=== PATIENT | male | born 1945 | race Caucasian/White ===

== ENCOUNTER → 2016-10-15 | Outpatient (CLI) | payer MEDICARE, OTHER ==
[2016-10-15 16:15] LABS: CH 31.8; CHCM 32.9; HCT 48.5 % (39.0-53.0); HDW 2.22; HGB 15.7 gm/dL (13.0-17.5); MCH 31.4 pg (25.0-35.0); MCHC 32.3 g/dL (31.0-37.0); MCV 97.1 fL (80.0-100.0); Mean Platelet Volume 6.8; RBC 4.99 m/uL (4.30-5.90); RDW 13.3 % (11.5-15.5)
[2016-10-15 16:22] LABS: Anion Gap 12 mmol/L; Blood Urea Nitrogen 17 mg/dL (9-20); Carbon Dioxide 23 mmol/L (22-30); Chloride 108 mmol/L (98-107); Non-African American GFR(MDRD) >60 (>60 ml/min/1.73 sqM); Potassium 4.5 mmol/L (3.5-5.1); Sodium 143 mmol/L (137-145)
== END | disposition home or self-care (01) ==
LOC: LABPAT 15:34
PROVIDERS: ATTEND Internal Medicine Interventional Cardiology
DX: Z01.812 Encounter for preprocedural laboratory examination (principal); I73.9 Peripheral vascular disease, unspecified
CPT/HCPCS: 80051; 82565; 84520; 85027

== ENCOUNTER 2016-11-06 06:10 | Day surgery (SDC) | payer MEDICARE, OTHER ==
[2016-11-05 13:53] VITALS: BMI 23.1
[~2016-11-06 06:10] MED LIST: SODIUM CHLORIDE 0.9% 1,000 ML in EMPTY BAG 1 BAG IV ONE
[2016-11-06 07:22] VITALS: RESP 16; TEMP 97.7
[2016-11-06] MEDS ORDERED: LIDOCAINE 2% INJ 20 MG/ML SQ ONE (07:45)
[2016-11-06] MEDS ORDERED: MIDAZOLAM 2 MG/2 ML VIAL IVP ONE (07:46)
[2016-11-06] MEDS ORDERED: IODIXANOL 320 MG/ML 100 ML INTRAARTER ONE (07:58)
[2016-11-06] MEDS ORDERED: SODIUM CHLORIDE 0.9% 1,000 ML IV SCH (08:15)
--- NOTE | 2016-11-06 09:00 | PTCA ---
DATE OF SERVICE: 11/06/2016 PERFORMING PHYSICIAN: Russell Navarro MD, Caddie. PROCEDURE PERFORMED: 1. An abdominal aortogram. 2. Bilateral lower extremity runoff. 3. Selective left common femoral artery angiogram. INDICATIONS: This is a pleasant 71-year-old gentleman who sees Dr. Munoz as an outpatient with a known history of severe peripheral arterial disease with prior stenting of the right common and right external as well as left external iliac artery as well as known severe disease involving bilateral SFA, came in today was experiencing severe bilateral lower extremity discomfort consistent with intermittent claudications. He is almost experiencing resting pain and evidence of CLI. APPROACH: Left common femoral artery. COMPLICATIONS: None. LEVEL OF SEDATION: Moderate. PROCEDURE DESCRIPTION: After obtaining an informed consent, the patient was brought to the Cardiac Skilled Helper. The left common femoral artery was cannulated using micropuncture technique under ultrasound guidance. The micropuncture wire passed easily, then I placed a 4 Lithuanian sheath in the left common femoral artery. Subsequently, I did an abdominal aortogram and bilateral lower extremity runoff using 4 Lithuanian pigtail catheter which was initially placed at the level of the renal arteries, then it was pulled above the bifurcation of the aorta into right and left common iliac arteries. By the end of the procedure, I did selective left common femoral artery through the sheath. SELECTIVE PERIPHERAL ANGIOGRAM: 1. The abdominal aorta is heavy calcified. There is a plaque in the distal aorta just above the bifurcation, seems to be in the range of 50% to 60%. 2. COMMON ILIAC ARTERIES: The right and left common iliac arteries appear to have mild disease only. The right common iliac artery is stented and the stent is patent. 3. EXTERNAL ILIAC ARTERIES: The right external iliac artery appeared to have severe in-stent restenosis involving the whole stent. The left common iliac artery appeared also severe in-stent restenosis on a focal area just after the bifurcation. 4. COMMON FEMORAL ARTERIES: The right and left common femoral arteries appear to have moderate diffuse disease. 5. PROFUNDA: The right and left profunda are patent. 6. SFA: The right SFA has critical lesion, appeared to be in the range of 80% to 90% on long segment. The left SFA is occluded with an area of occlusion extends from the proximal portion and reconstitutes by the David canal. 7. POPLITEAL: The right and left popliteal appeared to be angiographically normal. 8. BELOW THE KNEE: There are 3-vessel runoff below the knee bilaterally. CONCLUSION: 1. Calcified peripheral arterial system. 2. Intermediate disease involving the distal abdominal aorta just above the bifurcation. 3. Patent stent in the right common iliac artery. 4. Severe in-stent restenosis involving bilateral external iliac arteries. 5. Severe bilateral SFA disease with critical right SFA and occluded left SFA. 6. Three-vessel runoff below the knee bilaterally. POSTPROCEDURE MANAGEMENT: 1. Addressing the disease in the aorta by doing gradient measurement across it. 2. Stenting of bilateral external iliac arteries. 3. Follow up with the patient.
--- NOTE | 2016-11-06 11:53 | IR ---
EXAMINATION TYPE: IR angio abdominal w runoff DATE OF EXAM: 11/06/2016 8:18 AM COMPARISON: NONE HISTORY: Peripheral vascular occlusive disease. Fluoroscopy was applied to the referring clinician. See dictated report from cardiology.
[2016-11-06 13:38] VITALS: BP 122/67; PULSE 74
== END 2016-11-06 13:10 | disposition home or self-care (01) ==
LOC: CATHCVL 06:10
PROVIDERS: ATTEND Internal Medicine Interventional Cardiology
DX: I70.213 Atherosclerosis of native arteries of extremities with intermittent claudication, bilateral legs (principal); T82.856A Stenosis of peripheral vascular stent, initial encounter; F17.210 Nicotine dependence, cigarettes, uncomplicated; I25.10 Atherosclerotic heart disease of native coronary artery without angina pectoris; I70.0 Atherosclerosis of aorta; E78.5 Hyperlipidemia, unspecified; I10 Essential (primary) hypertension; Z95.1 Presence of aortocoronary bypass graft; I25.2 Old myocardial infarction; Z79.82 Long term (current) use of aspirin; Z79.899 Other long term (current) drug therapy; Z79.02 Long term (current) use of antithrombotics/antiplatelets; Y71.3 Surgical instruments, materials and cardiovascular devices (including sutures) associated with adverse incidents
CPT/HCPCS: 99156; 36200; 75625; 75716; C1769 ×3; C1894; J2001; J2250; Q9967

== ENCOUNTER 2016-11-20 08:59 | Day surgery (SDC) | payer MEDICARE, OTHER ==
[2016-11-19 12:55] VITALS: BMI 22.7
[2016-11-20 10:13] LABS: Anion Gap 9 mmol/L; Blood Urea Nitrogen 14 mg/dL (9-20); Calcium 9.4 mg/dL (8.4-10.2); Carbon Dioxide 28 mmol/L (22-30); Chloride 105 mmol/L (98-107); Glucose 83 mg/dL (74-99); Non-African American GFR(MDRD) >60 (>60 ml/min/1.73 sqM); Potassium 4.7 mmol/L (3.5-5.1); Sodium 142 mmol/L (137-145)
[2016-11-20] MEDS ORDERED: MIDAZOLAM 2 MG/2 ML VIAL IVP ONE ×2 (11:25)
[2016-11-20] MEDS ORDERED: SODIUM CHLORIDE 0.9% 1,000 ML IV ONE (11:26)
[2016-11-20] MEDS ORDERED: LIDOCAINE 2% INJ 20 MG/ML SQ ONE (11:30)
[2016-11-20] MEDS: HYDROmorphone 2 MG/ML 1 ML SYRINGE IV ONE ×4 (11:32→13:17)
[2016-11-20] MEDS ORDERED: CLOPIDOGREL 75 MG TAB PO ONE (11:47)
[2016-11-20] MEDS ORDERED: NITROGLYCERIN 1000MCG/10ML SYRINGE INTRAARTER ONE (12:15)
[2016-11-20] MEDS ORDERED: HEPARIN SODIUM 1,000 UNIT/ML VIAL IV ONE (12:30)
[2016-11-20] MEDS ORDERED: IODIXANOL 320 MG/ML 100 ML INTRAARTER ONE (13:17)
[2016-11-20] MEDS ORDERED: ZOLPIDEM 5 MG TAB PO PRN (13:22)
[2016-11-20] MEDS ORDERED: RX INFO: IV CONTRAST WAS GIVEN 1 EACH MISC MISCELLANE PRN (13:22)
[2016-11-20] MEDS ORDERED: NITROGLYCERIN SL TABS 0.4 MG TAB SUBLINGUAL PRN (13:22)
[2016-11-20] MEDS ORDERED: ATROPINE SULFATE 0.1 MG/ML 10ML SYRINGE IV PRN (13:22)
[2016-11-20] MEDS ORDERED: MAG HYDROX/AL HYDROX/SIMETH 30 ML CUP PO PRN (13:22)
[2016-11-20] MEDS ORDERED: SODIUM CHLORIDE 0.9% 1,000 ML IV SCH (13:30)
--- NOTE | 2016-11-20 13:45 | IR ---
EXAMINATION TYPE: IR stent intravas non coronary DATE OF EXAM: 11/20/2016 1:40 PM COMPARISON: NONE HISTORY: Peripheral vascular occlusive disease. Fluoroscopy was applied to the referring clinician. See dictated report from cardiology.
[2016-11-20] MEDS: METOPROLOL TARTRATE 25 MG TAB PO SCH (20:56)
[2016-11-21 07:25] LABS: Non-African American GFR(MDRD) >60 (>60 ml/min/1.73 sqM)
[2016-11-21 07:50] VITALS: RESP 16
--- NOTE | 2016-11-21 08:12 | LTR ---
November 20, 2016 RE: Koko Price Dear Shirley; Mr. Koko Price underwent successful stenting of the right and left external iliac arteries with a good angiographic result and without any completion. I want to thank you for allowing me to participate in his care and please do not hesitate to call if you have any questions or concerns. Sincerely, COOPER ASH MD
--- NOTE | 2016-11-21 08:21 | PCN ---
DATE OF PROCEDURE: 11/20/2016 PERCUTANEOUS PERIPHERAL INTERVENTION PERFORMING PHYSICIAN: Russell Navarro MD, voice coach. PROCEDURE PERFORMED: 1. Selective right common femoral artery angiogram. 2. Successful atherectomy of the right common femoral artery. 3. Successful balloon angioplasty of the right common femoral artery. 4. Selective right external iliac artery angiogram. 5. Successful stenting of the right external iliac artery using 6.0 x 60 balloon expandable stent with good angiographic results. 6. Selective left external iliac artery angiogram. 7. Successful stenting of left external iliac artery using 6.0 x 29 mm iCAST balloon expandable stent with good angiographic results. 8. Selective left common femoral artery angiogram. 9. Gradient measurement across the aorta. 10. Intravascular ultrasound, IVUS, of the right external iliac artery. INDICATION: This is a pleasant 71-year-old gentleman who sees Dr. Munoz as an outpatient who is known to have peripheral arterial disease, who underwent in the past stenting of the right common and right external and left external iliac artery continued to have severe bilateral lower extremity discomfort consistent with claudication. He underwent a peripheral angiogram a few weeks ago and that showed severe in-stent restenosis involving the right external iliac artery and severe de atul disease involving the right common femoral artery as well as severe de atul disease involving the left external iliac artery. APPROACH: Left common femoral artery. COMPLICATIONS: None. LEVEL OF SEDATION: Moderate with sedation length of about 2 hours. PROCEDURE DESCRIPTION: After obtaining an informed consent, the patient was brought to the cardiac lab specialist. The left common femoral artery was cannulated using micropuncture technique. The micropuncture wire passed easily, then I placed a 6 Slovak sheath in the left common femoral artery. Subsequently, I did advance an 0.035 advantage wire into the thoracic aorta. Then I did gradient measurement across the distal abdominal aorta for a lesion seems to be intermediate and the gradient came in to be nonischemic. After that anticoagulation was initiated using heparin and the patient was given a weight-based heparin with additional 3000 units of heparin during the procedure. Subsequently, I did select the right SFA using 5-Slovak rim catheter with 0.035 advantage wire. After that, I did exchange my 11 cm 6-Slovak sheath into 70 cm 6-Slovak sheath over the advantage wire. The tip of the sheath was positioned in the right external iliac artery. After that, I did atherectomy of the right common femoral artery using the TurboHawk device. Subsequently, I did balloon angioplasty using initially 6.0 AngioSculpt balloon. Then 6.0 drug-coated balloon. The following angiogram showed an excellent angiographic results. After that, I did selective right external iliac artery angiogram. Then I did intravascular ultrasound, IVUS, of the right external iliac artery for better measurement. At that point, I did balloon angioplasty of the right external iliac artery using initially 6.0 mm balloon then I deployed 6.0 x 60 mm balloon expandable stent. The following angiogram showed an excellent angiographic result. For the lesion in the left external iliac artery, I did pull my long sheath across the lesion and proximal to the lesion. Then I did selective left external iliac artery angiogram. After that, I did direct stenting of the lesion using 6.0 x 29 mm iCAST covered stent, where the stent was positioned under fluoroscopy guidance then it was deployed under its nominal pressure. The following angiogram showed excellent angiographic results. After that, I did exchange my long 70 cm sheath into short 6-Slovak 11 cm sheath over the advantage wire. I did selective left external iliac artery angiogram which showed possible non- flow-limiting dissection involving that area, which seems to be hazy and calcified. I did after that downgrade my sheath into an 11 cm 5-Slovak sheath. The procedure was completed at that point. POSTPROCEDURE MANAGEMENT: 1. Dual antiplatelet therapy. 2. Standard groin care. 3. Pull the sheath when the ACT below 175. 4. Follow up with the patient.
[2016-11-21] MEDS ORDERED: CLOPIDOGREL 75 MG TAB PO SCH (09:00)
[2016-11-21] MEDS ORDERED: ATORVASTATIN PO SCH (09:00)
[2016-11-21] MEDS ORDERED: ASPIRIN 81 MG CHEW PO SCH (09:00)
[2016-11-21] MEDS ORDERED: ALPRAZolam 0.25 MG TAB PO SCH (09:00)
[2016-11-21] MEDS: METOPROLOL TARTRATE 25 MG TAB PO SCH (09:17)
[2016-11-21 11:36] VITALS: BP 106/65; TEMP 98.6
[2016-11-21 14:26] VITALS: PULSE 78
--- NOTE | 2016-11-22 13:20 | DS ---
DATE OF ADMISSION: 11/20/2016 DATE OF DISCHARGE: 11/21/2016 BRIEF HISTORY: This is a pleasant 71-year-old gentleman who was admitted to the hospital yesterday and underwent successful balloon angioplasty of the right femoral artery along with successful stenting of the right and left external iliac arteries with good angiographic result and without any complication. The procedure was performed from the left groin, which seems to be soft and nontender and without any bruises. The patient is going to be discharged home on dual antiplatelet therapy and I will follow up with the patient in the office.
== END 2016-11-21 16:33 | disposition home or self-care (01) ==
LOC: CATHCVL 08:59 → 6SEL 13:07 → CATHCVL 11-21 16:33
PROVIDERS: ATTEND Internal Medicine Interventional Cardiology
DX: I70.213 Atherosclerosis of native arteries of extremities with intermittent claudication, bilateral legs (principal); I25.10 Atherosclerotic heart disease of native coronary artery without angina pectoris; I10 Essential (primary) hypertension; E78.5 Hyperlipidemia, unspecified; I25.2 Old myocardial infarction; Z95.1 Presence of aortocoronary bypass graft; Z72.0 Tobacco use; Z79.82 Long term (current) use of aspirin; Z79.899 Other long term (current) drug therapy
CPT/HCPCS: 37221 ×2; 94760; 37225; 37252; 80048; 82565; 99152; 99153 ×6; C1894 ×3; C1769 ×6; C1725 ×2; C1874; C1876; C1714; C1753; C2623; J2001; J2250; J1170; Q9967; J1644 ×2

== ENCOUNTER → 2017-05-31 | Outpatient (CLI) | payer MEDICARE, OTHER ==
[2017-05-31 12:08] LABS: CH 33.3; CHCM 32.8; HCT 49.4 % (39.0-53.0); HDW 2.14; HGB 15.8 gm/dL (13.0-17.5); MCH 32.6 pg (25.0-35.0); MCHC 31.9 g/dL (31.0-37.0); MCV 102.1 fL (80.0-100.0); Macrocytosis Slight; Mean Platelet Volume 7.5; RBC 4.84 m/uL (4.30-5.90); RDW 14.8 % (11.5-15.5); WBC 10.7 k/uL (3.8-10.6)
[2017-05-31 12:51] LABS: Creatine Kinase MB 1.7 ng/mL (0.0-2.4)
[2017-05-31 12:53] LABS: ALT 33 U/L (21-72); AST 25 U/L (17-59); Alkaline Phosphatase 101 U/L (38-126); Anion Gap 9 mmol/L; Blood Urea Nitrogen 13 mg/dL (9-20); Calcium 9.2 mg/dL (8.4-10.2); Carbon Dioxide 25 mmol/L (22-30); Chloride 105 mmol/L (98-107); Glucose 81 mg/dL (74-99); Non-African American GFR(MDRD) >60 (>60 ml/min/1.73 sqM); Potassium 4.8 mmol/L (3.5-5.1); Sodium 139 mmol/L (137-145); Total Bilirubin 0.7 mg/dL (0.2-1.3); Total Protein 6.9 g/dL (6.3-8.2)
[2017-05-31 15:02] LABS: Troponin I <0.012 ng/mL (0.000-0.034)
== END | disposition home or self-care (01) ==
LOC: LABWHC1 11:39
PROVIDERS: ATTEND Family Medicine
DX: I25.10 Atherosclerotic heart disease of native coronary artery without angina pectoris (principal); I48.91 Unspecified atrial fibrillation; R07.9 Chest pain, unspecified; M54.9 Dorsalgia, unspecified; Z95.1 Presence of aortocoronary bypass graft
CPT/HCPCS: 36415; 80053; 82553; 84484; 85027

== ENCOUNTER → 2018-05-27 | Outpatient (CLI) | payer MEDICARE, OTHER ==
[2018-05-27 10:20] LABS: HCT 51.4 % (39.0-53.0); HGB 16.2 gm/dL (13.0-17.5); MCH 31.8 pg (25.0-35.0); MCHC 31.6 g/dL (31.0-37.0); MCV 100.7 fL (80.0-100.0); Macrocytosis Slight; Mean Platelet Volume 6.8; Platelet Count 247 k/uL (150-450); RDW 13.5 % (11.5-15.5); WBC 10.6 k/uL (3.8-10.6)
[2018-05-27 11:16] LABS: Anion Gap 8 mmol/L; Blood Urea Nitrogen 17 mg/dL (9-20); Carbon Dioxide 25 mmol/L (22-30); Chloride 105 mmol/L (98-107); Potassium 5.3 mmol/L (3.5-5.1); Sodium 138 mmol/L (137-145)
== END ==
LOC: LABPAT 09:32
PROVIDERS: ATTEND Internal Medicine Interventional Cardiology
DX: Z01.812 Encounter for preprocedural laboratory examination (principal); I10 Essential (primary) hypertension; E78.1 Pure hyperglyceridemia; I70.213 Atherosclerosis of native arteries of extremities with intermittent claudication, bilateral legs
CPT/HCPCS: 80051; 82565; 84520; 85027

== ENCOUNTER 2018-06-10 07:51 | Day surgery (SDC) | payer MEDICARE, OTHER ==
[2018-06-09 08:34] VITALS: BMI 22.7
[~2018-06-10 07:51] MED LIST changes: +ALPRAZolam 0.25 MG TAB PO PRN
[2018-06-10 08:34] VITALS: RESP 16; TEMP 97.6
[2018-06-10] MEDS ORDERED: SODIUM CHLORIDE 0.9% 1,000 ML IV ONE (08:35)
[2018-06-10] MEDS ORDERED: MIDAZOLAM 2 MG/2 ML VIAL IV ONE (09:03)
[2018-06-10] MEDS ORDERED: LIDOCAINE 1% INJ 10MG/ML (20 ML MDV) SQ ONE (09:03)
[2018-06-10] MEDS ORDERED: IOPAMIDOL-250 50ML BTL INTRAARTER ONE (09:21)
[2018-06-10] MEDS ORDERED: IOPAMIDOL-250 100ML BTL INTRAARTER ONE (09:21)
[2018-06-10] MEDS ORDERED: SODIUM CHLORIDE 0.9% 1,000 ML IV SCH (09:30)
[2018-06-10] MEDS: ACETAMINOPHEN TAB 325 MG TAB PO PRN ×2 (09:57→13:29)
--- NOTE | 2018-06-10 10:49 | IR ---
EXAMINATION TYPE: IR angio abdominal w runoff DATE OF EXAM: 06/10/2018 COMPARISON: NONE HISTORY: Peripheral vascular occlusive disease. Fluoroscopy was provided to the referring clinician. See dictated report from cardiology.
--- NOTE | 2018-06-10 11:13 | LTR ---
June 10, 2018 Re: Koko Price Dear Dr. Kaiser: Mr. Koko Price underwent a peripheral angiogram today and that revealed critical disease involving the right superficial femoral artery and occluded left superficial femoral artery. He will be scheduled to undergo a TIRE CARE MANAGER of both arteries. Please note that the previous iliac stentings from 2016 are patent. Thank you again for allowing me to participate in his care and please do not hesitate to call if you have any question or concern. Sincerely, Russell Navarro MD MMBRIANDA / DAISYN: [id number] /
--- NOTE | 2018-06-10 11:40 | AN ---
ANGIOGRAPHY REPORT PERIPHERAL ANGIOGRAM: DATE OF SERVICE: June 10, 2018. PERFORMING PHYSICIAN: Russell Navarro MD, record clerk. PROCEDURE PERFORMED: 1. An abdominal aortogram. 2. Bilateral lower extremity runoff. 3. Gradient measurement across the right common iliac artery. INDICATION: This is a pleasant 72-year-old gentleman with a past medical history significant for peripheral arterial disease and prior stenting of bilateral iliacs, who was experiencing bilateral lower extremities intermittent claudication, worse on the left side. He was seen in the office and schedule to undergo an abdominal aortogram and bilateral lower extremities runoff. COMPLICATION: None. LEVEL OF SEDATION: Moderate with sedation length of 17 minutes. PROCEDURE DESCRIPTION: After obtaining an informed consent, the patient was brought to the cardiac laborer wood preserving plant. right common femoral artery was cannulated using micropuncture technique, the micropuncture wire passed easily then I placed a 5-Panamanian sheath in the right common femoral artery. After that, I did an abdominal aortogram and bilateral lower extremity runoff using 5- Panamanian pigtail catheter which was initially placed at the level of the renal arteries then it was pulled into above the bifurcation of the aorta to right and left common iliac arteries. The procedure was completed without any complication. Before I completed the procedure, I did a gradient measurement across the right common iliac artery. SELECTIVE PERIPHERAL ANGIOGRAM: 1. The aorta appeared to be heavily calcified with mild to moderate nonobstructive disease involving the distal aorta just above the bifurcation into the right and left common iliac arteries. 2. Common iliac arteries: The right and left common iliac arteries are stented and the stent is patent. 3. External iliac arteries: The right and left external iliac arteries are stented and the stent is patent. There was an area at the junction between the stent in the right common iliac artery and right external iliac artery appeared to be diseased in the range of 50%, but the gradient across it came into be non-significant and only 10 mmHg. 4. Common femoral arteries: The right common femoral artery appeared to have mild disease only and the left common femoral artery appeared to have mild to moderate disease only. 5. Profunda: The right and left profunda are patent. 6. SFA: The right SFA is severely/critically diseased in the midportion. The left SFA is occluded with an area of occlusion extent from the proximal portion and reconstitutes by the popliteal. 7. The right and left popliteal are patent. 8. Below the knee: The arteries below the knee are poorly visualized and we will do selective picture once we bring the patient back for intervention. CONCLUSION: 1. 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 2. Patent stents in both common and external iliac arteries bilaterally. 3. Critical disease involving the right SFA. 4. Occluded left SFA in the midportion. 5. Poorly visualized arteries below the knee. POSTPROCEDURE MANAGEMENT: 1. Atherectomy and MANAGER INTERNAL of the right SFA and subsequently the left SFA on 2 separate sessions. 2. Follow up with the patient. MMODL / IJN: [id number] /
[2018-06-10 15:37] VITALS: PULSE 69
[2018-06-10 15:39] VITALS: BP 139/70
== END 2018-06-10 15:23 | disposition home or self-care (01) ==
LOC: CATHCVL 07:51
PROVIDERS: ATTEND Internal Medicine Interventional Cardiology
DX: I70.213 Atherosclerosis of native arteries of extremities with intermittent claudication, bilateral legs (principal); I25.10 Atherosclerotic heart disease of native coronary artery without angina pectoris; I48.0 Paroxysmal atrial fibrillation; I25.2 Old myocardial infarction; Z95.1 Presence of aortocoronary bypass graft; F17.210 Nicotine dependence, cigarettes, uncomplicated; Z79.02 Long term (current) use of antithrombotics/antiplatelets; Z79.82 Long term (current) use of aspirin; Z79.899 Other long term (current) drug therapy; Z95.820 Peripheral vascular angioplasty status with implants and grafts
CPT/HCPCS: 36200; 75625; 75716; C1894; C1769 ×4; J2250; J2001; Q9966 ×2

== ENCOUNTER → 2018-06-16 | Outpatient (CLI) | payer MEDICARE, OTHER ==
[2018-06-16 16:02] LABS: Albumin 3.9 g/dL (3.5-5.0); Bilirubin, Delta 0.2 mg/dL (0.0-0.2); Bilirubin,Unconjugated 0.4 mg/dL (0.0-1.1); Total Bilirubin 0.6 mg/dL (0.2-1.3); Total Protein 6.5 g/dL (6.3-8.2)
== END | disposition home or self-care (01) ==
LOC: LABWHC1 15:15
PROVIDERS: ATTEND Internal Medicine Cardiovascular Disease
DX: I25.10 Atherosclerotic heart disease of native coronary artery without angina pectoris (principal); E78.5 Hyperlipidemia, unspecified
CPT/HCPCS: 36415; 80061; 80076

== ENCOUNTER → 2018-07-14 | Outpatient (CLI) | payer MEDICARE, OTHER ==
[2018-07-14 15:19] LABS: HCT 48.3 % (39.0-53.0); HGB 15.9 gm/dL (13.0-17.5); MCH 32.5 pg (25.0-35.0); MCV 98.7 fL (80.0-100.0); Mean Platelet Volume 7.3; Platelet Count 228 k/uL (150-450); RBC 4.89 m/uL (4.30-5.90); RDW 13.2 % (11.5-15.5); WBC 9.8 k/uL (3.8-10.6)
[2018-07-14 15:27] LABS: Anion Gap 7 mmol/L; Blood Urea Nitrogen 16 mg/dL (9-20); Carbon Dioxide 28 mmol/L (22-30); Chloride 107 mmol/L (98-107); Potassium 4.4 mmol/L (3.5-5.1); Sodium 142 mmol/L (137-145)
== END | disposition home or self-care (01) ==
LOC: LABPAT 14:51
PROVIDERS: ATTEND Internal Medicine Interventional Cardiology
DX: Z01.812 Encounter for preprocedural laboratory examination (principal); I70.213 Atherosclerosis of native arteries of extremities with intermittent claudication, bilateral legs
CPT/HCPCS: 36415; 80051; 82565; 84520; 85027

== ENCOUNTER 2018-07-22 10:37 | Day surgery (SDC) | payer MEDICARE, OTHER ==
[2018-07-20 08:27] VITALS: BMI 22.7
[2018-07-22] MEDS ORDERED: SODIUM CHLORIDE 0.9% 1,000 ML IV ONE (11:31)
[2018-07-22] MEDS ORDERED: LIDOCAINE 1% INJ 10MG/ML (20 ML MDV) SQ ONE (14:14)
[2018-07-22] MEDS ORDERED: fentaNYL (PF) 50 MCG/ML 2 ML AMP IVP ONE ×2 (14:20→15:05)
[2018-07-22] MEDS ORDERED: MIDAZOLAM 2 MG/2 ML VIAL IVP ONE (14:20)
[2018-07-22] MEDS ORDERED: HEPARIN SODIUM 1,000 UN/ML (10ML VL) IV ONE (14:24)
[2018-07-22] MEDS ORDERED: CLOPIDOGREL 75 MG TAB PO ONE (15:27)
[2018-07-22] MEDS ORDERED: IOPAMIDOL-250 100ML BTL INTRAARTER ONE (15:30)
[2018-07-22] MEDS ORDERED: SODIUM CHLORIDE 0.9% 1,000 ML IV SCH (15:45)
--- NOTE | 2018-07-22 15:59 | IR ---
Fluoroscopy HISTORY: Peripheral vascular occlusive disease 20.8 minutes fluoroscopy time supplied to the referring clinician. 653 intraoperative C-arm images d ocument the procedure. See dictated report from cardiology.
[2018-07-22] MEDS ORDERED: HYDROmorphone 1 MG/ML 1 ML SYRINGE IVP STA (16:24)
[2018-07-22] MEDS ORDERED: hydrALAZINE HCL 20 MG/ML 1 ML VIAL IVP STA (16:25)
[2018-07-22] MEDS ORDERED: HYDROmorphone 1 MG/ML 1 ML SYRINGE ONE (16:27)
--- NOTE | 2018-07-22 20:41 | LTR ---
July 22, 2018 To: Dr. Kaiser Re: Koko Price (47) Dear Dr. Kaiser, Mr. Koko Price underwent successful balloon angioplasty of the right femoral artery with good angiographic results and without any complication. Thank you for allowing me to participate in his care and please do not hesitate to call if you have any question or concern. Sincerely, Russell Navarro MD MMODL / IJN: [id number] /
[2018-07-22 21:13] LABS: Basophils % (A) 0 %; Eosinophils # (A) 0.1 k/uL (0-0.7); Eosinophils % (A) 1 %; HCT 43.5 % (39.0-53.0); HGB 14.2 gm/dL (13.0-17.5); Lymphocytes # (A) 2.2 k/uL (1.0-4.8); Lymphocytes % (A) 19 %; MCH 32.6 pg (25.0-35.0); MCHC 32.7 g/dL (31.0-37.0); MCV 99.8 fL (80.0-100.0); Mean Platelet Volume 7.1; Monocytes # (A) 0.6 k/uL (0-1.0); Monocytes % (A) 5 %; Neutrophils # (A) 8.6 k/uL (1.3-7.7); Neutrophils % (A) 74 %; Platelet Count 209 k/uL (150-450); RBC 4.36 m/uL (4.30-5.90); RDW 13.5 % (11.5-15.5); WBC 11.7 k/uL (3.8-10.6)
[2018-07-22 21:22] LABS: Anion Gap 4 mmol/L; Blood Urea Nitrogen 11 mg/dL (9-20); Carbon Dioxide 26 mmol/L (22-30); Chloride 108 mmol/L (98-107); Glucose 75 mg/dL (74-99); Potassium 4.5 mmol/L (3.5-5.1); Sodium 138 mmol/L (137-145)
[2018-07-22] MEDS: ALPRAZolam 0.25 MG TAB PO SCH (21:29)
[2018-07-22] MEDS: METOPROLOL TARTRATE 25 MG TAB PO SCH (21:29)
[2018-07-23] MEDS: AMOXICILLIN 500 MG CAP PO SCH ×2 (00:14→08:47)
--- NOTE | 2018-07-23 07:36 | AN ---
ANGIOGRAPHY REPORT DATE OF SERVICE: July 22, 2018 PERFORMING PHYSICIAN: Russell Navarro MD, value stream coach. PROCEDURE PERFORMED: 1. Selective right [id number] angiogram. 2. Selective right popliteal SFA angiogram. 3. Selective left common femoral artery angiogram. 4. Atherectomy of the right SFA using the orbital atherectomy device from [employer]. 5. Balloon angioplasty of the right SFA with inadequate angiographic results and flow- limiting dissection. 6. Successful stenting of the right SFA using 6 6.0 x 140 and 6.0 x 140 Zilver PTX drug-coated stent with good angiographic results and reduction of stenosis from 99% to 0%. INDICATION: This is a pleasant 72-year-old gentleman with known history of peripheral arterial disease and prior bilateral iliac stenting, who was experiencing bilateral lower extremities intermittent claudication interfering with his daily activities. He underwent a peripheral angiogram a few weeks ago and that showed critical right SFA disease and occluded left SFA. Because of that, CTA of the right SFA was advised. APPROACH: Left common femoral artery. COMPLICATION: None. LEVEL OF SEDATION: Moderate, sedation length of 72 minutes. PROCEDURE DESCRIPTION: After obtaining an informed consent, the patient was brought to cardiac director geophysical laboratory. The left common femoral artery was cannulated using micropuncture technique and a micropuncture wire passed easily, then I placed an 11 cm 6-Finnish sheath in the left common femoral artery. After that I did select the right SFA using 0.035 Dutton Advantage with the backup support of 5-Finnish rim catheter. The 035 guide Advantage was advanced all the way to the right popliteal. At that point, anticoagulation was initiated using heparin and the patient was given 8 thousand units of heparin IV. I did after that exchange my 11 cm 6-Finnish sheath into 70 cm 6-Finnish sheath using a 035 guide Advantage. The sheath was positioned in the proximal right SFA. After that, I did exchange my .035 Dutton Advantage into 0.014 ViperWire preparing for atherectomy using an 0.035 CXI catheter. After that I did atherectomy of the right SFA using the orbital atherectomy device from [email or web address]. After that I did balloon angioplasty using 4 mm balloon with the following angiogram showing dissection involving the whole mid segment of the right SFA. Because of that, I decided to cover that with a stent. I deployed 2 Zilver PTX stent. The first stent was 6 x 140 and the second stent was over 6 x 140. There was about 1 mm overlap between the 2 stents. After that, I post dilated the stent using the 6 mm balloon. The following angiogram showed excellent angiographic results. The procedure was completed without any complication. After that I did exchange my long sheath into short sheath using .035 Dutton Advantage. Selective left common femoral artery angiogram was performed by the end. POSTPROCEDURE MANAGEMENT: 1. Dual anti-platelet therapy. 2. Risk factor modifications. 3. Follow up with the patient. MMODL / IJN: [id number] /
[2018-07-23] MEDS: ALPRAZolam 0.25 MG TAB PO SCH (08:47)
[2018-07-23] MEDS: METOPROLOL TARTRATE 25 MG TAB PO SCH (08:48)
[2018-07-23] MEDS ORDERED: ASPIRIN 81 MG PO SCH (09:00)
[2018-07-23] MEDS ORDERED: CLOPIDOGREL 75 MG TAB PO SCH (09:00)
[2018-07-23] MEDS ORDERED: ATORVASTATIN 40 MG TAB PO SCH (09:00)
[2018-07-23 09:14] VITALS: BP 123/64; PULSE 62; RESP 18; TEMP 98
--- NOTE | 2018-07-23 11:45 | DS ---
DISCHARGE SUMMARY ADMISSION DATE: July 22, 2018 DATE OF DISCHARGE: July 23, 2018 BRIEF HISTORY: This is a pleasant 72-year-old gentleman who was admitted to the hospital yesterday and underwent successful atherectomy and balloon angioplasty of the right SFA with good angiographic results and without any complication with the procedure was performed from the left groin. The left groin is soft and nontender and without any bruises. The patient is going to be discharged home on dual anti-platelet therapy and I will follow up in the office in a week. MMODL / IJN: [id number] /
[2018-07-23] MEDS ORDERED: RIVAROXABAN 15 MG TAB PO SCH (17:30)
== END 2018-07-23 09:45 | disposition home or self-care (01) ==
LOC: CATHCVL 10:37 → 3SCARD 15:25 → CATHCVL 07-23 09:45
PROVIDERS: ATTEND Internal Medicine Interventional Cardiology
DX: I70.213 Atherosclerosis of native arteries of extremities with intermittent claudication, bilateral legs (principal); F17.290 Nicotine dependence, other tobacco product, uncomplicated; I25.10 Atherosclerotic heart disease of native coronary artery without angina pectoris; I10 Essential (primary) hypertension; I65.22 Occlusion and stenosis of left carotid artery; E78.5 Hyperlipidemia, unspecified; Z95.1 Presence of aortocoronary bypass graft; Z95.5 Presence of coronary angioplasty implant and graft; I48.0 Paroxysmal atrial fibrillation; I25.2 Old myocardial infarction; Z79.82 Long term (current) use of aspirin; Z79.899 Other long term (current) drug therapy
CPT/HCPCS: 37227; 80048; 82565; 85025; C1894 ×2; C1714; C1769 ×6; C1725 ×4; C1887; C1874; J2250; J0360; J2001; J3010; J1644; J1170; Q9966

== ENCOUNTER → 2018-11-11 | Outpatient (CLI) | payer MEDICARE, OTHER ==
[2018-11-11 09:38] LABS: HGB 14.3 gm/dL (13.0-17.5); MCHC 32.5 g/dL (31.0-37.0); MCV 98.4 fL (80.0-100.0); Mean Platelet Volume 7.1; Platelet Count 222 k/uL (150-450); RBC 4.47 m/uL (4.30-5.90); RDW 12.9 % (11.5-15.5); WBC 7.9 k/uL (3.8-10.6)
[2018-11-11 10:03] LABS: Anion Gap 6 mmol/L; Blood Urea Nitrogen 18 mg/dL (9-20); Carbon Dioxide 26 mmol/L (22-30); Chloride 106 mmol/L (98-107); Potassium 4.7 mmol/L (3.5-5.1); Sodium 138 mmol/L (137-145)
== END ==
LOC: LABPAT 09:05
PROVIDERS: ATTEND Internal Medicine Interventional Cardiology
DX: Z01.812 Encounter for preprocedural laboratory examination (principal); I70.213 Atherosclerosis of native arteries of extremities with intermittent claudication, bilateral legs; I10 Essential (primary) hypertension; E78.1 Pure hyperglyceridemia
CPT/HCPCS: 36415; 80051; 82565; 84520; 85027

== ENCOUNTER 2018-11-25 06:06 | Day surgery (SDC) | payer MEDICARE, OTHER ==
[~2018-11-25 06:06] MED LIST changes: -ALPRAZolam 0.25 MG TAB PO PRN
[2018-11-25 07:08] LABS: Basophils % (A) 0 %; Eosinophils # (A) 0.3 k/uL (0-0.7); Eosinophils % (A) 1 %; HCT 45.2 % (39.0-53.0); HGB 14.7 gm/dL (13.0-17.5); Lymphocytes # (A) 2.6 k/uL (1.0-4.8); Lymphocytes % (A) 13 %; MCH 31.4 pg (25.0-35.0); MCHC 32.4 g/dL (31.0-37.0); MCV 96.8 fL (80.0-100.0); Mean Platelet Volume 7.5; Monocytes # (A) 0.9 k/uL (0-1.0); Monocytes % (A) 5 %; Neutrophils # (A) 15.3 k/uL (1.3-7.7); Neutrophils % (A) 79 %; Platelet Count 330 k/uL (150-450); RBC 4.67 m/uL (4.30-5.90); RDW 12.8 % (11.5-15.5); WBC 19.3 k/uL (3.8-10.6)
[2018-11-25] MEDS ORDERED: HEPARIN SODIUM,PORCINE 10,000 UNIT/ML 1 ML VIAL ONE (07:20)
[2018-11-25] MEDS ORDERED: MIDAZOLAM 2 MG/2 ML VIAL ONE (07:20)
[2018-11-25] MEDS ORDERED: fentaNYL (PF) 50 MCG/ML 2 ML AMP ONE (07:20)
[2018-11-25] MEDS ORDERED: PROPOFOL 10 MG/ML 20 ML VIAL IV ONE (07:20)
[2018-11-25 07:45] LABS: Anion Gap 5 mmol/L; Blood Urea Nitrogen 23 mg/dL (9-20); Calcium 9.2 mg/dL (8.4-10.2); Carbon Dioxide 28 mmol/L (22-30); Chloride 106 mmol/L (98-107); Glucose 98 mg/dL (74-99); Potassium 4.4 mmol/L (3.5-5.1); Sodium 139 mmol/L (137-145)
[2018-11-25] MEDS ORDERED: LIDOCAINE 1% INJ 10MG/ML (20 ML MDV) SQ ONE (08:38)
[2018-11-25] MEDS ORDERED: IOPAMIDOL-250 100ML BTL INTRAARTER ONE ×3 (09:35→10:34)
[2018-11-25] MEDS: NITROGLYCERIN 1000MCG/10ML SYRINGE INTRAARTER ONE ×2 (09:58→10:24)
[2018-11-25] MEDS: niCARdipine 25 MG/10 ML VIAL INTRAARTER ONE ×2 (09:58→10:24)
[2018-11-25] MEDS ORDERED: SODIUM CHLORIDE 0.9% 1,000 ML IV SCH (10:45)
[2018-11-25] MEDS ORDERED: CLOPIDOGREL 75 MG TAB PO ONE (10:55)
[2018-11-25 13:49] VITALS: BMI 22.6
--- NOTE | 2018-11-25 16:24 | LTR ---
November 25, 2018 To: Dr. Kaiser Re: Koko Price (1945) Dear Dr. Kaiser, Mr. Koko Price underwent successful balloon angioplasty of the left femoral artery with good angiographic results and without any complications. I want to thank you for allowing us to participate in his care, and please do not hesitate to call if you have any question or concerns. Sincerely, Russell Navarro M.D. YAMIL / CALLY: [id number] /
--- NOTE | 2018-11-25 16:36 | AN ---
ANGIOGRAPHY REPORT DATE OF SERVICE: November 25, 2018 PERFORMING PHYSICIAN: Russell Navarro MD, traffic survey technician. PROCEDURE PERFORMED: 1. Selective left vxbhr-vqm-kime angiogram. 2. Selective left popliteal/SFA angiogram. 3. Selective left common femoral artery angiogram. 4. Selective right common femoral artery angiogram. 5. An atherectomy of the left SFA using the orbital atherectomy device from [employer] with 1.5diamond. 6. Stenting of the distal and mid left SFA using 6 x 140 and 6 x 40 Zilver PTX drug- coated stent with an excellent angiographic result. 7. Successful balloon angioplasty of the proximal left SFA using 6 x 80 drug-coated stent, which was intact with an excellent angiographic results. 8. Successful balloon angioplasty of the left common femoral artery using 6 mm balloon with an excellent angiographic results. INDICATION: This is a 73-year-old gentleman with known history of peripheral arterial disease and known occluded left SFA, who was experiencing left leg intermittent claudication. He underwent a peripheral angiogram a few months ago and that revealed patent stents in both iliac arteries with critical right SFA and occluded left SFA. He was brought today to undergo a SOFTWARE APPLICATIONS ARCHITECT of the left SFA. APPROACH: Right common femoral artery. COMPLICATION: None. LEVEL OF SEDATION: Moderate with sedation length of 12 minutes. PROCEDURE DESCRIPTION: After obtaining an informed consent, the patient was brought to the cardiac director of cath lab. The right common femoral artery was cannulated using micropuncture technique, the micropuncture wire passed easily. Then I placed a 6-Swazi sheath in the 11 cm in the right common femoral artery. Subsequently, I did select the left profunda using 035 [place] Advantage wire with a 5- Swazi Rim catheter. After that, I did exchange my 11 cm 6-Swazi sheath into 55 cm 6- Swazi Raabe sheath using the [place] Advantage wire where the tip of the sheath was positioned in the proximal left common femoral artery. After that I did selective left [id number]-[id number] angiogram, selective left popliteal and SFA angiogram, and selective left common femoral artery angiogram. Subsequently, anticoagulation was initiated using heparin with continuous ACT monitoring throughout the procedure. After that I did cross the chronic total occlusion of the left SFA using 018 hardy tip glidewire with the backup support of 0.018 CXI catheter. After that, I did advance the wire all the way to the left popliteal, followed by the 0.018 CXI catheter. Then I did inject in the left to prove that I was in the true lumen. After that, I decided to do an atherectomy of the left SFA, so I did exchange my 018 wire into 0.014 ViperWire using 018 CXI catheter. After that I did atherectomy of the left SFA using the low, medium, and high speed. After that, I did pulling the atherectomy device over the wire I lost the wire position. I did the following angiogram which showed occluded left femoral artery, which I think related either to plaque lifted or related to thrombus. I crossed that left common femoral artery again using 0.018 gold tip glidewire with the backup support of 0.018 CXI catheter and I crossed the DRYWALL CARRIER of the left SFA again, where the wire was positioned all the way to the left popliteal artery. After that, I did balloon angioplasty of the left common femoral artery using 6 mm balloon with the following angiogram showing excellent angiographic results. Then I did balloon angioplasty of the left SFA as well. Balloon angioplasty was performed using 5 mm balloon. The following angiogram showed dissection in the distal left SFA and mid left SFA which I decided to cover with a stent so I stented distally using 6 x 140 in the mid using a 6 x 40 mm Zilver PTX drug-coated stent with the following angiogram showing excellent angiographic results. For the proximal left SFA, I did balloon angioplasty using 6 x 80 mm drug-coated balloon. The following angiogram showed also good angiographic results. The procedure was completed without any complication. After that I did exchange my long sheath into short sheath using .035 Glidewire. Finally I did selective right common femoral artery angiogram. The procedure was completed without any complication. POSTPROCEDURE MANAGEMENT: 1. Dual anti-platelet therapy. 2. Risk factors modifications. 3. Follow up with the patient. MMODL / IJN: [id number] /
[2018-11-25] MEDS: ACETAMINOPHEN TAB 325 MG TAB PO PRN (18:11)
[2018-11-25] MEDS: METOPROLOL TARTRATE 25 MG TAB PO SCH (20:16)
[2018-11-25] MEDS: ALPRAZolam 0.25 MG TAB PO SCH (20:16)
[2018-11-25] MEDS: ASPIRIN 81 MG PO SCH (20:16)
[2018-11-26] MEDS: ACETAMINOPHEN TAB 325 MG TAB PO PRN (05:22)
[2018-11-26 07:29] LABS: Anion Gap 3 mmol/L; Blood Urea Nitrogen 18 mg/dL (9-20); Calcium 8.2 mg/dL (8.4-10.2); Carbon Dioxide 27 mmol/L (22-30); Chloride 108 mmol/L (98-107); Glucose 75 mg/dL (74-99); Potassium 4.3 mmol/L (3.5-5.1); Sodium 138 mmol/L (137-145)
[2018-11-26 07:37] LABS: Basophils # (A) 0.1 k/uL (0-0.2); Basophils % (A) 0 %; Eosinophils # (A) 0.3 k/uL (0-0.7); Eosinophils % (A) 2 %; HCT 37.2 % (39.0-53.0); HGB 11.8 gm/dL (13.0-17.5); Lymphocytes # (A) 2.8 k/uL (1.0-4.8); Lymphocytes % (A) 17 %; MCH 31.2 pg (25.0-35.0); MCHC 31.7 g/dL (31.0-37.0); MCV 98.4 fL (80.0-100.0); Mean Platelet Volume 7.2; Monocytes # (A) 0.9 k/uL (0-1.0); Monocytes % (A) 5 %; Neutrophils # (A) 12.5 k/uL (1.3-7.7); Neutrophils % (A) 75 %; Platelet Count 298 k/uL (150-450); RBC 3.78 m/uL (4.30-5.90); RDW 13.4 % (11.5-15.5); WBC 16.6 k/uL (3.8-10.6)
--- NOTE | 2018-11-26 07:54 | DS ---
DISCHARGE SUMMARY ADMISSION DATE: November 25, 2018 DISCHARGE DATE: November 26, 2018 BRIEF HISTORY: This is a 73-year-old gentleman who underwent yesterday successful balloon angioplasty of the left femoral artery and left superficial femoral artery with excellent angiographic results and without any complication from procedure that was performed from the right groin. The right groin is soft and nontender and without any bruises. He is going to be discharged home today on anti-platelet along with statin and he needs to have a followup in a week. MMBRIANDA / DAISYN: [id number] /
[2018-11-26] MEDS: METOPROLOL TARTRATE 25 MG TAB PO SCH (08:10)
[2018-11-26] MEDS: ASPIRIN 81 MG PO SCH (08:10)
[2018-11-26] MEDS: ALPRAZolam 0.25 MG TAB PO SCH (08:10)
[2018-11-26 08:17] VITALS: BP 108/59; PULSE 77; RESP 20; TEMP 97.8
[2018-11-26] MEDS ORDERED: ATORVASTATIN 40 MG TAB PO SCH (09:00)
[2018-11-26] MEDS ORDERED: CLOPIDOGREL 75 MG TAB PO SCH (09:00)
--- NOTE | 2018-11-26 10:15 | IR ---
EXAMINATION TYPE: IR stent intravas non coronary DATE OF EXAM: 11/25/2018 COMPARISON: NONE HISTORY: Fluoroscopy time. Fluoroscopy was provided to the referring clinician.
--- NOTE | 2018-12-11 11:41 | CDI ---
Physician Documentation Clarification Request Request Date: 12/11/18 [id number] Koko Price [facility] [place] Navarro, Your procedure note does not support the charge for intravascular ultrasound. We consulted with BETZAIDA Fuller, regarding removing the charge. But he indicated that it was performed and we should request that you do addendum to your procedure note related to the performance of intravascular ultrasound. thank you for your assistance. Amber Velarde [place] [facility]
--- NOTE | 2018-12-18 16:33 | PCN ---
PROCEDURE NOTE ADDENDUM: DATE OF PROCEDURE: November 25, 2018 This is an addendum to procedure that was performed on that day. 1 want to add that intravascular ultrasound IVUS was performed on the left superficial femoral artery. MMBRIANDA / IJN: [id number] /
== END 2018-11-26 09:01 | disposition home or self-care (01) ==
LOC: CATHCVL 06:06 → 3SCARD 11:57 → CATHCVL 11-26 09:01
PROVIDERS: ATTEND Internal Medicine Interventional Cardiology
DX: I70.213 Atherosclerosis of native arteries of extremities with intermittent claudication, bilateral legs (principal); I25.10 Atherosclerotic heart disease of native coronary artery without angina pectoris; I48.0 Paroxysmal atrial fibrillation; I10 Essential (primary) hypertension; E78.5 Hyperlipidemia, unspecified; I25.2 Old myocardial infarction; J44.9 Chronic obstructive pulmonary disease, unspecified; Z95.1 Presence of aortocoronary bypass graft; Z95.5 Presence of coronary angioplasty implant and graft; Z79.02 Long term (current) use of antithrombotics/antiplatelets; Z79.82 Long term (current) use of aspirin; Z79.899 Other long term (current) drug therapy; Z79.01 Long term (current) use of anticoagulants; Z87.891 Personal history of nicotine dependence; Z79.2 Long term (current) use of antibiotics
CPT/HCPCS: 37225; 37252; 80048 ×2; 85025 ×2; C1894 ×2; C1769 ×10; C1714; C1725 ×3; C1753; C2623 ×2; C1874 ×2; J2250; J1644; J2001; J3010; J2704; Q9966

== ENCOUNTER → 2019-07-05 | Outpatient (CLI) | payer MEDICARE, OTHER ==
[2019-07-05 18:18] LABS: Albumin 4.2 g/dL (3.80-4.90); Albumin/Globulin Ratio 2.33 (1.60-3.17); Bilirubin, Conjugated 0.2 mg/dL (0.20-0.40); Bilirubin,Unconjugated 0.3 mg/dL; Chol/HDL Ratio 3.17; Globulin 1.8 g/dL (1.6-3.3); LDL Cholesterol,Calculated 89.4 mg/dL (0.0-131.0); Total Bilirubin 0.5 mg/dL (0.2-1.2); VLDL Calculation 12.6 mg/dL (5.00-40.00)
== END | disposition home or self-care (01) ==
LOC: LABWHC1 09:49
PROVIDERS: ATTEND Internal Medicine Cardiovascular Disease
DX: E78.5 Hyperlipidemia, unspecified (principal); I25.10 Atherosclerotic heart disease of native coronary artery without angina pectoris
CPT/HCPCS: 36415; 80061; 80076

== ENCOUNTER 2021-01-22 08:44 | Day surgery (SDC) | payer MEDICARE, OTHER ==
[2021-01-18 14:11] VITALS: BMI 21.1
[2021-01-22] MEDS ORDERED: LACTATED RINGERS 1,000 ML IV ONE (09:18)
[2021-01-22 09:24] VITALS: RESP 16; TEMP 98
[2021-01-22] MEDS ORDERED: METOPROLOL TARTRATE 25 MG TAB PO STA (09:36)
[2021-01-22] MEDS ORDERED: PROPOFOL 10 MG/ML 20 ML VIAL IV ONE (10:04)
--- NOTE | 2021-01-22 10:51 | P.PCN ---
Date of Procedure: 01/22/21 Description of Procedure: BRIEF HISTORY: Patient is a 75-year-old male presenting for outpatient colonoscopy for evaluation of blood in the stool. The patient reports last colonoscopy approximately 10 years ago. No change in bowel habits or abdominal pain. No family history of colon cancer reported. PROCEDURE PERFORMED: Colonoscopy with polypectomy. PREOPERATIVE DIAGNOSIS: Blood in stool, last colonoscopy approximately 10 years ago. ESTIMATED BLOOD LOSS: Minimal. IV sedation per Anesthesia. PROCEDURE: After informed consent was obtained, the patient, was brought into the endoscopy unit. IV sedation was administered by Anesthesia under continuous monitoring. Digital rectal examination was normal. Initially the Olympus CF-190 flexible video colonoscope was then inserted in the rectum, gradually advanced into the cecum without any difficulty. Careful examination was performed as the scope was gradually being withdrawn. Ileocecal valve and the appendiceal orifice were visualized and appeared normal. Prep was excellent. Mucosa of the cecum, ascending colon, transverse colon, descending colon, sigmoid colon, and rectum appeared normal. Diminutive polyps measuring 1-2 mm in size removed from the ascending colon, hepatic flexure, transverse colon and rectum with cold forcep polypectomy. Retroflexion was performed in the rectum and no lesions were seen, low-grade internal hemorrhoids noted. The patient tolerated the procedure well. IMPRESSION: 4 diminutive polyps removed with cold forcep polypectomy from ascending colon, hepatic flexure, transverse colon and rectum. Internal hemorrhoids. RECOMMENDATIONS: Findings of this examination were discussed with the patient and his family. Okay to resume diet. Okay to resume medications. Await pathology from polypectomies. Recommend repeat colonoscopy in 5 years for colon polyps if patient is medically stable at that time, pending pathology from polypectomy.
[2021-01-22 11:04] VITALS: BP 132/51; PULSE 65
== END 2021-01-22 12:09 | disposition home or self-care (01) ==
LOC: ORWHC2ENDO 08:44
PROVIDERS: ATTEND Internal Medicine
DX: D12.2 Benign neoplasm of ascending colon (principal); D12.3 Benign neoplasm of transverse colon; D12.8 Benign neoplasm of rectum; K64.8 Other hemorrhoids; I25.10 Atherosclerotic heart disease of native coronary artery without angina pectoris; I10 Essential (primary) hypertension; E78.5 Hyperlipidemia, unspecified; I73.9 Peripheral vascular disease, unspecified; I34.0 Nonrheumatic mitral (valve) insufficiency; Z87.891 Personal history of nicotine dependence; Z95.5 Presence of coronary angioplasty implant and graft; Z95.820 Peripheral vascular angioplasty status with implants and grafts; Z95.1 Presence of aortocoronary bypass graft; Z98.890 Other specified postprocedural states; Z97.2 Presence of dental prosthetic device (complete) (partial); Z79.01 Long term (current) use of anticoagulants; Z79.82 Long term (current) use of aspirin; Z79.899 Other long term (current) drug therapy
CPT/HCPCS: 88305; 45380; J2704

== ENCOUNTER → 2021-02-16 | Outpatient (CLI) | payer MEDICARE, OTHER ==
--- NOTE | 2021-02-17 13:26 | CT ---
EXAMINATION TYPE: CT abdomen w con DATE OF EXAM: 02/16/2021 COMPARISON: None INDICATION: LUQ pain DLP: 243 mGycm, Automated exposure control for dose reduction was used. CONTRAST: 100 mL of Isovue 300. Study performed with Oral Contrast TECHNIQUE: Axial images were obtained from above the diaphragm to the pubic rami in the axial plane a t 5 mm thick sections. Reconstructed images are reviewed on the computer in the coronal plane. FINDINGS: Limited CT sections are obtained the lung bases. The lung bases are clear. CT ABDOMEN: Liver: 0.8 cm lobular hepatic cysts at the dome of the liver. Liver otherwise appears unremarkable. Spleen: There is a crescentic encapsulated low density collection posterior to the spleen. A capsular hematoma should be considered. As measures approximately 8.0 cm transverse with a depth of 2.3 cm. T here are no comparison studies for evaluation. The spleen is not enlarged. Pancreas: Normal Adrenal glands: The adrenal glands are normal. Gallbladder: Normal Kidneys: No masses are evident. No hydronephrosis is present. No cysts are present. Delayed images were obtained through the kidneys, which remain unremarkable. Aorta: Vascular calcification is within the aorta. Inferior vena cava: Normal. Loops of bowel within the abdomen and upper pelvis are normal. There are loops of bowel which are incompletely distended or lack oral contrast limiting their evaluation. IMPRESSIONS: 1. Appears to be a splenic capsular hematoma of indeterminate age. Correlate with the patient's hist ory A Harper level critical message alert has been initiated for Omid Lopez DO via the [employer] Critical Results System on 02/17/2021 1:22 PM. This message alert has been sent to Omid jordan DO via the preferences provided by the clinician for the receipt of Radiology Critical Findings. Message ID [id number].
== END | disposition home or self-care (01) ==
LOC: RADCTMAIN 15:04
PROVIDERS: ATTEND Family Medicine
DX: R10.12 Left upper quadrant pain (principal)
CPT/HCPCS: 74160; Q9967

== ENCOUNTER 2021-03-15 09:08 | Inpatient (IN) | payer MEDICARE, OTHER ==
--- NOTE | 2021-03-15 09:25 | ED ---
General Adult HPI - General Stated complaint: Mental Health Time Seen by Provider: 03/15/21 09:11 Source: patient, EMS, RN notes reviewed, old records reviewed - History of Present Illness Initial comments: 75-year-old male presenting for psychiatric evaluation. Suicidal ideation. Patient states he did over take his Xanax 0.25 mg today. He states he took 4 pills at once. He took no other medication that he reports. He states this was a suicide attempt. Patient was transported by EMS for psychiatric evaluation. He states he's had some issues in his marriage and his wants to separate. He denies physical complaints. - Related Data Home Medications Medication Instructions Recorded Confirmed Aspirin EC [Ecotrin] 81 mg PO DAILY 10/30/16 03/16/21 Atorvastatin [Lipitor] 40 mg PO DAILY 06/09/18 03/16/21 Ipratropium-Albuterol Nebulize 3 ml INHALATION RT-Q6H PRN 03/15/21 03/16/21 [Duoneb 0.5 mg-3 mg/3 ml Soln] Ipratropium/Albuterol Sulfate 1 puff INHALATION RT-DAILY PRN 03/15/21 03/16/21 [Combivent Respimat Inhaler] Metoprolol Tartrate [Lopressor] 37.5 mg PO DAILY 03/15/21 03/16/21 Nitroglycerin Sl Tabs [Nitrostat] 0.4 mg SUBLINGUAL Q5M PRN 03/15/21 03/16/21 Rivaroxaban [Xarelto] 20 mg PO DAILY 03/15/21 03/16/21 Sucralfate [Carafate] 1 gm PO TID 03/15/21 03/16/21 Previous Rx's Medication Instructions Recorded Nicotine 21Mg/24Hr Patch [Habitrol] 1 patch TRANSDERM DAILY 30 Days 03/19/21 patch Sertraline [Zoloft] 25 mg PO DAILY 30 Days tab 03/19/21 hydrOXYzine pamoate [Vistaril] 25 mg PO TID 30 Days cap 03/19/21 Allergies Allergy/AdvReac Type Severity Reaction Status Date / Time No Known Allergies Allergy Verified 03/16/21 14:34 Review of Systems ROS Statement: Those systems with pertinent positive or pertinent negative responses have been documented in the HPI. ROS Other: All systems not noted in ROS Statement are negative. Past Medical History Past Medical History: Coronary Artery Disease (CAD), COPD, Hyperlipidemia, Hypertension, Memory Impairment, Myocardial Infarction ([place]) Additional Past Medical History / Comment(s): "rt 2nd toe ulcer-sensitive and scabbed"POOR CIRCULATION BOTH LEGS Last Myocardial Infarction Date:: 10/02/2015 History of Any Multi-Drug Resistant Organisms: None Reported Past Surgical History: Coronary Bypass/CABG, Heart Catheterization With Stent, Hernia Repair, Orthopedic Surgery Additional Past Surgical History / Comment(s): heart stents x 3,ORIF rt elbow, triple bypass, ABDOMINAL AORTOGRAM WITH NEIL EXT. RUNOFF 11-06-16 Past Anesthesia/Blood Transfusion Reactions: No Reported Reaction Date of Last Stent Placement:: 10/02/2015 Smoking Status: Former smoker - Past Family History Mother Family Medical History: Vascular Disorder Father Family Medical History: COPD Brother(s) Family Medical History: Cancer Additional Family Medical History / Comment(s): Heart problems, lymphoma. General Exam General appearance: alert, in no apparent distress Head exam: Present: atraumatic, normocephalic Eye exam: Present: normal appearance, PERRL ENT exam: Present: normal exam Neck exam: Present: normal inspection. Absent: tenderness, meningismus Respiratory exam: Present: normal lung sounds bilaterally. Absent: respiratory distress, wheezes Cardiovascular Exam: Present: regular rate, normal rhythm GI/Abdominal exam: Present: soft. Absent: distended, tenderness, guarding Extremities exam: Present: normal inspection, normal capillary refill. Absent: pedal edema Neurological exam: Present: alert, oriented X3, CN II-XII intact. Absent: motor sensory deficit Psychiatric exam: Present: depressed, flat affect, suicidal ideation Skin exam: Present: warm, dry, intact. Absent: cyanosis, diaphoretic Course Vital Signs 03/15/21 03/15/21 09:17 16:12 Temperature 97.7 F 98.1 F Pulse Rate 87 Pulse Rate [ 76 Right Sitting] Respiratory 18 18 Rate Blood Pressure 146/79 Blood Pressure 113/58 [Left Arm Sitting] O2 Sat by Pulse 96 98 Oximetry - Reevaluation(s) Reevaluation #1: 03/15/21 09:25 Patient cleared for EPS. Medical Decision Making - Medical Decision Making By reviewing the medical record this patient was admitted to psychiatric unit for further evaluation and treatment. - Lab Data Result diagrams: 03/16/21 10:24 03/16/21 10:24 Lab Results 03/15/21 Range/Units 10:50 Urine Opiates Screen Not Detected (NotDetected) Ur Oxycodone Screen Not Detected (NotDetected) Urine Methadone Screen Not Detected (NotDetected) Ur Propoxyphene Screen Not Detected (NotDetected) Ur Barbiturates Screen Not Detected (NotDetected) U Tricyclic Antidepress Not Detected (NotDetected) Ur Phencyclidine Scrn Not Detected (NotDetected) Ur Amphetamines Screen Not Detected (NotDetected) U Methamphetamines Scrn Not Detected (NotDetected) U Benzodiazepines Scrn Detected H (NotDetected) Urine Cocaine Screen Not Detected (NotDetected) U Marijuana (THC) Screen Not Detected (NotDetected) Disposition Clinical Impression: Psychiatric illness, Depression, Suicidal ideation Disposition: ADMITTED IP TO THIS [facility] Condition: Stable
[2021-03-15 11:19] LABS: Amphetamine Screen,Urine Not Detected (NotDetected); Barbiturate Screen,Urine Not Detected (NotDetected); Benzodiazepines Screen,Urine Detected (NotDetected); Cocaine Screen,Urine Not Detected (NotDetected); Methadone Screen, Urine Not Detected (NotDetected); Opiate Screen,Urine Not Detected (NotDetected); Oxycodone Screen, Urine Not Detected (NotDetected); Phencyclidine Screen,Urine Not Detected (NotDetected); Tricyclic Antidepressant,Urine Not Detected (NotDetected); Urn Cannabinoid Scrn Not Detected (NotDetected)
[2021-03-15] MEDS ORDERED: MAG HYDROX/AL HYDROX/SIMETH 30 ML CUP PO PRN (16:12)
[2021-03-15] MEDS ORDERED: MAGNESIUM HYDROXIDE 2,400 MG/10 ML CUP PO PRN (16:12)
[2021-03-15] MEDS ORDERED: NON FORMULARY DRUG (Ipratropium/Albuterol Sulfate [Combivent Respimat Inhaler] 1 INHALER M INHALATION PRN (16:19)
[2021-03-15] MEDS ORDERED: IPRATROPIUM-ALBUTEROL 3 ML NEB INHALATION PRN (16:19)
[2021-03-15] MEDS ORDERED: ALPRAZolam 0.5 MG TAB PO PRN (16:19)
[2021-03-15] MEDS ORDERED: NITROGLYCERIN SL TABS 0.4 MG TAB SUBLINGUAL PRN (16:19)
[2021-03-15] MEDS: NICOTINE 21MG/24HR PATCH TRANSDERM SCH (18:06)
[2021-03-15] MEDS: SUCRALFATE 1 GM TAB PO SCH (21:40)
--- NOTE | 2021-03-15 22:01 | CONS ---
CONSULTATION DATE OF SERVICE: 03/15/2021. REASON FOR CONSULTATION: Advice regarding COPD and multiple medical issues, requested by Psychiatry. HISTORY: This 75-year-old gentleman with a past history of CAD, COPD, hypertension, myocardial infarction, had recent episode of possibly splenic hematoma and an episode of abdominal pain. The patient had abdominal CT scan last month and evaluated by the surgeon, Dr. Mancilla. The patient improved significantly with conservative line of management. Capsular hematoma was suspected in the CT scan. Repeat CT scan has been recommended by Dr. Mancilla for tomorrow. There is no history of fever, rigors. No history of headache, loss conscious, abdominal pain at this time. PAST MEDICAL HISTORY: History of CAD, COPD, hypertension, history of memory impairment. MEDICATIONS: Carafate, Xarelto, Nitrostat, Lopressor, Combivent, DuoNeb, Lipitor, Ecotrin, Xanax. ALLERGIES: None. FAMILY HISTORY: History of vascular disorder, heart problems, lymphoma. SOCIAL HISTORY: History of smoking. REVIEW OF SYSTEMS: ENT: No diminished vision. CARDIOVASCULAR: No angina. RESPIRATORY: As mentioned earlier. GI: As mentioned earlier. : No dysuria. NERVOUS SYSTEM: No numbness or weakness. ALLERGY/IMMUNOLOGY: No asthma or hay fever. MUSCULOSKELETAL: As mentioned earlier. HEMATOLOGY/ONCOLOGY: As mentioned earlier. ENDOCRINE: No history of diabetes or hypothyroidism. CONSTITUTIONAL: As mentioned earlier. DERMATOLOGY: Negative. RHEUMATOLOGY negative. PSYCHIATRY: As mentioned earlier. PHYSICAL EXAM: Patient is alert, oriented x3. The pulse is 76, blood pressure 113/58, respirations 18, temperature 98.1, pulse ox 98% on room air. HEENT: Conjunctivae normal. Oral mucosa moist. NECK: No jugular venous distention. No lymph node enlargement. CARDIOVASCULAR: S1 and S2 muffled. RESPIRATORY: No cough, no rhonchi. Breath sounds diminished at the bases. ABDOMEN: Soft, nontender. LEGS: No edema, no swelling. NERVOUS SYSTEM: Higher functions as mentioned earlier. Cranial nerves II-XII grossly intact. Eye movements are full in all directions. No nystagmus. No diplopia. No facial deviation. Moves all 4 limbs. Power is normal. Gait is normal. No sensory abnormalities. SKIN: No ulcers. JOINTS: No active deforming arthropathy. LYMPHATICS: No lymph node palpable in the neck, groin or axillae. LABS: Hemoglobin is 12.7, white count is 10.9. Coags are within normal limits. Chemistry was also within normal limits. ASSESSMENT: 1. Anxiety, depression for evaluation. 2. History of recent capsular hematoma of the spleen on conservative line of management and outpatient followup. 3. History of anemia. 4. Coronary artery disease. 5. Chronic obstructive pulmonary disease. 6. Hypertension. 7. Hyperlipidemia. 8. Memory impairment. 9. Myocardial infarction. 10.History of second toe ulcer. 11.History of CAD, CABG with stent. 12.History of anxiety. 13.Remote history of nicotine dependence. 14.Full code. RECOMMENDATIONS: This 75-year-old gentleman presented with multiple complex medical issues. At this time I recommend continue current medications, continue symptomatic treatment. Otherwise, as mentioned earlier, the patient had an episode of capsular hematoma, but apparently the patient asymptomatic at this time. I recommend continue the home medications. CBC may be repeated tomorrow. If the patient is stable repeat CT scan may be scheduled as an outpatient. Otherwise, we will follow the patient closely. Thank you for letting us participate in this patient's care. MMODL / IJN: [id number] /
[2021-03-15] MEDS ORDERED: ALBUTEROL INHALER 60 PUFF/8 GM INHALER (MHU) INHALATION PRN (23:59)
--- NOTE | 2021-03-16 00:56 | ED ---
General Adult HPI - General Chief complaint: Psychiatric Symptoms Stated complaint: Mental Health Time Seen by Provider: 03/15/21 09:11 Source: patient, EMS, RN notes reviewed, old records reviewed Mode of arrival: ambulatory - Related Data Home Medications Medication Instructions Recorded Confirmed Aspirin EC [Ecotrin] 81 mg PO DAILY 10/30/16 03/15/21 Atorvastatin [Lipitor] 40 mg PO DAILY 06/09/18 03/15/21 ALPRAZolam [Xanax] 0.5 mg PO Q8H PRN 03/15/21 03/15/21 Ipratropium-Albuterol Nebulize 3 ml INHALATION RT-Q6H PRN 03/15/21 03/15/21 [Duoneb 0.5 mg-3 mg/3 ml Soln] Ipratropium/Albuterol Sulfate 1 puff INHALATION RT-DAILY PRN 03/15/21 03/15/21 [Combivent Respimat Inhaler] Metoprolol Tartrate [Lopressor] 37.5 mg PO DAILY 03/15/21 03/15/21 Nitroglycerin Sl Tabs [Nitrostat] 0.4 mg SUBLINGUAL Q5M PRN 03/15/21 03/15/21 Rivaroxaban [Xarelto] 20 mg PO DAILY 03/15/21 03/15/21 Sucralfate [Carafate] 1 gm PO TID 03/15/21 03/15/21 Allergies Allergy/AdvReac Type Severity Reaction Status Date / Time No Known Allergies Allergy Verified 03/15/21 11:45 Review of Systems ROS Statement: Those systems with pertinent positive or pertinent negative responses have been documented in the HPI. ROS Other: All systems not noted in ROS Statement are negative. Past Medical History Past Medical History: Coronary Artery Disease (CAD), COPD, Hyperlipidemia, Hypertension, Memory Impairment, Myocardial Infarction ([place]) Additional Past Medical History / Comment(s): "rt 2nd toe ulcer-sensitive and scabbed"POOR CIRCULATION BOTH LEGS Last Myocardial Infarction Date:: 10/02/2015 History of Any Multi-Drug Resistant Organisms: None Reported Past Surgical History: Coronary Bypass/CABG, Heart Catheterization With Stent, Hernia Repair, Orthopedic Surgery Additional Past Surgical History / Comment(s): heart stents x 3,ORIF rt elbow, triple bypass, ABDOMINAL AORTOGRAM WITH NEIL EXT. RUNOFF 3-8-17 Past Anesthesia/Blood Transfusion Reactions: No Reported Reaction Date of Last Stent Placement:: 10/02/2015 Smoking Status: Former smoker - Past Family History Mother Family Medical History: Vascular Disorder Father Family Medical History: COPD Brother(s) Family Medical History: Cancer Additional Family Medical History / Comment(s): Heart problems, lymphoma. General Exam General appearance: alert, in no apparent distress Course Vital Signs 03/15/21 03/15/21 09:17 16:12 Temperature 97.7 F 98.1 F Pulse Rate 87 Pulse Rate [ 76 Right Sitting] Respiratory 18 18 Rate Blood Pressure 146/79 Blood Pressure 113/58 [Left Arm Sitting] O2 Sat by Pulse 96 98 Oximetry Medical Decision Making - Medical Decision Making Patient was signed out to me pending evaluation by psychiatry. Patient met inpatient psychiatry criteria for admission. Patient was therefore admitted in stable condition to inpatient psychiatry. - Lab Data Lab Results 03/15/21 Range/Units 10:50 Urine Opiates Screen Not Detected (NotDetected) Ur Oxycodone Screen Not Detected (NotDetected) Urine Methadone Screen Not Detected (NotDetected) Ur Propoxyphene Screen Not Detected (NotDetected) Ur Barbiturates Screen Not Detected (NotDetected) U Tricyclic Antidepress Not Detected (NotDetected) Ur Phencyclidine Scrn Not Detected (NotDetected) Ur Amphetamines Screen Not Detected (NotDetected) U Methamphetamines Scrn Not Detected (NotDetected) U Benzodiazepines Scrn Detected H (NotDetected) Urine Cocaine Screen Not Detected (NotDetected) U Marijuana (THC) Screen Not Detected (NotDetected) Disposition Clinical Impression: Psychiatric illness Narrative: admitted to inpatient psychiatry Disposition: OTHER INSTITUTION NOT DEFINED Condition: Stable
[2021-03-16 06:47] VITALS: RESP 16
[2021-03-16] MEDS: NICOTINE 21MG/24HR PATCH TRANSDERM SCH (08:05)
[2021-03-16] MEDS: ATORVASTATIN 40 MG TAB PO SCH (08:06)
[2021-03-16] MEDS: METOPROLOL TARTRATE 25 MG TAB PO SCH (08:06)
[2021-03-16] MEDS: ASPIRIN 81 MG PO SCH (08:06)
[2021-03-16] MEDS: SUCRALFATE 1 GM TAB PO SCH ×3 (08:06→21:42)
[2021-03-16] MEDS: RIVAROXABAN 20 MG TAB PO SCH (08:32)
[2021-03-16 11:09] LABS: Basophils # (A) 0.1 k/uL (0-0.2); Basophils % (A) 0 %; Eosinophils # (A) 0.1 k/uL (0-0.7); Eosinophils % (A) 1 %; HGB 13.4 gm/dL (13.0-17.5); Lymphocytes # (A) 1.5 k/uL (1.0-4.8); Lymphocytes % (A) 11 %; Mean Platelet Volume 7.2; Monocytes # (A) 0.7 k/uL (0-1.0); Monocytes % (A) 5 %; Neutrophils # (A) 10.8 k/uL (1.3-7.7); Neutrophils % (A) 81 %; Platelet Count 278 k/uL (150-450); RBC 4.33 m/uL (4.30-5.90); RDW 13.6 % (11.5-15.5); WBC 13.4 k/uL (3.8-10.6)
[2021-03-16] MEDS: ACETAMINOPHEN TAB 325 MG TAB PO PRN (11:09)
[2021-03-16 11:17] LABS: ALT 13 U/L (4-49); AST 22 U/L (17-59); African American GFR (CKD) >90 (>60 ml/min/1.73 sqM); Albumin 3.8 g/dL (3.5-5.0); Alkaline Phosphatase 80 U/L (38-126); Anion Gap 5 mmol/L; Bilirubin, Delta 0.1 mg/dL (0.0-0.2); Bilirubin,Unconjugated 0.3 mg/dL (0.0-1.1); Blood Urea Nitrogen 15 mg/dL (9-20); Calcium 9.3 mg/dL (8.4-10.2); Carbon Dioxide 31 mmol/L (22-30); Chloride 106 mmol/L (98-107); Glucose 92 mg/dL (74-99); Non-African American GFR(CKD) 88 (>60 ml/min/1.73 sqM); Potassium 4.6 mmol/L (3.5-5.1); Sodium 142 mmol/L (137-145); Total Bilirubin 0.4 mg/dL (0.2-1.3); Total Protein 6.2 g/dL (6.3-8.2)
[2021-03-16] MEDS ORDERED: SERTRALINE 25 MG TAB PO STA (11:35)
[2021-03-16] MEDS ORDERED: hydrOXYzine pamoate 25 MG CAP PO PRN (11:36)
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
[2021-03-16 12:16] VITALS: BMI 18.7
[2021-03-16 18:56] LABS: Hemoglobin A1C 5.6 % (4.0-6.0)
[2021-03-16 19:34] LABS: Appearance,Urine Clear (Clear); Bilirubin,Urine Negative (Negative); Blood,Urine Negative (Negative); Color,Urine Light Yellow; Glucose,Urine (UA) Negative (Negative); Ketones,Urine Negative (Negative); Leukocyte Esterase,Urine Negative (Negative); Nitrite,Urine Negative (Negative); Protein,Urine Negative (Negative); Specific Gravity,Urine 1.006 (1.001-1.035); Urobilinogen,Urine <2.0 mg/dL (<2.0)
[2021-03-16 22:59] LABS: Chol/HDL Ratio 3.18; Cholesterol 140 mg/dL (0-200)
[2021-03-17] MEDS: NICOTINE 21MG/24HR PATCH TRANSDERM SCH (07:53)
[2021-03-17] MEDS: RIVAROXABAN 20 MG TAB PO SCH (07:54)
[2021-03-17] MEDS: METOPROLOL TARTRATE 25 MG TAB PO SCH (07:54)
[2021-03-17] MEDS: SUCRALFATE 1 GM TAB PO SCH ×3 (07:55→21:28)
[2021-03-17] MEDS: ASPIRIN 81 MG PO SCH (07:55)
[2021-03-17] MEDS: SERTRALINE 25 MG TAB PO SCH (07:55)
[2021-03-17] MEDS: ATORVASTATIN 40 MG TAB PO SCH (07:56)
--- NOTE | 2021-03-17 10:36 | P.PN ---
Progress Note - Text Progress Note Date: 03/17/21 S&O: Patient was seen for a follow-up examination. He said he is here because of anger issues. Apparently he had an argument with his and his sister following which he took a few of his Xanax. He was considered to be suicidal and was brought here. However he insists that he was not and is not suicidal and it was just an impulsive acting out when he was angry. He said he has to learn how to manage his anger better and not engage in any such disturbed behavior. He was advised to seek counseling and learned how to cope/manage his anger issues. Since this incident happened with 2 other people he was advised to take his for anger management classes and he agreed to. He does not have any other complaints. He says he is feeling better is relaxed and wants to have a better life. This is a right ambulatory male with adequate hygiene. He is polite and cooperative. He does not show any psychomotor agitation or retardation. His speech is spontaneous relevant and goal-directed. His mood is euthymic to cheerful and affect is appropriate. He denies hallucinations delusional thinking suicide and homicide thoughts. He is well oriented with good memory concentration and general fund of knowledge. 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 P: Continue his current medication of Zoloft 25 mg a day which takes too long to time to make any difference especially when the optimal dose is not known. Continue other medications therapy and supervision.
[2021-03-17] MEDS: ACETAMINOPHEN TAB 325 MG TAB PO PRN (17:03)
[2021-03-18] MEDS: METOPROLOL TARTRATE 25 MG TAB PO SCH (07:40)
[2021-03-18] MEDS: NICOTINE 21MG/24HR PATCH TRANSDERM SCH (07:40)
[2021-03-18] MEDS: ASPIRIN 81 MG PO SCH (07:40)
[2021-03-18] MEDS: SUCRALFATE 1 GM TAB PO SCH ×3 (07:41→21:00)
[2021-03-18] MEDS: SERTRALINE 25 MG TAB PO SCH (07:41)
[2021-03-18] MEDS: RIVAROXABAN 20 MG TAB PO SCH (07:41)
[2021-03-18] MEDS: ATORVASTATIN 40 MG TAB PO SCH (07:41)
--- NOTE | 2021-03-18 10:29 | P.PN ---
Progress Note - Text Progress Note Date: 03/18/21 S&O: Patient was seen for a follow-up examination. He said he did not sleep very well last night but he is feeling a lot better. He said he takes 1 or 2 Tylenol at night and it helps him to sleep better and did not take any here. He said he called and left a message to his stating that he may be able to go home tomorrow. He agreed to discuss this with his regular psychiatrist. He does not have any specific complaints or concerns. This is a right ambulatory male with good hygiene. He is polite friendly cheerful and cooperative. He does not show any psychomotor agitation or retardation. His speech is spontaneous relevant and goal-directed. His mood is euthymic to cheerful and affect is appropriate. He continues to deny hallucinations, delusional thinking, suicide and homicide thoughts. He is well oriented with good memory concentration and general fund of knowledge. A&P: Continue current medications, therapy and supervision. Consider discharging him tomorrow.
[2021-03-18] MEDS: ACETAMINOPHEN TAB 325 MG TAB PO PRN (18:40)
[2021-03-19 07:12] VITALS: TEMP 97.2
[2021-03-19] MEDS: SUCRALFATE 1 GM TAB PO SCH (08:28)
[2021-03-19] MEDS: ATORVASTATIN 40 MG TAB PO SCH (08:28)
[2021-03-19] MEDS: METOPROLOL TARTRATE 25 MG TAB PO SCH (08:28)
[2021-03-19] MEDS: ASPIRIN 81 MG PO SCH (08:28)
[2021-03-19] MEDS: RIVAROXABAN 20 MG TAB PO SCH (08:28)
[2021-03-19] MEDS: NICOTINE 21MG/24HR PATCH TRANSDERM SCH (08:28)
[2021-03-19] MEDS: SERTRALINE 25 MG TAB PO SCH (08:28)
[2021-03-19 08:29] VITALS: BP 121/57; PULSE 115
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
== END 2021-03-19 15:17 | disposition home or self-care (01) | DRG 885 ==
LOC: EC 09:08 → SUPCPDRO 09:08 → 3MHU 15:27
PROVIDERS: ADMIT Psychiatry & Neurology Psychiatry; ATTEND Psychiatry & Neurology Psychiatry
DX: F33.9 Major depressive disorder, recurrent, unspecified (principal); R45.851 Suicidal ideations; S36.029A Unspecified contusion of spleen, initial encounter; F43.10 Post-traumatic stress disorder, unspecified; F43.20 Adjustment disorder, unspecified; J44.9 Chronic obstructive pulmonary disease, unspecified; I10 Essential (primary) hypertension; E78.5 Hyperlipidemia, unspecified; F17.210 Nicotine dependence, cigarettes, uncomplicated; I25.2 Old myocardial infarction; R41.3 Other amnesia; I25.10 Atherosclerotic heart disease of native coronary artery without angina pectoris; Z95.1 Presence of aortocoronary bypass graft; Z95.5 Presence of coronary angioplasty implant and graft; Z82.5 Family history of asthma and other chronic lower respiratory diseases; Z80.7 Family history of other malignant neoplasms of lymphoid, hematopoietic and related tissues; Z79.899 Other long term (current) drug therapy; Z79.82 Long term (current) use of aspirin; Z79.01 Long term (current) use of anticoagulants; Z63.0 Problems in relationship with spouse or partner
CPT/HCPCS: 80053; 80061; 80306; 81003; 82075; 82248; 83036; 84443; 85025; 99285

== ENCOUNTER → 2021-04-26 | Outpatient (CLI) | payer MEDICARE, OTHER ==
[2021-04-26 15:05] LABS: African American GFR (CKD) >90 (>60 ml/min/1.73 sqM); Blood Urea Nitrogen 14 mg/dL (9-20); Non-African American GFR(CKD) 86 (>60 ml/min/1.73 sqM)
--- NOTE | 2021-04-26 16:20 | CT ---
EXAMINATION TYPE: CT abdomen pelvis w con DATE OF EXAM: 04/26/2021 COMPARISON: 02/16/2021 HISTORY: hematoma of spleen, pt also states he has pain where a hernia once was in the LLQ CT DLP: 378.5 mGycm CONTRAST: CT scan of the abdomen and pelvis is performed without Oral Contrast and with IV Contrast, patient in jected with 80 mL of Isovue 300. FINDINGS: LUNG BASES-: No visible nodule. No infiltrate. LIVER/GB: No calcified gallstones. Hepatic cyst seen. Biliary tree is of normal caliber. PANCREAS: No inflammation. No distinct mass. SPLEEN: Residual perisplenic hematoma measures 1.9 cm currently versus 8 cm in AP dimension previousl y. No new hematoma is seen. Normal splenic enhancement. ADRENALS: No nodule. No thickening. KIDNEYS/BLADDER: No hydronephrosis. No nephrolithiasis. No distinct renal mass. Urinary bladder g rossly unremarkable. BOWEL: Normal appendix. Normal bowel caliber. No inflammation. GENITAL ORGANS: No gross abnormality. LYMPH NODES: No greater than 1cm abdominal or pelvic lymph nodes are appreciated. AORTA: Dense calcific atheromatous change of the iliac vessels bilaterally. Abdominal aorta is of nor mal caliber. OSSEOUS STRUCTURES: No significant abnormality is seen. OTHER: No significant additional abnormality is seen. IMPRESSION: 1. Significant diminution in perisplenic hematoma with small residual noted.
== END | disposition home or self-care (01) ==
LOC: RADCTMAIN 14:28
PROVIDERS: ATTEND Student in an Organized Health Care Education/Training Program
DX: S36.029A Unspecified contusion of spleen, initial encounter (principal)
CPT/HCPCS: 82565; 84520; 74177; 36415; Q9967

== ENCOUNTER → 2023-04-25 | Outpatient (CLI) | payer MEDICARE, OTHER ==
[2023-04-26 01:35] LABS: ALT 13 U/L (10-49); AST 21 U/L (14-35); Albumin 4.5 d/dL (3.8-4.9); Albumin/Globulin Ratio 2.14 Ratio (1.60-3.17); Alkaline Phosphatase 97 U/L (41-126); BUN/Creat Ratio 12.75 Ratio (12.00-20.00); Blood Urea Nitrogen 10.2 mg/dL (9.0-27.0); Calcium 10.1 mg/dL (8.7-10.3); Carbon Dioxide 25.3 mmol/L (21.6-31.8); Chloride 106 mmol/L (96-109); Chol/HDL Ratio 3.81 Ratio; Globulin 2.1 d/dL (1.6-3.3); Glucose 81 mg/dL (70-110); LDL Cholesterol,Calculated 117.4 mg/dL (0.0-131.0); Potassium 5.9 mmol/L (3.5-5.5); Sodium 142 mmol/L (135-145); Total Bilirubin 0.4 mg/dL (0.3-1.2); Total Protein 6.6 d/dL (6.2-8.2)
[2023-04-26 01:56] LABS: HCT 36.6 % (39.6-50.0); MCH 25.1 pg (27.0-32.0); MCHC 30.1 d/dL (32.0-37.0); MCV 83.4 FL (80.0-97.0); Mean Platelet Volume 9.5 FL (9.5-12.2); NRBC Per 100 WBC 0 X 10*3/uL (0.00-0.01); Platelet Count 326 X 10*3/uL (140-440); RBC 4.39 X 10*6/uL (4.40-5.60); RDW 17.1 % (11.5-14.5); WBC 9.25 X 10*3/uL (4.50-10.00)
== END | disposition home or self-care (01) ==
LOC: LABWHC1 09:27
PROVIDERS: ATTEND Internal Medicine Interventional Cardiology
DX: Z95.1 Presence of aortocoronary bypass graft (principal); E78.2 Mixed hyperlipidemia
CPT/HCPCS: 36415; 80053; 80061; 85027

== ENCOUNTER → 2023-05-02 | Outpatient (CLI) | payer MEDICARE, OTHER ==
--- NOTE | 2023-05-02 15:50 | CT ---
EXAMINATION TYPE: CT abdomen wo/w con DATE OF EXAM: 05/02/2023 COMPARISON: 04/26/2021 HISTORY: Abnormal weight loss and epigastric abdominal pain. CT DLP: 259.3 mGycm Automated exposure control for dose reduction was used. TECHNIQUE: Helical acquisition of images was performed from the lung bases through the top of iliac crest to include entire abdomen. CONTRAST: Performed with Oral Contrast and without and with IV Contrast, patient injected with 100ml mL of Isov ue 300. FINDINGS: Visualized lung bases are clear. The gallbladder is normal without gallstones, wall thickening or pericholecystic fluid. There is no b iliary ductal dilatation. 2 tiny adjacent hepatic cysts in the dome of liver otherwise is no focal mass or organomegaly involvi ng the liver, pancreas, spleen or adrenal glands. There is no solid renal mass or hydronephrosis. There is malrotation of the right kidney. 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 There is no retroperitoneal adenopathy or hemorrhage. The bowel loops are normal in caliber and there is no evidence of obstruction. There is a 6.4 x 3.7 cm soft tissue density/mass in the epigastric region inferior to the stomach an d anterior to the pancreas which could be a neoplasm related to the bowel or the mesentery. The possi bility of an unopacified bowel loop is felt to be much less likely although delayed postcontrast imag ing might be useful for further evaluation. The mass with also be amenable to CT-guided biopsy The osseous structures are intact. There is no free intraperitoneal air or fluid. IMPRESSION: 6.4 x 3.7 cm soft tissue mass in the epigastric region suspicious for neoplasm as described above. De layed contrast CT imaging might be useful for further evaluation. The mass within the amenable to CT- guided biopsy.
== END | disposition home or self-care (01) ==
LOC: RADCTMAIN 13:17
PROVIDERS: ATTEND Family Medicine
DX: R10.13 Epigastric pain (principal); R63.4 Abnormal weight loss; R68.81 Early satiety
CPT/HCPCS: 74170; Q9967

== ENCOUNTER 2023-06-11 10:15 | Inpatient (IN) | payer MEDICARE, OTHER ==
[2023-06-11 10:54] LABS: Anisocytosis Slight; Basophils % (A) 0 %; Eosinophils # (A) 0.1 k/uL (0-0.7); Eosinophils % (A) 1 %; HCT 38.7 % (39.0-53.0); HGB 12.1 gm/dL (13.0-17.5); Hypochromasia Slight; Lymphocytes # (A) 1.8 k/uL (1.0-4.8); Lymphocytes % (A) 12 %; MCH 24.6 pg (25.0-35.0); MCHC 31.2 g/dL (31.0-37.0); Mean Platelet Volume 7.4; Microcytosis Slight; Monocytes # (A) 0.8 k/uL (0-1.0); Monocytes % (A) 6 %; Neutrophils # (A) 11.9 k/uL (1.3-7.7); Neutrophils % (A) 80 %; Platelet Count 424 k/uL (150-450); RDW 16.8 % (11.5-15.5); WBC 14.9 k/uL (3.8-10.6)
--- NOTE | 2023-06-11 11:02 | ED ---
General Adult HPI - General Chief complaint: Abdominal Pain Stated complaint: Abd Pain Time Seen by Provider: 06/11/23 10:31 Source: patient, EMS Mode of arrival: EMS Limitations: no limitations - History of Present Illness Initial comments: Dictation was produced using [employer] dictation software. please excuse any grammatical, word or spelling errors. Chief Complaint: 77-year-old male presents emergency Department with abdominal pain History of Present Illness: 77-year-old male he is had 3 weeks of abdominal pain. Patient states that he's been working on his abdominal pain with his primary care doctor. He was referred to Dr. Go who performed a colonoscopy. He also had a computed tomography scan recently that did not show any acute findings. He called his prior care physician's office today and was told that he should come to the emergency department. Patient has any fevers. He had a small bowel movement yesterday. Patient has no fever or constitutional symptoms. Patient feels that he needs to be admitted to the hospital. No nausea or vomiting. The ROS documented in this emergency department record has been reviewed and confirmed by me. Those systems with pertinent positive or negative responses have been documented in the HPI. All other systems are other negative and/or noncontributory. - Related Data Home Medications Medication Instructions Recorded Confirmed Aspirin EC [Ecotrin] 81 mg PO DAILY 10/30/16 03/16/21 Atorvastatin [Lipitor] 40 mg PO DAILY 06/09/18 03/16/21 Ipratropium-Albuterol Nebulize 3 ml INHALATION RT-Q6H PRN 03/15/21 03/16/21 [Duoneb 0.5 mg-3 mg/3 ml Soln] Ipratropium/Albuterol Sulfate 1 puff INHALATION RT-DAILY PRN 03/15/21 03/16/21 [Combivent Respimat Inhaler] Metoprolol Tartrate [Lopressor] 37.5 mg PO DAILY 03/15/21 03/16/21 Nitroglycerin Sl Tabs [Nitrostat] 0.4 mg SUBLINGUAL Q5M PRN 03/15/21 03/16/21 Rivaroxaban [Xarelto] 20 mg PO DAILY 03/15/21 03/16/21 Sucralfate [Carafate] 1 gm PO TID 03/15/21 03/16/21 Previous Rx's Medication Instructions Recorded Nicotine 21Mg/24Hr Patch [Habitrol] 1 patch TRANSDERM DAILY 30 Days 03/19/21 patch Sertraline [Zoloft] 25 mg PO DAILY 30 Days tab 03/19/21 hydrOXYzine pamoate [Vistaril] 25 mg PO TID 30 Days cap 03/19/21 Allergies Allergy/AdvReac Type Severity Reaction Status Date / Time No Known Allergies Allergy Verified 03/16/21 14:34 Review of Systems ROS Statement: Those systems with pertinent positive or pertinent negative responses have been documented in the HPI. ROS Other: All systems not noted in ROS Statement are negative. Past Medical History Past Medical History: Coronary Artery Disease (CAD), COPD, Hyperlipidemia, Hypertension, Memory Impairment, Myocardial Infarction (MA) Additional Past Medical History / Comment(s): "rt 2nd toe ulcer-sensitive and scabbed" POOR CIRCULATION BOTH LEGS Last Myocardial Infarction Date:: 10/02/2015 History of Any Multi-Drug Resistant Organisms: None Reported Past Surgical History: Coronary Bypass/CABG, Heart Catheterization With Stent, Hernia Repair, Orthopedic Surgery Additional Past Surgical History / Comment(s): heart stents x 3,ORIF rt elbow, triple bypass, ABDOMINAL AORTOGRAM WITH NEIL EXT. RUNOFF 3-8-17. colonoscopy Past Anesthesia/Blood Transfusion Reactions: No Reported Reaction Date of Last Stent Placement:: 10/02/2015 Past Psychological History: Anxiety Smoking Status: Current every day smoker Past Alcohol Use History: None Reported Past Drug Use History: None Reported - Past Family History Mother Family Medical History: Vascular Disorder Father Family Medical History: COPD Brother(s) Family Medical History: Cancer Additional Family Medical History / Comment(s): Heart problems, lymphoma. General Exam - General Exam Comments Initial Comments: PHYSICAL EXAM: General Impression: Alert and oriented x3, not in acute distress HEENT: Normocephalic atraumatic, extra-ocular movements intact, pupils equal and reactive to light bilaterally, mucous membranes moist. Cardiovascular: Heart regular rate and rhythm Chest: Able to complete full sentences, no retractions, no tachypnea Abdomen: abdomen soft, no pulsatile abdominal mass, palpatory tenderness to the periumbilical area, non-distended, no organomegaly Musculoskeletal: Pulses present and equal in all extremities, no peripheral edema Motor: no focal deficits noted Neurological: CN II-XII grossly intact, no focal motor or sensory deficits noted Skin: Intact with no visualized rashes Psych: Normal affect and mood Limitations: no limitations Course Vital Signs 06/11/23 06/11/23 06/11/23 10:18 11:03 12:15 Temperature 97.5 F L Pulse Rate 72 76 91 Respiratory 20 19 20 Rate Blood Pressure 160/72 165/68 187/80 O2 Sat by Pulse 100 100 100 Oximetry - Reevaluation(s) Reevaluation #1: 06/11/23 11:03 Chart review was performed. Patient had a computed tomography scan of the abdomen and pelvis with contrast 12 days ago. Radiology report was reviewed showing no findings. Medical Decision Making - Medical Decision Making Was pt. sent in by a medical professional or institution (, PA, FISH BAIT PROCESSING SUPERVISOR, urgent care, hospital, or half-way...) When possible be specific @ -No Did you speak to anyone other than the patient for history (EMS, parent, family, police, friend...)? What history was obtained from this source @ -No Did you review nursing and triage notes (agree or disagree)? Why? @ -I reviewed and agree with nursing and triage notes Were old charts reviewed (outside hosp., previous admission, EMS record, old EKG, old radiological studies, urgent care reports/EKG's, half-way records)? Report findings @ -No old charts were reviewed Differential Diagnosis (chest pain, altered mental status, abdominal pain women, abdominal pain men, vaginal bleeding, musculoskeletal, weakness, fever, dyspnea, syncope, headache, dizziness, GI bleed, back pain, seizure, CVA, palpatations, mental health)? @ -Differential Abdominal Pain Men: Appendicitis, cholecystitis, diverticulosis, ischemic bowel, pancreatitis, hepatitis, UTI, gastroenteritis, AAA, incarcerated hernia, bowel obstruction, constipation, inflammatory bowel, hepatitis, peptic ulcer disease, splenic infarction, perforated viscus, testicular torsion, this is not meant to be an a ll-inclusive list EKG interpreted by me (3pts min.). @ -None done X-rays interpreted by me (1pt min.). @ -None done CT interpreted by me (1pt min.). @ -CT of the abdomen and pelvis shows no intra-abdominal infection. There is. Be some stenosis at the superior mesenteric artery. U/S interpreted by me (1pt. min.). @ -None done What testing was considered but not performed or refused? (CT, X-rays, U/S, labs)? Why? @ -None What meds were considered but not given or refused? Why? @ -None Did you discuss the management of the patient with other professionals (professionals i.e. , PA, FISH BAIT PROCESSING SUPERVISOR, lab, RT, psych nurse, social work program coordinator, parquet floor layer's helper, teacher, gift officer, keycase assembler)? Give summary @ -Case discussed with hospitalist for admission Was smoking cessation discussed for >3mins.? @ -No Was critical care preformed (if so, how long)? @ -No Were there social determinants of health that impacted care today? How? (Homelessness, low income, unemployed, alcoholism, drug addiction, transportation, low edu. Level, literacy, decrease access to med. care, [facility], rehab)? @ -No Was there de-escalation of care discussed even if they declined (Discuss DNR or withdrawal of care, Hospice)? DNR status @ -No What co-morbidities impacted this encounter? (DM, HTN, Smoking, COPD, CAD, Cancer, CVA, ARF, Chemo, Hep., AIDS, mental health diagnosis, sleep apnea, morbid obesity)? @ -None Was patient admitted / discharged? Hospital course, mention meds given and route, prescriptions, significant lab abnormalities, going to OR and other pertinent info. @ -77-year-old male presents emergency Department with intractable abdominal pain. Vital signs are stable. Laboratory evaluation obtained leukocytosis of 14.9. Lactic acidosis of 3.2. Imaging studies suspicious for ischemic bowel. Case discussed with Dr. Vee surveillance monitor for surgery request the patient be admitted to medicine with consultation of vascular surgery. Patient started on antibiotics. Given analgesics with improvement of symptoms. Undiagnosed new problem with uncertain prognosis? @ -No Drug Therapy requiring intensive monitoring for toxicity (Heparin, Nitro, Insulin, Cardizem)? @ -No Were any procedures done? @ -No Diagnosis/symptom? Acute, or Chronic, or Acute on Chronic? Uncomplicated (without systemic symptoms) or Complicated (systemic symptoms)? @ -Abdominal ischemia Side effects of treatment? @ -No Exacerbation, Progression, or Severe Exacerbation? @ -No Poses a threat to life or bodily function? How? (Chest pain, USA, MA, pneumonia, PE, COPD, DKA, ARF, appy, cholecystitis, CVA, Diverticulitis, Homicidal, Suicidal, threat to staff... and all critical care pts) @ -yes - Lab Data Result diagrams: 06/11/23 10:40 06/11/23 10:40 Lab Results 06/11/23 06/11/23 06/11/23 Range/Units 10:40 10:40 10:40 WBC 14.9 H (3.8-10.6) k/uL RBC 4.90 (4.30-5.90) m/uL Hgb 12.1 L (13.0-17.5) gm/dL Hct 38.7 L (39.0-53.0) % MCV 79.0 L (80.0-100.0) fL MCH 24.6 L (25.0-35.0) pg MCHC 31.2 (31.0-37.0) g/dL RDW 16.8 H (11.5-15.5) % Plt Count 424 (150-450) k/uL MPV 7.4 Neutrophils % 80 % Lymphocytes % 12 % Monocytes % 6 % Eosinophils % 1 % Basophils % 0 % Neutrophils # 11.9 H (1.3-7.7) k/uL Lymphocytes # 1.8 (1.0-4.8) k/uL Monocytes # 0.8 (0-1.0) k/uL Eosinophils # 0.1 (0-0.7) k/uL Basophils # 0.0 (0-0.2) k/uL Hypochromasia Slight Anisocytosis Slight Microcytosis Slight PT 11.0 (9.0-12.0) sec INR 1.0 (<1.2) APTT 20.4 L (22.0-30.0) sec Sodium 135 L (137-145) mmol/L Potassium 5.7 H (3.5-5.1) mmol/L Chloride 103 (98-107) mmol/L Carbon Dioxide 19 L (22-30) mmol/L Anion Gap 13 mmol/L BUN 23 H (9-20) mg/dL Creatinine 1.00 (0.66-1.25) mg/dL Est GFR (CKD-EPI)AfAm 84 (>60 ml/min/1.73 sqM) Est GFR (CKD-EPI)NonAf 73 (>60 ml/min/1.73 sqM) Glucose 88 (74-99) mg/dL Lactic Ac Sepsis Rflx Plasma Lactic Acid Zacarias (0.7-2.0) mmol/L Calcium 9.8 (8.4-10.2) mg/dL Magnesium 2.1 (1.6-2.3) mg/dL Total Bilirubin 1.2 (0.2-1.3) mg/dL AST 42 (17-59) U/L ALT 19 (4-49) U/L Alkaline Phosphatase 83 (38-126) U/L Total Protein 7.7 (6.3-8.2) g/dL Albumin 4.5 (3.5-5.0) g/dL Lipase 70 (23-300) U/L 06/11/23 06/11/23 Range/Units 10:40 11:39 WBC (3.8-10.6) k/uL RBC (4.30-5.90) m/uL Hgb (13.0-17.5) gm/dL Hct (39.0-53.0) % MCV (80.0-100.0) fL MCH (25.0-35.0) pg MCHC (31.0-37.0) g/dL RDW (11.5-15.5) % Plt Count (150-450) k/uL MPV Neutrophils % % Lymphocytes % % Monocytes % % Eosinophils % % Basophils % % Neutrophils # (1.3-7.7) k/uL Lymphocytes # (1.0-4.8) k/uL Monocytes # (0-1.0) k/uL Eosinophils # (0-0.7) k/uL Basophils # (0-0.2) k/uL Hypochromasia Anisocytosis Microcytosis PT (9.0-12.0) sec INR (<1.2) APTT (22.0-30.0) sec Sodium (137-145) mmol/L Potassium (3.5-5.1) mmol/L Chloride (98-107) mmol/L Carbon Dioxide (22-30) mmol/L Anion Gap mmol/L BUN (9-20) mg/dL Creatinine (0.66-1.25) mg/dL Est GFR (CKD-EPI)AfAm (>60 ml/min/1.73 sqM) Est GFR (CKD-EPI)NonAf (>60 ml/min/1.73 sqM) Glucose (74-99) mg/dL Lactic Ac Sepsis Rflx Y Plasma Lactic Acid Zacarias 3.2 H* (0.7-2.0) mmol/L Calcium (8.4-10.2) mg/dL Magnesium (1.6-2.3) mg/dL Total Bilirubin (0.2-1.3) mg/dL AST (17-59) U/L ALT (4-49) U/L Alkaline Phosphatase (38-126) U/L Total Protein (6.3-8.2) g/dL Albumin (3.5-5.0) g/dL Lipase (23-300) U/L Disposition Clinical Impression: Ischemic bowel syndrome Disposition: ADMITTED IP TO THIS HOSP Condition: Fair Referrals: Omid Lopez DO [Primary Care Provider] - 1-2 days Decision Time: 13:00
[2023-06-11 11:08] LABS: ALT 19 U/L (4-49); AST 42 U/L (17-59); African American GFR (CKD) 84 (>60 ml/min/1.73 sqM); Albumin 4.5 g/dL (3.5-5.0); Alkaline Phosphatase 83 U/L (38-126); Anion Gap 13 mmol/L; Blood Urea Nitrogen 23 mg/dL (9-20); Calcium 9.8 mg/dL (8.4-10.2); Carbon Dioxide 19 mmol/L (22-30); Chloride 103 mmol/L (98-107); Glucose 88 mg/dL (74-99); Lipase 70 U/L (23-300); Magnesium 2.1 mg/dL (1.6-2.3); Non-African American GFR(CKD) 73 (>60 ml/min/1.73 sqM); Sodium 135 mmol/L (137-145); Total Bilirubin 1.2 mg/dL (0.2-1.3); Total Protein 7.7 g/dL (6.3-8.2)
[2023-06-11 11:26] LABS: Partial Thromboplastin Time 20.4 sec (22.0-30.0)
[2023-06-11 11:27] LABS: Potassium 5.7 mmol/L (3.5-5.1)
[2023-06-11] MEDS ORDERED: HYDROmorphone 1 MG/ML 1 ML SYRINGE IVP STA (11:42)
--- NOTE | 2023-06-11 11:52 | XR ---
EXAMINATION TYPE: XR abdomen 1V DATE OF EXAM: 06/11/2023 Comparison: None Clinical History: 77-year-old male lower abdominal pain x 3 weeks Findings: Lung bases are clear. No evidence for free intraperitoneal air. No dilated small bowel. Scattered mod erate stool. Iliac artery stents are noted. Moderate to severe degenerative change left hip. Impression: No evidence for free air or bowel obstruction. Scattered moderate stool. Bilateral iliac artery stent s. 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
--- NOTE | 2023-06-11 12:58 | CT ---
EXAMINATION TYPE: CT abdomen pelvis w con DATE OF EXAM: 06/11/2023 COMPARISON: 05/30/2023 HISTORY: 77-year-old male intractable Lower abd pain TECHNIQUE: Contiguous axial scanning of the abdomen and pelvis following administration of 100 ml Iso rach 300 IV contrast. Delayed images through the kidneys and coronal/sagittal reconstructions perform ed. CT DLP: 428.7 mGycm Automated exposure control for dose reduction was used. FINDINGS: Improvement in the previous medial right middle lobe patchy opacity. Some residual density remains. Emphysematous change in the lower lungs. No pleural effusion. A few scattered hepatic cysts measuring up to 1.4 cm. No biliary ductal dilatation. Portal venous sys tem is patent. As mentioned previously, possible severe stenoses at the proximal celiac axis and SMA. Additional possible severe stenoses at the origin of the renal arteries. Fusiform dilatation infrarenal abdominal aorta at 2.7 cm. Bilateral iliac artery stents are present. Suspect segments of severe stenosis particularly at the bi lateral iliac artery bifurcation. No dilated small bowel, free fluid, or free air. No mesenteric or retroperitoneal lymphadenopathy. Gallbladder, adrenal glands, kidneys, spleen with tiny calcified granuloma show no gross abnormality. Pancreas atrophic without gross abnormality. Scattered mild to moderate stool. No pericolic inflammatory change clearly identified. Bladder is urine distended. Mild circumferential wall thickening probably chronic for the patient. Pr ostate gland mildly enlarged at 4.2 cm wide. No abnormal fluid collection in the pelvis or pelvic lym phadenopathy. Bones: Moderate to severe degenerative changes left hip and moderate at the right hip. Hypertrophic f acet arthropathy mid to lower lumbar spine with scattered mild to moderate degenerative disc disease. IMPRESSION: 1. SOME CIRCUMFERENTIAL BLADDER WALL THICKENING PROBABLY CHRONIC FOR THE PATIENT. CORRELATE TO EXCLUD E CYSTITIS. 2. OTHERWISE, NO DEFINITE ACUTE INFLAMMATORY PROCESS IS IDENTIFIED. HOWEVER, NOTE THE SEVERE STENOSES AT THE PROXIMAL CELIAC AXIS AND SMA. CORRELATE TO EXCLUDE THE POSSIBILITY OF ABDOMINAL ANGINA AN ETIOLOGY FOR THE PATIENT'S PAIN. 3. BILATERAL ILIAC ARTERY STENTS. THERE APPEARS TO BE RESIDUAL SEVERE STENOSES AT THE BILATERAL ILIAC ARTERY BIFURCATIONS. 4. OVERALL IMPROVEMENT OF THE RIGHT BASE BUT WITH SOME RESIDUAL PATCHY OPACITY MEDIAL RIGHT MIDDLE LO BE. POSSIBLE SCARRING AT THE SITE OF PREVIOUS PNEUMONIA. CORRELATE FOR ANY ONGOING INFECTIOUS RESPIRA TORY SIGNS/SYMPTOMS.
[2023-06-11] MEDS ORDERED: NALOXONE 0.4 MG/ML 1 ML VIAL IV PRN (13:59)
[2023-06-11] MEDS ORDERED: ONDANSETRON 4 MG/2 ML VIAL IVP PRN (13:59)
[2023-06-11] MEDS ORDERED: SODIUM CHLORIDE 0.9% 1,000 ML IV SCH (14:00)
[2023-06-11] MEDS ORDERED: SODIUM CHLORIDE 0.9% 1,000 ML IV ONE (15:23)
[2023-06-11] MEDS ORDERED: NITROGLYCERIN SL TABS 0.4 MG TAB SUBLINGUAL PRN (15:53)
[2023-06-11] MEDS: HYDROmorphone 1 MG/ML 1 ML SYRINGE IVP PRN ×2 (16:26→21:22)
[2023-06-11] MEDS: PIPERACILLIN-TAZOBACTAM 3.375 GM in SODIUM CHLORIDE 0.9% 100 ML IVPB SCH ×2 (16:30→23:37)
[2023-06-11 17:03] LABS: African American GFR (CKD) >90 (>60 ml/min/1.73 sqM); Anion Gap 8 mmol/L; Blood Urea Nitrogen 21 mg/dL (9-20); Calcium 7.8 mg/dL (8.4-10.2); Carbon Dioxide 21 mmol/L (22-30); Chloride 108 mmol/L (98-107); Glucose 69 mg/dL (74-99); Non-African American GFR(CKD) >90 (>60 ml/min/1.73 sqM); Sodium 137 mmol/L (137-145)
--- NOTE | 2023-06-11 17:07 | P.HPIM ---
History of Present Illness H&P Date: 06/11/23 History of Presenting Illness: Patient is a pleasant 77-year old male with a past medical history of CAD, COPD, HTN, HLD, previous NM in 2016, and a CABG with stents x3, and a 40 pack- year smoking history. Patient presented to the emergency department on 06/11/23 secondary to acute abdominal pain. Patient states that this pain has worsened over the past three weeks and describes it as intense pressure in the entire abdomen worsened by oral intake. He rated his pain at a 10/10 upon arrival and at a 7/10 at present. Patient denies nausea or vomiting. The patient has lost 34 lbs during this time frame due to loss of appetite and decreased oral intake. Patient reports his last bowel movement was this morning, denies melena or hematochezia. He reports an episode of syncope this morning related to general weakness, which prompted him to come to the emergency room for evaluation. Upon arrival to the emergency department, patient underwent full evaluation. Patient arrived with an elevated blood pressure of 160/72, heart rate 72, SpO2 of 100% on room air, and respiratory rate of 20. Labs completed and reviewed. Lactic acid was elevated at 3.2. WBCs elevated at 14.9. Hgb was low at 12.1, MCV low at 79.0. APTT low at 20.4. Sodium low at 135. Potassium elevated at 5.7, hemolyzed specimen. Bicarb slightly low at 19, and BUN slightly elevated at 23. Liver profile unremarkable. An abdominal X-Ray was completed and was negative for free air or bowel obstruction. A CT of the abdomen/pelvis revealed severe stenosis at the proximal celiac axis and SMA. Patient admitted under our services with consultation to cardiology and general surgery. Review of systems: Pertinent positives and negatives as discussed in HPI, a complete review of systems was performed and all other systems are negative. Physical exam: Vital signs reviewed and stable with the exception of elevated BP at 187/80 General: Nontoxic, no distress and appears stated age. Derm: Pallor of NEIL lower extremities, cool when touched with the back of hand. Skin of upper extremities and torso warm and dry. Normal coloration for ethnicity. Head: Atraumatic, normocephalic and symmetric. Eyes: EOMs intact, no lid lag, and anicteric sclera Mouth: no lip lesions, mucus membranes moist Cardiovascular: Delayed cap refill of NEIL lower extremities of 3 seconds. Irregularly irregular with normal S1S2, systolic murmur, positive posterior tibial pulses bilaterally Lungs: Respirations even, regular, and unlabored on room air. Lungs CTA bilaterally, no rhonchi, no rales, no wheezing, and no accessory muscle usage. Abdominal: Guarding and tenderness of bilateral lower quadrants upon palpation worse on left. Abdomen was nonacute and soft with no distention, no appreciable organomegaly, and no pulsatile abdominal mass. Ext: ROM intact. No gross muscle atrophy, no edema, no contractures Neuro: Speech clear, face symmetrical and CN II-XII grossly intact with no noted focal neuro deficits Psych: Alert and oriented to person, place, time, and situation. Appropriate and pleasant affect. 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 -Continuation of Empiric IV antibiotics Zosyn 3.375 gm Q8 hr -CTA of the abdomen and pelvis ordered, results pending. Pending results and recommendations from surgery, may consider anticoagulation. -NPO until CTA results available and cleard by weapons officer/general surgeon to advance diet -Trend lactate and monitor for resolution -Patient received 1 L bolus 0.9% normal saline followed by maintenance infusion with D5 0.45% normal saline at 100 mL per hour. -Monitor closely with repeat morning labs including CBC and CMP CAD status post-CABGx3 followed by stenting Hypertension Hyperlipidemia COPD -Continue home medication regimen atorvastatin 40 mg and metoprolol 50 mg. The patient is admitted with an anticipated greater than 2 midnight stay for evaluation of intractable abdominal pain with concerns of ischemic colitis CODE STATUS: Full code DVT prophylaxis: Xarelto to be held per recommendations of Consulting Practice Manager secondary to likely plans for surgical intervention Discussed with: Patient, ED provider, RN, and weapons officer Anticipated discharge date: Clinical course to determine Anticipated discharge place: Home Patient was seen independently by Nurse Practitioner. This document was prepared using [employer] dictation software. Please allow for errors in transformation consultant while rare they do occur. Past Medical History Past Medical History: Coronary Artery Disease (CAD), COPD, Hyperlipidemia, Hypertension, Memory Impairment, Myocardial Infarction (NM) Additional Past Medical History / Comment(s): "rt 2nd toe ulcer-sensitive and scabbed" POOR CIRCULATION BOTH LEGS Last Myocardial Infarction Date:: 10/02/2015 History of Any Multi-Drug Resistant Organisms: None Reported Past Surgical History: Coronary Bypass/CABG, Heart Catheterization With Stent, Hernia Repair, Orthopedic Surgery Additional Past Surgical History / Comment(s): heart stents x 3,ORIF rt elbow, triple bypass, ABDOMINAL AORTOGRAM WITH NEIL EXT. RUNOFF 3-8-17. colonoscopy Past Anesthesia/Blood Transfusion Reactions: No Reported Reaction Date of Last Stent Placement:: 10/02/2015 Past Psychological History: Anxiety Smoking Status: Current every day smoker Past Alcohol Use History: None Reported Past Drug Use History: None Reported - Past Family History Mother Family Medical History: Vascular Disorder Father Family Medical History: COPD Brother(s) Family Medical History: Cancer Additional Family Medical History / Comment(s): Heart problems, lymphoma. Medications and Allergies Home Medications Medication Instructions Recorded Confirmed Type Atorvastatin [Lipitor] 40 mg PO DAILY 06/09/18 06/11/23 History Nitroglycerin Sl Tabs [Nitrostat] 0.4 mg SUBLINGUAL Q5M PRN 03/15/21 06/11/23 History Rivaroxaban [Xarelto] 20 mg PO DAILY 03/15/21 06/11/23 History Sucralfate [Carafate] 1 gm PO AC-TID 03/15/21 06/11/23 History ALPRAZolam [Xanax] 0.25 mg PO DAILY 06/11/23 06/11/23 History Metoprolol Tartrate [Lopressor] 50 mg PO DAILY 06/11/23 06/11/23 History Pramipexole [Mirapex] 0.25 mg PO HS 06/11/23 06/11/23 History Allergies Allergy/AdvReac Type Severity Reaction Status Date / Time No Known Allergies Allergy Verified 06/11/23 14:20 Physical Exam Vitals: Vital Signs Temp Pulse Resp BP Pulse Ox 06/11/23 12:15 91 20 187/80 100 06/11/23 11:03 76 19 165/68 100 06/11/23 10:18 97.5 F L 72 20 160/72 100 Intake and Output 06/10/23 06/11/23 06/11/23 22:59 06:59 14:59 Other: Weight 57.289 kg Results CBC & Chem 7: 06/11/23 10:40 06/11/23 16:25 Labs: Abnormal Lab Results - Last 24 Hours (Table) 06/11/23 06/11/23 06/11/23 Range/Units 10:40 10:40 10:40 WBC 14.9 H (3.8-10.6) k/uL Hgb 12.1 L (13.0-17.5) gm/dL Hct 38.7 L (39.0-53.0) % MCV 79.0 L (80.0-100.0) fL MCH 24.6 L (25.0-35.0) pg RDW 16.8 H (11.5-15.5) % Neutrophils # 11.9 H (1.3-7.7) k/uL APTT 20.4 L (22.0-30.0) sec Sodium 135 L (137-145) mmol/L Potassium 5.7 H (3.5-5.1) mmol/L Carbon Dioxide 19 L (22-30) mmol/L BUN 23 H (9-20) mg/dL Plasma Lactic Acid Zacarias (0.7-2.0) mmol/L 06/11/23 Range/Units 10:40 WBC (3.8-10.6) k/uL Hgb (13.0-17.5) gm/dL Hct (39.0-53.0) % MCV (80.0-100.0) fL MCH (25.0-35.0) pg RDW (11.5-15.5) % Neutrophils # (1.3-7.7) k/uL APTT (22.0-30.0) sec Sodium (137-145) mmol/L Potassium (3.5-5.1) mmol/L Carbon Dioxide (22-30) mmol/L BUN (9-20) mg/dL Plasma Lactic Acid Zacarias 3.2 H* (0.7-2.0) mmol/L
[2023-06-11] MEDS ORDERED: DEXTROSE 50% SYRINGE 50 ML IVP PRN ×2 (18:09)
[2023-06-11 18:30] LABS: Glucose,Whole Blood 85 mg/dL (70-110)
[2023-06-11] MEDS: SUCRALFATE 1 GM TAB PO SCH (18:42)
[2023-06-11] MEDS: DEXTROSE 5%-0.45% NACL 1,000 ML IV SCH (18:56)
[2023-06-11] MEDS: PRAMIPEXOLE 0.25 MG TAB PO SCH (21:20)
[2023-06-12 03:35] LABS: Glucose,Whole Blood 106 mg/dL (70-110)
[2023-06-12] MEDS: HYDROmorphone 1 MG/ML 1 ML SYRINGE IVP PRN ×6 (04:25→22:16)
[2023-06-12] MEDS: DEXTROSE 5%-0.45% NACL 1,000 ML IV SCH ×3 (04:27→23:59)
[2023-06-12] MEDS: ALPRAZolam 0.25 MG TAB PO SCH (08:34)
[2023-06-12] MEDS: METOPROLOL TARTRATE 50 MG TAB PO SCH (08:34)
[2023-06-12] MEDS: SUCRALFATE 1 GM TAB PO SCH ×3 (08:34→16:43)
[2023-06-12] MEDS: ATORVASTATIN 40 MG TAB PO SCH (08:34)
[2023-06-12] MEDS: PIPERACILLIN-TAZOBACTAM 3.375 GM in SODIUM CHLORIDE 0.9% 100 ML IVPB SCH ×3 (08:40→23:58)
[2023-06-12 10:11] LABS: Anisocytosis Slight; HCT 36.8 % (39.0-53.0); HGB 11.4 gm/dL (13.0-17.5); Hypochromasia Moderate; MCH 25.1 pg (25.0-35.0); MCHC 31.1 g/dL (31.0-37.0); MCV 80.7 fL (80.0-100.0); Mean Platelet Volume 8.1; Platelet Count 278 k/uL (150-450); RBC 4.56 m/uL (4.30-5.90); RDW 16.7 % (11.5-15.5); WBC 17.8 k/uL (3.8-10.6)
--- NOTE | 2023-06-12 11:43 | P.GSCN ---
History of Present Illness Consult date: 06/12/23 History of present illness: CHIEF COMPLAINT: Abdominal pain HISTORY OF PRESENT ILLNESS: The patient is a 77-year-old male who reports at least 3 weeks to 1 month history of chronic abdominal pain after eating. Patient is previously being seen by general surgeon Dr. Go where an upper endoscopy was performed including additional studies. Patient reports he had outside CT of the abdomen and pelvis demonstrating a intra-abdominal mass. Repeat computed tomography scan demonstrated no findings. Incidentally, patient reports only tolerating milk. He describes immediate pain within 30 minutes after eating solid foods including hot dog yesterday. Reports unintentional weight loss. He has moderate hunger. Due to pain after eating, patient presented to the emergency room. Incidentally, he has pre-existing heart disease including moderate to severe peripheral vascular occlusive disease. 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 General surgery is consulted due to his abdominal pain. PAST MEDICAL HISTORY: See list and reviewed PAST SURGICAL HISTORY: See list and reviewed MEDICATIONS: See list and reviewed ALLERGIES: See list and reviewed SOCIAL HISTORY: See list and reviewed FAMILY HISTORY: See list and reviewed REVIEW OF ORGAN SYSTEMS: CONSTITUTIONAL: No fevers or chills. Has unintentional weight loss over 10 pounds in 1 month EYES: Denies any trouble with vision. No glasses. HEENT: No difficulties with hearing. No nosebleeds. No difficulty swallowing. RESPIRATORY: Has tobacco abuse disorder. Has chronic obstructive pulmonary disease. CARDIOVASCULAR: Has hyperlipidemia, peripheral vascular occlusive disease, coronary artery disease. On blood thinners. Strong family history of vascular disorder. History of cardiac stent 3. History of triple bypass. Reports poor circulation. History of myocardial infarction. GASTROINTESTINAL: Denies fatty food intolerance. Denies change in bowel habits and gas bloat. GENITOURINARY: Denies any blood in urine or increased urinary frequency. NEUROLOGICAL: Denies any numbness or tingling along the distal extremities. No seizure disorders or headaches. MUSCULOSKELETAL: Has back pain, stiffness or joint arthritis. SKIN: No current skin cancer. No rash. Has skin ulcers on the foot. PSYCHIATRIC: Denies current depression or suicidal thoughts. Has anxiety disorder. Has membrane.. ENDOCRINE: Denies current thyroid disorders. Denies any blood sugar glucose intolerance. HEME/LYMPHATIC: Denies any lumps and bumps around the neck. No recent deep venous thrombosis. On blood thinners. ALLERGY/IMMUNOLOGY: No immunoglobulin therapy. No immune deficiencies. BREAST: Denies current breast lumps, pain or nipple discharge. PHYSICAL EXAM: VITALS: Reviewed CONSTITUTIONAL: Well developed and in no acute distress. EYES: Conjuctivae without sclera icterus. Extraocular movements grossly intact. HEAD, EARS, NOSE, THROAT: Moist buccal mucosa. Head is atraumatic, normocephalic. Hears conversational speech. No nasal drainage. NECK: Supple. No JV distention. No thyroidomegaly. RESPIRATORY: Non-labored respirations and equal bilateral excursions. No gross wheezes. CARDIOVASCULAR: Palpable 2+ radial pulses. ABDOMEN: Scaphoid. No diffuse peritonitis. LYMPH: No neck lymphadenopathy. MUSCULOSKELETAL: No clubbing or edema. SKIN: Skin dry. NEUROLOGIC: Cranial nerves II through XII grossly intact. No focal or lateralizing signs. PSYCH: Appropriate affect. Alert and oriented to person, place and time. Displays appropriate insight. CLINCAL LABS: Reviewed. WBC elevated over 14,000 with leukocytosis. Anemia, hemoglobin 12.1. Lactic acid elevated at 3.2 on admission, on repeat normal IMAGING: Independently reviewed. CT of the abdomen and pelvis reviewed without oral contrast demonstrates stool within the colon. No bowel wall thickening. No free air. No mesenteric swirl internal hernia. Moderate calcifications along the abdominal aorta and celiac plexus. This is my independent i nterpretation. RADIOLOGY: Report reviewed. CT of the abdomen and pelvis then cut SMA demonstrates severe stenosis. Celiac artery involved. Renal artery stenosis bilateral identified. RECORDS: previous old records reviewed with he brought with him. Upper endoscopy images reviewed demonstrating moderate bleeding within the stomach from gastritis. EGD report reviewed without intra-abdominal masses identified. ASSESSMENT: 1. Abdominal pain, due to intestinal ischemia 2. Mesenteric artery occlusion 3. Anemia 4. Chronic anticoagulant 5. Peripheral vascular occlusive disease 6. Tobacco abuse disorder 7. Chronic obstructive pulmonary disease PLAN: 1. IV fluid hydration. 2. Patient seen and evaluated. CT results reviewed consistent with vascular ischemic event of SMA artery occlusion however chronic. 3. I personally contacted the vascular team for management. Per discussion of vascular team, armor senior sergeant is managing his SMA occlusion. 4. Do recommend vascular backup in case for intestinal vascular bypass needed. 5. Management per armor senior sergeant. 6. No acute surgical intervention at this time. 7. Defer dietary management to armor senior sergeant ADVANCE DIRECTIVE: Thank you for this kind consultation. Past Medical History Past Medical History: Coronary Artery Disease (CAD), COPD, Hyperlipidemia, Hypertension, Memory Impairment, Myocardial Infarction (IA) Additional Past Medical History / Comment(s): "rt 2nd toe ulcer-sensitive and scabbed" POOR CIRCULATION BOTH LEGS, RLS, leg cramps Last Myocardial Infarction Date:: 10/02/2015 History of Any Multi-Drug Resistant Organisms: None Reported Past Surgical History: Coronary Bypass/CABG, Heart Catheterization With Stent, Hernia Repair, Orthopedic Surgery Additional Past Surgical History / Comment(s): heart stents x 3,ORIF rt elbow, triple bypass, ABDOMINAL AORTOGRAM WITH NEIL EXT. RUNOFF 11-06-16. colonoscopy Past Anesthesia/Blood Transfusion Reactions: No Reported Reaction Date of Last Stent Placement:: 10/02/2015 Smoking Status: Current every day smoker - Past Family History Mother Family Medical History: Vascular Disorder Father Family Medical History: COPD Brother(s) Family Medical History: Cancer Additional Family Medical History / Comment(s): Heart problems, lymphoma. Medications and Allergies Home Medications Medication Instructions Recorded Confirmed Type Atorvastatin [Lipitor] 40 mg PO DAILY 06/09/18 06/11/23 History Nitroglycerin Sl Tabs [Nitrostat] 0.4 mg SUBLINGUAL Q5M PRN 03/15/21 06/11/23 History Rivaroxaban [Xarelto] 20 mg PO DAILY 03/15/21 06/11/23 History Sucralfate [Carafate] 1 gm PO AC-TID 03/15/21 06/11/23 History ALPRAZolam [Xanax] 0.25 mg PO DAILY 06/11/23 06/11/23 History Metoprolol Tartrate [Lopressor] 50 mg PO DAILY 06/11/23 06/11/23 History Pramipexole [Mirapex] 0.25 mg PO HS 06/11/23 06/11/23 History Allergies Allergy/AdvReac Type Severity Reaction Status Date / Time No Known Allergies Allergy Verified 06/11/23 14:20 Surgical - Exam Vital Signs Temp Pulse Resp BP Pulse Ox 97.5 F L 72 20 160/72 100 06/11/23 10:18 06/11/23 10:18 06/11/23 10:18 06/11/23 10:18 06/11/23 10:18 Results - Labs 06/12/23 09:11 06/12/23 10:32 Abnormal Lab Results - Last 24 Hours (Table) 06/11/23 06/11/23 06/12/23 Range/Units 10:40 16:25 09:11 WBC 17.8 H (3.8-10.6) k/uL Hgb 11.4 L (13.0-17.5) gm/dL Hct 36.8 L (39.0-53.0) % RDW 16.7 H (11.5-15.5) % Chloride 108 H (98-107) mmol/L Carbon Dioxide 21 L (22-30) mmol/L BUN 21 H (9-20) mg/dL Glucose 69 L (74-99) mg/dL Hemoglobin A1c 6.1 H (<=6.0) % Calcium 7.8 L (8.4-10.2) mg/dL Diabetes panel 06/11/23 06/11/23 Range/Units 10:40 16:25 Sodium 137 (137-145) mmol/L Potassium 4.0 (3.5-5.1) mmol/L Chloride 108 H (98-107) mmol/L Carbon Dioxide 21 L (22-30) mmol/L BUN 21 H (9-20) mg/dL Creatinine 0.71 (0.66-1.25) mg/dL Glucose 69 L (74-99) mg/dL Hemoglobin A1c 6.1 H (<=6.0) % Calcium 7.8 L (8.4-10.2) mg/dL Calcium panel 06/11/23 Range/Units 16:25 Calcium 7.8 L (8.4-10.2) mg/dL Pituitary panel 06/11/23 Range/Units 16:25 Sodium 137 (137-145) mmol/L Potassium 4.0 (3.5-5.1) mmol/L Chloride 108 H (98-107) mmol/L Carbon Dioxide 21 L (22-30) mmol/L BUN 21 H (9-20) mg/dL Creatinine 0.71 (0.66-1.25) mg/dL Glucose 69 L (74-99) mg/dL Calcium 7.8 L (8.4-10.2) mg/dL Adrenal panel 06/11/23 Range/Units 16:25 Sodium 137 (137-145) mmol/L Potassium 4.0 (3.5-5.1) mmol/L Chloride 108 H (98-107) mmol/L Carbon Dioxide 21 L (22-30) mmol/L BUN 21 H (9-20) mg/dL Creatinine 0.71 (0.66-1.25) mg/dL Glucose 69 L (74-99) mg/dL Calcium 7.8 L (8.4-10.2) mg/dL
--- NOTE | 2023-06-12 12:11 | P.CRDCN ---
History of Present Illness History of present illness: HISTORY OF PRESENT ILLNESS: This is a 77-year-old male with a past medical history significant for coronary artery disease with previous stenting and CABG, peripheral vascular disease, hypertension, hyperlipidemia, and nicotine dependence. Patient follows in the office with Dr. Saldaña and also Dr. Navarro for his PVD. We have been asked to see the patient in consultation for SMA occlusion. Patient examined at the bedside in the emergency room. Patient presented to the hospital for chief complaint of abdominal pain. Patient states he has been having abdominal pain over the past few weeks. He states the pain begins within 2-3 minutes of eating and feels like a gnawing sensation in his abdomen. He does report weight loss as a result of this. He denies chest pain or pressure. Denies SOB. * EKG reveals sinus mechanism with nonspecific ST-T wave changes * Laboratory data: WBC 17.8. Hemoglobin 11.4. Platelet count 278. Sodium 137. Potassium 4.0. BUN 21. Creatinine 0.71. * Current home cardiac medications include Xarelto 20mg daily, Lipitor 40 mg daily, metoprolol tartrate 50 mg daily * Most recent echocardiogram obtained in October 2019 revealing ejection fraction 50% with moderate MR REVIEW OF SYSTEMS: At the time of my exam: CONSTITUTIONAL: Denies fever or chills. HEENT: Denies blurred vision, vision changes, or eye pain. Denies hemoptysis CARDIOVASCULAR: Denies chest pain. Denies orthopnea. Denies PND. Denies palpitations RESPIRATORY: Denies shortness of breath. GASTROINTESTINAL: Denies abdominal pain. Denies nausea or vomiting. HEMATOLOGIC: Denies bleeding disorders. GENITOURINARY: Denies any blood in urine. SKIN: Denies pruitis. Denies rash. PHYSICAL EXAM: VITAL SIGNS: Reviewed. GENERAL: Well-developed in no acute distress. HEENT: Head is normocephalic. Pupils are equal, round. Sclerae anicteric. Mucous membranes of the mouth are moist. Neck supple. No JVD or thyromegaly LUNGS: Respirations even and unlabored. Lungs essentially clear to auscultation bilaterally. HEART: Regular rate and rhythm. S1 and S2 heard. ABDOMEN: Soft. Nondistended. Positive tenderness EXTREMITIES: Normal range of motion. No clubbing or cyanosis. Peripheral pulses intact. No lower extremity edema NEUROLOGIC: Awake and alert. Oriented x 3. 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 Navarro Further recommendations pending patient course Nurse practitioner note has been reviewed by physician. Signing provider agrees with the documented findings, assessment, and plan of care. Past Medical History Past Medical History: Coronary Artery Disease (CAD), COPD, Hyperlipidemia, Hypertension, Memory Impairment, Myocardial Infarction (CT) Additional Past Medical History / Comment(s): "rt 2nd toe ulcer-sensitive and scabbed" POOR CIRCULATION BOTH LEGS, RLS, leg cramps Last Myocardial Infarction Date:: 10/02/2015 History of Any Multi-Drug Resistant Organisms: None Reported Past Surgical History: Coronary Bypass/CABG, Heart Catheterization With Stent, Hernia Repair, Orthopedic Surgery Additional Past Surgical History / Comment(s): heart stents x 3,ORIF rt elbow, triple bypass, ABDOMINAL AORTOGRAM WITH NEIL EXT. RUNOFF 38-17. colonoscopy Past Anesthesia/Blood Transfusion Reactions: No Reported Reaction Date of Last Stent Placement:: 10/02/2015 Smoking Status: Current every day smoker - Past Family History Mother Family Medical History: Vascular Disorder Father Family Medical History: COPD Brother(s) Family Medical History: Cancer Additional Family Medical History / Comment(s): Heart problems, lymphoma. Medications and Allergies Home Medications Medication Instructions Recorded Confirmed Type Atorvastatin [Lipitor] 40 mg PO DAILY 06/09/18 06/11/23 History Nitroglycerin Sl Tabs [Nitrostat] 0.4 mg SUBLINGUAL Q5M PRN 03/15/21 06/11/23 History Rivaroxaban [Xarelto] 20 mg PO DAILY 03/15/21 06/11/23 History Sucralfate [Carafate] 1 gm PO AC-TID 03/15/21 06/11/23 History ALPRAZolam [Xanax] 0.25 mg PO DAILY 06/11/23 06/11/23 History Metoprolol Tartrate [Lopressor] 50 mg PO DAILY 06/11/23 06/11/23 History Pramipexole [Mirapex] 0.25 mg PO HS 06/11/23 06/11/23 History Allergies Allergy/AdvReac Type Severity Reaction Status Date / Time No Known Allergies Allergy Verified 06/11/23 14:20 Physical Exam Vitals: Vital Signs Temp Pulse Resp BP Pulse Ox 06/12/23 08:00 97.6 F 70 18 137/55 98 06/12/23 06:00 97.8 F 65 18 136/53 98 06/12/23 05:35 66 16 136/53 97 06/12/23 04:00 66 18 140/52 06/12/23 03:33 68 18 140/52 98 06/12/23 02:00 73 16 149/58 06/12/23 00:00 80 18 137/59 95 06/11/23 22:00 74 20 156/68 95 06/11/23 18:52 79 20 148/79 98 06/11/23 16:31 95 20 168/67 97 06/11/23 14:50 74 18 169/70 98 06/11/23 12:15 91 20 187/80 100 Intake and Output 06/11/23 06/12/23 06/12/23 22:59 06:59 14:59 Other: Voiding Method Urinal Weight 57.289 kg Results 06/12/23 09:11 06/11/23 16:25 CBC 06/12/23 Range/Units 09:11 WBC 17.8 H (3.8-10.6) k/uL RBC 4.56 (4.30-5.90) m/uL Hgb 11.4 L (13.0-17.5) gm/dL Hct 36.8 L (39.0-53.0) % Plt Count 278 (150-450) k/uL Comprehensive Metabolic Panel 06/11/23 Range/Units 16:25 Sodium 137 (137-145) mmol/L Potassium 4.0 (3.5-5.1) mmol/L Chloride 108 H (98-107) mmol/L Carbon Dioxide 21 L (22-30) mmol/L BUN 21 H (9-20) mg/dL Creatinine 0.71 (0.66-1.25) mg/dL Glucose 69 L (74-99) mg/dL Calcium 7.8 L (8.4-10.2) mg/dL Current Medications Generic Name Dose Route Start Last Admin Trade Name Freq PRN Reason Stop Dose Admin Alprazolam 0.25 mg 06/12/23 09:00 06/12/23 08:34 Alprazolam 0.25 Mg Tab PO 0.25 mg DAILY BRAEDEN Administration Atorvastatin Calcium 40 mg 06/12/23 09:00 06/12/23 08:34 Atorvastatin 40 Mg Tab PO 40 mg DAILY BRAEDEN Administration Dextrose/Water 25 ml 06/11/23 18:09 Dextrose 50% Syringe 50 Ml IVP PER PROTOCOL PRN Hypoglycemia Protocol Dextrose/Water 50 ml 06/11/23 18:09 Dextrose 50% Syringe 50 Ml IVP PER PROTOCOL PRN Hypoglycemia Protocol Hydromorphone HCl 1 mg 06/11/23 13:59 06/12/23 08:39 Hydromorphone 1 Mg/Ml 1 Ml Syringe IVP 1 mg Q3HR PRN Administration Severe Pain (Scale 7 to 10) Piperacillin Sod/Tazobactam 100 mls @ 25 mls/hr 06/11/23 16:00 06/12/23 08:40 Sod 3.375 gm/ Sodium Chloride IVPB 25 mls/hr Q8HR BRAEDEN Administration Protocol Dextrose/Sodium Chloride 1,000 mls @ 100 mls/hr 06/11/23 18:15 06/12/23 04:27 Dextrose 5%-1/2ns Iv Soln IV 100 mls/hr .Q10H BRAEDEN Administration Metoprolol Tartrate 50 mg 06/12/23 09:00 06/12/23 08:34 Metoprolol Tartrate 50 Mg Tab PO 50 mg DAILY BRAEDEN Administration Naloxone HCl 0.2 mg 06/11/23 13:59 Naloxone 0.4 Mg/Ml 1 Ml Vial IV Q2M PRN Opioid Reversal Nitroglycerin 0.4 mg 06/11/23 15:53 Nitroglycerin Sl Tabs 0.4 Mg Tab SUBLINGUAL Q5M PRN Chest Pain Ondansetron HCl 4 mg 06/11/23 13:59 Ondansetron 4 Mg/2 Ml Vial IVP Q8HR PRN Nausea And Vomiting Pantoprazole Sodium 40 mg 06/13/23 07:30 Pantoprazole 40 Mg Tablet PO [id number] BRAEDEN Pramipexole Dihydrochloride 0.25 mg 06/11/23 21:00 06/11/23 21:20 Pramipexole 0.25 Mg Tab PO 0.25 mg HS BRAEDEN Administration Sucralfate 1 gm 06/11/23 17:30 06/12/23 08:34 Sucralfate 1 Gm Tab PO 1 gm AC-TID BRAEDEN Administration Intake and Output 06/11/23 06/12/23 06/12/23 22:59 06:59 14:59 Other: Voiding Method Urinal Weight 57.289 kg Patient Weight 06/13/23 06:59 Weight 57.289 kg 06/12/23 09:11 06/11/23 16:25
[2023-06-12 12:29] LABS: ALT 13 U/L (4-49); AST 22 U/L (17-59); African American GFR (CKD) >90 (>60 ml/min/1.73 sqM); Alkaline Phosphatase 62 U/L (38-126); Anion Gap 5 mmol/L; Blood Urea Nitrogen 13 mg/dL (9-20); Calcium 8.4 mg/dL (8.4-10.2); Carbon Dioxide 24 mmol/L (22-30); Chloride 105 mmol/L (98-107); Glucose 109 mg/dL (74-99); Non-African American GFR(CKD) >90 (>60 ml/min/1.73 sqM); Potassium 4.6 mmol/L (3.5-5.1); Sodium 134 mmol/L (137-145); Total Bilirubin 0.5 mg/dL (0.2-1.3); Total Protein 5.4 g/dL (6.3-8.2)
--- NOTE | 2023-06-12 15:36 | P.PN ---
Subjective Progress Note Date: 06/12/23 Hospital Course: Patient is a pleasant 77-year old male with a past medical history of CAD status post CABG 3 followed by stenting,, COPD, HTN, HLD, and a 40 pack-year smoking history. Patient presented to the emergency department on 06/11/23 secondary to acute abdominal pain. Patient states that this pain has worsened over the past three weeks and describes it as intense pressure in the entire abdomen worsened by oral intake. He rated his pain at a 10/10 upon arrival and at a 7/10 at present. Patient denies nausea or vomiting. The patient has lost 34 lbs during this time frame due to loss of appetite and decreased oral intake. Patient reports his last bowel movement was this morning, denies melena or hematochezia. He reports an episode of syncope this morning related to general weakness, which prompted him to come to the emergency room for evaluation. Upon arrival to the emergency department, patient underwent full evaluation. Patient arrived with an elevated blood pressure of 160/72, heart rate 72, SpO2 of 100% on room air, and respiratory rate of 20. Labs completed and reviewed. Lactic acid was elevated at 3.2. WBCs elevated at 14.9. Hgb was low at 12.1, MCV low at 79.0. APTT low at 20.4. Sodium low at 135. Potassium elevated at 5.7, hemolyzed specimen. Bicarb slightly low at 19, and BUN slightly elevated at 23. Liver profile unremarkable. An abdominal X-Ray was completed and was negative for free air or bowel obstruction. A CT of the abdomen/pelvis revealed severe stenosis at the proximal celiac axis and SMA. Patient admitted under our services with consultation to vascular surgery and general surgery. Vascular surgeon called and stated that City Editor, Dr. Navarro will be managing SMA occlusion. Discussed case with Dr. Navarro, CTA to be completed however patient has already received contrast dye and therefore radiologist to go back through CT with thin cut reconstructions for more detailed review of SMA. Addended radiology report reviewed and radiology report stating severe stenosis at the origin and proximal 1 cm of the SMA with additional segmental moderate to severe stenosis present distally, atherosclerotic changes contribute to severe stenosis with possible subtotal occlusion of the celiac access which is diffusely diminutive in caliber, a replaced proper hepatic artery from the SMA, and moderate stenosis at the origin of the left renal artery and severe at the origin of the right renal artery. these findings were discussed in detail with Dr. Navarro, plan is for patient to undergo stenting of SMA on 06/13/23. Physical exam: Vital signs reviewed and stable General: Nontoxic, no distress and appears stated age. Derm: Pallor of NEIL lower extremities, cool when touched with the back of hand. Skin of upper extremities and torso warm and dry. Normal coloration for ethnicity. Head: Atraumatic, normocephalic and symmetric. Eyes: EOMs intact, no lid lag, and anicteric sclera Mouth: no lip lesions, mucus membranes moist Cardiovascular: Delayed cap refill of NEIL lower extremities of 3 seconds. Regular rate and rhythm with normal S1S2, systolic murmur, positive posterior tibial pulses bilaterally. Lungs: Respirations even, regular, and unlabored on room air. Lungs CTA bilaterally, no rhonchi, no rales, no wheezing, and no accessory muscle usage. Abdominal: Guarding and tenderness of bilateral lower quadrants upon palpation worse on left. Abdomen was nonacute and soft with no distention, no appreciable organomegaly, and no pulsatile abdominal mass. Ext: ROM intact. No gross muscle atrophy, no edema, no contractures Neuro: Speech clear, face symmetrical and CN II-XII grossly intact with no noted focal neuro deficits Psych: Alert and oriented to person, place, time, and situation. Appropriate and pleasant affect. 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 Navarro whom stated he is planning to take patient for stenting of SMA on 06/13/23. -Continue pain control with Dilaudid 1 mg IVP every 3 hours as needed for severe pain/discomfort -Clear liquid diet, NPO at midnight -Continuation of Empiric IV antibiotics Zosyn 3.375 gm Q8 hr -Gen. surgery following to rule out bowel ischemia. Reviewed documentation in chart. -Continue IV fluid hydration with D5 0.45% normal saline at 100 mL per hour. Blood glucose checks every 6 hours -Monitor closely with repeat morning labs including CBC and CMP -Per recommendations of securities consultant, continue to hold Xarelto at this time CAD status post-CABGx3 followed by stenting Hypertension Hyperlipidemia COPD -Continue home medication regimen atorvastatin 40 mg and metoprolol 50 mg. Lactic acidosis, resolved after IV fluid hydration High anion gap metabolic acidosis resolved with IV fluid hydration Data reviewed: -Vital signs reviewed. Blood pressure 137/55, heart rate 70, respiratory rate 18, temperature 97.6F, and SpO2 of 98% on room air. -Labs completed and reviewed. Repeat labs showing worsening leukocytosis with WBC count of 17.8 and persistent normocytic anemia with hemoglobin stable at 11.4. BMP revealing mild hyponatremia with sodium of 134 but resolution of previous noted high anion gap metabolic acidosis with chloride decreasing 205, bicarb increasing to 24, and anion gap of 5. Liver profile showing normal findings. Imaging reviewed: -CT with thin cut reconstructions was completed for more detailed review of SMA. Addended radiology report reviewed and radiology report stating severe stenosis at the origin and proximal 1 cm of the SMA with additional segmental moderate to severe stenosis present distally, atherosclerotic changes contribute to severe stenosis with possible subtotal occlusion of the celiac access which is di ffusely diminutive in caliber, a replaced proper hepatic artery from the SMA, and moderate stenosis at the origin of the left renal artery and severe at the origin of the right renal artery. CODE STATUS: Full code DVT prophylaxis: Xarelto to be held per recommendations of City Editor secondary to likely plans for surgical intervention Discussed with: Patient, ED provider, RN, and securities consultant Anticipated discharge date: Clinical course to determine Anticipated discharge place: Home Patient was seen independently by Nurse Practitioner. This document was prepared using [employer] dictation software. Please allow for errors in arranging funeral director while rare they do occur. Objective - Vital Signs Vital signs: Vital Signs Temp 97.8 F 06/12/23 06:00 Pulse 65 06/12/23 06:00 Resp 18 06/12/23 06:00 BP 136/53 06/12/23 06:00 Pulse Ox 98 06/12/23 06:00 FiO2 Intake & Output 06/11/23 06/12/23 06/12/23 18:59 06:59 18:59 Weight 57.289 kg - Labs CBC & Chem 7: 06/12/23 09:11 06/12/23 10:32 Labs: Abnormal Lab Results - Last 24 Hours (Table) 06/11/23 06/11/23 06/11/23 Range/Units 10:40 10:40 10:40 WBC 14.9 H (3.8-10.6) k/uL Hgb 12.1 L (13.0-17.5) gm/dL Hct 38.7 L (39.0-53.0) % MCV 79.0 L (80.0-100.0) fL MCH 24.6 L (25.0-35.0) pg RDW 16.8 H (11.5-15.5) % Neutrophils # 11.9 H (1.3-7.7) k/uL APTT 20.4 L (22.0-30.0) sec Sodium 135 L (137-145) mmol/L Potassium 5.7 H (3.5-5.1) mmol/L Chloride (98-107) mmol/L Carbon Dioxide 19 L (22-30) mmol/L BUN 23 H (9-20) mg/dL Glucose (74-99) mg/dL Plasma Lactic Acid Zacarias (0.7-2.0) mmol/L Calcium (8.4-10.2) mg/dL 06/11/23 06/11/23 Range/Units 10:40 16:25 WBC (3.8-10.6) k/uL Hgb (13.0-17.5) gm/dL Hct (39.0-53.0) % MCV (80.0-100.0) fL MCH (25.0-35.0) pg RDW (11.5-15.5) % Neutrophils # (1.3-7.7) k/uL APTT (22.0-30.0) sec Sodium (137-145) mmol/L Potassium (3.5-5.1) mmol/L Chloride 108 H (98-107) mmol/L Carbon Dioxide 21 L (22-30) mmol/L BUN 21 H (9-20) mg/dL Glucose 69 L (74-99) mg/dL Plasma Lactic Acid Zacarias 3.2 H* (0.7-2.0) mmol/L Calcium 7.8 L (8.4-10.2) mg/dL
[2023-06-12] MEDS: PRAMIPEXOLE 0.25 MG TAB PO SCH (20:51)
[2023-06-13 02:56] LABS: Glucose,Whole Blood 121 mg/dL (70-110)
[2023-06-13] MEDS: HYDROmorphone 1 MG/ML 1 ML SYRINGE IVP PRN ×4 (02:57→23:59)
[2023-06-13 06:39] LABS: Glucose,Whole Blood 77 mg/dL (70-110)
[2023-06-13] MEDS: PANTOPRAZOLE 40 MG TABLET PO SCH (06:54)
--- NOTE | 2023-06-13 08:07 | P.PN ---
Subjective Progress Note Date: 06/13/23 CHIEF COMPLAINT: Abdominal pain HISTORY OF PRESENT ILLNESS: The patient is a 77-year-old male admitted for acute on chronic abdominal pain. Diagnostic studies demonstrated SMA occlusion. 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 He reports chronic epigastric abdominal pain. Requiring pain meds. REVIEW OF ORGAN SYSTEMS: No vomiting. No fevers or chills. No shortness of breath. PHYSICAL EXAM: VITALS: Reviewed CONSTITUTIONAL: Well developed and in no acute distress. EYES: Conjuctivae without sclera icterus. Extraocular movements grossly intact. HEAD, EARS, NOSE, THROAT: Moist buccal mucosa. Head is atraumatic, normocephalic. Hears conversational speech. No nasal drainage. RESPIRATORY: Non-labored respirations and equal bilateral excursions. No gross wheezes. CARDIOVASCULAR: Palpable 2+ radial pulses. ABDOMEN: Scaphoid. Nondistended. MUSCULOSKELETAL: No clubbing or edema. SKIN: Skin dry. NEUROLOGIC: Cranial nerves II through XII grossly intact. No focal or lateralizing signs. PSYCH: Appropriate affect. Alert and oriented to person, place and time. Displays appropriate insight. CLINCAL LABS: Reviewed. WBC count 17,000-12,000. ASSESSMENT: 1. Abdominal pain, due to intestinal ischemia 2. Mesenteric artery occlusion 3. Anemia 4. Chronic anticoagulant 5. Peripheral vascular occlusive disease 6. Tobacco abuse disorder 7. Chronic obstructive pulmonary disease PLAN: 1. Patient being evaluated by cardiology for SMA stenting. 2. Any intestinal bypass, please defer to consultation vascular surgery. 3. Recommend dietary adjustment per cloth roll winder Objective - Vital Signs Vital signs: Vital Signs Temp 98.7 F 06/13/23 01:28 Pulse 58 L 06/13/23 01:28 Resp 15 06/13/23 01:28 BP 116/63 06/13/23 01:28 Pulse Ox 93 L 06/13/23 01:28 FiO2 Intake & Output 06/12/23 06/13/23 06/13/23 18:59 06:59 18:59 Intake Total 1650 Output Total 600 300 Balance 1050 -300 Weight 57.289 kg Intake: Intake, IV Titration 1400 Amount Dextrose 5%-0.45% NaCl 1, 1200 000 ml @ 100 mls/hr IV . Q10H [facility] Rx#:[id number] Piperacillin-Tazobactam 3 200 .375 gm In Sodium Chloride 0.9% 100 ml @ 25 mls/hr IVPB Q8HR [facility] Rx# :[id number] Oral 250 Output: Urine 600 300 Other: Voiding Method Urinal Urinal # Voids 150 - Labs CBC & Chem 7: 06/13/23 07:10 06/13/23 07:10 Labs: Abnormal Lab Results - Last 24 Hours (Table) 06/11/23 06/12/23 06/12/23 Range/Units 10:40 09:11 10:32 WBC 17.8 H (3.8-10.6) k/uL Hgb 11.4 L (13.0-17.5) gm/dL Hct 36.8 L (39.0-53.0) % RDW 16.7 H (11.5-15.5) % Sodium 134 L (137-145) mmol/L Creatinine 0.60 L (0.66-1.25) mg/dL Glucose 109 H (74-99) mg/dL POC Glucose (mg/dL) (70-110) mg/dL Hemoglobin A1c 6.1 H (<=6.0) % Total Protein 5.4 L (6.3-8.2) g/dL Albumin 3.0 L (3.5-5.0) g/dL 06/13/23 Range/Units 02:54 WBC (3.8-10.6) k/uL Hgb (13.0-17.5) gm/dL Hct (39.0-53.0) % RDW (11.5-15.5) % Sodium (137-145) mmol/L Creatinine (0.66-1.25) mg/dL Glucose (74-99) mg/dL POC Glucose (mg/dL) 121 H (70-110) mg/dL Hemoglobin A1c (<=6.0) % Total Protein (6.3-8.2) g/dL Albumin (3.5-5.0) g/dL
[2023-06-13 08:17] LABS: Anisocytosis Slight; HCT 31.6 % (39.0-53.0); Hypochromasia Marked; MCH 24.8 pg (25.0-35.0); MCHC 29.5 g/dL (31.0-37.0); MCV 84.1 fL (80.0-100.0); Mean Platelet Volume 8.2; Platelet Count 325 k/uL (150-450); RBC 3.76 m/uL (4.30-5.90); RDW 16.5 % (11.5-15.5); WBC 12.7 k/uL (3.8-10.6)
[2023-06-13] MEDS: METOPROLOL TARTRATE 50 MG TAB PO SCH (08:31)
[2023-06-13] MEDS: ALPRAZolam 0.25 MG TAB PO SCH (08:31)
[2023-06-13] MEDS: SUCRALFATE 1 GM TAB PO SCH ×3 (08:31→17:45)
[2023-06-13 08:41] LABS: HGB 9.3 gm/dL (13.0-17.5)
[2023-06-13 08:47] LABS: ALT 13 U/L (4-49); AST 25 U/L (17-59); African American GFR (CKD) >90 (>60 ml/min/1.73 sqM); Albumin 3.1 g/dL (3.5-5.0); Alkaline Phosphatase 64 U/L (38-126); Anion Gap 9 mmol/L; Blood Urea Nitrogen 7 mg/dL (9-20); Calcium 8.6 mg/dL (8.4-10.2); Carbon Dioxide 21 mmol/L (22-30); Chloride 104 mmol/L (98-107); Glucose 74 mg/dL (74-99); Magnesium 1.8 mg/dL (1.6-2.3); Non-African American GFR(CKD) >90 (>60 ml/min/1.73 sqM); Potassium 4.4 mmol/L (3.5-5.1); Sodium 134 mmol/L (137-145); Total Bilirubin 0.8 mg/dL (0.2-1.3); Total Protein 5.7 g/dL (6.3-8.2)
[2023-06-13] MEDS: ATORVASTATIN 40 MG TAB PO SCH (08:48)
[2023-06-13] MEDS: PIPERACILLIN-TAZOBACTAM 3.375 GM in SODIUM CHLORIDE 0.9% 100 ML IVPB SCH ×2 (08:48→17:44)
[2023-06-13 10:25] LABS: Glucose,Whole Blood 92 mg/dL (70-110)
[2023-06-13] MEDS: DEXTROSE 5%-0.45% NACL 1,000 ML IV SCH ×2 (12:13→17:45)
[2023-06-13 12:32] VITALS: BMI 19.8
[2023-06-13] MEDS ORDERED: LIDOCAINE 1% INJ 10MG/ML (20 ML MDV) ONE (12:36)
[2023-06-13] MEDS ORDERED: HEPARIN SODIUM 1,000 UN/ML (10ML VL) ONE (12:49)
[2023-06-13] MEDS: MIDAZOLAM 2 MG/2 ML VIAL IVP ONE ×2 (13:00→13:44)
[2023-06-13] MEDS ORDERED: LIDOCAINE 1% INJ 10MG/ML (20 ML MDV) SQ ONE (13:05)
[2023-06-13] MEDS ORDERED: IV FLUID CONTINUATION 900 ML IV ONE (13:05)
[2023-06-13] MEDS ORDERED: HYDROmorphone 0.5 MG/0.5 ML SYRINGE IVP ONE (13:11)
[2023-06-13] MEDS ORDERED: HEPARIN SODIUM 1,000 UN/ML (10ML VL) IVP ONE (13:22)
[2023-06-13] MEDS ORDERED: CLOPIDOGREL 75 MG TAB ONE (13:50)
[2023-06-13] MEDS ORDERED: IOPAMIDOL-370 100ML BTL INJ ONE ×2 (13:53)
[2023-06-13] MEDS ORDERED: CLOPIDOGREL 75 MG TAB PO ONE (13:53)
[2023-06-13] MEDS ORDERED: NALOXONE 0.4 MG/ML 1 ML VIAL IVP PRN (13:59)
[2023-06-13] MEDS ORDERED: SODIUM CHLORIDE 0.9% 1,000 ML in EMPTY BAG 1 BAG IV SCH (14:00)
--- NOTE | 2023-06-13 14:16 | P.PCN ---
Date of Procedure: 06/13/23 Operative Findings: PERCUTANEOUS MESENTERIC INTERVENTION Performing physician Russell Navarro M.D. Procedure performed 1. Successful stenting of the superior descending artery using 5 x 0 x 20 formula 418 balloon expandable stent with an excellent angiographic results and reduction of stenosis from 99% to 0% 2. Intravascular ultrasound of the superior mesenteric artery 3. Superior descending artery angiogram 4. Abdominal aortic angiogram 5. Right common femoral artery angiogram and ultrasound guided access of the right common femoral artery Indication Mesenteric ischemia Approach Right common femoral artery Complications None Level of sedation Moderate with a sedation time of 50 minutes Procedure description After obtaining an informed consent the patient was brought to the cardiac tutorial laboratory supervisor. The right common femoral artery was cannulated using micropuncture technique under ultrasound guidance the micropuncture wire passed easily then I placed a 6-Faroese sheath. After that I did advanced a 5-Faroese pigtail catheter all the way to the abdominal aorta under fluoroscopy guidance and I did an abdominal aortogram in the lateral position. That showed vertical disease involving the SMA. The celiac trunk was not quite opacified. Subsequently I did engage the SMA using renal double curve catheter. I did wire was initiated using 014 wire was subsequently I did intravascular ultrasound which showed a dynamic around 5 mm with extremely calcified vessel. I did exchange my 04 wire into a 18 wire using an 018 CXI catheter. Subsequently I did alone angioplasty using 4 mm balloon before I deployed 5.0 x 20 mm formula stent where the stent was positioned under fluoroscopy guidance and deployed under 12 marilu. Subsequently I did pull the balloon back to the ostium of the SMA and I did balloon angioplasty again. Final angiogram showed excellent angiographic results and the procedure was completed was no complication Postprocedure management 1. Dual antiplatelet therapy 2. Aggressive cholesterol control 3. Risk factors modification 4. Follow-up with the patient
--- NOTE | 2023-06-13 14:34 | IR ---
EXAMINATION TYPE: IR stent intravas non coronary DATE OF EXAM: 06/13/2023 COMPARISON: NONE HISTORY: Fluoroscopy time. Fluoroscopy was provided to the referring clinician.
--- NOTE | 2023-06-13 14:39 | P.PN ---
Subjective Progress Note Date: 06/13/23 Hospital Course: Patient is a pleasant 77-year old male with a past medical history of CAD status post CABG 3 followed by stenting,, COPD, HTN, HLD, and a 40 pack-year smoking history. Patient presented to the emergency department on 06/11/23 secondary to acute abdominal pain. Patient states that this pain has worsened over the past three weeks and describes it as intense pressure in the entire abdomen worsened by oral intake. He rated his pain at a 10/10 upon arrival and at a 7/10 at present. Patient denies nausea or vomiting. The patient has lost 34 lbs during this time frame due to loss of appetite and decreased oral intake. Patient reports his last bowel movement was this morning, denies melena or hematochezia. He reports an episode of syncope this morning related to general weakness, which prompted him to come to the emergency room for evaluation. Upon arrival to the emergency department, patient underwent full evaluation. Patient arrived with an elevated blood pressure of 160/72, heart rate 72, SpO2 of 100% on room air, and respiratory rate of 20. Labs completed and reviewed. Lactic acid was elevated at 3.2. WBCs elevated at 14.9. Hgb was low at 12.1, MCV low at 79.0. APTT low at 20.4. Sodium low at 135. Potassium elevated at 5.7, hemolyzed specimen. Bicarb slightly low at 19, and BUN slightly elevated at 23. Liver profile unremarkable. An abdominal X-Ray was completed and was negative for free air or bowel obstruction. A CT of the abdomen/pelvis revealed severe stenosis at the proximal celiac axis and SMA. Patient admitted under our services with consultation to vascular surgery and general surgery. Vascular surgeon called and stated that Surveillance Sensor Officer, Dr. Navarro will be managing SMA occlusion. Discussed case with Dr. Navarro, CTA to be completed however patient has already received contrast dye and therefore radiologist to go back through CT with thin cut reconstructions for more detailed review of SMA. Addended radiology report reviewed and radiology report stating severe stenosis at the origin and proximal 1 cm of the SMA with additional segmental moderate to severe stenosis present distally, atherosclerotic changes contribute to severe stenosis with possible subtotal occlusion of the celiac access which is diffusely diminutive in caliber, a replaced proper hepatic artery from the SMA, and moderate stenosis at the origin of the left renal artery and severe at the origin of the right renal artery. these findings were discussed in detail with Dr. Navarro, Surveillance Sensor Officer. Pt is scheduled to undergo stenting of SMA later today. Physical exam: Patient seen and fully evaluated at bedside. He is awaiting to undergo stenting of SMA later today with Dr. Navarro. Patient reports currently abdominal pain is controlled with current medication regimen with Dilaudid 1 mg IVP every 3 hours. Vital signs reviewed and stable General: Nontoxic, no distress and appears stated age. Derm: Skin warm and dry and coloration normal for ethnicity. Patient with venous discoloration in bilateral lower extremities with slightly reduced cap refill at 3 seconds. Head: Atraumatic, normocephalic and symmetric. Eyes: EOMs intact, no lid lag, and anicteric sclera Mouth: no lip lesions, mucus membranes moist Cardiovascular: Delayed cap refill of NEIL lower extremities of 3 seconds. Re gular rate and rhythm with normal S1S2, systolic murmur, positive posterior tibial pulses bilaterally. Lungs: Respirations even, regular, and unlabored on room air. Lungs CTA bilaterally, no rhonchi, no rales, no wheezing, and no accessory muscle usage. Abdominal: Guarding and tenderness of bilateral lower quadrants upon palpation worse on left. Abdomen was nonacute and soft with no distention, no appreciable organomegaly, and no pulsatile abdominal mass. Ext: ROM intact. No gross muscle atrophy, no edema, no contractures Neuro: Speech clear, face symmetrical and CN II-XII grossly intact with no noted focal neuro deficits Psych: Alert and oriented to person, place, time, and situation. Appropriate and pleasant affect. 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 Navarro. Patient is braeden eduled to undergo stenting of SMA later today. -Continue pain control with Dilaudid 1 mg IVP every 3 hours as needed for severe pain/discomfort -NPO -Continuation of Empiric IV antibiotics Zosyn 3.375 gm Q8 hr -Gen. surgery following secondary to mesenteric ischemia. Reviewed documentation in chart. -Continue IV fluid hydration with D5 0.45% normal saline at 100 mL per hour and continue glucose checks every 6 hours -Monitor closely with repeat morning labs including CBC and CMP -Per recommendations of sterilizer operator, continue to hold Xarelto at this time CAD status post-CABGx3 followed by stenting Hypertension Hyperlipidemia COPD -Continue home medication regimen atorvastatin 40 mg and metoprolol 50 mg. Lactic acidosis, resolved after IV fluid hydration High anion gap metabolic acidosis resolved with IV fluid hydration Data reviewed: -Vital signs reviewed. Blood pressure 149/49, heart rate 62, respiratory rate 14, temp 90.4F, SpO2 of 99% on room air. -Labs completed and reviewed. CBC showing continued leukocytosis with WBC count of 12.7 and normocytic anemia with hemoglobin of 9.3. BMP showing mild hyponatremia with sodium of 134 otherwise no significant abnormalities. Magnesium normal findings at 1.8 and liver profile also normal findings. Imaging reviewed: -No new imaging for review at this time CODE STATUS: Full code DVT prophylaxis: Xarelto to be held per recommendations of Surveillance Sensor Officer secondary to likely plans for surgical intervention Discussed with: Patient, ED provider, RN, and sterilizer operator Anticipated discharge date: Clinical course to determine Anticipated discharge place: Home Patient was seen independently by Nurse Practitioner. This document was prepared using [employer] dictation software. Please allow for errors in mechanical tech while rare they do occur. Objective - Vital Signs Vital signs: Vital Signs Temp 98.7 F 06/13/23 01:28 Pulse 58 L 06/13/23 01:28 Resp 15 06/13/23 01:28 BP 116/63 06/13/23 01:28 Pulse Ox 93 L 06/13/23 01:28 FiO2 Intake & Output 06/12/23 06/13/23 06/13/23 18:59 06:59 18:59 Intake Total 1650 Output Total 600 300 Balance 1050 -300 Weight 57.289 kg Intake: Intake, IV Titration 1400 Amount Dextrose 5%-0.45% NaCl 1, 1200 000 ml @ 100 mls/hr IV . Q10H [facility] Rx#:[id number] Piperacillin-Tazobactam 3 200 .375 gm In Sodium Chloride 0.9% 100 ml @ 25 mls/hr IVPB Q8HR [facility] Rx# :[id number] Oral 250 Output: Urine 600 300 Other: Voiding Method Urinal Urinal # Voids 150 - Labs CBC & Chem 7: 06/13/23 07:10 06/13/23 07:10 Labs: Abnormal Lab Results - Last 24 Hours (Table) 06/11/23 06/12/23 06/12/23 Range/Units 10:40 09:11 10:32 WBC 17.8 H (3.8-10.6) k/uL Hgb 11.4 L (13.0-17.5) gm/dL Hct 36.8 L (39.0-53.0) % RDW 16.7 H (11.5-15.5) % Sodium 134 L (137-145) mmol/L Creatinine 0.60 L (0.66-1.25) mg/dL Glucose 109 H (74-99) mg/dL POC Glucose (mg/dL) (70-110) mg/dL Hemoglobin A1c 6.1 H (<=6.0) % Total Protein 5.4 L (6.3-8.2) g/dL Albumin 3.0 L (3.5-5.0) g/dL 06/13/23 Range/Units 02:54 WBC (3.8-10.6) k/uL Hgb (13.0-17.5) gm/dL Hct (39.0-53.0) % RDW (11.5-15.5) % Sodium (137-145) mmol/L Creatinine (0.66-1.25) mg/dL Glucose (74-99) mg/dL POC Glucose (mg/dL) 121 H (70-110) mg/dL Hemoglobin A1c (<=6.0) % Total Protein (6.3-8.2) g/dL Albumin (3.5-5.0) g/dL
[2023-06-13] MEDS ORDERED: ATROPINE SULFATE 0.1 MG/ML 10ML SYRINGE ONE (14:46)
[2023-06-13 16:37] LABS: Glucose,Whole Blood 71 mg/dL (70-110)
[2023-06-13 19:56] LABS: Glucose,Whole Blood 85 mg/dL (70-110)
[2023-06-13] MEDS: PRAMIPEXOLE 0.25 MG TAB PO SCH (19:57)
[2023-06-14] MEDS: PIPERACILLIN-TAZOBACTAM 3.375 GM in SODIUM CHLORIDE 0.9% 100 ML IVPB SCH ×3 (00:01→14:49)
[2023-06-14] MEDS: HYDROmorphone 1 MG/ML 1 ML SYRINGE IVP PRN ×6 (03:46→21:25)
[2023-06-14 06:09] LABS: Glucose,Whole Blood 87 mg/dL (70-110)
[2023-06-14] MEDS: SUCRALFATE 1 GM TAB PO SCH ×3 (06:22→14:49)
[2023-06-14] MEDS: PANTOPRAZOLE 40 MG TABLET PO SCH (06:22)
[2023-06-14] MEDS: DEXTROSE 5%-0.45% NACL 1,000 ML IV SCH ×2 (07:39→14:49)
[2023-06-14] MEDS: ALPRAZolam 0.25 MG TAB PO SCH (08:26)
[2023-06-14] MEDS: ATORVASTATIN 40 MG TAB PO SCH (08:26)
[2023-06-14] MEDS: METOPROLOL TARTRATE 50 MG TAB PO SCH (08:26)
[2023-06-14 08:55] LABS: Anisocytosis Slight; HCT 29.3 % (39.0-53.0); Hypochromasia Marked; MCH 24.9 pg (25.0-35.0); MCHC 30.6 g/dL (31.0-37.0); MCV 81.5 fL (80.0-100.0); Mean Platelet Volume 7.8; Platelet Count 294 k/uL (150-450); RBC 3.59 m/uL (4.30-5.90); RDW 16.7 % (11.5-15.5); WBC 14.6 k/uL (3.8-10.6)
[2023-06-14 09:10] LABS: ALT 12 U/L (4-49); AST 22 U/L (17-59); African American GFR (CKD) >90 (>60 ml/min/1.73 sqM); Albumin 2.9 g/dL (3.5-5.0); Alkaline Phosphatase 65 U/L (38-126); Anion Gap 6 mmol/L; Blood Urea Nitrogen 7 mg/dL (9-20); Carbon Dioxide 24 mmol/L (22-30); Chloride 103 mmol/L (98-107); Glucose 77 mg/dL (74-99); Magnesium 1.7 mg/dL (1.6-2.3); Non-African American GFR(CKD) >90 (>60 ml/min/1.73 sqM); Potassium 3.8 mmol/L (3.5-5.1); Sodium 133 mmol/L (137-145); Total Bilirubin 0.7 mg/dL (0.2-1.3); Total Protein 5.3 g/dL (6.3-8.2)
[2023-06-14] MEDS: MAGNESIUM SULFATE-D5W PMX 1 GM in DEXTROSE/WATER 1 100ML.BAG IVPB SCH ×2 (11:15→11:16)
[2023-06-14 11:58] LABS: Glucose,Whole Blood 109 mg/dL (70-110)
--- NOTE | 2023-06-14 12:51 | P.PN ---
Subjective Progress Note Date: 06/14/23 CHIEF COMPLAINT: Abdominal pain HISTORY OF PRESENT ILLNESS: The patient is a 77-year-old male admitted for acute on chronic abdominal pain. He is status post SMA stenting. He is on regular diet for lunch and tolerating. He is eating a cookie. REVIEW OF ORGAN SYSTEMS: No vomiting. No fevers or chills. No shortness of breath. PHYSICAL EXAM: VITALS: Reviewed CONSTITUTIONAL: Well developed and in no acute distress. EYES: Conjuctivae without sclera icterus. Extraocular movements grossly intact. HEAD, EARS, NOSE, THROAT: Moist buccal mucosa. Head is atraumatic, normocephalic. Hears conversational speech. No nasal drainage. RESPIRATORY: Non-labored respirations and equal bilateral excursions. No gross wheezes. CARDIOVASCULAR: Palpable 2+ radial pulses. ABDOMEN: Scaphoid. Nondistended. MUSCULOSKELETAL: No clubbing or edema. SKIN: Skin dry. NEUROLOGIC: Cranial nerves II through XII grossly intact. No focal or lateralizing signs. PSYCH: Appropriate affect. Alert and oriented to person, place and time. Displays appropriate insight. CLINCAL LABS: Reviewed. WBC count 17,000-12,000. Hemoglobin down 12.1-9.0, anemia ASSESSMENT: 1. Abdominal pain, due to intestinal ischemia 2. Mesenteric artery occlusion 3. Anemia 4. Chronic anticoagulant 5. Peripheral vascular occlusive disease 6. Tobacco abuse disorder 7. Chronic obstructive pulmonary disease 8. SMA stent placement. PLAN: 1. He is feeling better and tolerating diet. 2. Stable for discharge from general surgery standpoint when cleared from cardiology. Objective - Vital Signs Vital signs: Vital Signs Temp 98 F 06/14/23 08:00 Pulse 79 06/14/23 08:00 Resp 16 06/14/23 08:00 BP 146/63 06/14/23 08:00 Pulse Ox 94 L 06/14/23 08:00 FiO2 Intake & Output 06/13/23 06/14/23 06/14/23 18:59 06:59 18:59 Intake Total 50 600 Output Total 750 1200 Balance -700 -1200 600 Weight 57.289 kg Intake: IV 50 Oral 600 Output: Urine 750 1200 Other: Voiding Method Urinal Urinal - Labs CBC & Chem 7: 06/14/23 08:03 06/14/23 08:03 Labs: Abnormal Lab Results - Last 24 Hours (Table) 06/14/23 06/14/23 Range/Units 08:03 08:03 WBC 14.6 H (3.8-10.6) k/uL RBC 3.59 L (4.30-5.90) m/uL Hgb 9.0 L (13.0-17.5) gm/dL Hct 29.3 L (39.0-53.0) % MCH 24.9 L (25.0-35.0) pg MCHC 30.6 L (31.0-37.0) g/dL RDW 16.7 H (11.5-15.5) % Sodium 133 L (137-145) mmol/L BUN 7 L (9-20) mg/dL Creatinine 0.55 L (0.66-1.25) mg/dL Calcium 8.0 L (8.4-10.2) mg/dL Total Protein 5.3 L (6.3-8.2) g/dL Albumin 2.9 L (3.5-5.0) g/dL
--- NOTE | 2023-06-14 15:13 | P.PN ---
Subjective Progress Note Date: 06/14/23 Hospital Course: Patient is a pleasant 77-year old male with a past medical history of CAD status post CABG 3 followed by stenting,, COPD, HTN, HLD, and a 40 pack-year smoking history. Patient presented to the emergency department on 06/11/23 secondary to acute abdominal pain. Patient states that this pain has worsened over the past three weeks and describes it as intense pressure in the entire abdomen worsened by oral intake. He rated his pain at a 10/10 upon arrival and at a 7/10 at present. Patient denies nausea or vomiting. The patient has lost 34 lbs during this time frame due to loss of appetite and decreased oral intake. Patient reports his last bowel movement was this morning, denies melena or hematochezia. He reports an episode of syncope this morning related to general weakness, which prompted him to come to the emergency room for evaluation. Upon arrival to the emergency department, patient underwent full evaluation. Patient arrived with an elevated blood pressure of 160/72, heart rate 72, SpO2 of 100% on room air, and respiratory rate of 20. Labs completed and reviewed. Lactic acid was elevated at 3.2. WBCs elevated at 14.9. Hgb was low at 12.1, MCV low at 79.0. APTT low at 20.4. Sodium low at 135. Potassium elevated at 5.7, hemolyzed specimen. Bicarb slightly low at 19, and BUN slightly elevated at 23. Liver profile unremarkable. An abdominal X-Ray was completed and was negative for free air or bowel obstruction. A CT of the abdomen/pelvis revealed severe stenosis at the proximal celiac axis and SMA. Patient admitted under our services with consultation to vascular surgery and general surgery. Vascular surgeon called and stated that Winch Truck Operator, Dr. Navarro will be managing SMA occlusion. Discussed case with Dr. Navarro, CTA to be completed however patient has already received contrast dye and therefore radiologist to go back through CT with thin cut reconstructions for more detailed review of SMA. Addended radiology report reviewed and radiology report stating severe stenosis at the origin and proximal 1 cm of the SMA with additional segmental moderate to severe stenosis present distally, atherosclerotic changes contribute to severe stenosis with possible subtotal occlusion of the celiac access which is diffusely diminutive in caliber, a replaced proper hepatic artery from the SMA, and moderate stenosis at the origin of the left renal artery and severe at the origin of the right renal artery. these findings were discussed in detail with Dr. Navarro, Winch Truck Operator. Pt underwent stenting of SMA on 06/13/[address] Navarro. Physical exam: Patient seen and fully evaluated at bedside. He is day 1 postop status post stenting of SMA. Patient currently reports continued pain to hypogastric region of abdomen and continues to require IV pain medications every 3-4 hours with 1 mg of Dilaudid. He denies any episodes of nausea or vomiting and has tolerated oral intake. Vital signs reviewed and stable General: Nontoxic, no distress and appears stated age. Derm: Skin warm and dry and coloration normal for ethnicity. Patient with venous discoloration in bilateral lower extremities with slightly reduced cap refill at 3 seconds. Head: Atraumatic, normocephalic and symmetric. Eyes: EOMs intact, no lid lag, and anicteric sclera Mouth: no lip lesions, mucus membranes moist Cardiovascular: Regular rate and rhythm with normal S1S2, systolic murmur, positive posterior tibial pulses bilaterally. Lungs: Respirations even, regular, and unlabored on room air. Lungs CTA bilaterally, no rhonchi, no rales, no wheezing, and no accessory muscle usage. Abdominal: Abdomen was nonacute and soft with no distention, no appreciable organomegaly, and no pulsatile abdominal mass. Pt reports pain upon palpation of hypogastric region. Ext: ROM intact. No gross muscle atrophy, no edema, no contractures Neuro: Speech clear, face symmetrical and CN II-XII grossly intact with no noted focal neuro deficits Psych: Alert and oriented to person, place, time, and situation. Appropriate and pleasant affect. 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 -Discussed with district recruiter, Dr. Villalba, patient to resume Xarelto later today. -Continue pain control with Dilaudid 1 mg IVP every 3 hours as needed for severe pain/discomfort -Continue Heart healthy diet, discontinue D5 0.45 infusion as patient is tolerating oral intake. Discussed with RN blood glucose levels to be monitored closely to watch for any further hypoglycemic events. -Continuation of Empiric IV antibiotics Zosyn 3.375 gm Q8 hr -Gen. surgery following secondary to mesenteric ischemia. Reviewed documentation in chart. -Patient did have significant drop in hemoglobin from day of arrival at 12.1 and 2 presurgical hemoglobin of 9.3, however postsurgical hemoglobin is stable at 9.0. Monitor closely with repeat morning labs including CBC and CMP -Patient to continue with atorvastatin 40 mg daily, metoprolol 50 mg daily, and Xarelto 20 mg daily. CAD status post-CABGx3 followed by stenting Hypertension Hyperlipidemia COPD -Continue home medication regimen atorvastatin 40 mg and metoprolol 50 mg. Lactic acidosis, resolved after IV fluid hydration High anion gap metabolic acidosis, resolved with IV fluid hydration Data reviewed: -Vital signs reviewed. Blood pressure 146/63, heart rate 79, respiratory rate 16, temp 90.0F, SpO2 of 94% on room air. -Labs completed and reviewed. CBC showing leukocytosis with WBC count of 14.6 and microcytic hypochromic anemia with hemoglobin of 9.0. BMP showing mild hyponatremia with sodium of 133 otherwise normal findings. Magnesium was slightly low 1.7 and orders placed for replacement with 2 g magnesium sulfate IVPB. Imaging reviewed: -No new imaging for review at this time CODE STATUS: Full code DVT prophylaxis: Xarelto Discussed with: Patient, RN, and district recruiter Anticipated discharge date: Clinical course to determine Anticipated discharge place: Home Patient was seen independently by Nurse Practitioner. This document was prepared using [employer] dictation software. Please allow for errors in inletter while rare they do occur. Objective - Vital Signs Vital signs: Vital Signs Temp 98 F 06/14/23 08:00 Pulse 79 06/14/23 08:00 Resp 16 06/14/23 08:00 BP 146/63 06/14/23 08:00 Pulse Ox 94 L 06/14/23 08:00 FiO2 Intake & Output 06/13/23 06/14/23 06/14/23 18:59 06:59 18:59 Intake Total 50 Output Total 750 1200 Balance -700 -1200 Weight 57.289 kg Intake: IV 50 Output: Urine 750 1200 Other: Voiding Method Urinal Urinal - Labs CBC & Chem 7: 06/14/23 08:03 06/14/23 08:03 Labs: Abnormal Lab Results - Last 24 Hours (Table) 10/13/23 10/13/23 Range/Units 07:10 07:10 WBC 12.7 H (3.8-10.6) k/uL RBC 3.76 L (4.30-5.90) m/uL Hgb 9.3 L D (13.0-17.5) gm/dL Hct 31.6 L (39.0-53.0) % MCH 24.8 L (25.0-35.0) pg MCHC 29.5 L (31.0-37.0) g/dL RDW 16.5 H (11.5-15.5) % Sodium 134 L (137-145) mmol/L Carbon Dioxide 21 L (22-30) mmol/L BUN 7 L (9-20) mg/dL Creatinine 0.58 L (0.66-1.25) mg/dL Total Protein 5.7 L (6.3-8.2) g/dL Albumin 3.1 L (3.5-5.0) g/dL
[2023-06-14 17:18] LABS: Glucose,Whole Blood 53 mg/dL (70-110)
[2023-06-14 17:18] LABS: Glucose,Whole Blood 64 mg/dL (70-110)
[2023-06-14] MEDS: RIVAROXABAN 20 MG TAB PO SCH (17:28)
[2023-06-14 17:38] LABS: Glucose,Whole Blood 43 mg/dL (70-110)
[2023-06-14 17:53] LABS: Glucose,Whole Blood 103 mg/dL (70-110)
[2023-06-14] MEDS: PRAMIPEXOLE 0.25 MG TAB PO SCH (19:41)
[2023-06-14 19:54] LABS: Glucose,Whole Blood 105 mg/dL (70-110)
[2023-06-15] MEDS: PIPERACILLIN-TAZOBACTAM 3.375 GM in SODIUM CHLORIDE 0.9% 100 ML IVPB SCH ×3 (00:36→15:58)
[2023-06-15] MEDS: HYDROmorphone 1 MG/ML 1 ML SYRINGE IVP PRN (00:36)
[2023-06-15 06:16] LABS: Glucose,Whole Blood 86 mg/dL (70-110)
[2023-06-15] MEDS: SUCRALFATE 1 GM TAB PO SCH ×3 (06:22→17:13)
[2023-06-15] MEDS: PANTOPRAZOLE 40 MG TABLET PO SCH (06:22)
[2023-06-15] MEDS: ALPRAZolam 0.25 MG TAB PO SCH (07:20)
[2023-06-15] MEDS: RIVAROXABAN 20 MG TAB PO SCH (07:20)
[2023-06-15] MEDS: ATORVASTATIN 40 MG TAB PO SCH (07:20)
[2023-06-15] MEDS: METOPROLOL TARTRATE 50 MG TAB PO SCH (07:20)
[2023-06-15 08:01] LABS: Anisocytosis Slight; HCT 29.9 % (39.0-53.0); HGB 9.2 gm/dL (13.0-17.5); Hypochromasia Marked; MCH 25.1 pg (25.0-35.0); MCHC 30.7 g/dL (31.0-37.0); MCV 81.6 fL (80.0-100.0); Mean Platelet Volume 7.3; Platelet Count 303 k/uL (150-450); RBC 3.66 m/uL (4.30-5.90); RDW 16.7 % (11.5-15.5); WBC 10.9 k/uL (3.8-10.6)
[2023-06-15 08:41] LABS: ALT 14 U/L (4-49); AST 22 U/L (17-59); African American GFR (CKD) >90 (>60 ml/min/1.73 sqM); Albumin 3.2 g/dL (3.5-5.0); Alkaline Phosphatase 69 U/L (38-126); Anion Gap 8 mmol/L; Blood Urea Nitrogen 8 mg/dL (9-20); Calcium 8.4 mg/dL (8.4-10.2); Carbon Dioxide 25 mmol/L (22-30); Chloride 104 mmol/L (98-107); Glucose 100 mg/dL (74-99); Magnesium 2.1 mg/dL (1.6-2.3); Non-African American GFR(CKD) >90 (>60 ml/min/1.73 sqM); Sodium 137 mmol/L (137-145); Total Bilirubin 0.7 mg/dL (0.2-1.3); Total Protein 5.7 g/dL (6.3-8.2)
[2023-06-15 09:50] LABS: Glucose,Whole Blood 110 mg/dL (70-110)
[2023-06-15 11:53] LABS: Glucose,Whole Blood 123 mg/dL (70-110)
--- NOTE | 2023-06-15 12:57 | P.PN ---
Subjective Progress Note Date: 06/15/23 Progress note Patient is stable to discharge from cardiac vessel standpoint. ASSESSMENT: Abdominal pain Severe stenosis of SMA with possible subtotal occlusion of the celiac axis. Sta tus post SMA stenting by Dr. Navarro Coronary artery disease with previous three-vessel CABG, 2016 Peripheral vascular disease with previous lower extremity intervention Hypertension Hyperlipidemia Nicotine dependence PLAN: Continue Xarelto 20 mg daily. Continue Plavix 75 mg daily. Continue metoprolol and atorvastatin Continue to be discharged from cardiac vessel standpoint Outpatient follow-up with Dr. Hopkins in 1 weeks Objective - Vital Signs Vital signs: Vital Signs Temp 98.0 F 06/15/23 11:41 Pulse 61 06/15/23 11:41 Resp 16 06/15/23 11:41 BP 132/59 06/15/23 11:41 Pulse Ox 100 06/15/23 11:41 FiO2 Intake & Output 06/14/23 06/15/23 06/15/23 18:59 06:59 18:59 Intake Total 1200 480 Output Total 450 Balance 1200 -450 480 Intake: Oral 1200 480 Output: Urine 450 Other: Voiding Method Urinal Urinal - Labs CBC & Chem 7: 06/15/23 07:30 06/15/23 07:30 Labs: Abnormal Lab Results - Last 24 Hours (Table) 06/14/23 06/14/23 06/14/23 Range/Units 16:48 17:15 17:32 WBC (3.8-10.6) k/uL RBC (4.30-5.90) m/uL Hgb (13.0-17.5) gm/dL Hct (39.0-53.0) % MCHC (31.0-37.0) g/dL RDW (11.5-15.5) % BUN (9-20) mg/dL Creatinine (0.66-1.25) mg/dL Glucose (74-99) mg/dL POC Glucose (mg/dL) 53 L 64 L 43 L (70-110) mg/dL Total Protein (6.3-8.2) g/dL Albumin (3.5-5.0) g/dL 06/15/23 06/15/23 06/15/23 Range/Units 07:30 07:30 11:52 WBC 10.9 H (3.8-10.6) k/uL RBC 3.66 L (4.30-5.90) m/uL Hgb 9.2 L (13.0-17.5) gm/dL Hct 29.9 L (39.0-53.0) % MCHC 30.7 L (31.0-37.0) g/dL RDW 16.7 H (11.5-15.5) % BUN 8 L (9-20) mg/dL Creatinine 0.61 L (0.66-1.25) mg/dL Glucose 100 H (74-99) mg/dL POC Glucose (mg/dL) 123 H (70-110) mg/dL Total Protein 5.7 L (6.3-8.2) g/dL Albumin 3.2 L (3.5-5.0) g/dL
[2023-06-15] MEDS: CLOPIDOGREL 75 MG TAB PO SCH (13:15)
--- NOTE | 2023-06-15 13:51 | P.PN ---
Subjective Progress Note Date: 06/15/23 CHIEF COMPLAINT: Abdominal pain HISTORY OF PRESENT ILLNESS: The patient is a 77-year-old male admitted for acute on chronic abdominal pain. He is status post SMA stenting. He feels well. Tolerating diet. Epigastric pain resolved. REVIEW OF ORGAN SYSTEMS: No vomiting. No fevers or chills. No shortness of breath. PHYSICAL EXAM: VITALS: Reviewed CONSTITUTIONAL: Well developed and in no acute distress. EYES: Conjuctivae without sclera icterus. Extraocular movements grossly intact. HEAD, EARS, NOSE, THROAT: Moist buccal mucosa. Head is atraumatic, normocephalic. Hears conversational speech. No nasal drainage. RESPIRATORY: Non-labored respirations and equal bilateral excursions. No gross wheezes. CARDIOVASCULAR: Palpable 2+ radial pulses. ABDOMEN: Scaphoid. Nondistended. MUSCULOSKELETAL: No clubbing or edema. SKIN: Skin dry. NEUROLOGIC: Cranial nerves II through XII grossly intact. No focal or lateralizing signs. PSYCH: Appropriate affect. Alert and oriented to person, place and time. Displays appropriate insight. CLINCAL LABS: Reviewed. WBC count 17,000-12,000, now 10,000. Hemoglobin 9.1 stable ASSESSMENT: 1. Abdominal pain, due to intestinal ischemia 2. Mesenteric artery occlusion 3. Anemia 4. Chronic anticoagulant 5. Peripheral vascular occlusive disease 6. Tobacco abuse disorder 7. Chronic obstructive pulmonary disease 8. SMA stent placement. PLAN: 1. He is doing well. 2. Stable for discharge from surgical standpoint. Objective - Vital Signs Vital signs: Vital Signs Temp 98.0 F 06/15/23 11:41 Pulse 61 06/15/23 11:41 Resp 16 06/15/23 11:41 BP 132/59 06/15/23 11:41 Pulse Ox 100 06/15/23 11:41 FiO2 Intake & Output 06/14/23 06/15/23 06/15/23 18:59 06:59 18:59 Intake Total 1200 480 Output Total 450 Balance 1200 -450 480 Intake: Oral 1200 480 Output: Urine 450 Other: Voiding Method Urinal Urinal - Labs CBC & Chem 7: 06/15/23 07:30 06/15/23 07:30 Labs: Abnormal Lab Results - Last 24 Hours (Table) 06/14/23 06/14/23 06/14/23 Range/Units 16:48 17:15 17:32 WBC (3.8-10.6) k/uL RBC (4.30-5.90) m/uL Hgb (13.0-17.5) gm/dL Hct (39.0-53.0) % MCHC (31.0-37.0) g/dL RDW (11.5-15.5) % BUN (9-20) mg/dL Creatinine (0.66-1.25) mg/dL Glucose (74-99) mg/dL POC Glucose (mg/dL) 53 L 64 L 43 L (70-110) mg/dL Total Protein (6.3-8.2) g/dL Albumin (3.5-5.0) g/dL 06/15/23 06/15/23 06/15/23 Range/Units 07:30 07:30 11:52 WBC 10.9 H (3.8-10.6) k/uL RBC 3.66 L (4.30-5.90) m/uL Hgb 9.2 L (13.0-17.5) gm/dL Hct 29.9 L (39.0-53.0) % MCHC 30.7 L (31.0-37.0) g/dL RDW 16.7 H (11.5-15.5) % BUN 8 L (9-20) mg/dL Creatinine 0.61 L (0.66-1.25) mg/dL Glucose 100 H (74-99) mg/dL POC Glucose (mg/dL) 123 H (70-110) mg/dL Total Protein 5.7 L (6.3-8.2) g/dL Albumin 3.2 L (3.5-5.0) g/dL
--- NOTE | 2023-06-15 13:54 | P.PN ---
Subjective Progress Note Date: 06/15/23 Hospital Course: Patient is a pleasant 77-year old male with a past medical history of CAD status post CABG 3 followed by stenting,, COPD, HTN, HLD, and a 40 pack-year smoking history. Patient presented to the emergency department on 06/11/23 secondary to acute abdominal pain. Patient states that this pain has worsened over the past three weeks and describes it as intense pressure in the entire abdomen worsened by oral intake. He rated his pain at a 10/10 upon arrival and at a 7/10 at present. Patient denies nausea or vomiting. The patient has lost 34 lbs during this time frame due to loss of appetite and decreased oral intake. Patient reports his last bowel movement was this morning, denies melena or hematochezia. He reports an episode of syncope this morning related to general weakness, which prompted him to come to the emergency room for evaluation. Upon arrival to the emergency department, patient underwent full evaluation. Patient arrived with an elevated blood pressure of 160/72, heart rate 72, SpO2 of 100% on room air, and respiratory rate of 20. Labs completed and reviewed. Lactic acid was elevated at 3.2. WBCs elevated at 14.9. Hgb was low at 12.1, MCV low at 79.0. APTT low at 20.4. Sodium low at 135. Potassium elevated at 5.7, hemolyzed specimen. Bicarb slightly low at 19, and BUN slightly elevated at 23. Liver profile unremarkable. An abdominal X-Ray was completed and was negative for free air or bowel obstruction. A CT of the abdomen/pelvis revealed severe stenosis at the proximal celiac axis and SMA. Patient admitted under our services with consultation to vascular surgery and general surgery. Vascular surgeon called and stated that Management Development Specialist, Dr. Navarro will be managing SMA occlusion. Discussed case with Dr. Navarro, CTA to be completed however patient has already received contrast dye and therefore radiologist to go back through CT with thin cut reconstructions for more detailed review of SMA. Addended radiology report reviewed and radiology report stating severe stenosis at the origin and proximal 1 cm of the SMA with additional segmental moderate to severe stenosis present distally, atherosclerotic changes contribute to severe stenosis with possible subtotal occlusion of the celiac access which is diffusely diminutive in caliber, a replaced proper hepatic artery from the SMA, and moderate stenosis at the origin of the left renal artery and severe at the origin of the right renal artery. these findings were discussed in detail with Dr. Navarro, Management Development Specialist. Pt underwent stenting of SMA on 06/13/[address] Navarro. Physical exam: Patient seen and fully evaluated at bedside. He is day 2 postop status post stenting of SMA. Patient had recurrent episodes of hypoglycemia yesterday evening after discontinuation of D5 0.45 infusion. Blood glucose levels result ing in 53,/64, and 43 requiring intervention. Over the past 12 hours blood glucose levels have been stable. Patient is on day 5 of empiric IV antibiotics with Zosyn. Vital signs reviewed and stable General: Nontoxic, no distress and appears stated age. Derm: Skin warm and dry and coloration normal for ethnicity. Patient with venous discoloration in bilateral lower extremities with slightly reduced cap refill at 3 seconds. Head: Atraumatic, normocephalic and symmetric. Eyes: EOMs intact, no lid lag, and anicteric sclera Mouth: no lip lesions, mucus membranes moist Cardiovascular: Regular rate and rhythm with normal S1S2, systolic murmur, positive posterior tibial pulses bilaterally. Lungs: Respirations even, regular, and unlabored on room air. Lungs CTA bilaterally, no rhonchi, no rales, no wheezing, and no accessory muscle usage. Abdominal: Abdomen was nonacute and soft with no distention, no appreciable organomegaly, and no pulsatile abdominal mass. Pt reports pain upon palpation of hypogastric region. Ext: ROM intact. No gross muscle atrophy, no edema, no contractures Neuro: Speech clear, face symmetrical and CN II-XII grossly intact with no noted focal neuro deficits Psych: Alert and oriented to person, place, time, and situation. Appropriate and pleasant affect. Assessment and Plan of Care: Recurrent episodes of hypoglycemia -Patient had isolated episode of hypoglycemia upon arrival, blood glucose was 69 and patient was nothing by mouth at that time therefore he was placed on D5.45 infusion at 100 mL per hour. Day 1 postop stenting of SMA patient was tolerating oral intake well on a regular heart healthy diet and D5 0.45% infusion discontinued at this time. Approximately one hour after discontinuation patient was noted to have recurrent episodes of hypoglycemia with blood glucose levels resulting at 53, 64, and 43 requiring intervention. -It is unclear why patient has been having recurrent episodes of hypoglycemia. Orders placed for continuation of [id number] glucose checks every 6 hours. Patient to remain off of D5 infusion at this time for continued close monitoring. -Over the past 12 hours patient's blood glucose levels have been stable without any supplemental dextrose with glucose levels ranging from 86-105. 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 -Discussed with carton catcher, Dr. Villalba, patient resumed Xarelto 06/14/23 -Continue pain control with Dilaudid 1 mg IVP every 3 hours as needed for severe pain/discomfort -Continue Heart healthy diet, discontinue D5 0.45 infusion as patient is tolerating oral intake. Discussed with RN blood glucose levels to be monitored closely to watch for any further hypoglycemic events. -Continuation of Empiric IV antibiotics Zosyn 3.375 gm Q8 hr (day 01/03) -Gen. surgery following secondary to mesenteric ischemia. Reviewed documentation in chart. -Patient did have significant drop in hemoglobin from day of arrival at 12.1 to presurgical hemoglobin of 9.3, however postsurgical hemoglobin is stable at 9.2 this morning. Monitor closely with repeat morning labs including CBC and CMP -Patient to continue with atorvastatin 40 mg daily, metoprolol 50 mg daily, and Xarelto 20 mg daily. CAD status post-CABGx3 followed by stenting Hypertension Hyperlipidemia COPD -Continue home medication regimen Xarelto 20 mg daily, atorvastatin 40 mg and metoprolol 50 mg. Lactic acidosis, resolved after IV fluid hydration High anion gap metabolic acidosis, resolved with IV fluid hydration Data reviewed: -Vital signs reviewed. Blood pressure 131/58, heart rate 67, respiratory rate 16, temp 98.1F, SpO2 100% on room air. -Labs completed and reviewed. CBC showing leukocytosis with WBC count improving to 10.9 and hemoglobin stable at 9.2. D5 0.45 infusion was discontinued yesterday as patient was tolerating oral intake well on a regular heart healthy diet. Patient had recurrent episodes of hypoglycemia following discontinuation of D5 0.45 with blood glucose levels resulting at 53, 64, and 43. Over the past 12 hours patient's blood glucose levels have been stable without any supplemental dextrose ranging from 86-105. Imaging reviewed: -No new imaging for review at this time CODE STATUS: Full code DVT prophylaxis: Xarelto Discussed with: Patient and RN Anticipated discharge date: Likely within the next 24 hours, monitoring closely for further episodes of hypoglycemia Anticipated discharge place: Home Patient was seen independently by Nurse Practitioner. This document was prepared using [employer] dictation software. Please allow for errors in sheep rancher while rare they do occur. Objective - Vital Signs Vital signs: Vital Signs Temp 98.1 F 06/15/23 07:18 Pulse 67 06/15/23 07:18 Resp 16 06/15/23 07:18 BP 131/58 06/15/23 07:18 Pulse Ox 100 06/15/23 07:18 FiO2 Intake & Output 06/14/23 06/15/23 06/15/23 18:59 06:59 18:59 Intake Total 1200 Output Total 450 Balance 1200 -450 Intake: Oral 1200 Output: Urine 450 Other: Voiding Method Urinal Urinal - Labs CBC & Chem 7: 06/15/23 07:30 06/15/23 07:30 Labs: Abnormal Lab Results - Last 24 Hours (Table) 06/14/23 06/14/23 06/14/23 Range/Units 08:03 08:03 16:48 WBC 14.6 H (3.8-10.6) k/uL RBC 3.59 L (4.30-5.90) m/uL Hgb 9.0 L (13.0-17.5) gm/dL Hct 29.3 L (39.0-53.0) % MCH 24.9 L (25.0-35.0) pg MCHC 30.6 L (31.0-37.0) g/dL RDW 16.7 H (11.5-15.5) % Sodium 133 L (137-145) mmol/L BUN 7 L (9-20) mg/dL Creatinine 0.55 L (0.66-1.25) mg/dL POC Glucose (mg/dL) 53 L (70-110) mg/dL Calcium 8.0 L (8.4-10.2) mg/dL Total Protein 5.3 L (6.3-8.2) g/dL Albumin 2.9 L (3.5-5.0) g/dL 06/14/23 06/14/23 06/15/23 Range/Units 17:15 17:32 07:30 WBC 10.9 H (3.8-10.6) k/uL RBC 3.66 L (4.30-5.90) m/uL Hgb 9.2 L (13.0-17.5) gm/dL Hct 29.9 L (39.0-53.0) % MCH (25.0-35.0) pg MCHC 30.7 L (31.0-37.0) g/dL RDW 16.7 H (11.5-15.5) % Sodium (137-145) mmol/L BUN (9-20) mg/dL Creatinine (0.66-1.25) mg/dL POC Glucose (mg/dL) 64 L 43 L (70-110) mg/dL Calcium (8.4-10.2) mg/dL Total Protein (6.3-8.2) g/dL Albumin (3.5-5.0) g/dL
[2023-06-15 15:03] LABS: Glucose,Whole Blood 123 mg/dL (70-110)
[2023-06-15 16:54] LABS: Glucose,Whole Blood 114 mg/dL (70-110)
[2023-06-15 19:56] LABS: Glucose,Whole Blood 120 mg/dL (70-110)
[2023-06-15] MEDS: PRAMIPEXOLE 0.25 MG TAB PO SCH (20:37)
[2023-06-16] MEDS: PIPERACILLIN-TAZOBACTAM 3.375 GM in SODIUM CHLORIDE 0.9% 100 ML IVPB SCH ×2 (01:27→11:11)
[2023-06-16 05:27] VITALS: PULSE 91
[2023-06-16 05:40] LABS: Glucose,Whole Blood 107 mg/dL (70-110)
[2023-06-16] MEDS: SUCRALFATE 1 GM TAB PO SCH (06:26)
[2023-06-16] MEDS: PANTOPRAZOLE 40 MG TABLET PO SCH (06:26)
[2023-06-16 08:22] VITALS: BP 125/55; RESP 18; TEMP 98
[2023-06-16] MEDS: ALPRAZolam 0.25 MG TAB PO SCH (09:15)
[2023-06-16] MEDS: ATORVASTATIN 40 MG TAB PO SCH (09:15)
[2023-06-16] MEDS: METOPROLOL TARTRATE 50 MG TAB PO SCH (09:15)
[2023-06-16] MEDS: CLOPIDOGREL 75 MG TAB PO SCH (09:16)
[2023-06-16] MEDS: RIVAROXABAN 20 MG TAB PO SCH (09:16)
[2023-06-16] MEDS: HYDROmorphone 1 MG/ML 1 ML SYRINGE IVP PRN (09:17)
--- NOTE | 2023-06-16 09:38 | P.DS ---
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 Patient underwent SMA stenting on 06/13/23. He is being discharged home on Plavix 75 mg daily in addition to his anticoagulation with Xarelto. Patient to follow up outpatient with his PCP in 1-2 days and with independent freight agent in 1 week. 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 Patient underwent stenting of SMA on 06/13/23 and completed 5 day course of empiric IV antibiotics with Zosyn. Leukocytosis, secondary to above Microcytic hypochromic anemia Recurrent episodes of hypoglycemia, unclear origin possibly secondary to decreased oral intake. Patient's blood glucose levels monitored closely and patient was free from any further episodes of hypoglycemia over the past 36 hours. CAD status post-CABGx3 followed by stenting. Continue home medication regimen Xarelto 20 mg daily, atorvastatin 40 mg and metoprolol 50 mg. Hypertension Hyperlipidemia COPD Lactic acidosis, resolved after IV fluid hydration High anion gap metabolic acidosis, resolved with IV fluid hydration Hospital Course: Patient is a pleasant 77-year old male with a past medical history of CAD status post CABG 3 followed by stenting,, COPD, HTN, HLD, and a 40 pack-year smoking history. Patient presented to the emergency department on 06/11/23 secondary to acute abdominal pain. Patient states that this pain has worsened over the past three weeks and describes it as intense pressure in the entire abdomen worsened by oral intake. He rated his pain at a 10/10 upon arrival and at a 7/10 at present. Patient denies nausea or vomiting. The patient has lost 34 lbs during this time frame due to loss of appetite and decreased oral intake. Patient reports his last bowel movement was this morning, denies melena or hematochezia. He reports an episode of syncope this morning related to general weakness, which prompted him to come to the emergency room for evaluation. Upon arrival to the emergency department, patient underwent full evaluation. Patient arrived with an elevated blood pressure of 160/72, heart rate 72, SpO2 of 100% on room air, and respiratory rate of 20. Labs completed and reviewed. Lactic acid was elevated at 3.2. WBCs elevated at 14.9. Hgb was low at 12.1, MCV low at 79.0. APTT low at 20.4. Sodium low at 135. Potassium elevated at 5.7, hemolyzed specimen. Bicarb slightly low at 19, and BUN slightly elevated at 23. Liver profile unremarkable. An abdominal X-Ray was completed and was negative for free air or bowel obstruction. A CT of the abdomen/pelvis revealed severe stenosis at the proximal celiac axis and SMA. Patient admitted under our services with consultation to vascular surgery and general surgery. Vascular surgeon called and stated that [employer], Dr. Navarro will be managing SMA occlusion. Discussed case with Dr. Navarro, CTA to be completed however patient has already received contrast dye and therefore radiologist to go back through CT with thin cut reconstructions for more detailed review of SMA. Addended radiology report reviewed and radiology report stating severe stenosis at the origin and proximal 1 cm of the SMA with additional segmental moderate to severe stenosis present distally, atherosclerotic changes contribute to severe stenosis with possible subtotal occlusion of the celiac access which is diffusely diminutive in caliber, a replaced proper hepatic artery from the SMA, and moderate stenosis at the origin of the left renal artery and severe at the origin of the right renal artery. these findings were discussed in detail with Dr. Navarro, [employer]. Pt underwent stenting of SMA on 06/13/[address] Navarro. Patient was monitored closely and was noted to have recurrent episodes of hypoglycemia and was initially placed on D5 infusion and once was tolerating a regular diet, D5 0.45 infusion was discontinued and patient again had recurrent episodes of hypoglycemia with blood glucose levels resulting at 53, 64, and 43 requiring intervention. After a single amp of dextrose was given, blood glucose levels stabilized and have been stabilized without any additional intervention for greater than 36 hours. Patient completed 5 day course of empiric IV antibiotics with Zosyn and on 06/15/23. Patient showing no signs of infection and reports full resolution of previous reported abdominal pain/discomfort. Patient tolerating oral intake, passing flatus, and denies any complaints at this time. Patient has been cleared by cardiology and general surgery for outpatient follow-up. Medically, patient is stable for discharge at this time. Prescription sent to [facility] as patient does not have transportation and patient to be provided with Voucher to return home once his prescriptions are obtained. Patient was instructed that he will need to follow up outpatient with his PCP in 1-2 days and with his independent freight agent, Dr. Navarro in one week. Physical exam: Vital signs reviewed and stable General: Nontoxic, no distress and appears stated age. Derm: Skin warm and dry and coloration normal for ethnicity. Patient with venous discoloration in bilateral lower extremities with slightly reduced cap refill at 3 seconds. Head: Atraumatic, normocephalic and symmetric. Eyes: EOMs intact, no lid lag, and anicteric sclera Mouth: no lip lesions, mucus membranes moist Cardiovascular: Regular rate and rhythm with normal S1S2, systolic murmur, positive posterior tibial pulses bilaterally. Lungs: Respirations even, regular, and unlabored on room air. Lungs CTA bilaterally, no rhonchi, no rales, no wheezing, and no accessory muscle usage. Abdominal: Abdomen soft, nondistended, bowel sounds 4. Nontender to palpation. Ext: ROM intact. No gross muscle atrophy, no edema, no contractures Neuro: Speech clear, face symmetrical and CN II-XII grossly intact with no noted focal neuro deficits Psych: Alert and oriented to person, place, time, and situation. Appropriate and pleasant affect. A total of 35 minutes of time were spent preparing this complex discharge summary. Pt was discharged on 06/16/23 at 9:32 AM Patient was seen independently by Nurse Practitioner. This document was prepared using [employer] dictation software. Please allow for errors in waste management recycling technician while rare they do occur. Patient Condition at Discharge: Stable Plan - Discharge Summary Discharge Rx Participant: Yes New Discharge Prescriptions: New Clopidogrel [Plavix] 75 mg PO DAILY 30 Days #30 tab Pantoprazole [Protonix] 40 mg PO AC-BRKFST 30 Days #30 tab Continue Atorvastatin [Lipitor] 40 mg PO DAILY Nitroglycerin Sl Tabs [Nitrostat] 0.4 mg SUBLINGUAL Q5M PRN PRN Reason: Chest Pain Metoprolol Tartrate [Lopressor] 50 mg PO DAILY ALPRAZolam [Xanax] 0.25 mg PO DAILY Sucralfate [Carafate] 1 gm PO AC-TID Rivaroxaban [Xarelto] 20 mg PO DAILY Pramipexole [Mirapex] 0.25 mg PO HS Discharge Medication List Atorvastatin [Lipitor] 40 mg PO DAILY 06/09/18 [History] Nitroglycerin Sl Tabs [Nitrostat] 0.4 mg SUBLINGUAL Q5M PRN 03/15/21 [History] Rivaroxaban [Xarelto] 20 mg PO DAILY 03/15/21 [History] Sucralfate [Carafate] 1 gm PO AC-TID 03/15/21 [History] ALPRAZolam [Xanax] 0.25 mg PO DAILY 06/11/23 [History] Metoprolol Tartrate [Lopressor] 50 mg PO DAILY 06/11/23 [History] Pramipexole [Mirapex] 0.25 mg PO HS 06/11/23 [History] Clopidogrel [Plavix] 75 mg PO DAILY 30 Days #30 tab 06/16/23 [Rx] Pantoprazole [Protonix] 40 mg PO AC-BRKFST 30 Days #30 tab 06/16/23 [Rx] Follow up Appointment(s)/Referral(s): Sara Saldaña MD [STAFF PHYSICIAN] - 07/07/23 2:15 pm Omid Lopez DO [Primary Care Provider] - 06/25/23 10:20 am (Formerly [facility]) Patient Instructions/Handouts: *Surgery [facility] - After Heart Catheterization - Galley Hand Instructions Activity/Diet/Wound Care/Special Instructions: Activity: As tolerated. Take breaks as needed. Diet: Heart healthy and carb consistent diet. Avoid salts, or foods with hidden salts such as canned or boxed foods and frozen dinners. Extra salt makes your heart work harder and traps the fluid in your body for longer. Special Instructions: Take all of your medications as directed and remember to keep all of your doctor's appointments and follow-up as needed. Thank you for allowing us to participate in your care, it was truly a pleasure having you for our patient!!! . Discharge Disposition: HOME SELF-CARE
[2023-06-16 10:18] LABS: Anisocytosis Slight; HCT 31.3 % (39.0-53.0); HGB 9.6 gm/dL (13.0-17.5); Hypochromasia Marked; MCH 24.9 pg (25.0-35.0); MCHC 30.6 g/dL (31.0-37.0); MCV 81.4 fL (80.0-100.0); Mean Platelet Volume 7.8; Platelet Count 331 k/uL (150-450); RBC 3.85 m/uL (4.30-5.90); RDW 17.1 % (11.5-15.5); WBC 10.5 k/uL (3.8-10.6)
[2023-06-16 10:40] LABS: ALT 16 U/L (4-49); AST 21 U/L (17-59); African American GFR (CKD) >90 (>60 ml/min/1.73 sqM); Albumin 3.3 g/dL (3.5-5.0); Alkaline Phosphatase 65 U/L (38-126); Anion Gap 9 mmol/L; Blood Urea Nitrogen 9 mg/dL (9-20); Calcium 8.5 mg/dL (8.4-10.2); Carbon Dioxide 26 mmol/L (22-30); Chloride 102 mmol/L (98-107); Glucose 95 mg/dL (74-99); Magnesium 1.9 mg/dL (1.6-2.3); Non-African American GFR(CKD) >90 (>60 ml/min/1.73 sqM); Potassium 3.6 mmol/L (3.5-5.1); Sodium 137 mmol/L (137-145); Total Bilirubin 0.5 mg/dL (0.2-1.3)
== END 2023-06-16 11:11 | disposition home or self-care (01) | DRG 982 ==
LOC: EC 10:15 → 4SSUR 13:59 → 1SOBS 06-12 08:31 → 3SCARD 06-13 12:31
PROVIDERS: ADMIT Internal Medicine; ATTEND Internal Medicine
PROC: B444ZZ3 Ultrasonography of Superior Mesenteric Artery, Intravascular (ICD-10-PCS; principal; 2023-06-13 07:30)
PROC: 04H Lower Arteries, Insertion (ICD-10-PCS; principal; 2023-06-13 07:30)
PROC: B41F1ZZ Fluoroscopy of Right Lower Extremity Arteries using Low Osmolar Contrast (ICD-10-PCS; principal; 2023-06-13 07:30)
PROC: B4101ZZ Fluoroscopy of Abdominal Aorta using Low Osmolar Contrast (ICD-10-PCS; principal; 2023-06-13 07:30)
DX: K55.1 Chronic vascular disorders of intestine (principal); E87.20 Acidosis, unspecified; N39.0 Urinary tract infection, site not specified; I70.8 Atherosclerosis of other arteries; E87.5 Hyperkalemia; D72.829 Elevated white blood cell count, unspecified; E78.5 Hyperlipidemia, unspecified; F17.200 Nicotine dependence, unspecified, uncomplicated; F41.9 Anxiety disorder, unspecified; G25.81 Restless legs syndrome; I70.235 Atherosclerosis of native arteries of right leg with ulceration of other part of foot; L97.519 Non-pressure chronic ulcer of other part of right foot with unspecified severity; G89.29 Other chronic pain; R41.3 Other amnesia; I10 Essential (primary) hypertension; I25.10 Atherosclerotic heart disease of native coronary artery without angina pectoris; I25.2 Old myocardial infarction; J44.9 Chronic obstructive pulmonary disease, unspecified; Z79.01 Long term (current) use of anticoagulants; Z79.02 Long term (current) use of antithrombotics/antiplatelets; Z79.82 Long term (current) use of aspirin; Z79.899 Other long term (current) drug therapy; Z82.5 Family history of asthma and other chronic lower respiratory diseases; Z95.1 Presence of aortocoronary bypass graft; Z95.5 Presence of coronary angioplasty implant and graft
CPT/HCPCS: 36415; 74018; 74177; 80048; 80053; 83036; 83605; 83690; 83735; 85025; 85027; 85610; 85730; 93005; 96361; 96374; 96376; 99285

== ENCOUNTER 2023-07-07 16:00 | Emergency (ER) | payer MEDICARE, OTHER ==
[2023-07-07 16:46] LABS: Anisocytosis Slight; Basophils % (A) 0 %; Eosinophils # (A) 0.1 k/uL (0-0.7); Eosinophils % (A) 1 %; Hypochromasia Marked; Lymphocytes # (A) 1.2 k/uL (1.0-4.8); Lymphocytes % (A) 12 %; MCH 23.5 pg (25.0-35.0); MCHC 30.2 g/dL (31.0-37.0); MCV 77.9 fL (80.0-100.0); Mean Platelet Volume 8.2; Microcytosis Slight; Monocytes # (A) 0.6 k/uL (0-1.0); Monocytes % (A) 6 %; Neutrophils # (A) 7.7 k/uL (1.3-7.7); Neutrophils % (A) 78 %; Platelet Count 278 k/uL (150-450); Poikilocytosis Moderate; RBC 2.32 m/uL (4.30-5.90); RDW 17.3 % (11.5-15.5); WBC 9.8 k/uL (3.8-10.6)
[2023-07-07 16:50] LABS: HCT 18.1 % (39.0-53.0); HGB 5.5 gm/dL (13.0-17.5)
[2023-07-07 17:15] LABS: INR 1.5 (<1.2); Partial Thromboplastin Time 30.6 sec (22.0-30.0); Prothrombin Time 15.8 sec (10.0-12.5)
--- NOTE | 2023-07-07 17:16 | ED ---
General Adult HPI - General Chief complaint: Recheck/Abnormal Lab/Rx Stated complaint: Abn Labs Time Seen by Provider: 07/07/23 16:11 Source: patient, EMS Mode of arrival: EMS Limitations: no limitations - History of Present Illness Initial comments: 77 old male with past medical history significant for coronary artery disease status post CABG, paroxysmal A. fib on Plavix, and recent stent performed on 06/16/23 due to superior mesenteric artery occlusion. [facility] for follow-up status post stenting of superior mese nteric artery occlusion and there, was noted to appear pale and was advised to present to the ED for further evaluation. Upon presentation to the ED, patient notes since recent stent and discharge has been feeling generalized weakness. States that he feels too tired to do things and experiences intermittent dizziness. Patient reports that when he tries to exert himself he becomes short of breath. Otherwise denies shortness of breath at rest. Denies chest pain. No fever or chills. No other complaints. - Related Data Home Medications Medication Instructions Recorded Confirmed Atorvastatin [Lipitor] 40 mg PO DAILY 06/09/18 07/07/23 Nitroglycerin Sl Tabs [Nitrostat] 0.4 mg SUBLINGUAL Q5M PRN 03/15/21 07/07/23 Rivaroxaban [Xarelto] 20 mg PO DAILY 03/15/21 07/07/23 Sucralfate [Carafate] 1 gm PO AC-TID 03/15/21 07/07/23 ALPRAZolam [Xanax] 0.25 mg PO DAILY 06/11/23 07/07/23 Metoprolol Tartrate [Lopressor] 50 mg PO DAILY 06/11/23 07/07/23 Pramipexole [Mirapex] 0.25 mg PO HS 06/11/23 07/07/23 Previous Rx's Medication Instructions Recorded Clopidogrel [Plavix] 75 mg PO DAILY 30 Days #30 tab 06/16/23 Pantoprazole [Protonix] 40 mg PO AC-BRKFST 30 Days #30 tab 06/16/23 Allergies Allergy/AdvReac Type Severity Reaction Status Date / Time No Known Allergies Allergy Verified 07/07/23 17:32 Review of Systems ROS Statement: Those systems with pertinent positive or pertinent negative responses have been documented in the HPI. ROS Other: All systems not noted in ROS Statement are negative. Past Medical History Past Medical History: Coronary Artery Disease (CAD), COPD, Hyperlipidemia, Hypertension, Memory Impairment, Myocardial Infarction ([place]) Additional Past Medical History / Comment(s): "rt 2nd toe ulcer-sensitive and scabbed" POOR CIRCULATION BOTH LEGS, RLS, leg cramps Last Myocardial Infarction Date:: 10/02/2015 History of Any Multi-Drug Resistant Organisms: None Reported Past Surgical History: Coronary Bypass/CABG, Heart Catheterization With Stent, Hernia Repair, Orthopedic Surgery Additional Past Surgical History / Comment(s): heart stents x 3,ORIF rt elbow, triple bypass, ABDOMINAL AORTOGRAM WITH NEIL EXT. RUNOFF 317. colonoscopy Past Anesthesia/Blood Transfusion Reactions: No Reported Reaction Date of Last Stent Placement:: 10/02/2015 Past Psychological History: Anxiety Smoking Status: Current every day smoker Past Alcohol Use History: None Reported Past Drug Use History: None Reported - Past Family History Mother Family Medical History: Vascular Disorder Father Family Medical History: COPD Brother(s) Family Medical History: Cancer Additional Family Medical History / Comment(s): Heart problems, lymphoma. General Exam Limitations: no limitations General appearance: alert Neck exam: Present: normal inspection Respiratory exam: Present: normal lung sounds bilaterally Cardiovascular Exam: Present: regular rate GI/Abdominal exam: Present: soft (No tenderness to palpation.) Rectal exam: Present: other (No gross bleeding however there does appear to be some melanotic stool.) Neurological exam: Present: alert, oriented X3 Skin exam: Present: warm, dry Course Vital Signs 07/07/23 07/07/23 07/07/23 16:01 18:00 18:24 Temperature 97.8 F 98.5 F Pulse Rate 77 70 67 Respiratory 18 16 16 Rate Blood Pressure 121/48 116/51 117/50 O2 Sat by Pulse 99 96 96 Oximetry 07/07/23 07/07/23 07/07/23 18:44 20:14 20:29 Temperature 98.5 F 98.4 F 98.2 F Pulse Rate 76 65 68 Respiratory 16 18 18 Rate Blood Pressure 126/61 126/55 122/57 O2 Sat by Pulse 98 99 Oximetry 07/07/23 07/07/23 20:30 20:49 Temperature 98.2 F 98.0 F Pulse Rate 68 72 Respiratory 18 18 Rate Blood Pressure 122/57 126/55 O2 Sat by Pulse 99 99 Oximetry - Reevaluation(s) Reevaluation #1: Critical hemoglobin 5.5. 2 units packed red blood cells ordered. 07/07/23 17:15 Medical Decision Making - Medical Decision Making Was pt. sent in by a medical professional or institution (, PA, PILE OPERATOR, urgent care, hospital, or senior care...) When possible be specific @ -No Did you speak to anyone other than the patient for history (EMS, parent, family, police, friend...)? What history was obtained from this source @ -No Did you review nursing and triage notes (agree or disagree)? Why? @ -I reviewed and agree with nursing and triage notes Were old charts reviewed (outside hosp., previous admission, EMS record, old EKG, old radiological studies, urgent care reports/EKG's, senior care records)? Report findings @ -Reviewed prio notes showing history of severe mesenteric artery occlusion and stent placement. Differential Diagnosis (chest pain, altered mental status, abdominal pain women, abdominal pain men, vaginal bleeding, weakness, fever, dyspnea, syncope, headache, dizziness, GI bleed, back pain, seizure, CVA, palpatations, mental health, musculoskeletal)? @ -Differential Weakness: Hypoglycemia, shock, sepsis, hyponatremia, anemia, infection, [place], ETOH, adverse medicine reaction, overdose, stroke, this is not meant to be an all-inclusive list. EKG interpreted by me (3pts min.). @ -As above X-rays interpreted by me (1pt min.). @ -None done CT interpreted by me (1pt min.). @ -CT abdomen and pelvis interpreted by me showing no suspicious acute findings. U/S interpreted by me (1pt. min.). @ -None done What testing was considered but not performed or refused? (CT, X-rays, U/S, labs)? Why? @ -None What meds were considered but not given or refused? Why? @ -None Did you discuss the management of the patient with other professionals (professionals i.e. , PA, PILE OPERATOR, lab, RT, psych nurse, social service director, home health care provider, teacher, information security officer, case filler)? Give summary @ -Spoke to sound physician who requests CT abdomen and pelvis with contrast for last in context of recent superior mesenteric artery occlusion status post stenting. Spoke to Dr. Johansen of surgery, who commenced the patient be transferred where GI services are available. Spoke to Dr. Thompson of GI, who would see patient if transfer accepted. Spoke to ED [email or web address] who accepted transfer. Was smoking cessation discussed for >3mins.? @ -No Was critical care preformed (if so, how long)? @ -Yes, 20 minutes Were there social determinants of health that impacted care today? How? (Homelessness, low income, unemployed, alcoholism, drug addiction, transportation, low edu. Level, literacy, decrease access to med. care, intermediate, rehab)? @ -No Was there de-escalation of care discussed even if they declined (Discuss DNR or withdrawal of care, Hospice)? DNR status @ -No What co-morbidities impacted this encounter? (DM, HTN, Smoking, COPD, CAD, Cancer, CVA, ARF, Chemo, Hep., AIDS, mental health diagnosis, sleep apnea, morbid obesity)? @ -A. fib Was patient admitted / discharged? Hospital course, mention meds given and route, prescriptions, significant lab abnormalities, going to OR and other pertinent info. @ -Transfer 77-year-old male presenting to the ED after follow-up at cardiology office due to pallor. Here, patient notes generalized weakness for the past 2 weeks and intermittent dizziness. Laboraotry studies significant for hemoglobin of 5.5. Occult stool positive. After speaking to medicine and surgery, would like patient transferred due to not having GI services available at this time. Spoke to GI and ED physician@[email or web address] were made aware of patient's and ED physician accepted transfer. At this time, 2 units transfused. Undiagnosed new problem with uncertain prognosis? @ -No Drug Therapy requiring intensive monitoring for toxicity (Heparin, Nitro, Insulin, Cardizem)? @ -No Were any procedures done? @ -No Diagnosis/symptom? @ -Anemia, GI bleed Acute, or Chronic, or Acute on Chronic? @ -Acute Uncomplicated (without systemic symptoms) or Complicated (systemic symptoms)? @ -Complicated Side effects of treatment? @ -No Exacerbation, Progression, or Severe Exacerbation? @ -No Poses a threat to life or bodily function? How? (Chest pain, [place], [place], pneumonia, PE, COPD, DKA, ARF, appy, cholecystitis, CVA, Diverticulitis, Homicidal, Suicidal, threat to staff... and all critical care pts) @ -Yes, significant anemia - Lab Data Result diagrams: 07/07/23 16:20 07/07/23 16:20 Lab Results 07/07/23 07/07/23 07/07/23 Range/Units 16:20 16:20 16:20 WBC 9.8 (3.8-10.6) k/uL RBC 2.32 L (4.30-5.90) m/uL Hgb 5.5 L* D (13.0-17.5) gm/dL Hct 18.1 L* (39.0-53.0) % MCV 77.9 L (80.0-100.0) fL MCH 23.5 L (25.0-35.0) pg MCHC 30.2 L (31.0-37.0) g/dL RDW 17.3 H (11.5-15.5) % Plt Count 278 (150-450) k/uL MPV 8.2 Neutrophils % 78 % Lymphocytes % 12 % Monocytes % 6 % Eosinophils % 1 % Basophils % 0 % Neutrophils # 7.7 (1.3-7.7) k/uL Lymphocytes # 1.2 (1.0-4.8) k/uL Monocytes # 0.6 (0-1.0) k/uL Eosinophils # 0.1 (0-0.7) k/uL Basophils # 0.0 (0-0.2) k/uL Manual Slide Review Performed Large Platelets Present Polychromasia Present Hypochromasia Marked Poikilocytosis Moderate Anisocytosis Slight Microcytosis Slight Crenated Cell Present PT 15.8 H (10.0-12.5) sec INR 1.5 H (<1.2) APTT 30.6 H (22.0-30.0) sec D-Dimer 0.41 (<0.60) mg/L FEU Sodium 136 L (137-145) mmol/L Potassium 4.1 (3.5-5.1) mmol/L Chloride 106 (98-107) mmol/L Carbon Dioxide 20 L (22-30) mmol/L Anion Gap 10 mmol/L BUN 16 (9-20) mg/dL Creatinine 0.66 (0.66-1.25) mg/dL Est GFR (CKD-EPI)AfAm >90 (>60 ml/min/1.73 sqM) Est GFR (CKD-EPI)NonAf >90 (>60 ml/min/1.73 sqM) Glucose 82 (74-99) mg/dL Lactic Ac Sepsis Rflx Plasma Lactic Acid Zacarias (0.7-2.0) mmol/L Calcium 8.0 L (8.4-10.2) mg/dL Phosphorus 3.9 (2.5-4.5) mg/dL Magnesium 2.0 (1.6-2.3) mg/dL Total Bilirubin 0.4 (0.2-1.3) mg/dL AST 22 (17-59) U/L ALT 16 (4-49) U/L Alkaline Phosphatase 79 (38-126) U/L Troponin I (0.000-0.034) ng/mL NT-Pro-B Natriuret Pep 2990 pg/mL Total Protein 5.8 L (6.3-8.2) g/dL Albumin 3.2 L (3.5-5.0) g/dL TSH 1.210 (0.465-4.680) mIU/L Stool Occult Blood (Negative) Blood Type Blood Type Recheck Bld Type Recheck Status Antibody Screen Crossmatch Spec Expiration Date 07/07/23 07/07/23 07/07/23 Range/Units 16:20 16:20 16:24 WBC (3.8-10.6) k/uL RBC (4.30-5.90) m/uL Hgb (13.0-17.5) gm/dL Hct (39.0-53.0) % MCV (80.0-100.0) fL MCH (25.0-35.0) pg MCHC (31.0-37.0) g/dL RDW (11.5-15.5) % Plt Count (150-450) k/uL MPV Neutrophils % % Lymphocytes % % Monocytes % % Eosinophils % % Basophils % % Neutrophils # (1.3-7.7) k/uL Lymphocytes # (1.0-4.8) k/uL Monocytes # (0-1.0) k/uL Eosinophils # (0-0.7) k/uL Basophils # (0-0.2) k/uL Manual Slide Review Large Platelets Polychromasia Hypochromasia Poikilocytosis Anisocytosis Microcytosis Crenated Cell PT (10.0-12.5) sec INR (<1.2) APTT (22.0-30.0) sec D-Dimer (<0.60) mg/L FEU Sodium (137-145) mmol/L Potassium (3.5-5.1) mmol/L Chloride (98-107) mmol/L Carbon Dioxide (22-30) mmol/L Anion Gap mmol/L BUN (9-20) mg/dL Creatinine (0.66-1.25) mg/dL Est GFR (CKD-EPI)AfAm (>60 ml/min/1.73 sqM) Est GFR (CKD-EPI)NonAf (>60 ml/min/1.73 sqM) Glucose (74-99) mg/dL Lactic Ac Sepsis Rflx Plasma Lactic Acid Zacarias 2.7 H* (0.7-2.0) mmol/L Calcium (8.4-10.2) mg/dL Phosphorus (2.5-4.5) mg/dL Magnesium (1.6-2.3) mg/dL Total Bilirubin (0.2-1.3) mg/dL AST (17-59) U/L ALT (4-49) U/L Alkaline Phosphatase (38-126) U/L Troponin I <0.012 (0.000-0.034) ng/mL NT-Pro-B Natriuret Pep pg/mL Total Protein (6.3-8.2) g/dL Albumin (3.5-5.0) g/dL TSH (0.465-4.680) mIU/L Stool Occult Blood (Negative) Blood Type A Positive Blood Type Recheck A Pos Bld Type Recheck Status No Antibody Screen NEGATIVE Crossmatch See Detail Spec Expiration Date 07/10/2023 - 232307/07/23 07/07/23 07/07/23 Range/Units 17:28 17:37 20:35 WBC (3.8-10.6) k/uL RBC (4.30-5.90) m/uL Hgb (13.0-17.5) gm/dL Hct (39.0-53.0) % MCV (80.0-100.0) fL MCH (25.0-35.0) pg MCHC (31.0-37.0) g/dL RDW (11.5-15.5) % Plt Count (150-450) k/uL MPV Neutrophils % % Lymphocytes % % Monocytes % % Eosinophils % % Basophils % % Neutrophils # (1.3-7.7) k/uL Lymphocytes # (1.0-4.8) k/uL Monocytes # (0-1.0) k/uL Eosinophils # (0-0.7) k/uL Basophils # (0-0.2) k/uL Manual Slide Review Large Platelets Polychromasia Hypochromasia Poikilocytosis Anisocytosis Microcytosis Crenated Cell PT (10.0-12.5) sec INR (<1.2) APTT (22.0-30.0) sec D-Dimer (<0.60) mg/L FEU Sodium (137-145) mmol/L Potassium (3.5-5.1) mmol/L Chloride (98-107) mmol/L Carbon Dioxide (22-30) mmol/L Anion Gap mmol/L BUN (9-20) mg/dL Creatinine (0.66-1.25) mg/dL Est GFR (CKD-EPI)AfAm (>60 ml/min/1.73 sqM) Est GFR (CKD-EPI)NonAf (>60 ml/min/1.73 sqM) Glucose (74-99) mg/dL Lactic Ac Sepsis Rflx Y Plasma Lactic Acid Zacarias 1.2 (0.7-2.0) mmol/L Calcium (8.4-10.2) mg/dL Phosphorus (2.5-4.5) mg/dL Magnesium (1.6-2.3) mg/dL Total Bilirubin (0.2-1.3) mg/dL AST (17-59) U/L ALT (4-49) U/L Alkaline Phosphatase (38-126) U/L Troponin I (0.000-0.034) ng/mL NT-Pro-B Natriuret Pep pg/mL Total Protein (6.3-8.2) g/dL Albumin (3.5-5.0) g/dL TSH (0.465-4.680) mIU/L Stool Occult Blood Positive (Negative) Blood Type Blood Type Recheck Bld Type Recheck Status Antibody Screen Crossmatch Spec Expiration Date - EKG Data EKG Comments: EKG shows a sinus rhythm at [address] or T-wave changes. SC 119, QRS 92, QT/QTc 421/445. Disposition Clinical Impression: Anemia, GI bleed Disposition: OTHER INSTITUTION NOT DEFINED Referrals: Omid Lopez DO [Primary Care Provider] - 1-2 days - Out of Hospital Transfer - Req. Specs Out of Hospital Transfer - Requested Specifics: Other Emergency Center ([facility]
[2023-07-07 17:23] LABS: Polychromasia Present
[2023-07-07 17:25] LABS: Crenated RBC Present
[2023-07-07 17:26] LABS: ALT 16 U/L (4-49); AST 22 U/L (17-59); African American GFR (CKD) >90 (>60 ml/min/1.73 sqM); Albumin 3.2 g/dL (3.5-5.0); Alkaline Phosphatase 79 U/L (38-126); Anion Gap 10 mmol/L; Blood Urea Nitrogen 16 mg/dL (9-20); Carbon Dioxide 20 mmol/L (22-30); Chloride 106 mmol/L (98-107); Glucose 82 mg/dL (74-99); Large Platelets Present; Non-African American GFR(CKD) >90 (>60 ml/min/1.73 sqM); Phosphorus 3.9 mg/dL (2.5-4.5); Potassium 4.1 mmol/L (3.5-5.1); Sodium 136 mmol/L (137-145); Total Bilirubin 0.4 mg/dL (0.2-1.3); Total Protein 5.8 g/dL (6.3-8.2)
[2023-07-07 18:05] LABS: NT-Pro-B-Type Natriuretic Pept 2990 pg/mL
[2023-07-07 20:21] VITALS: RESP 18
--- NOTE | 2023-07-07 21:13 | CT ---
EXAMINATION TYPE: CT abdomen pelvis w con DATE OF EXAM: 07/07/2023 COMPARISON: 06/11/2023 INDICATION: Stents placed in bowel x 1.5 week ago. Abdominal pain and anemia DLP: 584.2 mGycm, Automated exposure control for dose reduction was used. CONTRAST: 100 cc mL of Isovue 300. Study performed without Oral Contrast TECHNIQUE: Axial images were obtained from above the diaphragm to the pubic rami in the axial plane a t 5 mm thick sections. Reconstructed images are reviewed on the computer in the coronal plane. FINDINGS: Limited CT sections are obtained the lung bases. There is a minimal left and small right pleural eff usion. Mild adjacent compressive atelectasis is present.. CT ABDOMEN: Liver: Normal Spleen: Normal Pancreas: Normal Adrenal glands: The adrenal glands are normal. Gallbladder: Normal Kidneys: No masses are evident. No hydronephrosis is present. No cysts are present. Delayed images were obtained through the kidneys, which remain unremarkable. Aorta: Vascular calcification is within the aorta. There is fusiform prominence of the mid abdominal aorta with an AP diameter of 2.6 cm. Inferior vena cava: Normal. CT PELVIS: Loops of bowel within the abdomen and pelvis are normal. This study is without oral contrast limi ting bowel evaluation. Patient's bowel stents are not identified. Appendix: Not visualized. No dilated tubular structure or inflammatory change is evident. Urinary bladder: Normal. Genitourinary structures: Prostate is prominent. Osseous structures: No suspicious lytic or sclerotic lesions. IMPRESSION: 1. No suspicious acute changes. No obvious bowel obstruction. 2. Small bilateral pleural effusions. 3. Mild fusiform prominence mid abdominal aorta.
[2023-07-07 21:47] VITALS: PULSE 72
[2023-07-08 08:36] VITALS: BP 121/68; TEMP 97.9
== END 2023-07-07 22:58 | disposition other institution (70) ==
LOC: EC 16:00
DX: D64.9 Anemia, unspecified (principal); K92.2 Gastrointestinal hemorrhage, unspecified; J90 Pleural effusion, not elsewhere classified; I25.10 Atherosclerotic heart disease of native coronary artery without angina pectoris; J44.9 Chronic obstructive pulmonary disease, unspecified; E78.5 Hyperlipidemia, unspecified; I10 Essential (primary) hypertension; I25.2 Old myocardial infarction; F41.9 Anxiety disorder, unspecified; F17.200 Nicotine dependence, unspecified, uncomplicated; Z79.01 Long term (current) use of anticoagulants; Z79.899 Other long term (current) drug therapy; Z79.02 Long term (current) use of antithrombotics/antiplatelets; Z95.1 Presence of aortocoronary bypass graft; Z95.5 Presence of coronary angioplasty implant and graft
CPT/HCPCS: 36415; 93005; 86900; 86901; 85379; 83880; 80053; 83605; 83735; 84100; 84443; 84484; 85025; 85610; 85730; 86850; 86920; 82272; 74177; 99284; 36430; P9016; Q9967

== ENCOUNTER → 2023-12-22 | Outpatient (CLI) | payer MEDICARE, OTHER ==
--- NOTE | 2023-12-22 12:34 | FL ---
EXAMINATION TYPE: FL barium swallow w video DATE OF EXAM: 12/22/2023 CLINICAL HISTORY: 78-year-old male R13.12 Dysphagia, oropharyngeal phase. K2 1.00, reflux.. TECHNIQUE: Deglutition study is performed utilizing thin liquid barium, barium thick pudding, and ba rium coated cracker. Total fluoroscopy time 1 minute 53 seconds. Total images: None. Real-time fluoroscopy support was provided to speech pathology. Total DAP: 20 mGycm2. COMPARISON: None. FINDINGS: Some calcifications are noted in the carotid arteries. There is transient penetration with large bolu s of thin liquids. No other penetration or aspiration is seen. An initial episode of CP contraction d oes not persist. We note delayed clearance from the upper thoracic esophagus. Further imaging was per formed in the AP projection and shows scattered tertiary peristaltic contractions and some delay in b arium clearance from the esophagus. IMPRESSION: 1. Transient penetration with a large bolus of thin liquids. 2. There may be some underlying esophageal dysmotility. Consider esophagram for more detailed assessm ent. Please refer to speech therapist notes for further details if necessary.
== END | disposition home or self-care (01) ==
LOC: RADFLMAIN 11:06
PROVIDERS: ATTEND Family Medicine
DX: K21.00 Gastro-esophageal reflux disease with esophagitis, without bleeding (principal); R13.12 Dysphagia, oropharyngeal phase
CPT/HCPCS: 74230

== ENCOUNTER 2023-12-31 08:48 | Day surgery (SDC) | payer MEDICARE, OTHER ==
[2023-12-30 09:35] VITALS: BMI 20.7
[~2023-12-31 08:48] MED LIST changes: +LIDOCAINE 1% (10MG/ML) FOR IV START INTRADERMA PRN; -SODIUM CHLORIDE 0.9% 1,000 ML in EMPTY BAG 1 BAG IV ONE
[2023-12-31 09:52] VITALS: RESP 18; TEMP 97.5
[2023-12-31] MEDS: LACTATED RINGERS 1,000 ML IV SCH (10:00)
[2023-12-31] MEDS ORDERED: LIDOCAINE 2% (PF) 20 MG/ML 5 ML VIAL ONE (10:38)
[2023-12-31] MEDS ORDERED: PROPOFOL 10 MG/ML 20 ML VIAL IV ONE (10:38)
--- NOTE | 2023-12-31 10:57 | P.PCN ---
Date of Procedure: 12/31/23 Procedure(s) Performed: BRIEF HISTORY: Patient is a 78-year-old, pleasant, male scheduled for an upper anoscopy for evaluation of an dysphagia to solids for the last 2 weeks duration. He states the food gets stuck in his throat area.. PROCEDURE PERFORMED: Esophagoscopy with biopsy. PREOPERATIVE DIAGNOSIS: Dysphagia to solids of 2 weeks duration. IV sedation per anesthesia. PROCEDURE: After informed consent was obtained, the patient was brought into the endoscopy unit. IV sedation was administered by Anesthesia under continuous monitoring. Initially the Olympus GIF-140 video endoscope was inserted into the mouth. Esophagus intubated without any difficulty. In the proximal cervical esophagus at 18 cm from the incisors there was a tight esophageal stricture identified and I could not advance the scope through the stricture. The scope was removed and the pediatric upper scope was then introduced into the mouth and esophagus intubated without any difficulty and despite the small scope I was unable to advance the scope through the stricture. Just proximal to the stricture there was a 1 cm friable polypoid area identified suspicious for neoplasm and multiple biopsies were done from this area. Patient tolerated the procedure well. IMPRESSION: 1. Proximal esophageal tight stricture located at 18 cm from the incisors with a small friable ulcerated lesion just proximal to the stricture s/p multiple biopsies to evaluate for neoplasm 2. Scope could not be advanced through the proximal esophageal stricture.. RECOMMENDATIONS: The findings of this examination were discussed with the patient as well as his family. He was advised to follow-up with the biopsy results. He will be scheduled for CT of the chest to evaluate this further and he will be seen in the office in 1 week..
[2023-12-31 11:36] VITALS: BP 145/73; PULSE 63
== END 2023-12-31 11:40 | disposition home or self-care (01) ==
LOC: ORWHC2ENDO 08:48
PROVIDERS: ATTEND Internal Medicine Gastroenterology
DX: C15.3 Malignant neoplasm of upper third of esophagus (principal); I25.2 Old myocardial infarction; I10 Essential (primary) hypertension; E78.5 Hyperlipidemia, unspecified; I25.10 Atherosclerotic heart disease of native coronary artery without angina pectoris; I73.9 Peripheral vascular disease, unspecified; G25.81 Restless legs syndrome; Z79.01 Long term (current) use of anticoagulants; Z95.5 Presence of coronary angioplasty implant and graft; Z79.899 Other long term (current) drug therapy
CPT/HCPCS: 88305; 88342; 43239; J2704; J2001

== ENCOUNTER → 2024-01-01 | Outpatient (CLI) | payer MEDICARE, OTHER ==
[2024-01-01 13:17] LABS: African American GFR (CKD) >90 (>60 ml/min/1.73 sqM); Blood Urea Nitrogen 6 mg/dL (9-20); Non-African American GFR(CKD) 88 (>60 ml/min/1.73 sqM)
--- NOTE | 2024-01-01 13:58 | CT ---
EXAMINATION TYPE: CT chest w con CT DLP: 193 mGycm, Automated exposure control for dose reduction was used. DATE OF EXAM: 01/01/2024 1:44 PM COMPARISON: CT 07/07/2023. CLINICAL INDICATION:Male, 78 years old with history of K22.2 ESOPHAGEAL OBSTRUCTION; PHH, esophageal obstruction TECHNIQUE: Multiple axial images were obtained through the chest. Sagittal and coronal reformats were created for review. Contrast used:100 mL of Isovue 300 with IV Contrast (None if empty) Oral contrast used: (None if empty) FINDINGS: LUNGS/ PLEURA: Moderate centrilobular emphysema changes are seen throughout the lungs. Left upper peter g calcified granuloma measuring 6 mm. No focal consolidation, pneumothorax or pleural effusion. Prior pleural effusions are no longer visualized AIRWAY: Patent and unremarkable. HEART: Size within normal limits. MEDIASTINUM: No gross evidence of adenopathy. e no focal esophageal wall thickening series 3 image 12 VASCULATURE: No aortic aneurysm. MUSCULOSKELETAL: No acute osseous abnormalities SOFT TISSUES/LYMPH NODES: Unremarkable. Fat-containing upper abdominal wall suspected hernia series 3 image 60. LOWER NECK: No significant findings. UPPER ABDOMEN: Low-density areas of nonenhancement within the spleen measuring 17 and 22 mm. IMPRESSION: 1. Focal esophageal wall thickening series 3 image 12. Consider further evaluation with direct visua lization to rule out neoplasm. 2. Indeterminate splenic lesions. Consider multiphase MRI for further evaluation. Prior history of m alignancy. Not seen on 07/07/2023 exam 3. Resolution of prior pleural effusions. 4. Moderate emphysema changes.
== END | disposition home or self-care (01) ==
LOC: RADCTMAIN 12:21
PROVIDERS: ATTEND Internal Medicine Gastroenterology
DX: K22.2 Esophageal obstruction (principal); J43.2 Centrilobular emphysema
CPT/HCPCS: 82565; 84520; 71260; 36415; Q9967

== ENCOUNTER 2024-03-01 10:37 | Emergency (ER) | payer MEDICARE, OTHER ==
[2024-03-01 10:47] VITALS: TEMP 97.4
[2024-03-01] MEDS: SODIUM CHLORIDE 0.9% 1,000 ML IV ONE (12:26)
[2024-03-01 12:30] LABS: Basophils % (A) 0 %; Eosinophils # (A) 0.1 k/uL (0-0.7); Eosinophils % (A) 1 %; HCT 50.2 % (39.0-53.0); HGB 16.5 gm/dL (13.0-17.5); Lymphocytes # (A) 1.3 k/uL (1.0-4.8); Lymphocytes % (A) 11 %; MCH 32.5 pg (25.0-35.0); MCHC 32.8 g/dL (31.0-37.0); Mean Platelet Volume 8.4; Monocytes # (A) 0.5 k/uL (0-1.0); Monocytes % (A) 4 %; Neutrophils % (A) 82 %; Platelet Count 251 k/uL (150-450); RBC 5.07 m/uL (4.30-5.90); RDW 13.7 % (11.5-15.5)
[2024-03-01 12:42] LABS: ALT 15 U/L (4-49); African American GFR (CKD) 78 (>60 ml/min/1.73 sqM); Anion Gap 11 mmol/L; Blood Urea Nitrogen 30 mg/dL (9-20); Calcium 9.8 mg/dL (8.4-10.2); Carbon Dioxide 21 mmol/L (22-30); Chloride 105 mmol/L (98-107); Glucose 73 mg/dL (74-99); Non-African American GFR(CKD) 67 (>60 ml/min/1.73 sqM); Sodium 137 mmol/L (137-145)
[2024-03-01 12:49] LABS: AST 34 U/L (17-59); Albumin 4.6 g/dL (3.5-5.0); Alkaline Phosphatase 100 U/L (38-126); Potassium 5.8 mmol/L (3.5-5.1); Total Bilirubin 1.6 mg/dL (0.2-1.3); Total Protein 7.4 g/dL (6.3-8.2)
--- NOTE | 2024-03-01 13:19 | ED ---
General Adult HPI - General Chief complaint: Recheck/Abnormal Lab/Rx Stated complaint: Throat pain Time Seen by Provider: 03/01/24 11:01 Source: patient Mode of arrival: ambulatory Limitations: no limitations - History of Present Illness Initial comments: 78-year-old male with past medical history of squamous cell esophageal cancer presents emergency department with difficulty swallowing. Patient states that he was seen at the beginning of December for difficulty swallowing. He had an EGD done by Dr. Bailey, GI specialist, at [facility] who found that the patient had an esophageal ulceration with stricture. This was in the proximal esophagus and she had difficulty advancing the scope. The patient was then sent for a chest CT. He was referred to oncology. Patient had [address] Gusman. Plan was for radiation and chemotherapy however they wanted to get an esophageal ultrasound previous to any treatment. Patient states that he had extreme difficulty scheduling the study. He was told he had to go to [place] or [facility]. He got scheduled at [facility] in April. Patient states that previous to Friday he was able to eat thin foods and liquids. As of Friday he is now unable to swallow his own secretions. He is not able to hold down any food or drink. He denies any difficulty breathing. Patient is spitting his sputum into a garbage can. He denies any fevers. No pain. No other alleviating, precipitating or modifying factors - Related Data Home Medications Medication Instructions Recorded Confirmed Atorvastatin [Lipitor] 40 mg PO DAILY 06/09/18 12/31/23 Nitroglycerin Sl Tabs [Nitrostat] 0.4 mg SUBLINGUAL Q5M PRN 03/15/21 12/30/23 Rivaroxaban [Xarelto] 20 mg PO DAILY 03/15/21 12/30/23 ALPRAZolam [Xanax] 0.25 mg PO DAILY PRN 06/11/23 12/30/23 Metoprolol Tartrate [Lopressor] 50 mg PO QAM 06/11/23 12/31/23 Pramipexole [Mirapex] 0.25 mg PO HS PRN 06/11/23 12/31/23 Aspirin 81 mg PO DAILY 12/30/23 12/30/23 Ipratropium/Albuter 20-100Mcg 1 puff INHALATION BID PRN 12/30/23 12/31/23 [Combivent Respimat 20-100Mcg Inhaler] Omeprazole [PriLOSEC] 40 mg PO QAM 12/30/23 12/30/23 Sertraline HCl [Zoloft] 50 mg PO QAM 12/30/23 12/30/23 Tamsulosin HCl [Flomax] 0.4 mg PO QAM 12/30/23 12/30/23 hydrOXYzine pamoate [Vistaril] 25 mg PO BID 12/30/23 12/31/23 Allergies Allergy/AdvReac Type Severity Reaction Status Date / Time No Known Allergies Allergy Verified 03/01/24 10:47 Review of Systems ROS Statement: Those systems with pertinent positive or pertinent negative responses have been documented in the HPI. ROS Other: All systems not noted in ROS Statement are negative. Past Medical History Past Medical History: Coronary Artery Disease (CAD), COPD, Hyperlipidemia, Hypertension, Memory Impairment, Myocardial Infarction (NV), Vascular Disorder Additional Past Medical History / Comment(s): having a difficulty swallowing after eating-only able to swallow soft foods,hx artery to colon had to have a stent placed,PVD BOTH LEGS, RLS, neil leg cramps Last Myocardial Infarction Date:: 10/02/2015 History of Any Multi-Drug Resistant Organisms: None Reported Past Surgical History: Coronary Bypass/CABG, Heart Catheterization With Stent, Hernia Repair, Orthopedic Surgery Additional Past Surgical History / Comment(s): heart stents x 3,ORIF rt elbow, triple bypass-taking xarelto, ABDOMINAL AORTOGRAM WITH NEIL EXT. RUNOFF 3-8-17. colonoscopy Past Anesthesia/Blood Transfusion Reactions: No Reported Reaction Additional Past Anesthesia/Blood Transfusion Reaction / Comment(s): no problems with prior blood transfusions,states "no agitation coming out of anesthesia" Date of Last Stent Placement:: 10/02/2015 Past Psychological History: Anxiety Smoking Status: Current every day smoker, Vaper - Past Family History Mother Family Medical History: Vascular Disorder Father Family Medical History: COPD Brother(s) Family Medical History: Cancer Additional Family Medical History / Comment(s): Heart problems, lymphoma. General Exam Limitations: no limitations General appearance: alert, in no apparent distress Head exam: Present: atraumatic, normocephalic, normal inspection Eye exam: Present: normal appearance, PERRL, EOMI. Absent: scleral icterus, conjunctival injection, periorbital swelling ENT exam: Present: normal exam, mucous membranes moist Neck exam: Present: normal inspection. Absent: tenderness, meningismus, lympha denopathy Respiratory exam: Present: normal lung sounds bilaterally. Absent: respiratory distress, wheezes, rales, rhonchi, stridor Cardiovascular Exam: Present: regular rate, normal rhythm, normal heart sounds. Absent: systolic murmur, diastolic murmur, rubs, gallop, clicks GI/Abdominal exam: Present: soft, normal bowel sounds. Absent: distended, tenderness, guarding, rebound, rigid Extremities exam: Present: normal inspection, full ROM, normal capillary refill. Absent: tenderness, pedal edema, joint swelling, calf tenderness Back exam: Present: normal inspection Neurological exam: Present: alert, oriented X3, CN II-XII intact Psychiatric exam: Present: normal affect, normal mood Skin exam: Present: warm, dry, intact, normal color. Absent: rash Course Vital Signs 03/01/24 03/01/24 03/01/24 10:44 10:47 12:27 Temperature 97.4 F L Pulse Rate 55 L 94 69 Respiratory 20 18 18 Rate Blood Pressure 141/67 125/84 147/61 O2 Sat by Pulse 88 L 100 99 Oximetry 03/01/24 13:49 Temperature Pulse Rate 71 Respiratory 18 Rate Blood Pressure 161/62 O2 Sat by Pulse 99 Oximetry - Reevaluation(s) Reevaluation #1: Spoke with GI specialist at [facility]. They are not capable of assisting with the patient's care. Recommend cardiothoracic surgery for possi ble stent placement and IR for feeding tube 03/01/24 13:18 Medical Decision Making - Medical Decision Making Was pt. sent in by a medical professional or institution (, PA, FULL STACK SOFTWARE ENGINEER, urgent care, hospital, or retirement...) When possible be specific @ -No Did you speak to anyone other than the patient for history (EMS, parent, family, police, friend...)? What history was obtained from this source @ -I spoke with Lluvia Rushing from oncology who is able to see the outpatient oncology evaluation Did you review nursing and triage notes (agree or disagree)? Why? @ -I reviewed and agree with nursing and triage notes Were old charts reviewed (outside hosp., previous admission, EMS record, old EKG, old radiological studies, urgent care reports/EKG's, retirement records)? Report findings @ -I reviewed the patient's EGD and CT of his chest which was done on December 30 and December 31 Differential Diagnosis (chest pain, altered mental status, abdominal pain women, abdominal pain men, vaginal bleeding, weakness, fever, dyspnea, syncope, headache, dizziness, GI bleed, back pain, seizure, CVA, palpatations, mental health, musculoskeletal)? @ -Esophageal stricture, esophageal ulceration, esophageal cancer, airway obstruction EKG interpreted by me (3pts min.). @ -Not done X-rays interpreted by me (1pt min.). @ -None done CT interpreted by me (1pt min.). @ -None done U/S interpreted by me (1pt. min.). @ -None done What testing was considered but not performed or refused? (CT, X-rays, U/S, labs)? Why? @ -CT chest was considered however this was already completed on the patient What meds were considered but not given or refused? Why? @ -None Did you discuss the management of the patient with other professionals (professionals i.e. Dr., PA, FULL STACK SOFTWARE ENGINEER, lab, RT, psych nurse, director social service, human development professor, teacher, space operations officer, lining caser)? Give summary @ -I spoke with Lluvia Rushing from oncology. Admitted that the patient could be treated with radiation however this would not resolve the patient's feeding issue. We do not have IR or GI available therefore it is likely in the patient's best interest to be transferred. I then called and spoke with the GI specialist at [facility]. He feels that the patient may need an esoph ageal stent. Recommends that the patient be evaluated by cardiothoracic's. Then spoke with the cardiothoracic surgeon at [facility]. He was agreeable to accepting the patient as a transfer and assisting in his care. I then finally spoke with Dr. Alvarenga who is the accepting ER doc at [facility] Was smoking cessation discussed for >3mins.? @ -No Was critical care preformed (if so, how long)? @ -Yes, 40 minutes for management of advanced condition with discussion with multiple consultants Were there social determinants of health that impacted care today? How? (Homelessness, low income, unemployed, alcoholism, drug addiction, transportation, low edu. Level, literacy, decrease access to med. care, detention, rehab)? @ -No Was there de-escalation of care discussed even if they declined (Discuss DNR or withdrawal of care, Hospice)? DNR status @ -No What co-morbidities impacted this encounter? (DM, HTN, Smoking, COPD, CAD, Cancer, CVA, ARF, Chemo, Hep., AIDS, mental health diagnosis, sleep apnea, morbid obesity)? @ -Esophageal cancer Was patient admitted / discharged? Hospital course, mention meds given and route, prescriptions, significant lab abnormalities, going to OR and other pertinent info. @ -Upon arrival patient seen and evaluated. Thorough history and physical exam was performed. Airway is patent. IV is established. Laboratory studies are conducted. I did speak with oncology who recommends transfer to facility with higher level of care as patient will need secondary means of nutrition. GI and IR unavailable at our facility. I did call and speak with cardiothoracic's at [facility]. Agreeable to accept transfer the patient. Spoke with Dr. Alvarenga who is excepting ER doc. Patient is initiated on D5 due to glucose of 72. He will be transferred via EMS. COBRA forms are signed and patient transferred in stable condition Undiagnosed new problem with uncertain prognosis? @ -No Drug Therapy requiring intensive monitoring for toxicity (Heparin, Nitro, Insulin, Cardizem)? @ -No Were any procedures done? @ -No Diagnosis/symptom? @ -Esophageal stricture, recently diagnosed esophageal mass, hypoglycemia Acute, or Chronic, or Acute on Chronic? @ -Acute on chronic Uncomplicated (without systemic symptoms) or Complicated (systemic symptoms)? @ -Complicated Side effects of treatment? @ -No Exacerbation, Progression, or Severe Exacerbation? @ -No Poses a threat to life or bodily function? How? (Chest pain, USA, NV, pneumonia, PE, COPD, DKA, ARF, appy, cholecystitis, CVA, Diverticulitis, Homicidal, Suicidal, threat to staff... and all critical care pts) @ -Yes as patient requires immediate evaluation for nutrition - Lab Data Result diagrams: 03/01/24 12:22 03/01/24 12:22 Lab Results 03/01/24 03/01/24 Range/Units 12:22 12:22 WBC 11.0 H (3.8-10.6) k/uL RBC 5.07 (4.30-5.90) m/uL Hgb 16.5 (13.0-17.5) gm/dL Hct 50.2 (39.0-53.0) % MCV 99.0 (80.0-100.0) fL MCH 32.5 (25.0-35.0) pg MCHC 32.8 (31.0-37.0) g/dL RDW 13.7 (11.5-15.5) % Plt Count 251 (150-450) k/uL MPV 8.4 Neutrophils % 82 % Lymphocytes % 11 % Monocytes % 4 % Eosinophils % 1 % Basophils % 0 % Neutrophils # 9.0 H (1.3-7.7) k/uL Lymphocytes # 1.3 (1.0-4.8) k/uL Monocytes # 0.5 (0-1.0) k/uL Eosinophils # 0.1 (0-0.7) k/uL Basophils # 0.0 (0-0.2) k/uL Sodium 137 (137-145) mmol/L Potassium 5.8 H (3.5-5.1) mmol/L Chloride 105 (98-107) mmol/L Carbon Dioxide 21 L (22-30) mmol/L Anion Gap 11 mmol/L BUN 30 H (9-20) mg/dL Creatinine 1.07 (0.66-1.25) mg/dL Est GFR (CKD-EPI)AfAm 78 (>60 ml/min/1.73 sqM) Est GFR (CKD-EPI)NonAf 67 (>60 ml/min/1.73 sqM) Glucose 73 L (74-99) mg/dL Calcium 9.8 (8.4-10.2) mg/dL Total Bilirubin 1.6 H (0.2-1.3) mg/dL AST 34 (17-59) U/L ALT 15 (4-49) U/L Alkaline Phosphatase 100 (38-126) U/L Total Protein 7.4 (6.3-8.2) g/dL Albumin 4.6 (3.5-5.0) g/dL Disposition Clinical Impression: Esophageal stricture, Esophageal cancer, Hypoglycemia Disposition: OTHER INSTITUTION NOT DEFINED Condition: Serious Is patient prescribed a controlled substance at d/c from ED?: No Referrals: Omid Lopez DO [Primary Care Provider] - 1-2 days Time of Disposition: 14:12 - Out of Hospital Transfer - Req. Specs Out of Hospital Transfer - Requested Specifics: Other Emergency Center ([facility])
[2024-03-01] MEDS: DEXTROSE 5%-0.9% NACL 1,000 ML IV SCH (13:57)
[2024-03-01 14:35] VITALS: BP 153/64; PULSE 73; RESP 16
== END 2024-03-01 14:39 | disposition other institution (70) ==
LOC: EC 10:37
DX: K22.2 Esophageal obstruction (principal); C15.9 Malignant neoplasm of esophagus, unspecified; E16.2 Hypoglycemia, unspecified; F17.290 Nicotine dependence, other tobacco product, uncomplicated
CPT/HCPCS: 36415; 80053; 85025; 96360; 96361; 99291

== ENCOUNTER 2024-08-11 12:05 | Day surgery (SDC) | payer MEDICARE, OTHER ==
[2024-08-10 09:50] VITALS: BMI 15.7
[2024-08-11] MEDS: LACTATED RINGERS 1,000 ML IV SCH (13:12)
[2024-08-11] MEDS: IV FLUID CONTINUATION 1,000 ML IV ONE (13:15)
[2024-08-11] MEDS ORDERED: LIDOCAINE 1% INJ 10MG/ML (20 ML MDV) ONE (13:41)
[2024-08-11] MEDS ORDERED: PROPOFOL 10 MG/ML 20 ML VIAL IV ONE (13:41)
--- NOTE | 2024-08-11 14:00 | P.PCN ---
Date of Procedure: 08/11/24 Procedure(s) Performed: BRIEF HISTORY: Patient is a 78-year-old pleasant white male scheduled for an elective colonoscopy as a part of evaluation of abnormal CAT scan of the abdomen that showed abnormality in the right colon. PROCEDURE PERFORMED: Colonoscopy. PREOPERATIVE DIAGNOSIS: Abnormal CAT scan. IV sedation per Anesthesia. PROCEDURE: After informed consent was obtained, the patient, was brought into the endoscopy unit. IV sedation was administered by Anesthesia under continuous monitoring. Digital rectal examination was normal. Initially the Olympus CF-160 flexible video colonoscope was then inserted in the rectum, gradually advanced into the cecum without any difficulty. Careful examination was performed as the scope was gradually being withdrawn. Ileocecal valve and the appendiceal orifice were visualized and appeared normal. Prep was excellent. Mucosa of the cecum, ascending colon, transverse colon, descending colon, sigmoid colon, and rectum appeared normal. Retroflexion was performed in the rectum and no lesions were seen. The patient tolerated the procedure well. IMPRESSION: Normal-appearing colon from rectum to cecum with no evidence of colorectal neoplasia. RECOMMENDATIONS: Findings of this examination were discussed with the patient as well as his family. He was advised to be on high-fiber diet and fiber supplements on a regular basis.. y
[2024-08-11 14:22] VITALS: BP 124/75; PULSE 78; RESP 16
== END 2024-08-11 14:47 | disposition home or self-care (01) ==
LOC: ORWHC2ENDO 12:05
PROVIDERS: ATTEND Internal Medicine Gastroenterology
DX: R93.3 Abnormal findings on diagnostic imaging of other parts of digestive tract (principal); R93.89 Abnormal findings on diagnostic imaging of other specified body structures; I10 Essential (primary) hypertension; E78.5 Hyperlipidemia, unspecified; I25.10 Atherosclerotic heart disease of native coronary artery without angina pectoris; J44.89 Other specified chronic obstructive pulmonary disease; I73.9 Peripheral vascular disease, unspecified; G25.81 Restless legs syndrome; Z87.891 Personal history of nicotine dependence; Z79.51 Long term (current) use of inhaled steroids; Z79.02 Long term (current) use of antithrombotics/antiplatelets; Z79.899 Other long term (current) drug therapy; Z95.1 Presence of aortocoronary bypass graft; Z90.89 Acquired absence of other organs
CPT/HCPCS: 45378 ×2; J2003; J2704

== ENCOUNTER 2024-09-04 08:40 | Inpatient (IN) | payer MEDICARE, OTHER ==
--- NOTE | 2024-09-04 09:46 | ED ---
General Adult HPI - General Chief complaint: Recheck/Abnormal Lab/Rx Stated complaint: feeding tube fell out Time Seen by Provider: 09/04/24 08:49 Source: patient, RN notes reviewed Mode of arrival: ambulatory Limitations: no limitations - History of Present Illness Initial comments: Patient is a 78 year old male with past medical history of esophageal cancer currently receiving treatment presenting for reinsertion of PEG tube that fell out 4 days ago. He states that he was walking in his living room and he felt a tug and looked and his PEG tube had fallen out. He states that he had the tube inserted in March 2024 for feeding purposes at [facility], [place], and it has not fallen out in the past. He notes waiting to come in due to the holidays, and has not been eating or drinking much due to this. He denies any pain at site. - Related Data Home Medications Medication Instructions Recorded Confirmed Atorvastatin [Lipitor] 40 mg PO DAILY 06/09/18 09/04/24 Nitroglycerin Sl Tabs [Nitrostat] 0.4 mg SL Q5M PRN 03/15/21 09/04/24 Rivaroxaban [Xarelto] 20 mg PO DAILY 03/15/21 09/04/24 ALPRAZolam [Xanax] 0.25 mg PO DAILY PRN 06/11/23 09/04/24 Metoprolol Tartrate [Lopressor] 50 mg PO DAILY 06/11/23 09/04/24 Pramipexole [Mirapex] 0.25 mg PO HS PRN 06/11/23 09/04/24 Ipratropium/Albuter 20-100Mcg 1 puff INHALATION RT-BID PRN 12/30/23 09/04/24 [Combivent Respimat 20-100Mcg Inhaler] Omeprazole [PriLOSEC] 40 mg PO DAILY 12/30/23 09/04/24 Sertraline HCl [Zoloft] 50 mg PO DAILY 12/30/23 09/04/24 Tamsulosin HCl [Flomax] 0.4 mg PO DAILY 12/30/23 09/04/24 hydrOXYzine pamoate [Vistaril] 25 mg PO BID 12/30/23 09/04/24 Albuterol Nebulized [Ventolin 2.5 mg INHALATION RT-Q4H 08/10/24 09/04/24 Nebulized] Allergies Allergy/AdvReac Type Severity Reaction Status Date / Time No Known Allergies Allergy Verified 09/04/24 10:03 Review of Systems ROS Statement: Those systems with pertinent positive or pertinent negative responses have been documented in the HPI. ROS Other: All systems not noted in ROS Statement are negative. Past Medical History Past Medical History: Coronary Artery Disease (CAD), Cancer, COPD, GERD/Reflux, Hyperlipidemia, Hypertension, Memory Impairment, Myocardial Infarction (MA), Vascular Disorder Additional Past Medical History / Comment(s): having a difficulty swallowing after eating-only able to swallow soft foods,hx artery to colon had to have a stent placed,PVD BOTH LEGS, RLS, neil leg cramps, esophageal cancer 2023, feeding tube Last Myocardial Infarction Date:: 10/02/2015 History of Any Multi-Drug Resistant Organisms: None Reported Past Surgical History: Coronary Bypass/CABG, Heart Catheterization With Stent, Hernia Repair, Orthopedic Surgery Additional Past Surgical History / Comment(s): heart stents x 3,ORIF rt elbow, triple bypass-taking xarelto, ABDOMINAL AORTOGRAM WITH NEIL EXT. RUNOFF 3-8-17. colonoscopy, egd Past Anesthesia/Blood Transfusion Reactions: No Reported Reaction Additional Past Anesthesia/Blood Transfusion Reaction / Comment(s): no problems with prior blood transfusions,states "no agitation coming out of anesthesia" Date of Last Stent Placement:: 10/02/2015 Past Psychological History: Anxiety Smoking Status: Former smoker, Vaper Past Alcohol Use History: None Reported Past Drug Use History: None Reported - Past Family History Mother Family Medical History: Vascular Disorder Father Family Medical History: COPD Brother(s) Family Medical History: Cancer Additional Family Medical History / Comment(s): Heart problems, lymphoma. General Exam Limitations: no limitations General appearance: alert, in no apparent distress Respiratory exam: Present: normal lung sounds bilaterally. Absent: respiratory distress, wheezes, rales, rhonchi, stridor Cardiovascular Exam: Present: regular rate, normal rhythm, normal heart sounds. Absent: systolic murmur, diastolic murmur, rubs, gallop, clicks GI/Abdominal exam: Present: soft, normal bowel sounds, other (peg site in LLQ). Absent: distended, tenderness, guarding, rebound, rigid Neurological exam: Present: alert, oriented X3, CN II-XII intact Psychiatric exam: Present: normal affect, normal mood Skin exam: Present: warm, dry, intact, normal color. Absent: rash, erythema Course Vital Signs 09/04/24 09/04/24 09/04/24 08:42 12:19 14:27 Temperature 97.6 F 97.8 F Pulse Rate 93 71 81 Respiratory 18 18 18 Rate Blood Pressure 133/82 141/66 141/82 O2 Sat by Pulse 93 L 100 98 Oximetry Medical Decision Making - Medical Decision Making Was pt. sent in by a medical professional or institution (, [facility], [employer], urgent care, hospital, or assisted...) When possible be specific @ -No Did you speak to anyone other than the patient for history (EMS, parent, family, police, friend...)? What history was obtained from this source @ -No Did you review nursing and triage notes (agree or disagree)? Why? @ -I reviewed and agree with nursing and triage notes Were old charts reviewed (outside hosp., previous admission, EMS record, old EKG, old radiological studies, urgent care reports/EKG's, assisted records)? Report findings @ -No old charts were reviewed Differential Diagnosis (chest pain, altered mental status, abdominal pain women, abdominal pain men, vaginal bleeding, weakness, fever, dyspnea, syncope, headache, dizziness, GI bleed, back pain, seizure, CVA, palpatations, mental health, musculoskeletal)? @ -[PEG tube dislodged, dehydration, esophageal cancer EKG interpreted by me (3pts min.). @ -None X-rays interpreted by me (1pt min.). @ -None done CT interpreted by me (1pt min.). @ -None done U/S interpreted by me (1pt. min.). @ -None done What testing was considered but not performed or refused? (CT, X-rays, U/S, labs)? Why? @ -None What meds were considered but not given or refused? Why? @ -None Did you discuss the management of the patient with other professionals (professionals i.e. , G[facility], [employer], lab, RT, psych nurse, social sciences instructor, ancillary services manager, teacher, veterinary medical officer, upper caser)? Give summary @ -Dr. Bueno regarding PEG tube and possible placement, Joey with sound physicians for admission Was smoking cessation discussed for >3mins.? @ -No Was critical care preformed (if so, how long)? @ -No Were there social determinants of health that impacted care today? How? (Homelessness, low income, unemployed, alcoholism, drug addiction, transportation, low edu. Level, literacy, decrease access to med. care, nursing home, rehab)? @ -No Was there de-escalation of care discussed even if they declined (Discuss DNR or withdrawal of care, Hospice)? DNR status @ -No What co-morbidities impacted this encounter? (DM, HTN, Smoking, COPD, CAD, Cancer, CVA, ARF, Chemo, Hep., AIDS, mental health diagnosis, sleep apnea, morbid obesity)? @ -None Was patient admitted / discharged? Hospital course, mention meds given and route, prescriptions, significant lab abnormalities, going to OR and other pertinent info. @ -Admitted to medicine with consult to surgery for PEG tube placement Undiagnosed new problem with uncertain prognosis? @ -No Drug Therapy requiring intensive monitoring for toxicity (Heparin, Nitro, Insulin, Cardizem)? @ -No Were any procedures done? @ -No Diagnosis/symptom? @ -PEG tube dislodged, esophageal cancer Acute, or Chronic, or Acute on Chronic? @ -Acute Uncomplicated (without systemic symptoms) or Complicated (systemic symptoms)? @ -Uncomplicated Side effects of treatment? @ -No Exacerbation, Progression, or Severe Exacerbation? @ -No Poses a threat to life or bodily function? How? (Chest pain, USA, MA, pneumonia, PE, COPD, DKA, ARF, appy, cholecystitis, CVA, Diverticulitis, Homicidal, Suicidal, threat to staff... and all critical care pts) @ -No - Lab Data Result diagrams: 09/04/24 09:47 09/04/24 09:47 Lab Results 09/04/24 09/04/24 09/04/24 Range/Units 09:47 09:47 09:47 WBC 6.7 (3.8-10.6) k/uL RBC 3.32 L (4.30-5.90) m/uL Hgb 11.7 L (13.0-17.5) gm/dL Hct 36.0 L (39.0-53.0) % MCV 108.2 H (80.0-100.0) fL MCH 35.1 H (25.0-35.0) pg MCHC 32.4 (31.0-37.0) g/dL RDW 14.7 (11.5-15.5) % Plt Count 227 (150-450) k/uL MPV 7.3 Neutrophils % 79 % Lymphocytes % 9 % Monocytes % 7 % Eosinophils % 3 % Basophils % 0 % Neutrophils # 5.3 (1.3-7.7) k/uL Lymphocytes # 0.6 L (1.0-4.8) k/uL Monocytes # 0.5 (0-1.0) k/uL Eosinophils # 0.2 (0-0.7) k/uL Basophils # 0.0 (0-0.2) k/uL Manual Slide Review Performed Macrocytosis Marked A PT 11.0 (10.0-12.5) sec INR 1.0 (<1.2) APTT 24.9 (22.0-30.0) sec Sodium 139 (137-145) mmol/L Potassium 4.3 (3.5-5.1) mmol/L Chloride 104 (98-107) mmol/L Carbon Dioxide 28 (22-30) mmol/L Anion Gap 7 mmol/L BUN 12 (9-20) mg/dL Creatinine 0.61 L (0.66-1.25) mg/dL Est GFR (CKD-EPI)AfAm >90 (>60 ml/min/1.73 sqM) Est GFR (CKD-EPI)NonAf >90 (>60 ml/min/1.73 sqM) Glucose 67 L (74-99) mg/dL Calcium 9.7 (8.4-10.2) mg/dL Magnesium 2.1 (1.6-2.3) mg/dL Total Bilirubin 0.4 (0.2-1.3) mg/dL AST 27 (17-59) U/L ALT 18 (4-49) U/L Alkaline Phosphatase 103 (38-126) U/L Total Protein 6.5 (6.3-8.2) g/dL Albumin 3.8 (3.5-5.0) g/dL Disposition Clinical Impression: PEG tube malfunction, Esophageal cancer Disposition: ADMITTED IP TO THIS HOSP Condition: Fair Time of Disposition: 09:49
[2024-09-04] MEDS: SODIUM CHLORIDE 0.9% 1,000 ML IV SCH (10:03)
[2024-09-04 10:26] LABS: Basophils % (A) 0 %; Eosinophils # (A) 0.2 k/uL (0-0.7); Eosinophils % (A) 3 %; HGB 11.7 gm/dL (13.0-17.5); Lymphocytes # (A) 0.6 k/uL (1.0-4.8); Lymphocytes % (A) 9 %; MCH 35.1 pg (25.0-35.0); MCHC 32.4 g/dL (31.0-37.0); MCV 108.2 fL (80.0-100.0); Macrocytosis Marked; Mean Platelet Volume 7.3; Monocytes # (A) 0.5 k/uL (0-1.0); Monocytes % (A) 7 %; Neutrophils # (A) 5.3 k/uL (1.3-7.7); Neutrophils % (A) 79 %; Platelet Count 227 k/uL (150-450); RBC 3.32 m/uL (4.30-5.90); RDW 14.7 % (11.5-15.5); WBC 6.7 k/uL (3.8-10.6)
[2024-09-04 10:28] LABS: ALT 18 U/L (4-49); AST 27 U/L (17-59); African American GFR (CKD) >90 (>60 ml/min/1.73 sqM); Albumin 3.8 g/dL (3.5-5.0); Alkaline Phosphatase 103 U/L (38-126); Anion Gap 7 mmol/L; Blood Urea Nitrogen 12 mg/dL (9-20); Calcium 9.7 mg/dL (8.4-10.2); Carbon Dioxide 28 mmol/L (22-30); Chloride 104 mmol/L (98-107); Glucose 67 mg/dL (74-99); Magnesium 2.1 mg/dL (1.6-2.3); Non-African American GFR(CKD) >90 (>60 ml/min/1.73 sqM); Potassium 4.3 mmol/L (3.5-5.1); Sodium 139 mmol/L (137-145); Total Bilirubin 0.4 mg/dL (0.2-1.3); Total Protein 6.5 g/dL (6.3-8.2)
[2024-09-04 10:29] LABS: Partial Thromboplastin Time 24.9 sec (22.0-30.0)
[2024-09-04] MEDS ORDERED: PRAMIPEXOLE 0.25 MG TAB PO PRN (10:33)
--- NOTE | 2024-09-04 13:18 | P.GSHP ---
History of Present Illness H&P Date: 09/04/24 Patient is a 78 year old male with past medical history of esophageal cancer currently receiving treatment presenting for reinsertion of PEG tube that fell out 4 days ago. He states that he was walking in his living room and he felt a tug and looked and his PEG tube had fallen out. He states that he had the tube inserted in March 2024 for feeding purposes at [facility], and it has not fallen out in the past. He notes waiting to come in due to the holidays, and has not been eating or drinking much due to this. He denies any pain at site. Review of Systems ROS Statement: Those systems with pertinent positive or pertinent negative responses have been documented in the HPI. Past Medical History Past Medical History: Coronary Artery Disease (CAD), Cancer, COPD, GERD/Reflux, Hyperlipidemia, Hypertension, Memory Impairment, Myocardial Infarction (CT), Vascular Disorder Additional Past Medical History / Comment(s): having a difficulty swallowing after eating-only able to swallow soft foods,hx artery to colon had to have a stent placed,PVD BOTH LEGS, RLS, neil leg cramps, esophageal cancer 2023, feeding tube Last Myocardial Infarction Date:: 10/02/2015 History of Any Multi-Drug Resistant Organisms: None Reported Past Surgical History: Coronary Bypass/CABG, Heart Catheterization With Stent, Hernia Repair, Orthopedic Surgery Additional Past Surgical History / Comment(s): heart stents x 3,ORIF rt elbow, triple bypass-taking xarelto, ABDOMINAL AORTOGRAM WITH NEIL EXT. RUNOFF 3-8-17. colonoscopy, egd Past Anesthesia/Blood Transfusion Reactions: No Reported Reaction Additional Past Anesthesia/Blood Transfusion Reaction / Comment(s): no problems with prior blood transfusions,states "no agitation coming out of anesthesia" Date of Last Stent Placement:: 10/02/2015 Past Psychological History: Anxiety Smoking Status: Former smoker, Vaper Past Alcohol Use History: None Reported Past Drug Use History: None Reported - Past Family History Mother Family Medical History: Vascular Disorder Father Family Medical History: COPD Brother(s) Family Medical History: Cancer Additional Family Medical History / Comment(s): Heart problems, lymphoma. General Exam Limitations: no limitations General appearance: alert, in no apparent distress Respiratory exam: Present: normal lung sounds bilaterally. Absent: respiratory distress, wheezes, rales, rhonchi, stridor Cardiovascular Exam: Present: regular rate, normal rhythm, normal heart sounds. Absent: systolic murmur, diastolic murmur, rubs, gallop, clicks GI/Abdominal exam: Present: soft, normal bowel sounds, other (peg site in LLQ). Absent: distended, tenderness, guarding, rebound, rigid Neurological exam: Present: alert, oriented X3, CN II-XII intact Psychiatric exam: Present: normal affect, normal mood Skin exam: Present: warm, dry, intact, normal color. Absent: rash, erythema 78 year old male with dislodged PEG -multiple attempts to replace PEG at bedside which were unsuccessful -Plan for EGD and PEG tube replacement tomorrow 09/05/24 -NPO/midnight -AM labs Alexis Bueno [facility] [phone] Past Medical History Past Medical History: Coronary Artery Disease (CAD), Cancer, COPD, GERD/Reflux, Hyperlipidemia, Hypertension, Memory Impairment, Myocardial Infarction (CT), Vascular Disorder Additional Past Medical History / Comment(s): having a difficulty swallowing after eating-only able to swallow soft foods,hx artery to colon had to have a stent placed,PVD BOTH LEGS, RLS, neil leg cramps, esophageal cancer 2023, feeding tube Last Myocardial Infarction Date:: 10/02/2015 History of Any Multi-Drug Resistant Organisms: None Reported Past Surgical History: Coronary Bypass/CABG, Heart Catheterization With Stent, Hernia Repair, Orthopedic Surgery Additional Past Surgical History / Comment(s): heart stents x 3,ORIF rt elbow, triple bypass-taking xarelto, ABDOMINAL AORTOGRAM WITH NEIL EXT. RUNOFF 3-8-17. colonoscopy, egd Past Anesthesia/Blood Transfusion Reactions: No Reported Reaction Additional Past Anesthesia/Blood Transfusion Reaction / Comment(s): no problems with prior blood transfusions,states "no agitation coming out of anesthesia" Date of Last Stent Placement:: 10/02/2015 Past Psychological History: Anxiety Smoking Status: Former smoker, Vaper Past Alcohol Use History: None Reported Past Drug Use History: None Reported - Past Family History Mother Family Medical History: Vascular Disorder Father Family Medical History: COPD Brother(s) Family Medical History: Cancer Additional Family Medical History / Comment(s): Heart problems, lymphoma. Medications and Allergies Home Medications Medication Instructions Recorded Confirmed Type Atorvastatin [Lipitor] 40 mg PO DAILY 06/09/18 09/04/24 History Nitroglycerin Sl Tabs [Nitrostat] 0.4 mg SL Q5M PRN 03/15/21 09/04/24 History Rivaroxaban [Xarelto] 20 mg PO DAILY 03/15/21 09/04/24 History ALPRAZolam [Xanax] 0.25 mg PO DAILY PRN 06/11/23 09/04/24 History Metoprolol Tartrate [Lopressor] 50 mg PO DAILY 06/11/23 09/04/24 History Pramipexole [Mirapex] 0.25 mg PO HS PRN 06/11/23 09/04/24 History Ipratropium/Albuter 20-100Mcg 1 puff INHALATION RT-BID PRN 12/30/23 09/04/24 History [Combivent Respimat 20-100Mcg Inhaler] Omeprazole [PriLOSEC] 40 mg PO DAILY 12/30/23 09/04/24 History Sertraline HCl [Zoloft] 50 mg PO DAILY 12/30/23 09/04/24 History Tamsulosin HCl [Flomax] 0.4 mg PO DAILY 12/30/23 09/04/24 History hydrOXYzine pamoate [Vistaril] 25 mg PO BID 12/30/23 09/04/24 History Albuterol Nebulized [Ventolin 2.5 mg INHALATION RT-Q4H 08/10/24 09/04/24 History Nebulized] Allergies Allergy/AdvReac Type Severity Reaction Status Date / Time No Known Allergies Allergy Verified 09/04/24 10:03 Surgical - Exam Vital Signs Temp Pulse Resp BP Pulse Ox 97.6 F 93 18 133/82 93 L 09/04/24 08:42 09/04/24 08:42 09/04/24 08:42 09/04/24 08:42 09/04/24 08:42 Results - Labs 09/04/24 09:47 09/04/24 09:47 Abnormal Lab Results - Last 24 Hours (Table) 09/04/24 09/04/24 Range/Units 09:47 09:47 RBC 3.32 L (4.30-5.90) m/uL Hgb 11.7 L (13.0-17.5) gm/dL Hct 36.0 L (39.0-53.0) % MCV 108.2 H (80.0-100.0) fL MCH 35.1 H (25.0-35.0) pg Lymphocytes # 0.6 L (1.0-4.8) k/uL Macrocytosis Marked A Creatinine 0.61 L (0.66-1.25) mg/dL Glucose 67 L (74-99) mg/dL Diabetes panel 09/04/24 Range/Units 09:47 Sodium 139 (137-145) mmol/L Potassium 4.3 (3.5-5.1) mmol/L Chloride 104 (98-107) mmol/L Carbon Dioxide 28 (22-30) mmol/L BUN 12 (9-20) mg/dL Creatinine 0.61 L (0.66-1.25) mg/dL Glucose 67 L (74-99) mg/dL Calcium 9.7 (8.4-10.2) mg/dL AST 27 (17-59) U/L ALT 18 (4-49) U/L Alkaline Phosphatase 103 (38-126) U/L Total Protein 6.5 (6.3-8.2) g/dL Albumin 3.8 (3.5-5.0) g/dL Calcium panel 09/04/24 Range/Units 09:47 Calcium 9.7 (8.4-10.2) mg/dL Albumin 3.8 (3.5-5.0) g/dL Pituitary panel 09/04/24 Range/Units 09:47 Sodium 139 (137-145) mmol/L Potassium 4.3 (3.5-5.1) mmol/L Chloride 104 (98-107) mmol/L Carbon Dioxide 28 (22-30) mmol/L BUN 12 (9-20) mg/dL Creatinine 0.61 L (0.66-1.25) mg/dL Glucose 67 L (74-99) mg/dL Calcium 9.7 (8.4-10.2) mg/dL Adrenal panel 09/04/24 Range/Units 09:47 Sodium 139 (137-145) mmol/L Potassium 4.3 (3.5-5.1) mmol/L Chloride 104 (98-107) mmol/L Carbon Dioxide 28 (22-30) mmol/L BUN 12 (9-20) mg/dL Creatinine 0.61 L (0.66-1.25) mg/dL Glucose 67 L (74-99) mg/dL Calcium 9.7 (8.4-10.2) mg/dL Total Bilirubin 0.4 (0.2-1.3) mg/dL AST 27 (17-59) U/L ALT 18 (4-49) U/L Alkaline Phosphatase 103 (38-126) U/L Total Protein 6.5 (6.3-8.2) g/dL Albumin 3.8 (3.5-5.0) g/dL
--- NOTE | 2024-09-04 14:47 | P.HPIM ---
History of Present Illness H&P Date: 09/04/24 Chief Complaint: peg tube malfunction Mr. Price is a 78-year-old male with past medical history of CAD status post CABG, stent and peripheral arterial disease. The patient reports he was in usual state health up until a week ago. He reports that he had a PEG tube inserted in March due to dysphagia. He reports the PEG tube had accidentally fell out approximate 1 week prior. He reports that he was told by his home health nurse to go to the ER for further evaluation to get a new PEG tube inserted. He reports that he was diagnosed with esophageal cancer in March 2024 via EGD due to dysphagia. He reports that he had then was seen by the surgical subspecialty team at [facility] where he had a PEG tube placed and a port. He reports that he had recently finished up chemotherapy. He reports that he is due for his next PET scan soon. While he was in the ER he was hemodynamically stable and was afebrile. Lab work was relatively unremarkable. Of note he r eports he is able to take medications and reports his last dose of Xarelto was on September 03 Past Medical History Past Medical History: Coronary Artery Disease (CAD), Cancer, COPD, GERD/Reflux, Hyperlipidemia, Hypertension, Memory Impairment, Myocardial Infarction ([place]), Vascular Disorder Additional Past Medical History / Comment(s): having a difficulty swallowing after eating-only able to swallow soft foods,hx artery to colon had to have a stent placed,PVD BOTH LEGS, RLS, neil leg cramps, esophageal cancer 2023, feeding tube Last Myocardial Infarction Date:: 10/02/2015 History of Any Multi-Drug Resistant Organisms: None Reported Past Surgical History: Coronary Bypass/CABG, Heart Catheterization With Stent, Hernia Repair, Orthopedic Surgery Additional Past Surgical History / Comment(s): heart stents x 3,ORIF rt elbow, triple bypass-taking xarelto, ABDOMINAL AORTOGRAM WITH NEIL EXT. RUNOFF 317. colonoscopy, egd Past Anesthesia/Blood Transfusion Reactions: No Reported Reaction Additional Past Anesthesia/Blood Transfusion Reaction / Comment(s): no problems with prior blood transfusions,states "no agitation coming out of anesthesia" Date of Last Stent Placement:: 10/02/2015 Past Psychological History: Anxiety Smoking Status: Former smoker, Vaper Past Alcohol Use History: None Reported Past Drug Use History: None Reported - Past Family History Mother Family Medical History: Vascular Disorder Father Family Medical History: COPD Brother(s) Family Medical History: Cancer Additional Family Medical History / Comment(s): Heart problems, lymphoma. Medications and Allergies Home Medications Medication Instructions Recorded Confirmed Type Atorvastatin [Lipitor] 40 mg PO DAILY 06/09/18 09/04/24 History Nitroglycerin Sl Tabs [Nitrostat] 0.4 mg SL Q5M PRN 03/15/21 09/04/24 History Rivaroxaban [Xarelto] 20 mg PO DAILY 03/15/21 09/04/24 History ALPRAZolam [Xanax] 0.25 mg PO DAILY PRN 06/11/23 09/04/24 History Metoprolol Tartrate [Lopressor] 50 mg PO DAILY 06/11/23 09/04/24 History Pramipexole [Mirapex] 0.25 mg PO HS PRN 06/11/23 09/04/24 History Ipratropium/Albuter 20-100Mcg 1 puff INHALATION RT-BID PRN 12/30/23 09/04/24 History [Combivent Respimat 20-100Mcg Inhaler] Omeprazole [PriLOSEC] 40 mg PO DAILY 12/30/23 09/04/24 History Sertraline HCl [Zoloft] 50 mg PO DAILY 12/30/23 09/04/24 History Tamsulosin HCl [Flomax] 0.4 mg PO DAILY 12/30/23 09/04/24 History hydrOXYzine pamoate [Vistaril] 25 mg PO BID 12/30/23 09/04/24 History Albuterol Nebulized [Ventolin 2.5 mg INHALATION RT-Q4H 08/10/24 09/04/24 History Nebulized] Allergies Allergy/AdvReac Type Severity Reaction Status Date / Time No Known Allergies Allergy Verified 09/04/24 10:03 Physical Exam Vitals: Vital Signs Temp Pulse Resp BP Pulse Ox 09/04/24 14:27 97.8 F 81 18 141/82 98 09/04/24 12:19 71 18 141/66 100 09/04/24 08:42 97.6 F 93 18 133/82 93 L Intake and Output 09/03/24 09/04/24 09/04/24 22:59 06:59 14:59 Other: Weight 46.493 kg General: non toxic, no distress, ill, pleasant Derm: warm, dry Head: atraumatic, normocephalic, symmetric Eyes: EOMI, no lid lag, anicteric sclera, pupils equal round reactive to light ENT: Nose and ears atraumatic, no thrush, no pharyngeal erythema Neck: No thyromegaly, no cervical lymphadenopathy, trachea midline, supple Mouth: no lip lesion, mucus membranes moist Cardiovascular: S1S2 reg, no murmur, positive posterior tibial pulse bilateral, no edema, capillary refill less than 2 seconds Lungs: clear to ascultation bilateral, no ronchi, no rales, no wheeze, no accessory muscle use Abdominal: soft, nontender to palpation, no guarding, prior stoma to where the prior PEG tube was noted Ext: no gross muscle atrophy, muscle strength muscle strength 5 out of 5 in all 4 extremities, no contractures Neuro: Moving all extremity spontaneously Psych: Alert, oriented, appropriate affect Results CBC & Chem 7: 09/04/24 09:47 09/04/24 09:47 Labs: Abnormal Lab Results - Last 24 Hours (Table) 09/04/24 09/04/24 Range/Units 09:47 09:47 RBC 3.32 L (4.30-5.90) m/uL Hgb 11.7 L (13.0-17.5) gm/dL Hct 36.0 L (39.0-53.0) % MCV 108.2 H (80.0-100.0) fL MCH 35.1 H (25.0-35.0) pg Lymphocytes # 0.6 L (1.0-4.8) k/uL Macrocytosis Marked A Creatinine 0.61 L (0.66-1.25) mg/dL Glucose 67 L (74-99) mg/dL Assessment and Plan Assessment: #) Peg tube malfunction. peg tube had fallen out about 1 week prior. N.p.o. midnight for plans for EGD/PEG tube replacement tomorrow. #) Esophageal cancer. The patient was diagnosed with esophageal cancer in March 2024. He reports he is status post chemotherapy and is pending PET scan #) CCAD s/p cabg x4 continue atorvastatin 40 mg hs and metoprolol #) COPD #) Hx of tobacco use #) Mesenteric ischemia s/p sma stent in 2022 #) PAD dispo: med/surge
[2024-09-04] MEDS: ALBUTEROL NEBULIZED 2.5 MG/3 ML INHALATION SCH ×2 (15:42→15:56)
[2024-09-04] MEDS ORDERED: ALBUTEROL NEBULIZED 2.5 MG/3 ML INHALATION PRN ×2 (15:51→15:52)
[2024-09-04] MEDS: hydrOXYzine pamoate 25 MG CAP PO SCH (20:03)
[2024-09-04] MEDS: ALPRAZolam 0.25 MG TAB PO PRN (20:03)
[2024-09-05] MEDS: SERTRALINE 50 MG TAB PO SCH (07:50)
[2024-09-05] MEDS: PANTOPRAZOLE 40 MG TABLET PO SCH (07:50)
[2024-09-05] MEDS: ATORVASTATIN 40 MG TAB PO SCH (07:50)
[2024-09-05] MEDS: TAMSULOSIN 0.4 MG CAP.ER.24H PO SCH (07:50)
[2024-09-05] MEDS: METOPROLOL TARTRATE 50 MG TAB PO SCH (07:56)
[2024-09-05 09:50] LABS: HCT 33.3 % (39.6-50.0); HGB 10.7 g/dL (13.0-17.0); MCH 34.3 pg (27.0-32.0); MCHC 32.1 g/dL (32.0-37.0); MCV 106.7 FL (80.0-97.0); Mean Platelet Volume 9.8 FL (9.5-12.2); NRBC Per 100 WBC 0 X 10*3/uL (0.00-0.01); Platelet Count 213 X 10*3/uL (140-440); RBC 3.12 X 10*6/uL (4.40-5.60); RDW 14.6 % (11.5-14.5); WBC 6.02 X 10*3/uL (4.50-10.00)
[2024-09-05 10:23] LABS: Blood Urea Nitrogen 8.1 mg/dL (9.0-27.0); Calcium 8.8 mg/dL (8.7-10.3); Carbon Dioxide 24.4 mmol/L (21.6-31.8); Chloride 108 mmol/L (96-109); Glucose 79 mg/dL (70-110); Potassium 4.3 mmol/L (3.5-5.5); Sodium 143 mmol/L (135-145)
[2024-09-05 11:30] LABS: Basophils # (A) 0.02 X 10*3/uL (0.00-0.10); Basophils % (A) 0.3 %; Eosinophils # (A) 0.27 X 10*3/uL (0.04-0.35); Eosinophils % (A) 4.5 %; Lymphocytes # (A) 0.49 X 10*3/uL (0.90-5.00); Lymphocytes % (A) 8.1 %; Macrocytosis (M) 2+ (None Seen); Monocytes # (A) 0.62 X 10*3/uL (0.20-1.00); Monocytes % (A) 10.3 %; Neutrophils # (A) 4.59 X 10*3/uL (1.80-7.70); Neutrophils % (A) 76.3 %
[2024-09-05] MEDS ORDERED: LIDOCAINE 1% INJ 10MG/ML (20 ML MDV) ONE (11:50)
[2024-09-05] MEDS ORDERED: PROPOFOL 10 MG/ML 20 ML VIAL IV ONE (11:50)
[2024-09-05] MEDS: IV FLUID CONTINUATION 1,000 ML IV ONE ×2 (11:53→12:03)
--- NOTE | 2024-09-05 14:28 | P.PN ---
Subjective Progress Note Date: 09/05/24 Principal diagnosis: 78-year-old male who presented to the hospital on September 04 as he had autonomously removed his PEG tube within the past week Patient seen and examined. General surgery was unable to advance EGD and was unable to have a PEG tube performed endoscopically Objective - Vital Signs Vital signs: Vital Signs Temp 97.5 F L 09/05/24 13:36 Pulse 62 09/05/24 13:36 Resp 16 09/05/24 13:36 BP 146/70 09/05/24 13:36 Pulse Ox 100 09/05/24 13:36 FiO2 Intake & Output 09/04/24 09/05/24 09/05/24 18:59 06:59 18:59 Intake Total 100 Balance 100 Weight 46.493 kg Intake: IV 100 Other: Voiding Method Toilet # Voids 2 - Exam General: non toxic, no distress, ill, pleasant Derm: warm, dry Head: atraumatic, normocephalic, symmetric Eyes: EOMI, no lid lag, anicteric sclera, pupils equal round reactive to light ENT: Nose and ears atraumatic, no thrush, no pharyngeal erythema Neck: No thyromegaly, no cervical lymphadenopathy, trachea midline, supple Mouth: no lip lesion, mucus membranes moist Cardiovascular: S1S2 reg, no murmur, positive posterior tibial pulse bilateral, no edema, capillary refill less than 2 seconds Lungs: clear to ascultation bilateral, no ronchi, no rales, no wheeze, no a ccessory muscle use Abdominal: soft, nontender to palpation, no guarding, prior stoma to where the prior PEG tube was noted Ext: no gross muscle atrophy, muscle strength muscle strength 5 out of 5 in all 4 extremities, no contractures Neuro: Moving all extremity spontaneously Psych: Alert, oriented, appropriate affect - Labs CBC & Chem 7: 09/05/24 03:41 09/05/24 03:41 Labs: Abnormal Lab Results - Last 24 Hours (Table) 09/05/24 09/05/24 Range/Units 03:41 03:41 RBC 3.12 L (4.40-5.60) X 10*6/uL Hgb 10.7 L (13.0-17.0) g/dL Hct 33.3 L (39.6-50.0) % MCV 106.7 H (80.0-97.0) FL MCH 34.3 H (27.0-32.0) pg RDW 14.6 H (11.5-14.5) % Lymphocytes # 0.49 L (0.90-5.00) X 10*3/uL Macrocytosis (manual) 2+ A (None Seen) BUN 8.1 L (9.0-27.0) mg/dL Assessment and Plan Assessment: #) Peg tube malfunction. peg tube had fallen out about 1 week prior. PEG tube was unable to be inserted endoscopically. N.p.o. I will ask IR to see if they can place PEG tube #) Esophageal cancer. The patient was diagnosed with esophageal cancer in March 2024. He reports he is status post chemotherapy and is pending PET scan #) CCAD s/p cabg x4 continue atorvastatin 40 mg hs and metoprolol #) COPD #) Hx of tobacco use #) Mesenteric ischemia s/p sma stent in 2022 #) PAD dispo: med/surge, n.p.o. midnight
--- NOTE | 2024-09-06 08:12 | P.OP ---
Date of Procedure: 09/05/24 Preoperative Diagnosis: Dislodged PEG Tube Postoperative Diagnosis: Dislodged PEG Tube Procedure(s) Performed: EGD with Aborted PEG Anesthesia: other (Sedation) Surgeon: Alexis Bueno Pathology: none sent Condition: stable Disposition: PACU Description of Procedure: After informed consent was obtained, the patient was brought to the endoscopy suite. He was placed in the supine position and was given IV sedation by the Anesthesia Department. An EGD was attempted to be performed from above however there was a severe proximal esophageal stricture I was unable to get past. I attempted with a smaller scope and still not could get by. Procedure was aborted and patient will need eval by IR for G tube.
[2024-09-06 08:44] LABS: BUN/Creat Ratio 11.83 Ratio (12.00-20.00); Blood Urea Nitrogen 7.1 mg/dL (9.0-27.0); Calcium 8.5 mg/dL (8.7-10.3); Carbon Dioxide 25.3 mmol/L (21.6-31.8); Chloride 110 mmol/L (96-109); Glucose 78 mg/dL (70-110); Potassium 4.3 mmol/L (3.5-5.5); Sodium 144 mmol/L (135-145)
[2024-09-06 09:02] LABS: INR 1.02 sec (0.93-1.11); Prothrombin Time 11.6 sec (9.9-11.9)
[2024-09-06 09:08] LABS: Basophils # (A) 0.04 X 10*3/uL (0.00-0.10); Basophils % (A) 0.7 %; Eosinophils # (A) 0.22 X 10*3/uL (0.04-0.35); Eosinophils % (A) 3.7 %; HCT 33.8 % (39.6-50.0); HGB 10.7 g/dL (13.0-17.0); Lymphocytes # (A) 0.44 X 10*3/uL (0.90-5.00); Lymphocytes % (A) 7.3 %; MCH 34.6 pg (27.0-32.0); MCHC 31.7 g/dL (32.0-37.0); MCV 109.4 FL (80.0-97.0); Mean Platelet Volume 9.8 FL (9.5-12.2); Monocytes # (A) 0.67 X 10*3/uL (0.20-1.00); Monocytes % (A) 11.2 %; NRBC Per 100 WBC 0 X 10*3/uL (0.00-0.01); Neutrophils # (A) 4.59 X 10*3/uL (1.80-7.70); Neutrophils % (A) 76.4 %; Platelet Count 216 X 10*3/uL (140-440); RBC 3.09 X 10*6/uL (4.40-5.60); RDW 14.3 % (11.5-14.5)
--- NOTE | 2024-09-06 14:52 | P.PN ---
Subjective Progress Note Date: 09/06/24 SURGICAL PROGRESS NOTE CHIEF COMPLAINT: Dislodged PEG tube HISTORY OF PRESENT ILLNESS: PEG tube placement was aborted yesterday due to esophageal stricture and unable to advance scope. IR service unable to place G- tube. Afebrile. WBC 6 Hgb 10.7 platelets 216 sodium 144 potassium 4.3 creatinine 0.6 PHYSICAL EXAM: VITAL SIGNS: Reviewed. GENERAL: Well-developed in no acute distress. ABDOMEN: Soft. Nondistended. Nontender. NEUROLOGIC: Alert and oriented. Cranial nerves II through XII grossly intact. ASSESSMENT: 1. History of esophageal cancer 2. PEG tube dislodged 3. Esophageal stricture unable to place PEG tube PLAN: -Patient scheduled for Robotic gastrostomy tube placement tomorrow with Dr. Ximena MillerpSabrinaoSabrina after midnight Physician Production Material Coordinator note has been reviewed by physician. Signing provider agrees with the documented findings, assessment, and plan of care. Objective - Vital Signs Vital signs: Vital Signs Temp 97.8 F 09/06/24 13:55 Pulse 86 09/06/24 13:55 Resp 18 09/06/24 13:55 BP 138/65 09/06/24 13:55 Pulse Ox 95 09/06/24 13:55 FiO2 Intake & Output 09/05/24 09/06/24 09/06/24 18:59 06:59 18:59 Intake Total 100 Output Total 2 Balance 98 Intake: IV 100 Output: Urine 2 Other: Voiding Method Toilet # Voids 4 - Labs CBC & Chem 7: 09/06/24 03:55 09/06/24 03:55 Labs: Abnormal Lab Results - Last 24 Hours (Table) 09/06/24 09/06/24 Range/Units 03:55 03:55 RBC 3.09 L (4.40-5.60) X 10*6/uL Hgb 10.7 L (13.0-17.0) g/dL Hct 33.8 L (39.6-50.0) % MCV 109.4 H (80.0-97.0) FL MCH 34.6 H (27.0-32.0) pg MCHC 31.7 L (32.0-37.0) g/dL Lymphocytes # 0.44 L (0.90-5.00) X 10*3/uL Chloride 110 H (96-109) mmol/L BUN 7.1 L (9.0-27.0) mg/dL BUN/Creatinine Ratio 11.83 L (12.00-20.00) Ratio Calcium 8.5 L (8.7-10.3) mg/dL
--- NOTE | 2024-09-06 14:56 | P.PN ---
Subjective Progress Note Date: 09/06/24 Principal diagnosis: Dislodged PEG tube 78-year-old male who presented to the hospital on September 04 as PEG tube dislodged accidentally. 09/06 Doing well. No complaints. On 09/05 general surgery was unable to advance EGD and was unable to have a PEG tube performed endoscopically Objective - Vital Signs Vital signs: Vital Signs Temp 97.8 F 09/06/24 13:55 Pulse 86 09/06/24 13:55 Resp 18 09/06/24 13:55 BP 138/65 09/06/24 13:55 Pulse Ox 95 09/06/24 13:55 FiO2 Intake & Output 09/05/24 09/06/24 09/06/24 18:59 06:59 18:59 Intake Total 100 Output Total 2 Balance 98 Intake: IV 100 Output: Urine 2 Other: Voiding Method Toilet # Voids 4 - Exam General: non toxic, no distress, ill, pleasant Derm: warm, dry Head: atraumatic, normocephalic, symmetric Eyes: EOMI, no lid lag, anicteric sclera, pupils equal round reactive to light ENT: Nose and ears atraumatic, no thrush, no pharyngeal erythema Neck: No thyromegaly, no cervical lymphadenopathy, trachea midline, supple Mouth: no lip lesion, mucus membranes moist Cardiovascular: S1S2 reg, no murmur, positive posterior tibial pulse bilateral, no edema, capillary refill less than 2 seconds Lungs: clear to ascultation bilateral, no ronchi, no rales, no wheeze, no accessory muscle use Abdominal: soft, nontender to palpation, no guarding, prior stoma to where the prior PEG tube was noted Ext: no gross muscle atrophy, muscle strength muscle strength 5 out of 5 in all 4 extremities, no contractures Neuro: Moving all extremity spontaneously Psych: Alert, oriented, appropriate affect - Labs CBC & Chem 7: 09/06/24 03:55 09/06/24 03:55 Labs: Abnormal Lab Results - Last 24 Hours (Table) 09/06/24 09/06/24 Range/Units 03:55 03:55 RBC 3.09 L (4.40-5.60) X 10*6/uL Hgb 10.7 L (13.0-17.0) g/dL Hct 33.8 L (39.6-50.0) % MCV 109.4 H (80.0-97.0) FL MCH 34.6 H (27.0-32.0) pg MCHC 31.7 L (32.0-37.0) g/dL Lymphocytes # 0.44 L (0.90-5.00) X 10*3/uL Chloride 110 H (96-109) mmol/L BUN 7.1 L (9.0-27.0) mg/dL BUN/Creatinine Ratio 11.83 L (12.00-20.00) Ratio Calcium 8.5 L (8.7-10.3) mg/dL Assessment and Plan Plan: #) Peg tube malfunction. peg tube had fallen out about 1 week prior. PEG tube was unable to be inserted endoscopically. D/w surgery service today Dr. Bueno states he will do a G tube surgically tomorrow. #) Esophageal cancer. The patient was diagnosed with esophageal cancer in March 2024. He reports he is status post chemotherapy and is pending PET scan #) CCAD s/p cabg x4 continue atorvastatin 40 mg hs and metoprolol #) COPD #) Hx of tobacco use #) Mesenteric ischemia s/p sma stent in 2022 #) PAD
[2024-09-07 08:30] LABS: Basophils # (A) 0.03 X 10*3/uL (0.00-0.10); Basophils % (A) 0.5 %; Eosinophils # (A) 0.17 X 10*3/uL (0.04-0.35); Eosinophils % (A) 2.9 %; HCT 36.6 % (39.6-50.0); HGB 11.3 g/dL (13.0-17.0); Lymphocytes # (A) 0.48 X 10*3/uL (0.90-5.00); Lymphocytes % (A) 8.1 %; MCH 34.1 pg (27.0-32.0); MCHC 30.9 g/dL (32.0-37.0); MCV 110.6 FL (80.0-97.0); Mean Platelet Volume 9.7 FL (9.5-12.2); Monocytes # (A) 0.63 X 10*3/uL (0.20-1.00); Monocytes % (A) 10.6 %; NRBC Per 100 WBC 0 X 10*3/uL (0.00-0.01); Neutrophils % (A) 77.6 %; Platelet Count 210 X 10*3/uL (140-440); RBC 3.31 X 10*6/uL (4.40-5.60); RDW 13.6 % (11.5-14.5); WBC 5.93 X 10*3/uL (4.50-10.00)
[2024-09-07 08:52] LABS: BUN/Creat Ratio 10.86 Ratio (12.00-20.00); Blood Urea Nitrogen 7.6 mg/dL (9.0-27.0); Calcium 8.7 mg/dL (8.7-10.3); Carbon Dioxide 24.3 mmol/L (21.6-31.8); Chloride 109 mmol/L (96-109); Glucose 92 mg/dL (70-110); Potassium 4.3 mmol/L (3.5-5.5); Sodium 143 mmol/L (135-145)
[2024-09-07] MEDS: IV FLUID CONTINUATION 1,000 ML IV ONE (12:18)
[2024-09-07] MEDS: ONDANSETRON 4 MG/2 ML VIAL IVP PRN (12:51)
[2024-09-07] MEDS ORDERED: PHENYLEPHRINE 10 MG/ML VIAL ONE (13:38)
[2024-09-07] MEDS ORDERED: ROCURONIUM 10 MG/ML (5 ML VIAL) IV ONE (13:38)
[2024-09-07] MEDS ORDERED: LIDOCAINE 1% INJ 10MG/ML (20 ML MDV) ONE (13:38)
[2024-09-07] MEDS ORDERED: PROPOFOL 10 MG/ML 20 ML VIAL IV ONE (13:38)
[2024-09-07] MEDS ORDERED: SUCCINYLCHOLINE CHLORIDE 200 MG/10 ML VIAL IV ONE (13:38)
[2024-09-07] MEDS: SODIUM CHLORIDE 0.9% 50 ML with ceFAZolin 2,000 MG IV ONE (14:00)
[2024-09-07] MEDS: LIDOCAINE 1%-EPI 1:100,000 20 ML VIAL SQ ONE ×2 (14:15)
[2024-09-07] MEDS: LACTATED RINGERS 1,000 ML IV ONE (14:56)
[2024-09-07] MEDS: HYDROmorphone 0.5 MG/0.5 ML SYRINGE IVP STA (15:22)
[2024-09-07] MEDS: IPRATROPIUM-ALBUTEROL 3 ML NEB INHALATION PRN (16:04)
--- NOTE | 2024-09-07 16:55 | P.PN ---
Subjective Progress Note Date: 09/07/24 Hospital Course: A 78-year-old male with medical history of CAD status post CABG, stents, PAD, GERD, HLD, HTN, esophageal cancer PEG 03/2024 s/p chemotherapy, who presented for displaced PEG tube. Of note, patient takes meds p.o. Surgery consulted, robotic gastrostomy tube placement was performed on 09/07, patient tolerated procedure well. Subjective: Was seen and examined before procedure, was only complaining of some anxiety Pertinent positives and negatives as discussed above, a complete review of systems was performed and all other systems are negative. Vitals Signs Reviewed. General: [nontoxic], [no distress], [appears at stated age] Derm: [warm], [dry] Head: [atraumatic], [normocephalic], [symmetric] Eyes: [EOMI], [no lid lag], [anicteric sclera] Mouth: [no lip lesion], [mucus membranes moist] Cardiovascular: [S1S2 reg], [no murmur] Lungs: [CTA bilateral], [no rhonchi, no rales] , [no accessory muscle use] Abdominal: [soft], [ nontender to palpation], [no guarding], [no appreciable organomegaly] Ext: [no gross muscle atrophy], [no edema], [no contractures] Neuro: [ CN II-XI grossly intact], [no focal neuro deficits] Psych: [Alert], [oriented], [appropriate affect] Data Reviewed Today: Pertinent Labs hemoglobin stable 11.3, no leukocytosis, platelet count normal, kidney function WNL, euglycemic Assessment and Plan: esophageal cancer status post PEG tube placement 03/24 s/p chemotherapy PEG tube malfunction Status post robotic gastrostomy tube placement 09/07/2024 -Resumed tube feeds 4 hours after procedure -Surgery following CAD status post CABG COPD not in exacerbation, not on home oxygen History of mesenteric ischemia status post SMA stent 2022 PAD continue home meds Anticipated discharge place: home Anticipated discharge time: 24 hours Objective - Vital Signs Vital signs: Vital Signs Temp 97 F L 09/07/24 15:03 Pulse 67 09/07/24 16:15 Resp 16 09/07/24 16:15 BP 155/67 09/07/24 15:45 Pulse Ox 99 09/07/24 15:45 FiO2 Intake & Output 09/06/24 09/07/24 09/07/24 18:59 06:59 18:59 Intake Total 1080 850 Output Total 5 Balance 1080 845 Weight 46.493 kg 46.493 kg Intake: IV 850 Oral 1080 Output: Estimated Blood Loss 5 Other: # Voids 3 6 - Labs CBC & Chem 7: 09/07/24 04:44 09/07/24 04:44 Labs: Abnormal Lab Results - Last 24 Hours (Table) 09/07/24 09/07/24 Range/Units 04:44 04:44 RBC 3.31 L (4.40-5.60) X 10*6/uL Hgb 11.3 L (13.0-17.0) g/dL Hct 36.6 L (39.6-50.0) % MCV 110.6 H (80.0-97.0) FL MCH 34.1 H (27.0-32.0) pg MCHC 30.9 L (32.0-37.0) g/dL Lymphocytes # 0.48 L (0.90-5.00) X 10*3/uL BUN 7.6 L (9.0-27.0) mg/dL BUN/Creatinine Ratio 10.86 L (12.00-20.00) Ratio
--- NOTE | 2024-09-07 23:18 | P.OP ---
Date of Procedure: 09/07/24 Preoperative Diagnosis: Dislodged Gastrostomy Tube Postoperative Diagnosis: Dislodged Gastrostomy Tube Procedure(s) Performed: 1. Robotic Gastrostomy Tube Placement 2. Robotic Takedown of Gastrocutaneous Fistula Anesthesia: YOLANDA Surgeon: Alexis Bueno Pathology: other (Stomach from Gastrocuteanous Fistula) Condition: stable Disposition: PACU Description of Procedure: The patient was taken to the operating suite and placed in the supine position. After sedation was given, the patient was intubated. The abdomen was prepped and draped. A timeout was performed. A #5 mm optiview was used to gain access to the abdomen at in the right lower quadran and the abdomen was insufflated. Three additional working 8 mm robotic ports were placed in working position and the 5 mm was exchanged for a 12 mm robotic port. The robot was docked. The rest of procedure was performed from the console. Stomach was adhered to the abdominal wall from the previously placed PEG tube. The gastrocutaneous tract was identified. A robotic 60 mm blue staple load was used to divide the tract releasing the stomach into its normal anatomical position. The remaining stomach that was adhered to the abdominal wall was dissected out with robotic staplers and once freed the specimen was removed with an endocatch bag. A #2-0 Silk suture was then used to make a figure of eight at the planned gastrostomy site. Robotic Scissors were then used to make a gastrotomy. An incision was then made on the abdominal wall and the gastrostomy tube was introduced through this incision into the abdomen. The gastrostomy tube was then inserted into the gastrostomy and the ball was inflated. The previously placed #2-0 silk suture was then tied and the gastrostomy tube was noted to be in good position. The stomach was then pulled up toward the abdominal wall and the bumper of the the gastrostomy tube was placed snugly against the external abdominal wall. Additional #2-0 Silk Sutures were used to tack the stomach to the abdominal wall. The robotic instruments were removed and the stomach was undocked. Incisions were closed #4-0 monocryl. Skin glue was applied. This concluded the procedure and all counts were correct at the end of the procedure.
[2024-09-08] MEDS: PANTOPRAZOLE SODIUM 40 MG GRANULE PKT PO SCH (08:23)
--- NOTE | 2024-09-08 12:54 | P.PN ---
Subjective Progress Note Date: 09/08/24 SURGICAL PROGRESS NOTE CHIEF COMPLAINT: Dislodged PEG tube HISTORY OF PRESENT ILLNESS: Patient is postop day #1 status post robotic gastrostomy tube placement and robotic takedown of gastrocutaneous fistula. Patient started on tube feeds this morning. Patient reports minimal pain at PEG tube site. Afebrile. PHYSICAL EXAM: VITAL SIGNS: Reviewed. GENERAL: Well-developed in no acute distress. ABDOMEN: Soft. Nondistended. Mild tenderness at PEG tube site and incision sites. PEG tube clean dry and intact. Incision sites clean dry and intact. NEUROLOGIC: Alert and oriented. Cranial nerves II through XII grossly intact. ASSESSMENT: 1. History of esophageal cancer 2. PEG tube dislodged 3. Esophageal stricture unable to place PEG tube by EGD PLAN: -Start trickle feeds at 10 cc/h and advance every 4 hours x 10 cc to goal -Anticipate possible discharge tomorrow Physician Peanut Separator note has been reviewed by physician. Signing provider agrees with the documented findings, assessment, and plan of care. Attestation Patient postoperative day #1 status post robotic gastrostomy tube placement and robotic takedown of gastrocutaneous fistula. Tube feeds to be started this morning. Check for residuals. If patient tolerates, likely will be cleared for discharge tomorrow. Flower Henning, DO Objective - Vital Signs Vital signs: Vital Signs Temp 98.2 F 09/08/24 07:00 Pulse 74 09/08/24 08:40 Resp 18 09/08/24 08:20 BP 171/63 09/08/24 07:00 Pulse Ox 96 09/08/24 07:00 FiO2 Intake & Output 09/07/24 09/08/24 09/08/24 18:59 06:59 18:59 Intake Total 850 Output Total 5 Balance 845 Weight 46.493 kg 59 kg Intake: IV 850 Output: Estimated Blood Loss 5 Other: Voiding Method Toilet # Voids 1 3 - Labs CBC & Chem 7: 09/07/24 04:44 09/07/24 04:44
--- NOTE | 2024-09-08 14:29 | P.PN ---
Subjective Progress Note Date: 09/08/24 Hospital Course: 78-year-old male with medical history of CAD status post CABG, stents, PAD, G ERD, HLD, HTN, esophageal cancer PEG 03/2024 s/p chemotherapy, who presented for displaced PEG tube. Of note, patient takes meds p.o. Surgery consulted, robotic gastrostomy tube placement was performed on 09/07, patient tolerated procedure well. Started on trickle feeds 09/08, anticipate discharge 09/09 Subjective: He was seen and examined at bedside, no active complaints, no nausea, vomiting, chest pain, shortness of breath, fevers, chills Pertinent positives and negatives as discussed above, a complete review of systems was performed and all other systems are negative. Vitals Signs Reviewed. General: [nontoxic], [no distress], [appears at stated age] Derm: [warm], [dry] Head: [atraumatic], [normocephalic], [symmetric] Eyes: [EOMI], [no lid lag], [anicteric sclera] Mouth: [no lip lesion], [mucus membranes moist] Cardiovascular: [S1S2 reg], [no murmur] Lungs: [CTA bilateral], [no rhonchi, no rales] , [no accessory muscle use] Abdominal: [soft], mild tenderness on palpation, bowel sounds normal, dressing clean and dry, G-tube in place Ext: [no gross muscle atrophy], [no edema], [no contractures] Neuro: [ CN II-XI grossly intact], [no focal neuro deficits] Psych: [Alert], [oriented], [appropriate affect] Assessment and Plan: esophageal cancer status post PEG tube placement 03/24 s/p chemotherapy PEG tube malfunction Status post robotic gastrostomy tube placement 09/07/2024 -Resumed tube feeds 4 hours after procedure -Surgery following -Feed tube started 09/08, trickle, possible discharge 09/09 for surgery CAD status post CABG COPD not in exacerbation, not on home oxygen History of mesenteric ischemia status post SMA stent 2022 PAD continue home meds Anticipated discharge place: home Anticipated discharge time: 24 hours Objective - Vital Signs Vital signs: Vital Signs Temp 98.2 F 09/08/24 07:00 Pulse 74 09/08/24 08:40 Resp 18 09/08/24 08:20 BP 171/63 09/08/24 07:00 Pulse Ox 96 09/08/24 07:00 FiO2 Intake & Output 09/07/24 09/08/24 09/08/24 18:59 06:59 18:59 Intake Total 850 Output Total 5 Balance 845 Weight 46.493 kg 59 kg Intake: IV 850 Output: Estimated Blood Loss 5 Other: Voiding Method Toilet # Voids 1 3 - Labs CBC & Chem 7: 09/07/24 04:44 09/07/24 04:44
[2024-09-08] MEDS: SIMETHICONE 40 MG/0.6 ML DROPS 2,000 MG/30 ML BOTTLE PO PRN (23:03)
--- NOTE | 2024-09-09 12:46 | P.PN ---
Subjective Progress Note Date: 09/09/24 SURGICAL PROGRESS NOTE CHIEF COMPLAINT: Dislodged PEG tube HISTORY OF PRESENT ILLNESS: Patient is postop day #2 status post robotic gastrostomy tube placement and robotic takedown of gastrocutaneous fistula. Patient seen this a.m. He was on tube feeds at 30 mL/h. Patient had drainage from around the PEG tube site. The drainage was dark and smelled like tube feeds. Patient was saturating the dressing around the PEG tube. Tube feeds were placed on hold. Patient is also having bright red blood around the PEG tube site. Patient denies any flatus. He reports having severe nausea and feeling bloated. Denies any flatus. Afebrile. PHYSICAL EXAM: VITAL SIGNS: Reviewed. GENERAL: Well-developed in no acute distress. ABDOMEN: Soft. Nondistended. Mild tenderness at PEG tube site and incision sites. PEG tube dressing with dark and clearish drainage. Odor smells like tube feeds. Also, had bright red blood oozing from the PEG tube site. PEG tube hole with a wide opening with fresh blood noted. NEUROLOGIC: Alert and oriented. Cranial nerves II through XII grossly intact. ASSESSMENT: 1. History of esophageal cancer 2. PEG tube dislodged 3. Esophageal stricture unable to place PEG tube by EGD PLAN: -Keep NPO -Tube feeds and meds placed on hold -Nursing staff to apply dressing around PEG tube site -Check CBC -Discussed case with surgeon this morning -Further recommendations forthcoming per surgeon Physician Golf Course Keeper note has been reviewed by physician. Signing provider agrees with the documented findings, assessment, and plan of care. Attestation Patient seen and examined at bedside. He did have some drainage from around the gastrostomy tube after beginning tube feedings. We did hold the tube feedings and drainage is dark and smells like tube feeds. Based on evaluation, reflux sutures were placed around the gastrostomy site. G-tube placed to dependent d rainage and we will hold tube feeds for now. Patient is agreeable with this plan. Flower Henning DO Objective - Vital Signs Vital signs: Vital Signs Temp 98.0 F 09/09/24 07:00 Pulse 82 09/09/24 12:15 Resp 15 09/09/24 07:00 BP 127/58 09/09/24 07:00 Pulse Ox 95 09/09/24 07:00 FiO2 Intake & Output 09/08/24 09/09/24 09/09/24 18:59 06:59 18:59 Weight 59.2 kg 59.2 kg Other: Voiding Method Toilet - Labs CBC & Chem 7: 09/09/24 12:49 09/07/24 04:44
[2024-09-09 13:31] LABS: HCT 35.1 % (39.0-53.0); HGB 11.8 gm/dL (13.0-17.5); MCHC 33.7 g/dL (31.0-37.0); MCV 106.8 fL (80.0-100.0); Macrocytosis Moderate; Mean Platelet Volume 7.7; Platelet Count 222 k/uL (150-450); RBC 3.29 m/uL (4.30-5.90); RDW 13.8 % (11.5-15.5); WBC 10.7 k/uL (3.8-10.6)
--- NOTE | 2024-09-09 13:50 | P.PN ---
Subjective Progress Note Date: 09/09/24 Hospital Course: 78-year-old male with medical history of CAD status post CABG, stents, PAD, G ERD, HLD, HTN, esophageal cancer PEG 03/2024 s/p chemotherapy, who presented for displaced PEG tube. Of note, patient takes meds p.o. Surgery consulted, robotic gastrostomy tube placement was performed on 09/07, patient tolerated procedure well. Started on trickle feeds 09/08, later on he noticed drainage around his PEG tube that smelled like tube feeding, tube feeds were placed on hold. Patient complains of heartburn, nausea, bloating. No bowel movement since Friday. Patient is now n.p.o., awaiting further recs from surgery team. Subjective: Patient complains of heartburn, nausea, bloating Pertinent positives and negatives as discussed above, a complete review of systems was performed and all other systems are negative. Vitals Signs Reviewed. General: [nontoxic], [no distress], [appears at stated age] Derm: [warm], [dry] Head: [atraumatic], [normocephalic], [symmetric] Eyes: [EOMI], [no lid lag], [anicteric sclera] Mouth: [no lip lesion], [mucus membranes moist] Cardiovascular: [S1S2 reg], [no murmur] Lungs: [CTA bilateral], [no rhonchi, no rales] , [no accessory muscle use] Abdominal: [soft], mild tenderness on palpation, bowel sounds normal, dressing clean and dry, PEG tube in place, patient reported having blood around his PEG tube Ext: [no gross muscle atrophy], [no edema], [no contractures] Neuro: [ CN II-XI grossly intact], [no focal neuro deficits] Psych: [Alert], [oriented], [appropriate affect] Data Reviewed Today: Pertinent Labs: Mild leukocytosis likely postprocedural, hemoglobin stable at 11.8, platelet count normal Assessment and Plan :esophageal cancer status post PEG tube placement 03/24 s/p chemotherapy PEG tube malfunction Status post robotic gastrostomy tube placement 09/07/2024, now malfunctioning Leukocytosis, likely reactive after procedure constipation -Surgery following -noticed drainage around his PEG tube that smelled like tube feeding, tube feeds were placed on hold. Patient complains of heartburn, nausea, bloating. No bowel movement since Friday. -Patient is now n.p.o., awaiting further recs from surgery team. CAD status post CABG COPD not in exacerbation, not on home oxygen History of mesenteric ischemia status post SMA stent 2022 PAD continue home meds Anticipated discharge place: home Anticipated discharge time: 24-48 hours Objective - Vital Signs Vital signs: Vital Signs Temp 98.0 F 09/09/24 07:00 Pulse 82 09/09/24 12:15 Resp 15 09/09/24 07:00 BP 127/58 09/09/24 07:00 Pulse Ox 95 09/09/24 07:00 FiO2 Intake & Output 09/08/24 09/09/24 09/09/24 18:59 06:59 18:59 Weight 59.2 kg 59.2 kg Other: Voiding Method Toilet - Labs CBC & Chem 7: 09/09/24 12:49 09/07/24 04:44 Labs: Abnormal Lab Results - Last 24 Hours (Table) 09/09/24 Range/Units 12:49 WBC 10.7 H (3.8-10.6) k/uL RBC 3.29 L (4.30-5.90) m/uL Hgb 11.8 L (13.0-17.5) gm/dL Hct 35.1 L (39.0-53.0) % MCV 106.8 H (80.0-100.0) fL MCH 36.0 H (25.0-35.0) pg
[2024-09-09] MEDS: LIDOCAINE 1% INJ 10MG/ML (20 ML MDV) SQ ONE (14:31)
--- NOTE | 2024-09-10 13:07 | P.PN ---
Subjective Progress Note Date: 09/10/24 SURGICAL PROGRESS NOTE CHIEF COMPLAINT: Dislodged PEG tube HISTORY OF PRESENT ILLNESS: Patient is postop day #3 status post robotic gastrostomy tube placement and robotic takedown of gastrocutaneous fistula. Patient had [address] Henning yesterday at PEG tube site. Patient has had no further bleeding around the PEG tube site. PEG tube was placed to drainage. He had 900 mL of dark brownish output through the night. And there is 200 mL output this morning. That output is starting to have more clearish in color. Patient is now having flatus. Abdominal pain is better. Nausea is re solved. He reports feeling hungry. Afebrile. Hemoglobin stable at 11.8 PHYSICAL EXAM: VITAL SIGNS: Reviewed. GENERAL: Well-developed in no acute distress. ABDOMEN: Soft. Nondistended. PEG tube site is clean dry and intact. Drainage from PEG tube is dark brownish in color and more clearish fluid in the tubing. NEUROLOGIC: Alert and oriented. Cranial nerves II through XII grossly intact. ASSESSMENT: 1. History of esophageal cancer 2. PEG tube dislodged 3. Esophageal stricture unable to place PEG tube by EGD 4. Possible ileus improved PLAN: -Okay to resume tube feeds. Will start trickle feeds. -Continue to monitor closely Physician Biotechnologist note has been reviewed by physician. Signing provider agrees with the documented findings, assessment, and plan of care. Objective - Vital Signs Vital signs: Vital Signs Temp 98.0 F 09/10/24 07:00 Pulse 88 09/10/24 12:37 Resp 16 09/10/24 07:00 BP 114/62 09/10/24 07:00 Pulse Ox 93 L 09/10/24 07:00 FiO2 Intake & Output 09/09/24 09/10/24 09/10/24 18:59 06:59 18:59 Intake Total 900 Output Total 900 Balance 0 Weight 59.2 kg 59 kg Intake: Intake, IV Titration 900 Amount Sodium Chloride 0.9% 1, 900 000 ml @ 75 mls/hr IV . [id number] [facility] Rx#:[id number] Output: Gastric Drainage 900 - Labs CBC & Chem 7: 09/10/24 09:40 09/10/24 09:40 Labs: Abnormal Lab Results - Last 24 Hours (Table) 01/09/25 Range/Units 12:49 WBC 10.7 H (3.8-10.6) k/uL RBC 3.29 L (4.30-5.90) m/uL Hgb 11.8 L (13.0-17.5) gm/dL Hct 35.1 L (39.0-53.0) % MCV 106.8 H (80.0-100.0) fL MCH 36.0 H (25.0-35.0) pg Assessment and Plan Assessment: 79 yo male w/ esophageal cancer s/p replaced peg tube continue tube feeds, advance to goal ok for pleasure feeds Time with Patient: Less than 30
[2024-09-10 13:32] VITALS: BMI 20.3
--- NOTE | 2024-09-10 14:27 | P.PN ---
Subjective Progress Note Date: 09/10/24 Hospital Course: 78-year-old male with medical history of CAD status post CABG, stents, PAD, G ERD, HLD, HTN, esophageal cancer PEG 03/2024 s/p chemotherapy, who presented for displaced PEG tube. Of note, patient takes meds p.o. Surgery consulted, robotic gastrostomy tube placement was performed on 09/07, patient tolerated procedure well. Started on trickle feeds 09/08, later on he noticed drainage around his PEG tube that smelled like tube feeding, tube feeds were placed on hold. Patient complains of heartburn, nausea, bloating. No bowel movement since Friday. Patient was made n.p.o., PEG tube placed to drainage with 1000 cc output, patient passed flatus. Trickle feeds resumed on 09/10, resumed. Diet with thin liquids per surgery. Will monitor overnight and likely discharge 09/11 in the morning Pertinent Imaging: No imaging Subjective: Patient seen and examined at bedside, feels better today, abdominal pain resolved, no nausea, vomiting, heartburn resolved as well Pertinent positives and negatives as discussed above, a complete review of systems was performed and all other systems are negative. Vitals Signs Reviewed. General: [nontoxic], [no distress], [appears at stated age] Derm: [warm], [dry] Head: [atraumatic], [normocephalic], [symmetric] Eyes: [EOMI], [no lid lag], [anicteric sclera] Mouth: [no lip lesion], [mucus membranes moist] Cardiovascular: [S1S2 reg], [no murmur] Lungs: [CTA bilateral], [no rhonchi, no rales] , [no accessory muscle use] Abdominal: [soft], ], [no guarding], [no appreciable organomegaly], mild tenderness to palpation, PEG tube in place Ext: [no gross muscle atrophy], [no edema], [no contractures] Neuro: [ CN II-XI grossly intact], [no focal neuro deficits] Psych: [Alert], [oriented], [appropriate affect] Data Reviewed Today: Pertinent Labs: No new lab work from 09/10 Assessment and Plan: esophageal cancer status post PEG tube placement 03/24 s/p chemotherapy PEG tube malfunction Status post robotic gastrostomy tube placement 09/07/2024, now malfunctioning Leukocytosis, likely reactive after procedure constipation -Surgery following -09/09 noticed drainage around his PEG tube that smelled like tube feeding, tube feeds were placed on hold. Patient complains of heartburn, nausea, bloating. No bowel movement since Friday. -Trickle feeds resumed on 09/10, resumed. Diet with thin liquids per surgery. Will monitor overnight and likely discharge 09/11 in the morning -blood work in AM CAD status post CABG COPD not in exacerbation, not on home oxygen History of mesenteric ischemia status post SMA stent 2022 PAD continue home meds Anticipated discharge place: home Anticipated discharge time: 09/11 Objective - Vital Signs Vital signs: Vital Signs Temp 98.0 F 09/10/24 07:00 Pulse 88 09/10/24 12:37 Resp 16 09/10/24 07:00 BP 114/62 09/10/24 07:00 Pulse Ox 93 L 09/10/24 07:00 FiO2 Intake & Output 09/09/24 09/10/24 09/10/24 18:59 06:59 18:59 Intake Total 900 Output Total 900 Balance 0 Weight 59.2 kg 59 kg 59 kg Intake: Intake, IV Titration 900 Amount Sodium Chloride 0.9% 1, 900 000 ml @ 75 mls/hr IV . [id number] [facility] Rx#:[id number] Output: Gastric Drainage 900 - Labs CBC & Chem 7: 09/09/24 12:49 09/07/24 04:44
[2024-09-10 15:11] LABS: Basophils # (A) 0.03 X 10*3/uL (0.00-0.10); Basophils % (A) 0.2 %; Eosinophils # (A) 0.02 X 10*3/uL (0.04-0.35); Eosinophils % (A) 0.2 %; HCT 35.7 % (39.6-50.0); HGB 11.5 g/dL (13.0-17.0); Lymphocytes # (A) 0.57 X 10*3/uL (0.90-5.00); Lymphocytes % (A) 4.7 %; MCH 34.5 pg (27.0-32.0); MCHC 32.2 g/dL (32.0-37.0); MCV 107.2 FL (80.0-97.0); Monocytes # (A) 0.78 X 10*3/uL (0.20-1.00); Monocytes % (A) 6.4 %; NRBC Per 100 WBC 0 X 10*3/uL (0.00-0.01); Platelet Count 223 X 10*3/uL (140-440); RBC 3.33 X 10*6/uL (4.40-5.60); RDW 13.2 % (11.5-14.5); WBC 12.16 X 10*3/uL (4.50-10.00)
[2024-09-10 15:33] LABS: BUN/Creat Ratio 20.43 Ratio (12.00-20.00); Blood Urea Nitrogen 14.3 mg/dL (9.0-27.0); Calcium 8.6 mg/dL (8.7-10.3); Carbon Dioxide 23.5 mmol/L (21.6-31.8); Chloride 102 mmol/L (96-109); Glucose 69 mg/dL (70-110); Potassium 3.4 mmol/L (3.5-5.5); Sodium 143 mmol/L (135-145)
[2024-09-11 08:47] VITALS: BP 128/65; RESP 17; TEMP 98.2
[2024-09-11 09:19] VITALS: PULSE 88
--- NOTE | 2024-09-11 10:08 | P.DS ---
Providers Date of admission: 09/07/24 07:42 Attending physician: Ysabel Galaviz MD Consults: 09/04/24 09:38 Consult Physician Routine Consulting Provider: Alexis Bueno Reason/Comments: PEG tube Do you want consulting provider notified?: Yes Primary care physician: O[facility] Course: Discharge Diagnosis: esophageal cancer status post PEG tube placement 03/24 s/p chemotherapy PEG tube malfunction Status post robotic gastrostomy tube placement 09/07/2024, now malfunctioning Leukocytosis, likely reactive after procedure constipation CAD status post CABG COPD not in exacerbation, not on home oxygen History of mesenteric ischemia status post SMA stent 2022 PAD Hospital Course: 78-year-old male with medical history of CAD status post CABG, stents, PAD, GERD, HLD, HTN, esophageal cancer PEG 03/2024 s/p chemotherapy, who presented for displaced PEG tube. Of note, patient takes meds p.o. Surgery consulted, robotic gastrostomy tube placement was performed on 09/07, patient tolerated procedure well. Started on trickle feeds 09/08, later on he noticed drainage around his PEG tube that smelled like tube feeding, tube feeds were placed on hold. Patient complains of heartburn, nausea, bloating. No bowel movement since Friday. Patient was made n.p.o., PEG tube placed to drainage with 1000 cc output, patient passed flatus. Trickle feeds resumed on 09/10, resumed. Diet with thin liquids per surgery. Tolerated well, had a BM 09/11; discharge 09/11 in the morning,, cleared by surgery. Patient seen and examined at bedside Vital signs reviewed and stable. General: [nontoxic], [no distress], [appears at stated age] Derm: [warm], [dry] Head: [atraumatic], [normocephalic], [symmetric] Eyes: [EOMI], [no lid lag], [anicteric sclera] Mouth: [no lip lesion], [mucus membranes moist] Cardiovascular: [S1S2 reg], [no murmur] Lungs: [CTA bilateral], [no rhonchi, no rales] , [no accessory muscle use] Abdominal: [soft], ], [no guarding], [no appreciable organomegaly], mild tenderness to palpation, PEG tube in place Ext: [no gross muscle atrophy], [no edema], [no contractures] Neuro: [ CN II-XI grossly intact], [no focal neuro deficits] Psych: [Alert], [oriented], [appropriate affect] A total of 40 minutes of time were spent preparing this complex discharge summary. Patient was discharged on 09/11/24 Patient Condition at Discharge: Stable Plan - Discharge Summary New Discharge Prescriptions: Continue Atorvastatin [Lipitor] 40 mg PO DAILY Nitroglycerin Sl Tabs [Nitrostat] 0.4 mg SL Q5M PRN PRN Reason: Chest Pain Metoprolol Tartrate [Lopressor] 50 mg PO DAILY ALPRAZolam [Xanax] 0.25 mg PO DAILY PRN PRN Reason: Anxiety hydrOXYzine pamoate [Vistaril] 25 mg PO BID Ipratropium/Albuter 20-100Mcg [Combivent Respimat 20-100Mcg Inhaler] 1 puff INHALATION RT-BID PRN PRN Reason: Shortness Of Breath Albuterol Nebulized [Ventolin Nebulized] 2.5 mg INHALATION RT-Q4H Rivaroxaban [Xarelto] 20 mg PO DAILY Pramipexole [Mirapex] 0.25 mg PO HS PRN PRN Reason: restless legs Omeprazole [PriLOSEC] 40 mg PO DAILY Tamsulosin HCl [Flomax] 0.4 mg PO DAILY Sertraline HCl [Zoloft] 50 mg PO DAILY Discharge Medication List Atorvastatin [Lipitor] 40 mg PO DAILY 06/09/18 [History] Nitroglycerin Sl Tabs [Nitrostat] 0.4 mg SL Q5M PRN 03/15/21 [History] Rivaroxaban [Xarelto] 20 mg PO DAILY 03/15/21 [History] ALPRAZolam [Xanax] 0.25 mg PO DAILY PRN 06/11/23 [History] Metoprolol Tartrate [Lopressor] 50 mg PO DAILY 06/11/23 [History] Pramipexole [Mirapex] 0.25 mg PO HS PRN 06/11/23 [History] Ipratropium/Albuter 20-100Mcg [Combivent Respimat 20-100Mcg Inhaler] 1 puff INHALATION RT-BID PRN 12/30/23 [History] Omeprazole [PriLOSEC] 40 mg PO DAILY 12/30/23 [History] Sertraline HCl [Zoloft] 50 mg PO DAILY 12/30/23 [History] Tamsulosin HCl [Flomax] 0.4 mg PO DAILY 12/30/23 [History] hydrOXYzine pamoate [Vistaril] 25 mg PO BID 12/30/23 [History] Albuterol Nebulized [Ventolin Nebulized] 2.5 mg INHALATION RT-Q4H 08/10/24 [History] Follow up Appointment(s)/Referral(s): Omid Lopez, [Primary Care Provider] - 1-2 days Patient Instructions/Handouts: How to Use and Care for Your PEG Tube (DC) Activity/Diet/Wound Care/Special Instructions: Please, follow up with your PCP Discharge Disposition: HOME SELF-CARE
== END 2024-09-11 11:02 | disposition home or self-care (01) | DRG 327 ==
LOC: EC 08:40 → 6NMEDSUR 09:56 → 4SSUR 13:19 → OBSVTOIN 09-07 07:42
PROVIDERS: ADMIT Family Medicine; ATTEND Family Medicine
PROC: 0DJ08ZZ Inspection of Upper Intestinal Tract, Via Natural or Artificial Opening Endoscopic (ICD-10-PCS; principal; 2024-09-05 11:30)
PROC: 0WBF4ZZ Excision of Abdominal Wall, Percutaneous Endoscopic Approach (ICD-10-PCS; 2024-09-07)
PROC: 0DH64UZ Insertion of Feeding Device into Stomach, Percutaneous Endoscopic Approach (ICD-10-PCS; 2024-09-07)
PROC: 8E0W4CZ Robotic Assisted Procedure of Trunk Region, Percutaneous Endoscopic Approach (ICD-10-PCS; 2024-09-07)
PROC: 3E0G76Z Introduction of Nutritional Substance into Upper GI, Via Natural or Artificial Opening (ICD-10-PCS; 2024-09-07)
PROC: 0DB64ZZ Excision of Stomach, Percutaneous Endoscopic Approach (ICD-10-PCS; 2024-09-07)
DX: K94.23 Gastrostomy malfunction (principal); C15.9 Malignant neoplasm of esophagus, unspecified; K31.6 Fistula of stomach and duodenum; K56.7 Ileus, unspecified; D72.829 Elevated white blood cell count, unspecified; E78.5 Hyperlipidemia, unspecified; F41.9 Anxiety disorder, unspecified; G25.81 Restless legs syndrome; I10 Essential (primary) hypertension; K94.21 Gastrostomy hemorrhage; K22.2 Esophageal obstruction; I25.10 Atherosclerotic heart disease of native coronary artery without angina pectoris; I73.9 Peripheral vascular disease, unspecified; J44.9 Chronic obstructive pulmonary disease, unspecified; I25.2 Old myocardial infarction; K59.00 Constipation, unspecified; Z87.19 Personal history of other diseases of the digestive system; Z79.01 Long term (current) use of anticoagulants; Z79.899 Other long term (current) drug therapy; Z87.891 Personal history of nicotine dependence; Z92.21 Personal history of antineoplastic chemotherapy; Z95.1 Presence of aortocoronary bypass graft; Z95.5 Presence of coronary angioplasty implant and graft; Z85.01 Personal history of malignant neoplasm of esophagus
CPT/HCPCS: 43235; 80048; 80053; 83735; 85025; 85027; 85610; 85730; 94640; 96360; 96361; 99285

== ENCOUNTER 2024-11-10 11:52 | Inpatient (IN) | payer MEDICARE, OTHER ==
[2024-11-10] MEDS ORDERED: RX INFO: IV CONTRAST WAS GIVEN 1 EACH MISC MISCELLANE PRN (12:33)
[2024-11-10] MEDS: LACTATED RINGERS 1,000 ML IV SCH (12:41)
[2024-11-10] MEDS: ACETAMINOPHEN TAB 500 MG TAB PO STA (12:41)
[2024-11-10] MEDS: IBUPROFEN 600 MG TAB PO STA (12:41)
[2024-11-10 12:58] LABS: Basophils % (A) 0 %; Eosinophils % (A) 0 %; HCT 40.5 % (39.0-53.0); HGB 13.1 gm/dL (13.0-17.5); Lymphocytes # (A) 0.3 k/uL (1.0-4.8); Lymphocytes % (A) 3 %; MCH 32.9 pg (25.0-35.0); MCHC 32.3 g/dL (31.0-37.0); Macrocytosis Slight; Mean Platelet Volume 7.5; Monocytes # (A) 0.4 k/uL (0-1.0); Monocytes % (A) 4 %; Neutrophils # (A) 10.1 k/uL (1.3-7.7); Neutrophils % (A) 93 %; Platelet Count 170 k/uL (150-450); RBC 3.98 m/uL (4.30-5.90); RDW 13.1 % (11.5-15.5); WBC 10.8 k/uL (3.8-10.6)
--- NOTE | 2024-11-10 13:00 | ED ---
General Adult HPI - General Chief complaint: Extremity Problem,Nontraumatic Stated complaint: leg pain Time Seen by Provider: 11/10/24 12:00 Source: patient, EMS, RN notes reviewed, old records reviewed Mode of arrival: EMS Limitations: no limitations - History of Present Illness Initial comments: This is a 79-year-old male who presents to the emergency department complaining of left foot pain. Patient states she has had a statin left leg before but now the foot is cold and painful from about mid calf down. Patient denies any significant cough or sore throat. Patient was unaware that he had a fever. Patient Nuys any chest pain or difficulty breathing. Patient has abdominal pain patient has nausea vomiting diarrhea. - Related Data Home Medications Medication Instructions Recorded Confirmed Atorvastatin [Lipitor] 40 mg PO DAILY 06/09/18 09/04/24 Nitroglycerin Sl Tabs [Nitrostat] 0.4 mg SL Q5M PRN 03/15/21 09/04/24 Rivaroxaban [Xarelto] 20 mg PO DAILY 03/15/21 09/04/24 ALPRAZolam [Xanax] 0.25 mg PO DAILY PRN 06/11/23 09/04/24 Metoprolol Tartrate [Lopressor] 50 mg PO DAILY 06/11/23 09/04/24 Pramipexole [Mirapex] 0.25 mg PO HS PRN 06/11/23 09/04/24 Ipratropium/Albuter 20-100Mcg 1 puff INHALATION RT-BID PRN 12/30/23 09/04/24 [Combivent Respimat 20-100Mcg Inhaler] Omeprazole [PriLOSEC] 40 mg PO DAILY 12/30/23 09/04/24 Sertraline HCl [Zoloft] 50 mg PO DAILY 12/30/23 09/04/24 Tamsulosin HCl [Flomax] 0.4 mg PO DAILY 12/30/23 09/04/24 hydrOXYzine pamoate [Vistaril] 25 mg PO BID 12/30/23 09/04/24 Albuterol Nebulized [Ventolin 2.5 mg INHALATION RT-Q4H 08/10/24 09/04/24 Nebulized] Allergies Allergy/AdvReac Type Severity Reaction Status Date / Time No Known Allergies Allergy Verified 11/10/24 11:57 Review of Systems ROS Statement: Those systems with pertinent positive or pertinent negative responses have been documented in the HPI. ROS Other: All systems not noted in ROS Statement are negative. 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 RUNOFF 3817. colonoscopy, egd Past Anesthesia/Blood Transfusion Reactions: No Reported Reaction Additional Past Anesthesia/Blood Transfusion Reaction / Comment(s): no problems with prior blood transfusions,states "no agitation coming out of anesthesia" Date of Last Stent Placement:: 10/02/2015 Past Psychological History: Anxiety Smoking Status: Former smoker, Vaper Past Alcohol Use History: None Reported Past Drug Use History: None Reported - Past Family History Mother Family Medical History: Vascular Disorder Father Family Medical History: COPD Brother(s) Family Medical History: Cancer Additional Family Medical History / Comment(s): Heart problems, lymphoma. General Exam - General Exam Comments Initial Comments: GENERAL: Patient is well-developed and well-nourished. Patient is nontoxic and well- hydrated and is in mild distress. ENT: Neck is soft and supple. No significant lymphadenopathy is noted. Oropharynx is clear. Moist mucous membranes. Neck has full range of motion without eliciting any pain. EYES: The sclera were anicteric and conjunctiva were pink and moist. Extraocular movements were intact and pupils were equal round and reactive to light. Eyelids were unremarkable. PULMONARY: Unlabored respirations. Good breath sounds bilaterally. No audible rales rhonchi or wheezing was noted. CARDIOVASCULAR: There is a regular rate and rhythm without any murmurs gallops or rubs. ABDOMEN: Soft and nontender with normal bowel sounds. SKIN: Skin is clear with no lesions or rashes and otherwise unremarkable. NEUROLOGIC: Patient is alert and oriented x3. Cranial nerves II through XII are grossly intact. Motor and sensory are also intact. Normal speech, volume and content. Symmetrical smile. MUSCULOSKELETAL: Patient had no palpable pulses on the left foot however nursing stated she could hear a DP pulse with the ultrasound. Patient's foot is cold cap refill is over 4 seconds. LYMPHATICS: No significant lymphadenopathy is noted PSYCHIATRIC: Normal psychiatric evaluation. Limitations: no limitations Course Vital Signs 11/10/24 11/10/24 11:53 13:52 Temperature 102.3 F H 98.7 F Pulse Rate 114 H 80 Respiratory 20 18 Rate Blood Pressure 130/60 127/57 O2 Sat by Pulse 90 L 94 L Oximetry Medical Decision Making - Medical Decision Making EKG shows a sinus rhythm at 94 bpm AL was 125 QRS is 88 QT interval 365 QTc is 417. Patient's EKG shows T wave inversions in 2 3 and aVF Was pt. sent in by a medical professional or institution (Dr. PA, [employer], urgent care, hospital, or residential...) When possible be specific @ -No Did you speak to anyone other than the patient for history (EMS, parent, family, police, friend...)? What history was obtained from this source @ -No Did you review nursing and triage notes (agree or disagree)? Why? @ -I reviewed and agree with nursing and triage notes Were old charts reviewed (outside hosp., previous admission, EMS record, old EKG, old radiological studies, urgent care reports/EKG's, residential records)? Report findings @ -No old charts were reviewed Differential Diagnosis? @ -Arterial occlusion, influenza A, influenza B, RSV, COVID, this is not an all- inclusive list EKG interpreted by me (3pts min.). @ -As above X-rays interpreted by me (1pt min.). @ -None done CT interpreted by me (1pt min.). @ -CT angiogram was read by the radiologist U/S interpreted by me (1pt. min.). @ -None done What testing was considered but not performed or refused? (CT, X-rays, U/S, labs)? Why? @ -None What meds were considered but not given or refused? Why? @ -None Did you discuss the management of the patient with other professionals (professionals i.e. DrSabrina, PA, [employer], lab, RT, psych nurse, transition social worker, salvage laborer, teacher, medical corps officer, case consultant)? Give summary @ -I spoke with Dr. Navarro and [facility] physicians. Patient will be admitted to [facility] with a consult to Melanie Was smoking cessation discussed for >3mins.? @ -No Was critical care preformed (if so, how long)? @ -No Were there social determinants of health that impacted care today? How? (Home lessness, low income, unemployed, alcoholism, drug addiction, transportation, low edu. Level, literacy, decrease access to med. care, custodial, rehab)? @ -No Was there de-escalation of care discussed even if they declined (Discuss DNR or withdrawal of care, Hospice)? DNR status @ -No What co-morbidities impacted this encounter? (DM, HTN, Smoking, COPD, CAD, Cancer, CVA, ARF, Chemo, Hep., AIDS, mental health diagnosis, sleep apnea, morbid obesity)? @ -None Was patient admitted / discharged? Hospital course, mention meds given and route, prescriptions, significant lab abnormalities, going to OR and other pertinent info. @ -Nursing was able to find the pulse with ultrasound. Patient will be admitted to [facility] physicians Undiagnosed new problem with uncertain prognosis? @ -No Drug Therapy requiring intensive monitoring for toxicity (Heparin, Nitro, Insulin, Cardizem)? @ -No Were any procedures done? @ -No Diagnosis/symptom? @ -Influenza A Acute, or Chronic, or Acute on Chronic? @ -Acute Uncomplicated (without systemic symptoms) or Complicated (systemic symptoms)? @ -Uncomplicated Side effects of treatment? @ -No Exacerbation, Progression, or Severe Exacerbation? @ -No Poses a threat to life or bodily function? How? (Chest pain, USA, IA, pneumonia, PE, COPD, DKA, ARF, appy, cholecystitis, CVA, Diverticulitis, Homicidal, Suicidal, threat to staff... and all critical care pts) @ -No Diagnosis/symptom? @ -Arterial insufficiency Acute, or Chronic, or Acute on Chronic? @ -Acute on chronic Uncomplicated (without systemic symptoms) or Complicated (systemic symptoms)? @ -Complicated Side effects of treatment? @ -None Exacerbation, Progression, or Severe Exacerbation] @ -No Poses a threat to life or bodily function? @ -Yes this could lead to poor perfusion of the leg - Lab Data Result diagrams: 11/10/24 12:37 11/10/24 12:37 Lab Results 11/10/24 11/10/24 11/10/24 Range/Units 12:37 12:37 12:37 WBC 10.8 H (3.8-10.6) k/uL RBC 3.98 L (4.30-5.90) m/uL Hgb 13.1 (13.0-17.5) gm/dL Hct 40.5 (39.0-53.0) % MCV 101.8 H D (80.0-100.0) fL MCH 32.9 (25.0-35.0) pg MCHC 32.3 (31.0-37.0) g/dL RDW 13.1 (11.5-15.5) % Plt Count 170 (150-450) k/uL MPV 7.5 Neutrophils % 93 % Lymphocytes % 3 % Monocytes % 4 % Eosinophils % 0 % Basophils % 0 % Neutrophils # 10.1 H (1.3-7.7) k/uL Lymphocytes # 0.3 L (1.0-4.8) k/uL Monocytes # 0.4 (0-1.0) k/uL Eosinophils # 0.0 (0-0.7) k/uL Basophils # 0.0 (0-0.2) k/uL Macrocytosis Slight PT 11.6 (10.0-12.5) sec INR 1.1 (<1.2) APTT 27.7 (22.0-30.0) sec Sodium 132 L (137-145) mmol/L Potassium 4.0 (3.5-5.1) mmol/L Chloride 98 (98-107) mmol/L Carbon Dioxide 23 (22-30) mmol/L Anion Gap 11 mmol/L BUN 24 H (9-20) mg/dL Creatinine 0.73 (0.66-1.25) mg/dL Est GFR (CKD-EPI)AfAm >90 (>60 ml/min/1.73 sqM) Est GFR (CKD-EPI)NonAf 89 (>60 ml/min/1.73 sqM) Glucose 91 (74-99) mg/dL Plasma Lactic Acid Zacarias (0.7-2.0) mmol/L Calcium 8.6 (8.4-10.2) mg/dL Total Bilirubin 0.5 (0.2-1.3) mg/dL AST 95 H (17-59) U/L ALT 42 (4-49) U/L Alkaline Phosphatase 94 (38-126) U/L Total Protein 6.5 (6.3-8.2) g/dL Albumin 3.7 (3.5-5.0) g/dL Influenza Type A (PCR) (Not Detectd) Influenza Type B (PCR) (Not Detectd) RSV (PCR) (Not Detectd) SARS-CoV-2 (PCR) (Not Detectd) 11/10/24 11/10/24 Range/Units 12:37 12:37 WBC (3.8-10.6) k/uL RBC (4.30-5.90) m/uL Hgb (13.0-17.5) gm/dL Hct (39.0-53.0) % MCV (80.0-100.0) fL MCH (25.0-35.0) pg MCHC (31.0-37.0) g/dL RDW (11.5-15.5) % Plt Count (150-450) k/uL MPV Neutrophils % % Lymphocytes % % Monocytes % % Eosinophils % % Basophils % % Neutrophils # (1.3-7.7) k/uL Lymphocytes # (1.0-4.8) k/uL Monocytes # (0-1.0) k/uL Eosinophils # (0-0.7) k/uL Basophils # (0-0.2) k/uL Macrocytosis PT (10.0-12.5) sec INR (<1.2) APTT (22.0-30.0) sec Sodium (137-145) mmol/L Potassium (3.5-5.1) mmol/L Chloride (98-107) mmol/L Carbon Dioxide (22-30) mmol/L Anion Gap mmol/L BUN (9-20) mg/dL Creatinine (0.66-1.25) mg/dL Est GFR (CKD-EPI)AfAm (>60 ml/min/1.73 sqM) Est GFR (CKD-EPI)NonAf (>60 ml/min/1.73 sqM) Glucose (74-99) mg/dL Plasma Lactic Acid Zacarias 1.6 (0.7-2.0) mmol/L Calcium (8.4-10.2) mg/dL Total Bilirubin (0.2-1.3) mg/dL AST (17-59) U/L ALT (4-49) U/L Alkaline Phosphatase (38-126) U/L Total Protein (6.3-8.2) g/dL Albumin (3.5-5.0) g/dL Influenza Type A (PCR) Detected A (Not Detectd) Influenza Type B (PCR) Not Detected (Not Detectd) RSV (PCR) Not Detected (Not Detectd) SARS-CoV-2 (PCR) Not Detected (Not Detectd) Disposition Clinical Impression: Arterial insufficiency of lower extremity, Influenza A Disposition: ADMITTED IP TO THIS HOSP Referrals: Omid Lopez DO [Primary Care Provider] - 1-2 days Time of Disposition: 15:34
[2024-11-10 13:07] LABS: INR 1.1 (<1.2); Partial Thromboplastin Time 27.7 sec (22.0-30.0); Prothrombin Time 11.6 sec (10.0-12.5)
[2024-11-10 13:08] LABS: MCV 101.8 fL (80.0-100.0)
[2024-11-10 13:17] LABS: ALT 42 U/L (4-49); AST 95 U/L (17-59); African American GFR (CKD) >90 (>60 ml/min/1.73 sqM); Albumin 3.7 g/dL (3.5-5.0); Alkaline Phosphatase 94 U/L (38-126); Anion Gap 11 mmol/L; Blood Urea Nitrogen 24 mg/dL (9-20); Calcium 8.6 mg/dL (8.4-10.2); Carbon Dioxide 23 mmol/L (22-30); Chloride 98 mmol/L (98-107); Glucose 91 mg/dL (74-99); Non-African American GFR(CKD) 89 (>60 ml/min/1.73 sqM); Sodium 132 mmol/L (137-145); Total Bilirubin 0.5 mg/dL (0.2-1.3); Total Protein 6.5 g/dL (6.3-8.2)
[2024-11-10 13:39] LABS: Influenza A Detected (Not Detectd); Influenza B Not Detected (Not Detectd); RSV Not Detected (Not Detectd)
[2024-11-10] MEDS: OSELTAMIVIR 75 MG CAP PO STA (14:38)
--- NOTE | 2024-11-10 15:05 | XR ---
EXAMINATION TYPE: XR chest 2V DATE OF EXAM: 11/10/2024 CLINICAL INDICATION: Male, 79 years old with history of Fever, TECHNIQUE: Frontal and lateral views of the chest are obtained. COMPARISON: Chest CT December 2023 FINDINGS:. There is new left Subclavian Mediport catheter terminating in the SVC. Overlying sternal w ires are redemonstrated. There is background Chronic emphysematous change without suspicious focal ai r space opacity, pleural effusion, or pneumothorax seen. The cardiac silhouette size is within disha l limits. The osseous structures are intact. IMPRESSION: Chronic emphysematous changes without acute pulmonary process. [facility], , 11/10/2024 3:03 PM
--- NOTE | 2024-11-10 15:21 | CT ---
CTA left lower extremity. HISTORY: Left foot pain. COMPARISON: None TECHNIQUE: Multiple axial images are obtained from the left groin to the left foot following IV contr ast administration. Exam was performed according to CTA protocol. Postprocessing was performed. FINDINGS: There is a stent in the distal aspect of the left external iliac artery. The proximal aspect of the l eft superficial femoral artery is calcified with multiple [id number] stenoses. There are 2 sten ts within the right superficial femoral artery, 1 in the proximal third and one in the distal third extending through the adductor canal to the popliteal artery. The intervening segments of the left adair perficial femoral artery from the common femoral artery to the proximal stent is completely occluded. The intervening segment of the left superficial femoral artery between the 2 stents in the mid thigh is completely occluded. There is poor opacification within the stents. The profunda femoral artery i s patent. The left popliteal artery is patent. There is marked calcification of the trifurcation origins but th ere is three-vessel runoff to the foot. There is diffuse calcification of the 3 runoff vessels. IMPRESSION: Long occluded segments of the left superficial femoral artery in the proximal thigh and mid thigh as described above. Three-vessel runoff. [facility], , 11/10/2024 3:19 PM
[2024-11-10] MEDS ORDERED: HYDROmorphone 0.5 MG/0.5 ML SYRINGE IVP PRN (15:35)
[2024-11-10] MEDS: HYDROmorphone 0.5 MG/0.5 ML SYRINGE IVP STA (15:42)
[2024-11-10] MEDS: SODIUM CHLORIDE 0.9% 1,000 ML IV ONE (15:47)
[2024-11-10] MEDS ORDERED: NALOXONE 0.4 MG/ML 1 ML VIAL IV PRN (16:29)
[2024-11-10] MEDS ORDERED: bisacodyL 5 MG TABLET.DR PO PRN (16:29)
[2024-11-10] MEDS ORDERED: PROCHLORPERAZINE 5 MG TAB PO PRN (16:29)
--- NOTE | 2024-11-10 16:37 | P.HPIM ---
History of Present Illness H&P Date: 11/10/24 Patient is a 78-year-old male with medical history of CAD status post CABG, stents, PAD, GERD, HLD, HTN, esophageal cancer PEG 03/2024 s/p chemotherapy, who presented to the ER with left foot pain that started around 1 week ago and was gradually worsening. He also noted numbness. Unable to put weight on his left lower extremity, usually ambulates with a walker. Denies SOB, chest pain, abdominal pain.He is compliant with medications. On arrival febrile 102.3, tachycardic 114, satting 90% on room air, was placed on nasal cannula 2 L with improvement of SpO2 to 94%. BP 130/60. Blood work significant for mild leukocytosis 10.8, hemoglobin 13.1, platelet count normal, coagulation panel unremarkable, sodium 132, potassium 4.0, bicarb 23, BUN 24, creatinine 0.73, lactic acid 1.6, AST elevated 95, ALT normal, ALP normal, tested positive for influenza A. CTA left lower extremity showed long occluded segment of the left superficial femoral artery in the proximal type and mid type, with three-vessel runoff. Discussed with IR, patient does not have to be started on heparin, can continue his home anticoagulation with Xarelto, consulted Dr. Navarro. Admitted for further evaluation of PAD, acute hypoxic respiratory failure secondary to influenza A infection, started on Tamiflu Pertinent positives and negatives as discussed in HPI, a complete review of systems was performed and all other systems are negative. Patient seen and examined at bedside. Vital signs reviewed General: nontoxic, no distress, appears at stated age Derm: warm, dry Head: atraumatic, normocephalic, symmetric Eyes: EOMI, no lid lag, anicteric sclera, pupils equal round reactive to light ENT: Nose and ears atraumatic Neck: No thyromegaly, supple Mouth: no lip lesion, mucus membranes moist Cardiovascular: S1S2 reg, no murmur, no edema Lungs: clear to auscultation bilateral, no rhonchi, no rales, no wheeze, no accessory muscle use Abdominal: soft, nontender to palpation, no guarding, no appreciable organomegaly Ext: no gross muscle atrophy, no contractures; unable to palpate L dorsalis pedis, posterior tibialis, LLE cooler to touch Neuro: CN II-XII grossly intact Psych: Alert, oriented, appropriate affect Assessment/Plan: Left superficial femoral artery occlusion -Dr Navarro consulted -Continue Xarelto, continue high intensity statins with Lipitor 40 -pain control: Tylenol,norco 5 q 4 hours PRN, dilaudid 1 mg q 3 hours PRN -PPIs -IVF with NS at 75cc/hr Acute hypoxic respiratory failure secondary to influenza A infection -Wean off supplemental oxygen as tolerated -Continue Tamiflu SOT 11/10 -Continue home Combivent, albuterol CAD status post CABG 2015 COPD not in exacerbation, not on home oxygen History of mesenteric ischemia status post SMA stent 2022 PAD continue home meds once reconciled: per previous d/c summary on Lipitor 40, Lopressor 50 daily, Xarelto 20 daily, Prilosec 40 daily, tamsulosin 0.4 mg daily, Zoloft 50 mg daily, hydroxyzine 25 p.o. twice daily Xanax 0.25 daily as needed, Combivent, albuterol esophageal cancer status post PEG ,s/p chemotherapy Status post robotic gastrostomy tube placement 09/07/2024 The patient is admitted with an anticipated [greater] than 2 midnight stay as [inpatient/] status for evaluation of femoral artery occlusion CODE STATUS: DVT prophylaxis: xarelto Anticipated discharge date: tbd Anticipated discharge place: TBD A total of 45 minutes was spent on the care of this complex patient more than 50% of the time was spent in counseling and care coordination. Past Medical History Past Medical History: Coronary Artery Disease (CAD), Cancer, COPD, GERD/Reflux, Hyperlipidemia, Hypertension, Memory Impairment, Myocardial Infarction ([place]), Thyroid Disorder, Vascular Disorder Additional Past Medical History / Comment(s): having a difficulty swallowing after eating-only able to swallow soft foods,hx artery to colon had to have a stent placed,PVD BOTH LEGS, RLS, neil leg cramps, esophageal cancer 2023, feeding tube Last Myocardial Infarction Date:: 10/02/2015 History of Any Multi-Drug Resistant Organisms: None Reported Past Surgical History: Coronary Bypass/CABG, Heart Catheterization With Stent, Hernia Repair, Orthopedic Surgery Additional Past Surgical History / Comment(s): heart stents x 3,ORIF rt elbow, triple bypass-taking xarelto, ABDOMINAL AORTOGRAM WITH NEIL EXT. RUNOFF 11-06-16. colonoscopy, egd Past Anesthesia/Blood Transfusion Reactions: No Reported Reaction Additional Past Anesthesia/Blood Transfusion Reaction / Comment(s): no problems with prior blood transfusions,states "no agitation coming out of anesthesia" Date of Last Stent Placement:: 10/02/2015 Past Psychological History: Anxiety Smoking Status: Former smoker, Vaper Past Alcohol Use History: None Reported Past Drug Use History: None Reported - Past Family History Mother Family Medical History: Vascular Disorder Father Family Medical History: COPD Brother(s) Family Medical History: Cancer Additional Family Medical History / Comment(s): Heart problems, lymphoma. Medications and Allergies Home Medications Medication Instructions Recorded Confirmed Type Atorvastatin [Lipitor] 40 mg PO DAILY 06/09/18 09/04/24 History Nitroglycerin Sl Tabs [Nitrostat] 0.4 mg SL Q5M PRN 03/15/21 09/04/24 History Rivaroxaban [Xarelto] 20 mg PO DAILY 03/15/21 09/04/24 History ALPRAZolam [Xanax] 0.25 mg PO DAILY PRN 06/11/23 09/04/24 History Metoprolol Tartrate [Lopressor] 50 mg PO DAILY 06/11/23 09/04/24 History Pramipexole [Mirapex] 0.25 mg PO HS PRN 06/11/23 09/04/24 History Ipratropium/Albuter 20-100Mcg 1 puff INHALATION RT-BID PRN 12/30/23 09/04/24 History [Combivent Respimat 20-100Mcg Inhaler] Omeprazole [PriLOSEC] 40 mg PO DAILY 12/30/23 09/04/24 History Sertraline HCl [Zoloft] 50 mg PO DAILY 12/30/23 09/04/24 History Tamsulosin HCl [Flomax] 0.4 mg PO DAILY 12/30/23 09/04/24 History hydrOXYzine pamoate [Vistaril] 25 mg PO BID 12/30/23 09/04/24 History Albuterol Nebulized [Ventolin 2.5 mg INHALATION RT-Q4H 08/10/24 09/04/24 History Nebulized] Allergies Allergy/AdvReac Type Severity Reaction Status Date / Time No Known Allergies Allergy Verified 11/10/24 11:57 Physical Exam Vitals: Vital Signs Temp Pulse Resp BP Pulse Ox 11/10/24 13:52 98.7 F 80 18 127/57 94 L 11/10/24 11:53 102.3 F H 114 H 20 130/60 90 L Intake and Output 11/10/24 11/10/24 11/10/24 06:59 14:59 22:59 Other: Weight 51.71 kg Results CBC & Chem 7: 11/10/24 12:37 11/10/24 12:37 Labs: Abnormal Lab Results - Last 24 Hours (Table) 11/10/24 11/10/24 11/10/24 Range/Units 12:37 12:37 12:37 WBC 10.8 H (3.8-10.6) k/uL RBC 3.98 L (4.30-5.90) m/uL MCV 101.8 H D (80.0-100.0) fL Neutrophils # 10.1 H (1.3-7.7) k/uL Lymphocytes # 0.3 L (1.0-4.8) k/uL Sodium 132 L (137-145) mmol/L BUN 24 H (9-20) mg/dL AST 95 H (17-59) U/L Influenza Type A (PCR) Detected A (Not Detectd)
[2024-11-10] MEDS ORDERED: NITROGLYCERIN SL TABS 0.4 MG TAB SUBLINGUAL PRN (16:43)
[2024-11-10] MEDS: METOPROLOL TARTRATE 50 MG TAB PEG/G-TUBE SCH (20:52)
[2024-11-10] MEDS: HYDROcodone/APAP 5-325MG 1 EACH TAB PO PRN (20:52)
[2024-11-10] MEDS: ATORVASTATIN 40 MG TAB PO SCH (20:52)
[2024-11-10] MEDS: OSELTAMIVIR 75 MG CAP PO SCH (20:52)
[2024-11-10] MEDS: MELATONIN 3 MG TABLET PEG/G-TUBE SCH (20:52)
[2024-11-10] MEDS: hydrOXYzine pamoate 25 MG CAP PEG/G-TUBE SCH (20:52)
[2024-11-10] MEDS: ALBUTEROL NEBULIZED 2.5 MG/3 ML INHALATION SCH (21:12)
[2024-11-10 21:18] LABS: Appearance,Urine Clear (Clear); Bilirubin,Urine Negative (Negative); Blood,Urine Trace (Negative); Color,Urine Colorless; Glucose,Urine (UA) Negative (Negative); Ketones,Urine Negative (Negative); Leukocyte Esterase,Urine Negative (Negative); Mucus,Urine Rare /hpf; Nitrite,Urine Negative (Negative); Protein,Urine Trace (Negative); RBC,Urine 1 /hpf (0-5); Specific Gravity,Urine 1.045 (1.001-1.035); Squamous Epithelial Cell,Urine <1 /hpf (0-4); Urobilinogen,Urine <2.0 mg/dL (<2.0); WBC,Urine 1 /hpf (0-5)
[2024-11-10] MEDS: HYDROmorphone 1 MG/ML 1 ML SYRINGE IVP PRN (22:44)
[2024-11-11] MEDS: LEVOTHYROXINE 50 MCG TAB PEG/G-TUBE SCH (06:23)
[2024-11-11 07:42] LABS: Basophils % (A) 0 %; Eosinophils % (A) 0 %; HCT 42.5 % (39.0-53.0); HGB 13.4 gm/dL (13.0-17.5); Lymphocytes # (A) 0.3 k/uL (1.0-4.8); Lymphocytes % (A) 4 %; MCH 32.8 pg (25.0-35.0); MCHC 31.7 g/dL (31.0-37.0); MCV 103.4 fL (80.0-100.0); Macrocytosis Slight; Mean Platelet Volume 7.3; Monocytes # (A) 0.3 k/uL (0-1.0); Monocytes % (A) 3 %; Neutrophils # (A) 7.8 k/uL (1.3-7.7); Neutrophils % (A) 92 %; Platelet Count 162 k/uL (150-450); RBC 4.11 m/uL (4.30-5.90); WBC 8.5 k/uL (3.8-10.6)
[2024-11-11 08:04] LABS: African American GFR (CKD) >90 (>60 ml/min/1.73 sqM); Anion Gap 8 mmol/L; Blood Urea Nitrogen 24 mg/dL (9-20); Calcium 8.4 mg/dL (8.4-10.2); Carbon Dioxide 26 mmol/L (22-30); Chloride 100 mmol/L (98-107); Glucose 77 mg/dL (74-99); Non-African American GFR(CKD) >90 (>60 ml/min/1.73 sqM); Sodium 134 mmol/L (137-145)
[2024-11-11] MEDS ORDERED: HEPARIN SODIUM 1,000 UN/ML (10ML VL) IV PRN (08:13)
[2024-11-11] MEDS: ALBUTEROL NEBULIZED 2.5 MG/3 ML INHALATION SCH (08:14)
[2024-11-11] MEDS: SERTRALINE 50 MG TAB PEG/G-TUBE SCH (08:52)
[2024-11-11] MEDS: TAMSULOSIN 0.4 MG CAP.ER.24H PO SCH (08:52)
[2024-11-11] MEDS ORDERED: RIVAROXABAN 20 MG TAB PO SCH (09:00)
[2024-11-11] MEDS: HEPARIN SOD,PORK IN 0.45% NACL 25,000 UNIT in 0.45% NACL 1 250ML.BAG IV SCH (09:07)
[2024-11-11] MEDS: HEPARIN SODIUM 1,000 UN/ML (10ML VL) IV ONE (09:15)
[2024-11-11 09:46] LABS: Basophils % (A) 0 %; Eosinophils % (A) 0 %; HCT 43.6 % (39.0-53.0); HGB 13.5 gm/dL (13.0-17.5); Hypochromasia Slight; Lymphocytes # (A) 0.3 k/uL (1.0-4.8); Lymphocytes % (A) 4 %; MCH 32.2 pg (25.0-35.0); MCV 103.9 fL (80.0-100.0); Macrocytosis Slight; Mean Platelet Volume 7.3; Monocytes # (A) 0.3 k/uL (0-1.0); Monocytes % (A) 4 %; Neutrophils # (A) 7.3 k/uL (1.3-7.7); Neutrophils % (A) 90 %; Platelet Count 150 k/uL (150-450); RDW 13.1 % (11.5-15.5); WBC 8.2 k/uL (3.8-10.6)
[2024-11-11 10:00] LABS: Partial Thromboplastin Time 24.2 sec (22.0-30.0); Prothrombin Time 10.7 sec (10.0-12.5)
[2024-11-11] MEDS: PANTOPRAZOLE SODIUM 40 MG GRANULE PKT PEG/G-TUBE SCH (10:04)
--- NOTE | 2024-11-11 12:56 | P.CRDCN ---
History of Present Illness Consult date: 11/11/24 Reason for Consult (text): PAD History of present illness: This is a 79-year-old male patient of Dr. Saldaña with past medical history of coronary artery disease status post PCI and CABG, paroxysmal atrial fibrillation on Xarelto, mitral valve regurgitation, hypertension, hyperlipidemia, PAD with known occlusion of the left SFA, esophageal cancer status postchemotherapy and radiation therapy not a surgical candidate, status post PEG tube, remote history of tobacco use and dependence. We have been asked to evaluate patient for PAD. Patient gives history that he developed pain in his left leg and the left leg is feeling cold and numb. He states he has had this ongoing since September but worse the last 4 to 5 days. He states his most severe in the back of the thigh and worse from the knee down to the toes. Patient denies chest pain. Blood pressure 104/59, heart rate 63, pulse ox 93% on room air. Patient is seen today in the emergency center waiting for a bed on the cardiac stepdown unit. -EKG: Sinus rhythm no acute ST changes. -Chest x-ray: Chronic emphysematous changes without acute process. -CTA left lower extremity: Long occluded segment of the left superficial femoral artery in the proximal thigh and mid thigh. Three-vessel runoff. -Laboratory studies: WBC 8.2, hemoglobin 13.5, sodium 134, potassium 4, BUN 24 creatinine 0.68. Influenza A detected. -Home cardiac medications: Atorvastatin 40 mg daily, Lopressor 50 mg twice daily, Xarelto 20 mg daily, also on levothyroxine. -CV surgery 02/08/2016 With SCHWARTZ to LAD, VG to OM1, VG to PDA -PCI to: Stent to the mid RCA, stent to the proximal RCA, stent to the mid RCA. -Echocardiogram performed 05/06/2023 revealed EF of 47%, mild TR, mild AR, mild MR. -Lexiscan stress test performed 10/2019: EF 47%, partially reversible inferior apical and septal defect. -Arthrectomy and stenting of the left SFA mid and distal portion, balloon angioplasty of the proximal left SFA and balloon angio of the left common femoral 11/25/2018. -Right superficial femoral stent 07/22/2018. Review Of Systems: At the time of my exam: CONSTITUTIONAL: Denies fever or chills. HEENT: Denies blurred vision, vision changes, or eye pain. Denies hemoptysis CARDIOVASCULAR: Denies chest pain. Denies orthopnea. Denies PND. Denies palpitations RESPIRATORY: Denies shortness of breath. GASTROINTESTINAL: Denies abdominal pain. Denies nausea or vomiting. HEMATOLOGIC: Denies bleeding disorders. GENITOURINARY: Denies any blood in urine. SKIN: Denies puritis. Denies rash. Physical examination: Gen: This is a 79-year-old male in no acute distress VS: reviewed HEENT: Head is atraumatic, normocephalic. Pupils equal, round. Sclerae is anicteric. NECK: Supple. No JVD. LUNGS: Clear to auscultation. No wheezes or rhonchi. No intercostal retractions. HEART: Regular rate and rhythm. Systolic murmur. ABDOMEN: Soft No tenderness. EXTREMITIES: No pulse palpated on the left lower extremity. No pedal edema. NEUROLOGICAL: Patient is awake, alert and oriented x3. Assessment: Critical left lower limb ischemia Known occluded left SFA Influenza A, patient has been started on Tamiflu Coronary artery disease with previous stents and CABG Paroxysmal atrial fibrillation on Xarelto Mitral valve regurgitation with moderate mitral insufficiency Hypertension Hyperlipidemia PAD Remote history of tobacco use and dependence. Plan: Resume patient's home cardiac medications Hold Xarelto Start patient on heparin drip Schedule patient for angiogram tomorrow with Dr. Navarro, last dose of Xarelto on 11/09 N.p.o. after midnight Further recommendations to follow based upon clinical course Thank you kindly for this consultation. Nurse practitioner note has been reviewed, I agree with documented findings and plan of care. Patient was seen and examined. Past Medical History Past Medical History: Coronary Artery Disease (CAD), Cancer, COPD, GERD/Reflux, Hyperlipidemia, Hypertension, Memory Impairment, Myocardial Infarction ([place]), Thyroid Disorder, Vascular Disorder Additional Past Medical History / Comment(s): having a difficulty swallowing after eating-only able to swallow soft foods,hx artery to colon had to have a stent placed,PVD BOTH LEGS, RLS, neil leg cramps, esophageal cancer 2023, PEG tube Last Myocardial Infarction Date:: 10/02/2015 History of Any Multi-Drug Resistant Organisms: None Reported Past Surgical History: Coronary Bypass/CABG, Heart Catheterization With Stent, Hernia Repair, Orthopedic Surgery Additional Past Surgical History / Comment(s): heart stents x 3,ORIF rt elbow, triple bypass-taking xarelto, ABDOMINAL AORTOGRAM WITH NEIL EXT. RUNOFF 11-06-16. colonoscopy, egd Past Anesthesia/Blood Transfusion Reactions: No Reported Reaction Additional Past Anesthesia/Blood Transfusion Reaction / Comment(s): no problems with prior blood transfusions,states "no agitation coming out of anesthesia" Date of Last Stent Placement:: 10/02/2015 Past Psychological History: Anxiety Additional Psychological History / Comment(s): Short term memory loss, anger issues Smoking Status: Former smoker, Vaper Past Alcohol Use History: None Reported Additional Past Alcohol Use History / Comment(s): started smoking 1967-was 1 to 2 ppd,started e cigarette 2015, quit smoking march 2024 Past Drug Use History: None Reported - Past Family History Mother Family Medical History: Vascular Disorder Father Family Medical History: COPD Brother(s) Family Medical History: Cancer Additional Family Medical History / Comment(s): Heart problems, lymphoma. Medications and Allergies Home Medications Medication Instructions Recorded Confirmed Type Atorvastatin [Lipitor] 40 mg PEG/G-TUBE DAILY 06/09/18 11/10/24 History Nitroglycerin Sl Tabs [Nitrostat] 0.4 mg PEG/G-TUBE Q5M PRN 03/15/21 11/10/24 History Rivaroxaban [Xarelto] 20 mg PEG/G-TUBE DAILY 03/15/21 11/10/24 History ALPRAZolam [Xanax] 0.25 mg PEG/G-TUBE BID PRN 06/11/23 11/10/24 History Metoprolol Tartrate [Lopressor] 50 mg PEG/G-TUBE BID 06/11/23 11/10/24 History Ipratropium/Albuter 20-100Mcg 1 puff INHALATION RT-QID PRN 12/30/23 11/10/24 History [Combivent Respimat 20-100Mcg Inhaler] Omeprazole [PriLOSEC] 40 mg PEG/G-TUBE DAILY 12/30/23 11/10/24 History Sertraline HCl [Zoloft] 50 mg PEG/G-TUBE DAILY 12/30/23 11/10/24 History Tamsulosin HCl [Flomax] 0.4 mg PEG/G-TUBE DAILY 12/30/23 11/10/24 History hydrOXYzine pamoate [Vistaril] 25 mg PEG/G-TUBE BID 12/30/23 11/10/24 History Albuterol Nebulized [Ventolin 2.5 mg INHALATION RT-Q4H 08/10/24 11/10/24 History Nebulized] Acetaminophen Tab [Tylenol] 650 mg PEG/G-TUBE Q6H PRN 11/10/24 11/10/24 History Lactose-Reduced Food [Ensure Plus] 237 ml PEG/G-TUBE TID 11/10/24 11/10/24 History Levothyroxine Sodium [Synthroid] 50 mcg PEG/G-TUBE [id number] 11/10/24 11/10/24 History Melatonin 3 mg PEG/G-TUBE HS 11/10/24 11/10/24 History Allergies Allergy/AdvReac Type Severity Reaction Status Date / Time No Known Allergies Allergy Verified 11/10/24 16:43 Physical Exam Vitals: Vital Signs Temp Pulse Pulse Resp BP BP Pulse Ox 11/11/24 04:00 60 16 110/51 92 L 11/11/24 00:25 64 17 119/52 96 11/10/24 21:20 77 18 11/10/24 21:14 75 18 11/10/24 20:00 97.9 F 87 17 141/93 93 L 11/10/24 13:52 98.7 F 80 18 127/57 94 L 11/10/24 11:53 102.3 F H 114 H 20 130/60 90 L Intake and Output 11/10/24 11/11/24 11/11/24 22:59 06:59 14:59 Other: Voiding Method Urinal Urinal Results 11/11/24 08:33 11/11/24 07:04 Cardiac Enzymes 11/10/24 Range/Units 12:37 AST 95 H (17-59) U/L Coagulation 11/10/24 Range/Units 12:37 PT 11.6 (10.0-12.5) sec APTT 27.7 (22.0-30.0) sec CBC 11/10/24 11/11/24 Range/Units 12:37 07:04 WBC 10.8 H 8.5 (3.8-10.6) k/uL RBC 3.98 L 4.11 L (4.30-5.90) m/uL Hgb 13.1 13.4 (13.0-17.5) gm/dL Hct 40.5 42.5 (39.0-53.0) % Plt Count 170 162 (150-450) k/uL Comprehensive Metabolic Panel 11/10/24 11/11/24 Range/Units 12:37 07:04 Sodium 132 L 134 L (137-145) mmol/L Potassium 4.0 4.0 (3.5-5.1) mmol/L Chloride 98 100 (98-107) mmol/L Carbon Dioxide 23 26 (22-30) mmol/L BUN 24 H 24 H (9-20) mg/dL Creatinine 0.73 0.68 (0.66-1.25) mg/dL Glucose 91 77 (74-99) mg/dL Calcium 8.6 8.4 (8.4-10.2) mg/dL AST 95 H (17-59) U/L ALT 42 (4-49) U/L Alkaline Phosphatase 94 (38-126) U/L Total Protein 6.5 (6.3-8.2) g/dL Albumin 3.7 (3.5-5.0) g/dL Current Medications Generic Name Dose Route Start Last Admin Trade Name Freq PRN Reason Stop Dose Admin Acetaminophen 650 mg 11/10/24 16:29 Acetaminophen Tab 325 Mg Tab PO Q6HR PRN Mild Pain or Fever > 100.5 Hydrocodone Bitart/Acetaminophen 1 each 11/10/24 16:29 11/10/24 20:52 Hydrocodone/Apap 5-325mg 1 Each Tab PO 1 each Q4HR PRN Administration Moderate Pain (Scale 4 to 6) Albuterol Sulfate 2.5 mg 11/11/24 08:00 Albuterol Nebulized 2.5 Mg/3 Ml INHALATION RT-QID BRAEDEN Albuterol/Ipratropium 3 ml 11/10/24 16:43 Ipratropium-Albuterol 3 Ml Neb INHALATION RT-QID PRN Shortness Of Breath Alprazolam 0.25 mg 11/10/24 16:43 Alprazolam 0.25 Mg Tab PEG/G-TUBE BID PRN Anxiety Atorvastatin Calcium 40 mg 11/10/24 21:00 11/10/24 20:52 Atorvastatin 40 Mg Tab PO 40 mg HS BRAEDEN Administration Bisacodyl 5 mg 11/10/24 16:29 Bisacodyl 5 Mg Tablet.Dr PO DAILY PRN Constipation Docusate Sodium 100 mg 11/10/24 16:29 Docusate 100 Mg Cap PO BID PRN Constipation Hydromorphone HCl 1 mg 11/10/24 16:29 11/11/24 05:04 Hydromorphone 1 Mg/Ml 1 Ml Syringe IVP 1 mg Q3HR PRN Administration Severe Pain (Scale 7 to 10) Hydroxyzine Pamoate 25 mg 11/10/24 21:00 11/10/24 20:52 Hydroxyzine Pamoate 25 Mg Cap PEG/G-TUBE 25 mg BID BRAEDEN Administration Levothyroxine Sodium 50 mcg 11/11/24 06:30 11/11/24 06:23 Levothyroxine 50 Mcg Tab PEG/G-TUBE 50 mcg 0630 BRAEDEN Administration Melatonin 3 mg 11/10/24 21:00 11/10/24 20:52 Melatonin 3 Mg Tablet PEG/G-TUBE 3 mg HS BRAEDEN Administration Metoprolol Tartrate 50 mg 11/10/24 21:00 11/10/24 20:52 Metoprolol Tartrate 50 Mg Tab PEG/G-TUBE 50 mg BID BRAEDEN Administration Miscellaneous Information 1 each 11/10/24 12:33 Rx Info: Iv Contrast Was Given 1 Each Misc MISCELLANE 11/12/24 12:33 DAILY PRN Per Protocol Naloxone HCl 0.2 mg 11/10/24 16:29 Naloxone 0.4 Mg/Ml 1 Ml Vial IV Q2M PRN Opioid Reversal Nitroglycerin 0.4 mg 11/10/24 16:43 Nitroglycerin Sl Tabs 0.4 Mg Tab SUBLINGUAL Q5M PRN Chest Pain Oseltamivir Phosphate 75 mg 11/10/24 21:00 11/10/24 20:52 Oseltamivir 75 Mg Cap PO 11/14/24 21:01 75 mg Q12HR BRAEDEN Administration Protocol Pantoprazole Sodium 40 mg 11/11/24 09:00 Pantoprazole Sodium 40 Mg Granule Pkt PEG/G-TUBE DAILY BRAEDEN Prochlorperazine Maleate 5 mg 11/10/24 16:29 Prochlorperazine 5 Mg Tab PO Q8HR PRN Nausea And Vomiting Rivaroxaban 20 mg 11/11/24 09:00 Rivaroxaban 20 Mg Tab PO DAILY [facility] Protocol Sertraline HCl 50 mg 11/11/24 09:00 Sertraline 50 Mg Tab PEG/G-TUBE DAILY BRAEDEN Tamsulosin HCl 0.4 mg 11/11/24 09:00 Tamsulosin 0.4 Mg Cap.Er.24h PO DAILY BRAEDEN Intake and Output 11/10/24 11/11/24 11/11/24 22:59 06:59 14:59 Other: Voiding Method Urinal Urinal 11/11/24 07:04 11/11/24 07:04
--- NOTE | 2024-11-11 14:18 | P.PN ---
Subjective Progress Note Date: 11/11/24 Hospital Course: Patient is a 78-year-old male with medical history of CAD status post CABG, s tents, PAD, GERD, HLD, HTN, esophageal cancer PEG 03/2024 s/p chemotherapy, who presented to the ER with left foot pain that started around 1 week ago and was gradually worsening. He also noted numbness. Unable to put weight on his left lower extremity, usually ambulates with a walker. Denies SOB, chest pain, abdominal pain.He is compliant with medications. On arrival febrile 102.3, tachycardic 114, satting 90% on room air, was placed on nasal cannula 2 L with improvement of SpO2 to 94%. BP 130/60. Blood work significant for mild leukocytosis 10.8, hemoglobin 13.1, platelet count normal, coagulation panel unremarkable, sodium 132, potassium 4.0, bicarb 23, BUN 24, creatinine 0.73, lactic acid 1.6, AST elevated 95, ALT normal, ALP normal, tested positive for influenza A. CTA left lower extremity showed long occluded segment of the left superficial femoral artery in the proximal type and mid type, with three-vessel runoff. consulted Dr. Navarro. Patient started on heparin drip, Xarelto on hold, plan for angiogram on 11/12 Pertinent Imaging: No new imaging Subjective: Continues to complain of left lower extremity pain, otherwise no concerns Pertinent positives and negatives as discussed above, a complete review of systems was performed and all other systems are negative. Vitals Signs Reviewed. General: nontoxic, no distress, appears at stated age Derm: warm, dry Head: atraumatic, normocephalic, symmetric Eyes: EOMI, no lid lag, anicteric sclera, pupils equal round reactive to light ENT: Nose and ears atraumatic Neck: No thyromegaly, supple Mouth: no lip lesion, mucus membranes moist Cardiovascular: S1S2 reg, no murmur, no edema Lungs: clear to auscultation bilateral, no rhonchi, no rales, no wheeze, no accessory muscle use Abdominal: soft, nontender to palpation, no guarding, no appreciable organomegaly Ext: no gross muscle atrophy, no contractures; unable to palpate L dorsalis pedis, posterior tibialis, LLE cooler to touch Neuro: CN II-XII grossly intact Psych: Alert, oriented, appropriate affect Data Reviewed Today: Pertinent Labs: No leukocytosis, hemoglobin 13.5, normal platelet count, sodium 134, potassium 4.0, creatinine normal, bicarb, Assessment and Plan: Left superficial femoral artery occlusion -Dr Navarro consulted: Plan for angiography 11/12 -Start heparin drip, hold Xarelto, continue high intensity statins with Lipitor 40 -pain control: Tylenol,norco 5 q 4 hours PRN, dilaudid 1 mg q 3 hours PRN -PPIs -IVF with NS at 75cc/hr Acute hypoxic respiratory failure secondary to influenza A infection -Wean off supplemental oxygen as tolerated -Continue Tamiflu SOT 11/10 -Continue home Combivent, albuterol CAD status post CABG 2015 COPD not in exacerbation, not on home oxygen History of mesenteric ischemia status post SMA stent 2022 PAD continue home meds once reconciled: per previous d/c summary on Lipitor 40, Lopressor 50 daily, Xarelto 20 daily, Prilosec 40 daily, tamsulosin 0.4 mg daily, Zoloft 50 mg daily, hydroxyzine 25 p.o. twice daily Xanax 0.25 daily as needed, Combivent, albuterol esophageal cancer status post PEG ,s/p chemotherapy Status post robotic gastrostomy tube placement 09/07/2024 CODE STATUS: DVT prophylaxis: xarelto Anticipated discharge date: tbd Anticipated discharge place: TBD Objective - Vital Signs Vital signs: Vital Signs Temp 98 F 11/11/24 12:08 Pulse 63 11/11/24 12:08 Resp 14 11/11/24 12:08 BP 104/59 11/11/24 12:08 Pulse Ox 93 L 11/11/24 12:08 FiO2 Intake & Output 11/10/24 11/11/24 11/11/24 18:59 06:59 18:59 Weight 51.71 kg 51.71 kg Other: Voiding Method Urinal Urinal - Labs CBC & Chem 7: 11/11/24 08:33 11/11/24 07:04 Labs: Abnormal Lab Results - Last 24 Hours (Table) 11/10/24 11/11/24 11/11/24 Range/Units 21:11 07:04 07:04 RBC 4.11 L (4.30-5.90) m/uL MCV 103.4 H (80.0-100.0) fL Neutrophils # 7.8 H (1.3-7.7) k/uL Lymphocytes # 0.3 L (1.0-4.8) k/uL Sodium 134 L (137-145) mmol/L BUN 24 H (9-20) mg/dL Ur Specific [place] 1.045 H (1.001-1.035) Urine Protein Trace H (Negative) Urine Blood Trace H (Negative) Urine Mucus Rare H (None) /hpf 11/11/24 Range/Units 08:33 RBC 4.20 L (4.30-5.90) m/uL MCV 103.9 H (80.0-100.0) fL Neutrophils # (1.3-7.7) k/uL Lymphocytes # 0.3 L (1.0-4.8) k/uL Sodium (137-145) mmol/L BUN (9-20) mg/dL Ur Specific [place] (1.001-1.035) Urine Protein (Negative) Urine Blood (Negative) Urine Mucus (None) /hpf
[2024-11-12 06:23] LABS: Glucose,Whole Blood 89 mg/dL (70-110)
[2024-11-12 08:10] LABS: Prothrombin Time 11.1 sec (10.0-12.5)
[2024-11-12 08:24] LABS: African American GFR (CKD) >90 (>60 ml/min/1.73 sqM); Anion Gap 5 mmol/L; Blood Urea Nitrogen 24 mg/dL (9-20); Calcium 7.9 mg/dL (8.4-10.2); Carbon Dioxide 29 mmol/L (22-30); Chloride 97 mmol/L (98-107); Glucose 84 mg/dL (74-99); Non-African American GFR(CKD) >90 (>60 ml/min/1.73 sqM); Potassium 4.6 mmol/L (3.5-5.1); Sodium 131 mmol/L (137-145)
[2024-11-12 08:55] LABS: Basophils % (A) 0 %; Eosinophils % (A) 0 %; HCT 38.4 % (39.0-53.0); HGB 12.3 gm/dL (13.0-17.5); Lymphocytes # (A) 0.3 k/uL (1.0-4.8); Lymphocytes % (A) 6 %; MCH 32.9 pg (25.0-35.0); MCHC 32.1 g/dL (31.0-37.0); MCV 102.8 fL (80.0-100.0); Macrocytosis Slight; Mean Platelet Volume 8.4; Monocytes # (A) 0.3 k/uL (0-1.0); Monocytes % (A) 5 %; Neutrophils # (A) 4.8 k/uL (1.3-7.7); Neutrophils % (A) 88 %; Platelet Count 141 k/uL (150-450); RBC 3.74 m/uL (4.30-5.90); WBC 5.5 k/uL (3.8-10.6)
--- NOTE | 2024-11-12 10:40 | CDI ---
Documentation Clarification Form Date: 11/12/2024 10:21:05 AM From: Shira Pulliam RN, CCDS Phone: [phone] Admit Date: 11/10/2024 03:35:00 PM Patient Name: Koko Price Visit Number: [id number] Discharge Date: ATTENTION: The Clinical Documentation Specialists (CDI) and [facility] Coding Staff appreciate your assistance in clarifying documentation. Please respond to the clarification below the line at the bottom and electronically sign. The CDI & [facility] Coding staff will review the response and follow-up if needed. Please note: Queries are made part of the Legal Health Record. If you have any questions, please contact the author of this message via ITS. Doctor. Aminata Yesseniabasilio Acute hypoxic respiratory failure is documented in the H/P on 11/10/24 and subsequent progress which may lack sufficient clinical evidence/support in the medical record. Additional clarification is requested. History/Risk Factors: CAD status post CABG, PAD, GERD, HLD, HTN, esophageal ca Clinical Indicators: 78-year-old male presents with left foot pain numbness also ruled in for Influenza A. On arrival febrile 102.3, tachycardic 114, O2 sat 90% on room air, WBC 10.8, was placed 2L NC. He denied shortness of breath. 11/10/24 H/P notes: Lungs: clear to auscultation bilateral, no rhonchi, no rales, no wheeze, no accessory muscle use. 11/10/24 Respiratory assessment: (07:00) Resp. rate 16, Resp. effort Normal non- labored, Oxygen flow rate 2L, sat by pulse ox 92% Treatment: Monitor O2 sat's (titrate) Tamiflu Please clarify if acute hypoxic respiratory failure is a valid diagnosis? [ ] No, acute hypoxic respiratory failures ruled out [ x ] Yes, acute hypoxic respiratory failure is present as evidence by (additional clinical support): __hypoxia SpO2 86% [ ] Other (please specify diagnosis) [ ] Unable to determine (Template Last Revised: January 2024) MTDD
[2024-11-12] MEDS: MIDAZOLAM 2 MG/2 ML VIAL IVP ONE (12:16)
[2024-11-12] MEDS: fentaNYL (PF) 50 MCG/ML 2 ML AMP IVP ONE ×2 (12:53→13:19)
[2024-11-12] MEDS: LIDOCAINE 1% INJ 10MG/ML (30 ML VIAL-PF) SQ ONE (13:38)
[2024-11-12] MEDS: HYDROmorphone 0.5 MG/0.5 ML SYRINGE IVP ONE (13:45)
--- NOTE | 2024-11-12 14:02 | P.PN ---
Subjective Progress Note Date: 11/12/24 Reason for Consult (text): PAD History of present illness: This is a 79-year-old male patient of Dr. Saldaña with past medical history of coronary artery disease status post PCI and CABG, paroxysmal atrial fibrillation on Xarelto, mitral valve regurgitation, hypertension, hyperlipidemia, PAD with known occlusion of the left SFA, esophageal cancer status postchemotherapy and radiation therapy not a surgical candidate, status post PEG tube, remote history of tobacco use and dependence. We have been asked to evaluate patient for PAD. Patient gives history that he developed pain in his left leg and the left leg is feeling cold and numb. He states he has had this ongoing since September but worse the last 4 to 5 days. He states his most severe in the back of the thigh and worse from the knee down to the toes. Patient denies chest pain. Blood p ressure 104/59, heart rate 63, pulse ox 93% on room air. Patient is seen today in the emergency center waiting for a bed on the cardiac stepdown unit. -EKG: Sinus rhythm no acute ST changes. -Chest x-ray: Chronic emphysematous changes without acute process. -CTA left lower extremity: Long occluded segment of the left superficial femoral artery in the proximal thigh and mid thigh. Three-vessel runoff. -Laboratory studies: WBC 8.2, hemoglobin 13.5, sodium 134, potassium 4, BUN 24 creatinine 0.68. Influenza A detected. -Home cardiac medications: Atorvastatin 40 mg daily, Lopressor 50 mg twice daily, Xarelto 20 mg daily, also on levothyroxine. -CV surgery 02/08/2016 With SCHWARTZ to LAD, VG to OM1, VG to PDA -PCI to: Stent to the mid RCA, stent to the proximal RCA, stent to the mid RCA. -Echocardiogram performed 05/06/2023 revealed EF of 47%, mild TR, mild AR, mild MR. -Lexiscan stress test performed 10/2019: EF 47%, partially reversible inferior apical and septal defect. -Arthrectomy and stenting of the left SFA mid and distal portion, balloon angioplasty of the proximal left SFA and balloon angio of the left common femoral 11/25/2018. -Right superficial femoral stent 07/22/2018. 11/12 Patient seen and examined. Patient is scheduled for angiogram today with Dr. Navarro. He remains on heparin drip. He does complain of pain in the left lower extremity. Pulses not palpable. He denies chest pain. Blood pressure 125/64, heart rate 65, pulse ox 95% on 3 L nasal cannula. Repeat blood work reveals hemoglobin 12.3, BUN 24 creatinine 0.7. Physical examination: Gen: This is a 79-year-old male in no acute distress VS: reviewed HEENT: Head is atraumatic, normocephalic. Pupils equal, round. Sclerae is anicteric. NECK: Supple. No JVD. LUNGS: Clear to auscultation. No wheezes or rhonchi. No intercostal retractions. HEART: Regular rate and rhythm. Systolic murmur. ABDOMEN: Soft No tenderness. EXTREMITIES: No pulse palpated on the left lower extremity. No pedal edema. NEUROLOGICAL: Patient is awake, alert and oriented x3. Assessment: Critical left lower limb ischemia Known occluded left SFA Influenza A, patient has been started on Tamiflu Coronary artery disease with previous stents and CABG Paroxysmal atrial fibrillation on Xarelto Mitral valve regurgitation with moderate mitral insufficiency Hypertension Hyperlipidemia PAD Remote history of tobacco use and dependence. Plan: Continue patient's home cardiac medications Hold Xarelto Start patient on heparin drip Schedule patient for angiogram today with Dr. Navarro, last dose of Xarelto on 11/09 N.p.o. Further recommendations to follow based upon clinical course Nurse practitioner note has been reviewed, I agree with documented findings and plan of care. Patient was seen and examined. Objective - Vital Signs Vital signs: Vital Signs Temp 98.1 F 11/12/24 09:17 Pulse 67 11/12/24 10:01 Resp 18 11/12/24 09:17 BP 125/64 11/12/24 09:17 Pulse Ox 95 11/12/24 09:44 FiO2 Intake & Output 11/11/24 11/12/24 11/12/24 18:59 06:59 18:59 Intake Total 55.845 540 Output Total 400 325 Balance -344.155 215 Weight 51.71 kg 56.5 kg Intake: Intake, IV Titration 55.845 Amount Heparin Sod,Pork in 0.45% 55.845 NaCl 25,000 unit In 0.45 % NaCl 1 250ml.bag @ 12 UNITS/KG/HR 6.205 mls/hr IV .Q24H [facility] Rx#: [id number] Oral 540 Output: Urine 400 325 Other: Voiding Method Urinal Urinal Urinal # Voids 1 - Labs CBC & Chem 7: 11/12/24 07:30 11/12/24 07:30 Labs: Abnormal Lab Results - Last 24 Hours (Table) 11/12/24 11/12/24 11/12/24 Range/Units 00:14 07:30 07:30 RBC 3.74 L (4.30-5.90) m/uL Hgb 12.3 L (13.0-17.5) gm/dL Hct 38.4 L (39.0-53.0) % MCV 102.8 H (80.0-100.0) fL Plt Count 141 L (150-450) k/uL Lymphocytes # 0.3 L (1.0-4.8) k/uL APTT 57.7 H (22.0-30.0) sec Sodium 131 L (137-145) mmol/L Chloride 97 L (98-107) mmol/L BUN 24 H (9-20) mg/dL Calcium 7.9 L (8.4-10.2) mg/dL Microbiology - Last 24 Hours (Table) 11/10/24 12:37 Blood Culture - Preliminary Blood
[2024-11-12] MEDS: IOPAMIDOL-300 100ML BTL INJ ONE (14:12)
--- NOTE | 2024-11-12 14:22 | P.PCN ---
Date of Procedure: 11/12/24 Operative Findings: Percutaneous peripheral arterial procedure Performing physician Russell Navarro MD Procedure performed Left lower extremity angiogram Placement of tPA infusion catheter in the left common and left external iliac artery Ultrasound-guided access of the right common femoral artery Indication Acute limb ischemia of the left lower extremity Approach Right common femoral artery Complication None Level of sedation Moderate with sedation length of 35 minutes Procedure description next after attending informed consent the patient was brought to the cardiac Neonatal Intensive Care Unit Nurse. The right common femoral artery was cannulated using micropuncture technique under ultrasound guidance the micropuncture wire passed easily then I placed a 6 Cypriot 11 cm sheath at the right common femoral artery with after that I did select left common iliac artery using a rim catheter. After that I was able to advance a stiff Glidewire to the left profunda. Subsequently I did advance over the wire a CXI catheter and I pulled the wire out I injected contrast in the left common femoral artery to prove that I was in the true lumen at the same time that showed occluded left SFA which appears to be chronic and patent profunda as well as three-vessel runoff below the knee on the left side. At that point I decided to place a tPA infusion catheter which was placed over a 035 stiff Glidewire and then the wire was pulled out. The procedure was completed with no complication Postprocedure management Continue tPA infusion for at least 24 to 48 hours Bring the patient for second look and assess the need for angioplasty of the left iliac with possible thrombectomy tPA protocol Follow-up with the patient
[2024-11-12] MEDS: ALTEPLASE 10 MG in SODIUM CHLORIDE 0.9% 90 ML IA ONE (14:32)
--- NOTE | 2024-11-12 15:23 | P.PN ---
Subjective Progress Note Date: 11/12/24 Hospital Course: Patient is a 78-year-old male with medical history of CAD status post CABG, s tents, PAD, GERD, HLD, HTN, esophageal cancer PEG 03/2024 s/p chemotherapy, who presented to the ER with left foot pain that started around 1 week ago and was gradually worsening. He also noted numbness. Unable to put weight on his left lower extremity, usually ambulates with a walker. Denies SOB, chest pain, abdominal pain.He is compliant with medications. On arrival febrile 102.3, tachycardic 114, satting 90% on room air, was placed on nasal cannula 2 L with improvement of SpO2 to 94%. BP 130/60. Blood work significant for mild leukocytosis 10.8, hemoglobin 13.1, platelet count normal, coagulation panel unremarkable, sodium 132, potassium 4.0, bicarb 23, BUN 24, creatinine 0.73, lactic acid 1.6, AST elevated 95, ALT normal, ALP normal, tested positive for influenza A. CTA left lower extremity showed long occluded segment of the left superficial femoral artery in the proximal type and mid type, with three-vessel runoff. consulted Dr. Sanchez. Patient started on heparin drip, Xarelto on hold, plan for angiogram on 11/12, procedure was performed placement of tPA infusion catheter in the left common and left external iliac artery, infusion to be continued for 24 to 48 hours, plan to bring the patient for second look and assess the need for angioplasty of the left iliac with possible thrombectomy Subjective: Continues to complain of left lower extremity pain, otherwise no concerns, was seen before procedure Pertinent positives and negatives as discussed above, a complete review of systems was performed and all other systems are negative. Vitals Signs Reviewed. General: nontoxic, no distress, appears at stated age Derm: warm, dry Head: atraumatic, normocephalic, symmetric Eyes: EOMI, no lid lag, anicteric sclera, pupils equal round reactive to light ENT: Nose and ears atraumatic Neck: No thyromegaly, supple Mouth: no lip lesion, mucus membranes moist Cardiovascular: S1S2 reg, no murmur, no edema Lungs: clear to auscultation bilateral, no rhonchi, no rales, no wheeze, no accessory muscle use Abdominal: soft, nontender to palpation, no guarding, no appreciable organomegaly Ext: no gross muscle atrophy, no contractures; unable to palpate L dorsalis pedis, posterior tibialis, LLE cooler to touch Neuro: CN II-XII grossly intact Psych: Alert, oriented, appropriate affect Data Reviewed Today: Pertinent Labs: No leukocytosis, hemoglobin 12.3, platelet count 141, sodium 131, creatinine 0.7 Assessment and Plan: Left lower extremity acute limb ischemia status post placement of tPA infusion catheter in the left common and left external iliac artery 11/12/2024 -Cardiology following -tPA infusion per cardiology, hold Xarelto, continue high intensity statins with Lipitor 40 -pain control: Tylenol,norco 5 q 4 hours PRN, dilaudid 1 mg q 3 hours PRN -PPIs with pantoprazole 40 mg daily Acute hypoxic respiratory failure secondary to influenza A infection -Wean off supplemental oxygen as tolerated -Continue Tamiflu SOT 11/10 -Continue home Combivent, albuterol CAD status post CABG 2015 COPD not in exacerbation, not on home oxygen History of mesenteric ischemia status post SMA stent 2022 PAD continue home meds Lipitor 40, Lopressor 50 daily, Prilosec 40 daily, tamsulosin 0.4 mg daily, Zoloft 50 mg daily, hydroxyzine 25 p.o. twice daily, holding Xar elto 20 daily Xanax 0.25 daily as needed, Combivent, albuterol esophageal cancer status post PEG ,s/p chemotherapy Status post robotic gastrostomy tube placement 09/07/2024 CODE STATUS: Anticipated discharge date: tbd Anticipated discharge place: TBD Objective - Vital Signs Vital signs: Vital Signs Temp 98.2 F 11/12/24 12:18 Pulse 67 11/12/24 10:01 Resp 18 11/12/24 12:18 BP 104/52 11/12/24 12:18 Pulse Ox 95 11/12/24 12:18 FiO2 Intake & Output 11/11/24 11/12/24 11/12/24 18:59 06:59 18:59 Intake Total 55.845 540 126.31 Output Total 400 325 Balance -344.155 215 126.31 Weight 51.71 kg 56.5 kg 56.5 kg Intake: Intake, IV Titration 55.845 126.31 Amount Heparin Sod,Pork in 0.45% 55.845 126.31 NaCl 25,000 unit In 0.45 % NaCl 1 250ml.bag @ 12 UNITS/KG/HR 6.205 mls/hr IV .Q24H [facility] Rx#: [id number] Oral 540 Output: Urine 400 325 Other: Voiding Method Urinal Urinal Urinal # Voids 1 - Labs CBC & Chem 7: 11/12/24 07:30 11/12/24 07:30 Labs: Abnormal Lab Results - Last 24 Hours (Table) 11/12/24 11/12/24 11/12/24 Range/Units 00:14 07:30 07:30 RBC 3.74 L (4.30-5.90) m/uL Hgb 12.3 L (13.0-17.5) gm/dL Hct 38.4 L (39.0-53.0) % MCV 102.8 H (80.0-100.0) fL Plt Count 141 L (150-450) k/uL Lymphocytes # 0.3 L (1.0-4.8) k/uL APTT 57.7 H (22.0-30.0) sec Sodium 131 L (137-145) mmol/L Chloride 97 L (98-107) mmol/L BUN 24 H (9-20) mg/dL Calcium 7.9 L (8.4-10.2) mg/dL Microbiology - Last 24 Hours (Table) 11/10/24 12:37 Blood Culture - Preliminary Blood
[2024-11-12 15:51] LABS: Basophils % (A) 0 %; Eosinophils % (A) 0 %; HCT 36.6 % (39.0-53.0); HGB 11.4 gm/dL (13.0-17.5); Lymphocytes # (A) 0.3 k/uL (1.0-4.8); Lymphocytes % (A) 5 %; MCH 32.1 pg (25.0-35.0); MCHC 31.1 g/dL (31.0-37.0); MCV 102.9 fL (80.0-100.0); Macrocytosis Slight; Mean Platelet Volume 7.9; Monocytes # (A) 0.2 k/uL (0-1.0); Monocytes % (A) 3 %; Neutrophils % (A) 90 %; Platelet Count 141 k/uL (150-450); RBC 3.56 m/uL (4.30-5.90); WBC 5.5 k/uL (3.8-10.6)
[2024-11-12 16:00] LABS: INR 0.9 (<1.2); Prothrombin Time 10.6 sec (10.0-12.5)
[2024-11-12 16:03] LABS: African American GFR (CKD) >90 (>60 ml/min/1.73 sqM); Blood Urea Nitrogen 21 mg/dL (9-20); Non-African American GFR(CKD) >90 (>60 ml/min/1.73 sqM)
[2024-11-12 16:07] LABS: Glucose,Whole Blood 74 mg/dL (70-110)
--- NOTE | 2024-11-12 16:30 | IR ---
EXAMINATION TYPE: IR transcath infusion therapy DATE OF EXAM: 11/12/2024 4:16 PM COMPARISON: Pre Operative Images if available both CT/MRI or plain film CLINICAL INDICATION: Male, 79 years old with history of Left Leg Pain; TECHNIQUE: IR transcath infusion therapy, multiple fluoroscopic images provided for procedure. DAP: 6.95 mGym2 Gycm2 uGym2 cGycm2 or equivalent. FINDINGS: IMPRESSION: 1. Report was generated for administrative purposes only. 2. Please see the operative/procedural note for further details. [facility], , 11/12/2024 4:28 PM
[2024-11-12 19:54] LABS: HCT 37.1 % (39.0-53.0); HGB 11.1 gm/dL (13.0-17.5); MCH 30.8 pg (25.0-35.0); MCHC 29.9 g/dL (31.0-37.0); MCV 103.1 fL (80.0-100.0); Macrocytosis Slight; Mean Platelet Volume 8.1; Platelet Count 141 k/uL (150-450); RBC 3.59 m/uL (4.30-5.90); WBC 4.9 k/uL (3.8-10.6)
[2024-11-12 20:01] LABS: INR 0.9 (<1.2); Partial Thromboplastin Time 56.1 sec (22.0-30.0); Prothrombin Time 10.6 sec (10.0-12.5)
[2024-11-12 21:20] LABS: African American GFR (CKD) >90 (>60 ml/min/1.73 sqM); Blood Urea Nitrogen 20 mg/dL (9-20); Non-African American GFR(CKD) >90 (>60 ml/min/1.73 sqM)
[2024-11-13 00:17] LABS: HCT 35.3 % (39.0-53.0); HGB 11.3 gm/dL (13.0-17.5); MCHC 32.1 g/dL (31.0-37.0); Macrocytosis Slight; Mean Platelet Volume 8.3; Platelet Count 143 k/uL (150-450); RBC 3.43 m/uL (4.30-5.90); RDW 13.3 % (11.5-15.5); WBC 4.6 k/uL (3.8-10.6)
[2024-11-13 00:30] LABS: Partial Thromboplastin Time 39.1 sec (22.0-30.0); Prothrombin Time 10.8 sec (10.0-12.5)
[2024-11-13 04:43] LABS: Basophils % (A) 0 %; Eosinophils % (A) 0 %; HCT 37.6 % (39.0-53.0); HGB 11.6 gm/dL (13.0-17.5); Lymphocytes # (A) 0.2 k/uL (1.0-4.8); Lymphocytes % (A) 5 %; MCH 31.7 pg (25.0-35.0); MCV 102.2 fL (80.0-100.0); Macrocytosis Slight; Mean Platelet Volume 8.1; Monocytes # (A) 0.2 k/uL (0-1.0); Monocytes % (A) 4 %; Neutrophils # (A) 4.1 k/uL (1.3-7.7); Neutrophils % (A) 89 %; Platelet Count 150 k/uL (150-450); RBC 3.68 m/uL (4.30-5.90); RDW 13.3 % (11.5-15.5); WBC 4.6 k/uL (3.8-10.6)
[2024-11-13 04:51] LABS: Partial Thromboplastin Time 35.3 sec (22.0-30.0)
[2024-11-13 05:36] LABS: African American GFR (CKD) >90 (>60 ml/min/1.73 sqM); Anion Gap 5 mmol/L; Blood Urea Nitrogen 20 mg/dL (9-20); Calcium 8.2 mg/dL (8.4-10.2); Carbon Dioxide 28 mmol/L (22-30); Chloride 98 mmol/L (98-107); Glucose 83 mg/dL (74-99); Non-African American GFR(CKD) >90 (>60 ml/min/1.73 sqM); Potassium 4.2 mmol/L (3.5-5.1); Sodium 131 mmol/L (137-145)
[2024-11-13 09:07] LABS: HCT 34.9 % (39.0-53.0); HGB 11.2 gm/dL (13.0-17.5); MCH 32.6 pg (25.0-35.0); MCV 101.8 fL (80.0-100.0); Macrocytosis Slight; Mean Platelet Volume 8.5; Platelet Count 150 k/uL (150-450); RBC 3.43 m/uL (4.30-5.90); RDW 13.4 % (11.5-15.5); WBC 6.1 k/uL (3.8-10.6)
[2024-11-13 09:09] LABS: Partial Thromboplastin Time 37.4 sec (22.0-30.0); Prothrombin Time 10.7 sec (10.0-12.5)
--- NOTE | 2024-11-13 11:23 | P.PN ---
Subjective Progress Note Date: 11/13/24 Hospital Course: Patient is a 78-year-old male with medical history of CAD status post CABG, s tents, PAD, GERD, HLD, HTN, esophageal cancer PEG 03/2024 s/p chemotherapy, who presented to the ER with left foot pain that started around 1 week ago and was gradually worsening. He also noted numbness. Unable to put weight on his left lower extremity, usually ambulates with a walker. Denies SOB, chest pain, abdominal pain.He is compliant with medications. On arrival febrile 102.3, tachycardic 114, satting 90% on room air, was placed on nasal cannula 2 L with improvement of SpO2 to 94%. BP 130/60. Blood work significant for mild leukocytosis 10.8, hemoglobin 13.1, platelet count normal, coagulation panel unremarkable, sodium 132, potassium 4.0, bicarb 23, BUN 24, creatinine 0.73, lactic acid 1.6, AST elevated 95, ALT normal, ALP normal, tested positive for influenza A. CTA left lower extremity showed long occluded segment of the left superficial femoral artery in the proximal type and mid type, with three-vessel runoff. consulted Dr. Sanchez. Patient started on heparin drip, Xarelto on hold, plan for angiogram on 11/12, procedure was performed placement of tPA infusion catheter in the left common and left external iliac artery, infusion to be continued for 24 to 48 hours, plan to bring the patient for second look and assess the need for angioplasty of the left iliac with possible thrombectomy 11/13 seen in the ICU, pain is improved, dopplerable dorsalis pedis on the left, no other concerns Pertinent positives and negatives as discussed above, a complete review of systems was performed and all other systems are negative. Vitals Signs Reviewed. General: nontoxic, no distress, appears at stated age Derm: warm, dry Head: atraumatic, normocephalic, symmetric Eyes: EOMI, no lid lag, anicteric sclera, pupils equal round reactive to light ENT: Nose and ears atraumatic Neck: No thyromegaly, supple Mouth: no lip lesion, mucus membranes moist Cardiovascular: S1S2 reg, no murmur, no edema Lungs: clear to auscultation bilateral, no rhonchi, no rales, no wheeze, no acce ssory muscle use Abdominal: soft, nontender to palpation, no guarding, no appreciable organomegaly Ext: no gross muscle atrophy, no contractures; unable to palpate L dorsalis pedis, posterior tibialis, dorsalis pedis is dopplerable, left lower extremity is warm to touch Neuro: CN II-XII grossly intact Psych: Alert, oriented, appropriate affect Data Reviewed Today: Pertinent Labs: No leukocytosis, 11.2, platelet count normal today, sodium 131, potassium 4.2, creatinine 0.69 Assessment and Plan: Left lower extremity acute limb ischemia status post placement of tPA infusion catheter in the left common and left external iliac artery 11/12/2024 -Cardiology following -tPA infusion per cardiology, heparin drip hold Xarelto, continue high intensity statins with Lipitor 40 -pain control: Tylenol,norco 5 q 4 hours PRN, dilaudid 1 mg q 3 hours PRN -PPIs with pantoprazole 40 mg daily Acute hypoxic respiratory failure secondary to influenza A infection -Wean off supplemental oxygen as tolerated -Continue Tamiflu SOT 11/10 -Continue home Combivent, albuterol Hyponatremia: Stable, monitor BMP CAD status post CABG 2015 COPD not in exacerbation, not on home oxygen History of mesenteric ischemia status post SMA stent 2022 PAD continue home meds Lipitor 40, Lopressor 50 daily, Prilosec 40 daily, tamsulosin 0.4 mg daily, Zoloft 50 mg daily, hydroxyzine 25 p.o. twice daily, holding Xarelto 20 daily Xanax 0.25 daily as needed, Combivent, albuterol esophageal cancer status post PEG ,s/p chemotherapy Status post robotic gastrostomy tube placement 09/07/2024 CODE STATUS: DVT prophylaxis, heparin drip Anticipated discharge date: tbd Anticipated discharge place: TBD Objective - Vital Signs Vital signs: Vital Signs Temp 98.5 F 11/13/24 04:00 Pulse 73 11/13/24 09:13 Resp 17 11/13/24 07:00 BP 111/53 11/13/24 07:00 Pulse Ox 91 L 11/13/24 07:00 FiO2 Intake & Output 11/12/24 11/13/24 11/13/24 18:59 06:59 18:59 Intake Total 126.31 154.905 154.0 Output Total 0 550 0 Balance 126.31 -395.095 154.0 Weight 56.5 kg 58.5 kg Intake: Intake, IV Titration 126.31 154.905 154.0 Amount Alteplase 10 mg In Sodium 84.833 81.5 Chloride 0.9% 90 ml @ 1 MG/HR 10 mls/hr IA .Q10H [facility] Rx#:[id number] Heparin Sod,Pork in 0.45% 126.31 70.072 72.5 NaCl 25,000 unit In 0.45 % NaCl 1 250ml.bag @ 12 UNITS/KG/HR 6.205 mls/hr IV .Q24H [facility] Rx#: [id number] Output: Urine 0 550 0 Other: Voiding Method Urinal # Voids 0 - Labs CBC & Chem 7: 11/13/24 08:20 11/13/24 08:20 Labs: Abnormal Lab Results - Last 24 Hours (Table) 11/12/24 11/12/24 11/12/24 Range/Units 15:19 15:19 15:19 RBC 3.56 L (4.30-5.90) m/uL Hgb 11.4 L (13.0-17.5) gm/dL Hct 36.6 L (39.0-53.0) % MCV 102.9 H (80.0-100.0) fL MCHC (31.0-37.0) g/dL Plt Count 141 L (150-450) k/uL Lymphocytes # 0.3 L (1.0-4.8) k/uL APTT (22.0-30.0) sec Fibrinogen 590 H (200-500) mg/dL Sodium (137-145) mmol/L BUN 21 H (9-20) mg/dL Creatinine 0.65 L (0.66-1.25) mg/dL Calcium (8.4-10.2) mg/dL 11/12/24 11/12/24 11/12/24 Range/Units 19:43 19:43 19:43 RBC 3.59 L (4.30-5.90) m/uL Hgb 11.1 L (13.0-17.5) gm/dL Hct 37.1 L (39.0-53.0) % MCV 103.1 H (80.0-100.0) fL MCHC 29.9 L (31.0-37.0) g/dL Plt Count 141 L (150-450) k/uL Lymphocytes # (1.0-4.8) k/uL APTT 56.1 H (22.0-30.0) sec Fibrinogen 594 H (200-500) mg/dL Sodium (137-145) mmol/L BUN (9-20) mg/dL Creatinine 0.64 L (0.66-1.25) mg/dL Calcium (8.4-10.2) mg/dL 11/12/24 11/12/24 11/12/24 Range/Units 23:59 23:59 23:59 RBC 3.43 L (4.30-5.90) m/uL Hgb 11.3 L (13.0-17.5) gm/dL Hct 35.3 L (39.0-53.0) % MCV 103.0 H (80.0-100.0) fL MCHC (31.0-37.0) g/dL Plt Count 143 L (150-450) k/uL Lymphocytes # (1.0-4.8) k/uL APTT 39.1 H (22.0-30.0) sec Fibrinogen 562 H (200-500) mg/dL Sodium (137-145) mmol/L BUN 22 H (9-20) mg/dL Creatinine (0.66-1.25) mg/dL Calcium (8.4-10.2) mg/dL 11/13/24 11/13/24 11/13/24 Range/Units 04:13 04:13 04:13 RBC 3.68 L (4.30-5.90) m/uL Hgb 11.6 L (13.0-17.5) gm/dL Hct 37.6 L (39.0-53.0) % MCV 102.2 H (80.0-100.0) fL MCHC (31.0-37.0) g/dL Plt Count (150-450) k/uL Lymphocytes # 0.2 L (1.0-4.8) k/uL APTT 35.3 H (22.0-30.0) sec Fibrinogen 574 H (200-500) mg/dL Sodium 131 L (137-145) mmol/L BUN (9-20) mg/dL Creatinine (0.66-1.25) mg/dL Calcium 8.2 L (8.4-10.2) mg/dL 11/13/24 11/13/24 11/13/24 Range/Units 04:13 08:20 08:20 RBC 3.43 L (4.30-5.90) m/uL Hgb 11.2 L (13.0-17.5) gm/dL Hct 34.9 L (39.0-53.0) % MCV 101.8 H (80.0-100.0) fL MCHC (31.0-37.0) g/dL Plt Count (150-450) k/uL Lymphocytes # (1.0-4.8) k/uL APTT 37.4 H (22.0-30.0) sec Fibrinogen 593 H (200-500) mg/dL Sodium (137-145) mmol/L BUN 21 H (9-20) mg/dL Creatinine (0.66-1.25) mg/dL Calcium (8.4-10.2) mg/dL Microbiology - Last 24 Hours (Table) 11/10/24 12:37 Blood Culture - Preliminary Blood
[2024-11-13 12:44] LABS: HCT 32.6 % (39.0-53.0); HGB 10.6 gm/dL (13.0-17.5); MCH 32.9 pg (25.0-35.0); MCHC 32.4 g/dL (31.0-37.0); MCV 101.6 fL (80.0-100.0); Macrocytosis Slight; Mean Platelet Volume 8.1; Platelet Count 137 k/uL (150-450); RBC 3.21 m/uL (4.30-5.90); RDW 13.4 % (11.5-15.5); WBC 4.6 k/uL (3.8-10.6)
[2024-11-13 12:53] LABS: Partial Thromboplastin Time 37.3 sec (22.0-30.0); Prothrombin Time 10.9 sec (10.0-12.5)
[2024-11-13] MEDS: ALTEPLASE 10 MG in SODIUM CHLORIDE 0.9% 90 ML IA SCH (15:24)
[2024-11-13 16:34] LABS: Basophils % (A) 0 %; Eosinophils % (A) 0 %; HCT 35.2 % (39.0-53.0); HGB 10.8 gm/dL (13.0-17.5); Lymphocytes # (A) 0.3 k/uL (1.0-4.8); Lymphocytes % (A) 6 %; MCH 31.9 pg (25.0-35.0); MCHC 30.8 g/dL (31.0-37.0); MCV 103.3 fL (80.0-100.0); Macrocytosis Slight; Mean Platelet Volume 8.5; Monocytes # (A) 0.2 k/uL (0-1.0); Monocytes % (A) 3 %; Neutrophils # (A) 4.6 k/uL (1.3-7.7); Neutrophils % (A) 90 %; Platelet Count 143 k/uL (150-450); RDW 13.4 % (11.5-15.5); WBC 5.1 k/uL (3.8-10.6)
[2024-11-13 16:36] LABS: Prothrombin Time 11.2 sec (10.0-12.5)
[2024-11-13 16:45] LABS: African American GFR (CKD) >90 (>60 ml/min/1.73 sqM); Blood Urea Nitrogen 15 mg/dL (9-20); Non-African American GFR(CKD) >90 (>60 ml/min/1.73 sqM)
[2024-11-13 20:06] LABS: Basophils % (A) 0 %; Eosinophils % (A) 0 %; HCT 32.4 % (39.0-53.0); HGB 10.5 gm/dL (13.0-17.5); Lymphocytes # (A) 0.3 k/uL (1.0-4.8); Lymphocytes % (A) 5 %; MCHC 32.4 g/dL (31.0-37.0); MCV 98.9 fL (80.0-100.0); Monocytes # (A) 0.2 k/uL (0-1.0); Monocytes % (A) 4 %; Neutrophils # (A) 5.2 k/uL (1.3-7.7); Neutrophils % (A) 90 %; Platelet Count 141 k/uL (150-450); RBC 3.28 m/uL (4.30-5.90); WBC 5.7 k/uL (3.8-10.6)
[2024-11-13 20:15] LABS: Prothrombin Time 11.4 sec (10.0-12.5)
--- NOTE | 2024-11-13 20:26 | PN ---
PROGRESS NOTE SUBJECTIVE: Koko is a 79-year-old gentleman, who is admitted to hospital with acute ischemic leg involving his left lower extremity, underwent a peripheral vascular study, currently is on IV heparin and receiving thrombolytic infusion. The patient is feeling much better. Has feeble pulses on the left side. The discomfort in the left leg has improved and it is warm to touch. PHYSICAL EXAMINATION: VITAL SIGNS: Heart rate is 69 beats per minute, blood pressure is 111/50, respiratory rate is 18. CHEST: Reveals good air entry bilaterally. HEART: Reveals first and second heart sounds. No gallop. No murmur. ABDOMEN: Soft. EXTREMITIES: Reveal diminished pulses on the left side, but improved compared to where we were. groin: acess site no hematoma or bleed LABORATORY DATA: Shows that the hemoglobin is 11.2, platelet count is 150. INR is 1. Potassium is 4.2, creatinine is 0.6. Fibrinogen is 593. ASSESSMENT: Acute critical limb ischemia involving the left lower extremity, status post angiogram with thrombolytic infusion. PLAN: The patient is doing better. We will continue current medications. MMODL / IJN: [id number] / MTDKaryna
[2024-11-13 20:28] LABS: African American GFR (CKD) >90 (>60 ml/min/1.73 sqM); Blood Urea Nitrogen 14 mg/dL (9-20); Non-African American GFR(CKD) >90 (>60 ml/min/1.73 sqM)
[2024-11-14 00:28] LABS: Basophils % (A) 0 %; Eosinophils % (A) 0 %; HGB 9.6 gm/dL (13.0-17.5); Lymphocytes # (A) 0.3 k/uL (1.0-4.8); Lymphocytes % (A) 6 %; MCH 32.6 pg (25.0-35.0); MCHC 32.1 g/dL (31.0-37.0); MCV 101.6 fL (80.0-100.0); Macrocytosis Slight; Mean Platelet Volume 8.7; Monocytes # (A) 0.2 k/uL (0-1.0); Monocytes % (A) 3 %; Neutrophils # (A) 4.5 k/uL (1.3-7.7); Neutrophils % (A) 89 %; Platelet Count 151 k/uL (150-450); RBC 2.96 m/uL (4.30-5.90); RDW 13.4 % (11.5-15.5); WBC 5.1 k/uL (3.8-10.6)
[2024-11-14 00:42] LABS: INR 1.1 (<1.2); Prothrombin Time 11.6 sec (10.0-12.5)
[2024-11-14 00:52] LABS: African American GFR (CKD) >90 (>60 ml/min/1.73 sqM); Blood Urea Nitrogen 15 mg/dL (9-20); Non-African American GFR(CKD) >90 (>60 ml/min/1.73 sqM)
[2024-11-14 05:56] LABS: Basophils % (A) 0 %; Eosinophils % (A) 0 %; HCT 31.9 % (39.0-53.0); HGB 10.7 gm/dL (13.0-17.5); Lymphocytes # (A) 0.3 k/uL (1.0-4.8); Lymphocytes % (A) 4 %; MCH 34.3 pg (25.0-35.0); MCHC 33.6 g/dL (31.0-37.0); MCV 102.3 fL (80.0-100.0); Macrocytosis Slight; Mean Platelet Volume 8.9; Monocytes # (A) 0.2 k/uL (0-1.0); Monocytes % (A) 3 %; Neutrophils # (A) 6.3 k/uL (1.3-7.7); Neutrophils % (A) 91 %; Platelet Count 168 k/uL (150-450); RBC 3.11 m/uL (4.30-5.90); RDW 13.4 % (11.5-15.5); WBC 6.9 k/uL (3.8-10.6)
[2024-11-14 06:06] LABS: African American GFR (CKD) >90 (>60 ml/min/1.73 sqM); Anion Gap 8 mmol/L; Blood Urea Nitrogen 16 mg/dL (9-20); Carbon Dioxide 26 mmol/L (22-30); Chloride 98 mmol/L (98-107); Glucose 109 mg/dL (74-99); Non-African American GFR(CKD) >90 (>60 ml/min/1.73 sqM); Potassium 3.7 mmol/L (3.5-5.1); Sodium 132 mmol/L (137-145)
[2024-11-14 06:13] LABS: Prothrombin Time 11.5 sec (10.0-12.5)
[2024-11-14] MEDS ORDERED: Potassium Replacement Protocol 1 EACH MISC MISCELLANE PRN (07:09)
[2024-11-14] MEDS: ACETAMINOPHEN TAB 325 MG TAB PO PRN (08:54)
[2024-11-14 08:57] LABS: Basophils % (A) 0 %; Eosinophils % (A) 0 %; HCT 29.6 % (39.0-53.0); HGB 9.6 gm/dL (13.0-17.5); Lymphocytes # (A) 0.4 k/uL (1.0-4.8); Lymphocytes % (A) 5 %; MCH 33.3 pg (25.0-35.0); MCHC 32.5 g/dL (31.0-37.0); MCV 102.4 fL (80.0-100.0); Macrocytosis Slight; Mean Platelet Volume 8.5; Monocytes # (A) 0.2 k/uL (0-1.0); Monocytes % (A) 3 %; Neutrophils # (A) 6.8 k/uL (1.3-7.7); Neutrophils % (A) 91 %; Platelet Count 149 k/uL (150-450); RBC 2.89 m/uL (4.30-5.90); RDW 13.2 % (11.5-15.5); WBC 7.5 k/uL (3.8-10.6)
[2024-11-14] MEDS: POTASSIUM BICARBONATE/CIT AC 20 MEQ TABLET.EFF NG-TUBE SCH (08:57)
[2024-11-14] MEDS: DOCUSATE 100 MG CAP PO PRN (08:57)
[2024-11-14 09:03] LABS: Prothrombin Time 11.4 sec (10.0-12.5)
[2024-11-14 09:18] LABS: African American GFR (CKD) >90 (>60 ml/min/1.73 sqM); Blood Urea Nitrogen 16 mg/dL (9-20); Non-African American GFR(CKD) >90 (>60 ml/min/1.73 sqM)
--- NOTE | 2024-11-14 09:37 | XR ---
EXAMINATION TYPE: XR chest 1V portable DATE OF EXAM: 11/14/2024 9:21 AM COMPARISON: Chest radiographs from 11/10/2024 TECHNIQUE: XR chest 1V portable Portable AP radiograph of the chest. CLINICAL INDICATION:Male, 79 years old with history of dyspnea; FINDINGS: Lungs/Pleura: No pneumothorax or pleural effusion. Increasing patchy airspace opacities within the ri ght mid and lower lung. Background emphysematous changes. Pulmonary vascularity: Unremarkable. Heart/mediastinum: Cardiomediastinal silhouette is stable. Atherosclerotic calcifications are seen i n the aorta. Post-CABG changes. Musculoskeletal: No acute osseous pathology. Midline sternotomy wires are noted and stable. Other findings: None Lines/Tubes: Stable left chest wall Mediport catheter with subclavian approach and distal tip within the low SVC. IMPRESSION: 1. Increasing patchy airspace opacities within the right lung concerning for pneumonia. 2. COPD changes. [facility], , 11/14/2024 9:35 AM
[2024-11-14] MEDS: SODIUM CHLORIDE 0.9% 1,000 ML IV SCH (10:15)
--- NOTE | 2024-11-14 10:56 | P.PN ---
Subjective Progress Note Date: 11/14/24 Hospital Course: Patient is a 78-year-old male with medical history of CAD status post CABG, s tents, PAD, GERD, HLD, HTN, esophageal cancer PEG 03/2024 s/p chemotherapy, who presented to the ER with left foot pain that started around 1 week ago and was gradually worsening. He also noted numbness. Unable to put weight on his left lower extremity, usually ambulates with a walker. Denies SOB, chest pain, abdominal pain.He is compliant with medications. On arrival febrile 102.3, tachycardic 114, satting 90% on room air, was placed on nasal cannula 2 L with improvement of SpO2 to 94%. BP 130/60. Blood work significant for mild leukocytosis 10.8, hemoglobin 13.1, platelet count normal, coagulation panel unremarkable, sodium 132, potassium 4.0, bicarb 23, BUN 24, creatinine 0.73, lactic acid 1.6, AST elevated 95, ALT normal, ALP normal, tested positive for influenza A. CTA left lower extremity showed long occluded segment of the left superficial femoral artery in the proximal type and mid type, with three-vessel runoff. consulted Dr. Sanchez. Patient started on heparin drip, Xarelto on hold, plan for angiogram on 11/12, procedure was performed placement of tPA infusion catheter in the left common and left external iliac artery, infusion to be continued for 24 to 48 hours, plan to bring the patient for second look and assess the need for angioplasty of the left iliac with possible thrombectomy 11/14: Patient is somewhat confused, states that he had a bowel movement this morning however no bowel movements reported by night or daytime shift. He was complaining of right lower quadrant abdominal pain, and mass was palpated in the right lower quadrant around 10x7 cm, tender to palpation. CT abdomen pelvis with contrast ordered Oxygen requirement increased to 3 L/ NC, repeat chest x-ray done, interpreted independently, showed increased lung airspace opacities within the right lung, patient is afebrile, no leukocytosis. Added procalcitonin to blood work: Continue Tamiflu in the meantime. He also has decreased oral intake, IV fluids started with NS at 75 cc/h. Pertinent positives and negatives as discussed above, a complete review of systems was performed and all other systems are negative. Vitals Signs Reviewed. General: nontoxic, no distress, appears at stated age Derm: warm, dry Head: atraumatic, normocephalic, symmetric Eyes: EOMI, no lid lag, anicteric sclera, pupils equal round reactive to light ENT: Nose and ears atraumatic Neck: No thyromegaly, supple Mouth: no lip lesion, mucus membranes moist Cardiovascular: S1S2 reg, no murmur, no edema Lungs: clear to auscultation bilateral, no rhonchi, no rales, no wheeze, no accessory muscle use Abdominal: soft, RLQ tenderness, palpable mass 7 x 10 cm, no guarding, no appreciable organomegaly Ext: no gross muscle atrophy, no contractures; unable to palpate L dorsalis pedis, posterior tibialis, dorsalis pedis is dopplerable, very weak pulse is palpable today, left lower extremity is warm to touch Neuro: CN II-XII grossly intact Psych: Alert, oriented, appropriate affect Data Reviewed Today: Pertinent Labs: No leukocytosis, hemoglobin 9.6, platelet count 149, sodium 132, potassium 3.7, creatinine 0.53, glucose 109 Assessment and Plan: Left lower extremity acute limb ischemia status post placement of tPA infusion catheter in the left common and left external iliac artery 11/12/2024 -Cardiology following -tPA infusion per cardiology, heparin drip ,hold Xarelto, continue high intensity statins with Lipitor 40 -pain control: Tylenol,norco 5 q 4 hours PRN, dilaudid 1 mg q 3 hours PRN -PPIs with pantoprazole 40 mg daily Acute hypoxic respiratory failure secondary to influenza A infection -Wean off supplemental oxygen as tolerated -Continue Tamiflu SOT 11/10 -Continue home Combivent, albuterol -Procalcitonin ordered and pending RLQ abdominal pain and palpable mass -Bowel regimen ordered, -CT abdomen pelvis with contrast ordered -Pain management as above Hyponatremia: Stable, monitor BMP,now on NS 75cc/hr CAD status post CABG 2015 COPD not in exacerbation, not on home oxygen History of mesenteric ischemia status post SMA stent 2022 PAD continue home meds Lipitor 40, Lopressor 50 daily, Prilosec 40 daily, tamsulosin 0.4 mg daily, Zoloft 50 mg daily, hydroxyzine 25 p.o. twice daily, holding Xarelto 20 daily Xanax 0.25 daily as needed, Combivent, albuterol esophageal cancer status post PEG ,s/p chemotherapy Status post robotic gastrostomy tube placement 09/07/2024 CODE STATUS: DVT prophylaxis, heparin drip Anticipated discharge date: tbd Anticipated discharge place: TBD Objective - Vital Signs Vital signs: Vital Signs Temp 98.6 F 11/14/24 08:00 Pulse 71 11/14/24 10:00 Resp 21 11/14/24 10:00 BP 105/72 11/14/24 10:00 Pulse Ox 96 11/14/24 10:00 FiO2 Intake & Output 11/13/24 11/14/24 11/14/24 18:59 06:59 18:59 Intake Total 579.0 723.5 451.75 Output Total 200 400 200 Balance 379.0 323.5 251.75 Weight 58.5 kg 57.8 kg Intake: IV 30 30 Invasive Line 3 30 30 Intake, IV Titration 213.0 63.5 214.75 Amount Alteplase 10 mg In Sodium 140.5 Chloride 0.9% 90 ml @ 1 MG/HR 10 mls/hr IA .Q10H [facility] Rx#:[id number] Alteplase 10 mg In Sodium 63.5 100 Chloride 0.9% 90 ml @ 1 MG/HR 10 mls/hr IA .Q10H [facility] Rx#:[id number] Heparin Sod,Pork in 0.45% 72.5 114.75 NaCl 25,000 unit In 0.45 % NaCl 1 250ml.bag @ 12 UNITS/KG/HR 6.205 mls/hr IV .Q24H [facility] Rx#: [id number] Oral 336 237 Tube Feeding 480 Other 150 Output: Urine 200 400 200 Other: Voiding Method Urinal Urinal # Voids 1 0 # Bowel Movements 1 0 - Labs CBC & Chem 7: 11/14/24 08:46 11/14/24 08:46 Labs: Abnormal Lab Results - Last 24 Hours (Table) 11/13/24 11/13/24 11/13/24 Range/Units 12:27 12:27 16:01 RBC 3.21 L 3.40 L (4.30-5.90) m/uL Hgb 10.6 L 10.8 L (13.0-17.5) gm/dL Hct 32.6 L 35.2 L (39.0-53.0) % MCV 101.6 H 103.3 H (80.0-100.0) fL MCHC 30.8 L (31.0-37.0) g/dL Plt Count 137 L 143 L (150-450) k/uL Lymphocytes # 0.3 L (1.0-4.8) k/uL APTT 37.3 H (22.0-30.0) sec Fibrinogen 563 H (200-500) mg/dL Sodium (137-145) mmol/L Creatinine (0.66-1.25) mg/dL Glucose (74-99) mg/dL Calcium (8.4-10.2) mg/dL 11/13/24 11/13/24 11/13/24 Range/Units 16:01 16:01 19:46 RBC 3.28 L (4.30-5.90) m/uL Hgb 10.5 L (13.0-17.5) gm/dL Hct 32.4 L (39.0-53.0) % MCV (80.0-100.0) fL MCHC (31.0-37.0) g/dL Plt Count 141 L (150-450) k/uL Lymphocytes # 0.3 L (1.0-4.8) k/uL APTT 32.0 H (22.0-30.0) sec Fibrinogen 585 H (200-500) mg/dL Sodium (137-145) mmol/L Creatinine 0.55 L (0.66-1.25) mg/dL Glucose (74-99) mg/dL Calcium (8.4-10.2) mg/dL 11/13/24 11/13/24 11/14/24 Range/Units 19:46 19:46 00:09 RBC 2.96 L (4.30-5.90) m/uL Hgb 9.6 L (13.0-17.5) gm/dL Hct 30.0 L (39.0-53.0) % MCV 101.6 H (80.0-100.0) fL MCHC (31.0-37.0) g/dL Plt Count (150-450) k/uL Lymphocytes # 0.3 L (1.0-4.8) k/uL APTT (22.0-30.0) sec Fibrinogen 616 H (200-500) mg/dL Sodium (137-145) mmol/L Creatinine 0.55 L (0.66-1.25) mg/dL Glucose (74-99) mg/dL Calcium (8.4-10.2) mg/dL 11/14/24 11/14/24 11/14/24 Range/Units 00:09 00:09 05:12 RBC (4.30-5.90) m/uL Hgb (13.0-17.5) gm/dL Hct (39.0-53.0) % MCV (80.0-100.0) fL MCHC (31.0-37.0) g/dL Plt Count (150-450) k/uL Lymphocytes # (1.0-4.8) k/uL APTT (22.0-30.0) sec Fibrinogen 571 H (200-500) mg/dL Sodium 132 L (137-145) mmol/L Creatinine 0.57 L 0.50 L (0.66-1.25) mg/dL Glucose 109 H (74-99) mg/dL Calcium 8.0 L (8.4-10.2) mg/dL 11/14/24 11/14/24 11/14/24 Range/Units 05:12 05:12 08:46 RBC 3.11 L 2.89 L (4.30-5.90) m/uL Hgb 10.7 L 9.6 L (13.0-17.5) gm/dL Hct 31.9 L 29.6 L (39.0-53.0) % MCV 102.3 H 102.4 H (80.0-100.0) fL MCHC (31.0-37.0) g/dL Plt Count 149 L (150-450) k/uL Lymphocytes # 0.3 L 0.4 L (1.0-4.8) k/uL APTT (22.0-30.0) sec Fibrinogen 626 H (200-500) mg/dL Sodium (137-145) mmol/L Creatinine (0.66-1.25) mg/dL Glucose (74-99) mg/dL Calcium (8.4-10.2) mg/dL 11/14/24 11/14/24 Range/Units 08:46 08:46 RBC (4.30-5.90) m/uL Hgb (13.0-17.5) gm/dL Hct (39.0-53.0) % MCV (80.0-100.0) fL MCHC (31.0-37.0) g/dL Plt Count (150-450) k/uL Lymphocytes # (1.0-4.8) k/uL APTT (22.0-30.0) sec Fibrinogen 614 H (200-500) mg/dL Sodium (137-145) mmol/L Creatinine 0.53 L (0.66-1.25) mg/dL Glucose (74-99) mg/dL Calcium (8.4-10.2) mg/dL Microbiology - Last 24 Hours (Table) 11/10/24 12:37 Blood Culture - Preliminary Blood
[2024-11-14 12:06] LABS: Basophils % (A) 0 %; Eosinophils % (A) 0 %; HCT 26.9 % (39.0-53.0); HGB 8.5 gm/dL (13.0-17.5); Lymphocytes # (A) 0.2 k/uL (1.0-4.8); Lymphocytes % (A) 3 %; MCH 32.4 pg (25.0-35.0); MCHC 31.7 g/dL (31.0-37.0); MCV 102.3 fL (80.0-100.0); Macrocytosis Slight; Mean Platelet Volume 8.9; Monocytes # (A) 0.2 k/uL (0-1.0); Monocytes % (A) 3 %; Neutrophils # (A) 7.5 k/uL (1.3-7.7); Neutrophils % (A) 93 %; Platelet Count 154 k/uL (150-450); RBC 2.63 m/uL (4.30-5.90); RDW 13.4 % (11.5-15.5)
[2024-11-14 12:18] LABS: Prothrombin Time 11.2 sec (10.0-12.5)
[2024-11-14 12:24] LABS: African American GFR (CKD) >90 (>60 ml/min/1.73 sqM); Blood Urea Nitrogen 19 mg/dL (9-20); Non-African American GFR(CKD) >90 (>60 ml/min/1.73 sqM)
[2024-11-14] MEDS: IOPAMIDOL CONTRAST (ORAL USE) VIAL PO PRN (12:56)
--- NOTE | 2024-11-14 15:11 | CT ---
EXAMINATION TYPE: CT abdomen pelvis w con DATE OF EXAM: 11/14/2024 2:47 PM COMPARISON: None. CLINICAL INDICATION: Male, 79 years old with history of RLQ abdominal mass, pain, RLQ abdominal pain. There is a mass with distinct borders. Pt also has a rt femoral line that has TPA and heparin runnin g through it. Nurse states there is a possible hematoma and is concerned for bleeding. TECHNIQUE:CT scan of the abdomen and pelvis is performed with Oral Contrast and with IV Contrast, pat ient injected with 100 nl mL of Isovue 300. CT DLP: 805.5 mGycm, Automated exposure control for dose reduction was used. FINDINGS: LUNG BASES-: No visible nodule. Basilar atelectasis and/or infiltrates with small effusions. LIVER/GB: No calcified gallstones. No space occupying hepatic lesion. Biliary tree is of normal ca liber. PANCREAS: No inflammation. No distinct mass. SPLEEN: No splenic enlargement. No lesion seen. ADRENALS: No nodule. No thickening. KIDNEYS/BLADDER: No hydronephrosis. No nephrolithiasis. No distinct renal mass. The urinary bladde r demonstrates Peña balloon catheter. BOWEL: Normal appendix. Normal bowel caliber. No inflammation. GENITAL ORGANS: No gross abnormality. LYMPH NODES: No greater than 1cm abdominal or pelvic lymph nodes are appreciated. AORTA: No significant abnormality. OSSEOUS STRUCTURES: No significant abnormality is seen. OTHER: There is hemorrhage noted within the right rectus abdominis musculature measuring approximatel y 10 cm in craniocaudal dimension by approximately 3.5 cm AP dimension and 6.8 cm transverse dimensio n. Stranding posterior to the rectus abdominis is compatible with additional hemorrhage with strandin g surrounding the urinary bladder. Couple focal areas of hypodensity could reflect active hemorrhage component. Additional moderate sized hemorrhage is seen within the left psoas musculature which is difficult to measure. Moderate extra muscular component noted as well adjacent to the psoas. A couple small foci o f increased attenuation could reflect active hemorrhage component seen on coronal image 67 of 138. He morrhage extends into the left iliacus musculature. IMPRESSION: 1. Multiple areas of intramuscular hemorrhage including right rectus abdominis, left psoas, left miranda cus with strandy extra muscular component seen as well. Small area of active hemorrhage are difficult to exclude. 2. Basilar atelectasis and/or infiltrates with small effusions. [facility], , 11/14/2024 3:09 PM
[2024-11-14 16:00] LABS: Basophils % (A) 0 %; Eosinophils # (A) 0.1 k/uL (0-0.7); Eosinophils % (A) 1 %; HCT 26.9 % (39.0-53.0); HGB 8.5 gm/dL (13.0-17.5); Lymphocytes # (A) 0.4 k/uL (1.0-4.8); Lymphocytes % (A) 4 %; MCH 32.4 pg (25.0-35.0); MCHC 31.5 g/dL (31.0-37.0); MCV 102.7 fL (80.0-100.0); Macrocytosis Slight; Mean Platelet Volume 8.5; Monocytes # (A) 0.3 k/uL (0-1.0); Monocytes % (A) 3 %; Neutrophils # (A) 8.4 k/uL (1.3-7.7); Neutrophils % (A) 91 %; Platelet Count 158 k/uL (150-450); RBC 2.62 m/uL (4.30-5.90); RDW 13.4 % (11.5-15.5); WBC 9.2 k/uL (3.8-10.6)
[2024-11-14 16:09] LABS: Partial Thromboplastin Time 28.3 sec (22.0-30.0)
[2024-11-14] MEDS: IV FLUID CONTINUATION 1,000 ML IV ONE (16:15)
[2024-11-14 16:16] LABS: African American GFR (CKD) >90 (>60 ml/min/1.73 sqM); Blood Urea Nitrogen 22 mg/dL (9-20); Non-African American GFR(CKD) >90 (>60 ml/min/1.73 sqM)
--- NOTE | 2024-11-14 16:38 | PN ---
PROGRESS NOTE SUBJECTIVE: Koko amaya is a 79-year-old gentleman, who was admitted to hospital with acute left lower extremity ischemia, and had been treated with heparin and thrombolytics. He developed shortness of breath and had some hypoxia, had a chest x-ray that showed opacity in the right lung raising the possibility of pneumonia and this is being addressed by the hospitalist, who admitted the patient. From cardiac standpoint, he is doing well. The lower extremity perfusion had improved. He does not have any chest pain.Nurse [place] patient had a hematoma earlier. Groin is soft. no active bleed HGB is stable Dys nepa probably from atelectasis or pneumonia. PHYSICAL EXAMINATION: VITAL SIGNS: Heart rate is 70 beats per minute mmHg, blood pressure is respiratory rate 18, O2 sat saturation is 96% on 5 L high-flow cannula. CHEST: Reveals good air entry bilaterally. HEART: Reveals first and second heart sounds. No gallop. ABDOMEN: Soft. EXTREMITIES: Reveal 1+ edema. PERIPHERAL: Pulses are felt. Groin: soft no hematoma/bleed LABORATORY DATA: Labs show a hemoglobin of 10.4. Potassium is 3.7, creatinine is 0.5. ASSESSMENT AND PLAN: 1. Acute critical limb ischemia. 2. Possible pneumonia. PLAN: I will continue heparin and was thrombolytic, issues of respiratory insufficiency are being addressed by the admitting physician. MMODL / DAISYN: [id number] / KISHAN
[2024-11-14] MEDS: IOPAMIDOL-370 100ML BTL INJ ONE (16:53)
[2024-11-14] MEDS ORDERED: NALOXONE 0.4 MG/ML 1 ML VIAL IVP PRN (17:02)
--- NOTE | 2024-11-14 17:12 | P.PCN ---
Date of Procedure: 11/14/24 Operative Findings: Second look angiogram after tPA infusion Performing physician Russell Navarro MD Procedure performed 1. Second Look angiogram after tPA infusion 2. Removal of tPA infusion catheter from the left common and left external iliac arteries 3. selective bilateral iliacs and femoral arteries angiogram Indication The patient is a pleasant 79-year-old gentleman who was admitted to the hospital last week with acute limb ischemia of the left lower extremity. He underwent an angiogram which revealed occluded left iliac. He was placed on tPA infusion through infusion catheter in the left common and left external iliac artery. He developed an abdominal wall hematoma today and possible retroperitoneal hematoma on the CT scan. He was brought today to the cardiac Proof Machine Operator Supervisor to rule out any perforation in the major vessel and also possibly replacing the long up and over sheath into a short sheath. As well as performing a second look angiogram to assess the left common iliac artery Approach Right common femoral artery Complication None Level of sedation Moderate with sedation length of 5 minutes Procedure description Please refer to the procedure was performed on Tuesday, November 12, 2024. I did pull the infusion catheter over a 035 wire. Subsequently I injected contrast through the sheath at the left common iliac artery and subsequently the sheath pulled into the right common iliac artery and injected contrast as well. The injection showed excellent flow involving the left common iliac artery with no evidence of perforation as well as no evidence of perforation involving the right iliac artery as well. At that point I did exchange my long sheath into a short sheath which was 11 cm and the procedure was completed with no complication Conclusion 1. Widely patent left common and left external iliac arteries with small residual thrombus but the great flow (previously occluded left common and left external iliac arteries with a large thrombus burden) 2. No evidence of any major vessel perforation identified Postprocedure management Avoid any anticoagulation or antiplatelet at least for the next 24 hours Consider restarting the patient on either aspirin or P2 Y12 Monitor the hemoglobin and the blood pressure very closely Follow-up with the patient
--- NOTE | 2024-11-14 17:51 | IR ---
EXAMINATION TYPE: IR angio pelvic DATE OF EXAM: 11/14/2024 5:36 PM COMPARISON: Pre Operative Images if available both CT/MRI or plain film CLINICAL INDICATION: Male, 79 years old with history of hematoma, 1.1min fluoro, 5.47Sfdg9; TECHNIQUE: IR angio pelvic, multiple fluoroscopic images provided for procedure. Total fluoroscopy time: 5.48 seconds Total submitted images to PACS: 6 DAP: 5.77Gycm FINDINGS: IMPRESSION: 1. Report was generated for administrative purposes only. 2. Please see the operative/procedural note for further details. [facility], , 11/14/2024 5:49 PM
[2024-11-14] MEDS: SODIUM CHLORIDE 0.9% 1,000 ML in EMPTY BAG 1 BAG IV SCH (18:25)
[2024-11-14 22:02] LABS: HCT 22.2 % (39.0-53.0); HGB 7.1 gm/dL (13.0-17.5); MCH 32.4 pg (25.0-35.0); MCV 101.3 fL (80.0-100.0); Macrocytosis Slight; Mean Platelet Volume 8.9; Platelet Count 153 k/uL (150-450); RBC 2.19 m/uL (4.30-5.90); RDW 13.4 % (11.5-15.5); WBC 11.2 k/uL (3.8-10.6)
[2024-11-15 05:06] LABS: Basophils % (A) 0 %; Eosinophils % (A) 0 %; HCT 20.8 % (39.0-53.0); Lymphocytes # (A) 0.3 k/uL (1.0-4.8); Lymphocytes % (A) 4 %; MCH 32.6 pg (25.0-35.0); MCV 101.8 fL (80.0-100.0); Macrocytosis Slight; Monocytes # (A) 0.3 k/uL (0-1.0); Monocytes % (A) 4 %; Neutrophils # (A) 7.1 k/uL (1.3-7.7); Neutrophils % (A) 90 %; Platelet Count 160 k/uL (150-450); RBC 2.05 m/uL (4.30-5.90); RDW 13.4 % (11.5-15.5)
[2024-11-15 05:08] LABS: HGB 6.7 gm/dL (13.0-17.5)
[2024-11-15 05:15] LABS: African American GFR (CKD) >90 (>60 ml/min/1.73 sqM); Anion Gap 4 mmol/L; Blood Urea Nitrogen 23 mg/dL (9-20); Calcium 7.6 mg/dL (8.4-10.2); Carbon Dioxide 28 mmol/L (22-30); Chloride 98 mmol/L (98-107); Glucose 106 mg/dL (74-99); Non-African American GFR(CKD) 85 (>60 ml/min/1.73 sqM); Potassium 4.1 mmol/L (3.5-5.1); Sodium 130 mmol/L (137-145)
--- NOTE | 2024-11-15 09:50 | P.PN ---
Subjective Progress Note Date: 11/15/24 The patient is a 79-year-old male who is currently admitted to the hospital with critical limb ischemia. On 11/12/2024 patient underwent left lower extremity angiogram with Dr. Hopkins. tPA infusion catheter was placed in the left common and left external iliac artery. Yesterday the patient developed retroperitoneal hematoma which was confirmed with abdominal CT scan. Patient return to the operating room with removal of tPA infusion catheter, with no active bleed. Hemoglobin has dropped from 9.6-6.7. He is currently receiving 1 unit of packed RBCs. Patient was interviewed and examined resting comfortably in bed. He states he is feeling better and has no current distress. No chest pain or pressure. No difficulty breathing. He states he does have numbness and tingling in his left lower extremity GENERAL: Well-appearing, well-nourished and in no acute distress. NECK: Supple without JVD or thyromegaly. LUNGS: Breath sounds clear to auscultation bilaterally. Respiration equal and unlabored. No wheezes, rales or rhonchi. HEART: Regular rate and rhythm without murmurs, rubs or gallops. S1 and S2 heard. EXTREMITIES: Normal range of motion, no edema. No clubbing or cyanosis. Peripheral pulses intact and strong. Right groin is soft TELEMETRY: Sinus rhythm overnight LABS: WBC 8.0, hemoglobin 6.7, hematocrit 20.8, platelet 160, sodium 130, potassium 4.1, BUN 23, creatinine 0.82 IMPRESSION: Acute critical limb ischemia Status post thrombolytic infusion Retroperitoneal hematoma Pneumonia Influenza A PLAN: Continue to trend hemoglobin Continue aggressive pulmonary hygiene Further recommendations to be based upon clinical course I am dictating on behalf of Dr Chadwick Chambers's history/physical and assessment/plan. Objective - Vital Signs Vital signs: Vital Signs Temp 97.8 F 11/15/24 08:38 Pulse 73 11/15/24 09:29 Resp 20 11/15/24 09:00 BP 122/57 11/15/24 09:00 Pulse Ox 96 11/15/24 09:00 FiO2 Intake & Output 11/14/24 11/15/24 11/15/24 18:59 06:59 18:59 Intake Total 2407.167 900 482 Output Total 315 185 0 Balance 2092.167 715 482 Weight 57.2 kg Intake: IV 680 900 245 Invasive Line 3 30 Invasive Line 4 20 Sodium Chloride 0.9% 1, 600 900 225 000 ml @ 75 mls/hr IV . [id number] [facility] Rx#:[id number] Intake, IV Titration 290.167 Amount Alteplase 10 mg In Sodium 146.667 Chloride 0.9% 90 ml @ 1 MG/HR 10 mls/hr IA .Q10H [facility] Rx#:[id number] Heparin Sod,Pork in 0.45% 143.50 NaCl 25,000 unit In 0.45 % NaCl 1 250ml.bag @ 12 UNITS/KG/HR 6.205 mls/hr IV .Q24H [facility] Rx#: [id number] Oral 237 237 Blood Product 0 Unit 0 Other 1200 Output: Urine 315 185 0 Other: Voiding Method Indwelling Catheter Toilet Urinal # Bowel Movements 0 - Labs CBC & Chem 7: 11/15/24 04:15 11/15/24 04:15 Labs: Abnormal Lab Results - Last 24 Hours (Table) 11/12/24 11/14/24 11/14/24 Range/Units 15:22 11:47 11:47 WBC (3.8-10.6) k/uL RBC 2.63 L (4.30-5.90) m/uL Hgb 8.5 L (13.0-17.5) gm/dL Hct 26.9 L (39.0-53.0) % MCV 102.3 H (80.0-100.0) fL Neutrophils # (1.3-7.7) k/uL Lymphocytes # 0.2 L (1.0-4.8) k/uL Fibrinogen 604 H (200-500) mg/dL Sodium (137-145) mmol/L BUN (9-20) mg/dL Glucose (74-99) mg/dL Calcium (8.4-10.2) mg/dL Crossmatch See Detail 11/14/24 11/14/24 11/14/24 Range/Units 15:52 15:52 15:52 WBC (3.8-10.6) k/uL RBC 2.62 L (4.30-5.90) m/uL Hgb 8.5 L (13.0-17.5) gm/dL Hct 26.9 L (39.0-53.0) % MCV 102.7 H (80.0-100.0) fL Neutrophils # 8.4 H (1.3-7.7) k/uL Lymphocytes # 0.4 L (1.0-4.8) k/uL Fibrinogen 584 H (200-500) mg/dL Sodium (137-145) mmol/L BUN 22 H (9-20) mg/dL Glucose (74-99) mg/dL Calcium (8.4-10.2) mg/dL Crossmatch 11/14/24 11/15/24 11/15/24 Range/Units 21:49 04:15 04:15 WBC 11.2 H (3.8-10.6) k/uL RBC 2.19 L 2.05 L (4.30-5.90) m/uL Hgb 7.1 L 6.7 L* (13.0-17.5) gm/dL Hct 22.2 L 20.8 L (39.0-53.0) % MCV 101.3 H 101.8 H (80.0-100.0) fL Neutrophils # (1.3-7.7) k/uL Lymphocytes # 0.3 L (1.0-4.8) k/uL Fibrinogen (200-500) mg/dL Sodium 130 L (137-145) mmol/L BUN 23 H (9-20) mg/dL Glucose 106 H (74-99) mg/dL Calcium 7.6 L (8.4-10.2) mg/dL Crossmatch
[2024-11-15] MEDS: polyethylene glycoL 3350 17 GM POWD.PACK PO SCH (11:28)
[2024-11-15 12:01] LABS: HCT 25.1 % (39.0-53.0); MCH 31.8 pg (25.0-35.0); MCHC 32.9 g/dL (31.0-37.0); Platelet Count 160 k/uL (150-450); RDW 15.7 % (11.5-15.5); WBC 7.3 k/uL (3.8-10.6)
[2024-11-15 12:15] LABS: HGB 8.3 gm/dL (13.0-17.5); MCV 96.5 fL (80.0-100.0)
--- NOTE | 2024-11-15 13:55 | P.CNPUL ---
History of Present Illness Consult date: 11/15/24 Requesting physician: Russell Navarro Reason for consult: other (ICU management) Chief complaint: Cold left lower extremity History of present illness: This is a 79-year-old white male with history of underlying coronary artery disease, previous CABG and PCI, history of paroxysmal atrial fibrillation maintained on Xarelto history of paroxysmal atrial fibrillation maintained on Xarelto history of mitral valve regurgitation, hypertension, dyslipidemia, and known history of peripheral vessel occlusive disease 11/10/2024, and he was seen by Dr. Hopkins for acute presentation of left lower extremity getting cold and numb over a period of 4 to 5 days. Pain has been quite severe from the thigh all the way down to his toes. On 11/12/2024, patient underwent placement of tPA infusion catheter in the left common and left external iliac artery and he received thrombolytics for his acute arterial thrombosis involving the left iliac artery, and felt that the patient may even require possible thrombectomy. Patient had tPA protocol. On 11/14, patient had a second look angiogram after tPA infusion and he also underwent removal of tPA infusion catheter from the left common and left external iliac arteries with selective bilateral iliac and femoral arteries angiogram. Postoperatively, patient was transferred to the ICU, and this consult was initiated. Apparently on his second look the patient was found to have widely patent left common and left external iliac arteries and small residual thrombus but great flow and significant improvement I saw this patient in the ICU, he is on 2 L nasal cannula, his hemoglobin is 6.7 and he will receive 1 unit of packed RBCs, patient does not seem to be in distress, he had recent influenza infection and he finished a course of Tamiflu. In addition to all of this the patient has known history of COPD which seems to be stable and he has a history of a left subclavian Mediport noted in place which was placed initially for his esophageal cancer. During my evaluation, patient had no cough no wheezing no shortness of breath no chest pain, and he had s ignificant improvement in pain related to his left lower extremity. Follow-up hemoglobin after 1 unit of packed RBCs came back 8.3. His basic metabolic profile today came back normal except for low sodium of 130. Renal profile is normal. Review of Systems CONSTITUTIONAL: Denies fever or chills. HEENT: Denies blurred vision, vision changes, or eye pain. Denies hemoptysis CARDIOVASCULAR: Denies chest pain. Denies orthopnea. Denies PND. Denies palpitations RESPIRATORY: Denies shortness of breath. GASTROINTESTINAL: Denies abdominal pain. Denies nausea or vomiting. HEMATOLOGIC: Denies bleeding disorders. GENITOURINARY: Denies any blood in urine. SKIN: Denies puritis. Denies rash. Past Medical History Past Medical History: Coronary Artery Disease (CAD), Cancer, COPD, GERD/Reflux, Hyperlipidemia, Hypertension, Memory Impairment, Myocardial Infarction (AL), Thyroid Disorder, Vascular Disorder Additional Past Medical History / Comment(s): having a difficulty swallowing after eating-only able to swallow soft foods,hx artery to colon had to have a stent placed,PVD BOTH LEGS, RLS, neil leg cramps, esophageal cancer 2023, PEG tube Last Myocardial Infarction Date:: 10/02/2015 History of Any Multi-Drug Resistant Organisms: None Reported Past Surgical History: Coronary Bypass/CABG, Heart Catheterization With Stent, Hernia Repair, Orthopedic Surgery Additional Past Surgical History / Comment(s): heart stents x 3,ORIF rt elbow, triple bypass-taking xarelto, ABDOMINAL AORTOGRAM WITH NEIL EXT. RUNOFF 3-8-17. colonoscopy, egd Past Anesthesia/Blood Transfusion Reactions: No Reported Reaction Additional Past Anesthesia/Blood Transfusion Reaction / Comment(s): no problems with prior blood transfusions,states "no agitation coming out of anesthesia" Date of Last Stent Placement:: 10/02/2015 Past Psychological History: Anxiety Additional Psychological History / Comment(s): Short term memory loss, anger issues Smoking Status: Former smoker, Vaper Past Alcohol Use History: None Reported Additional Past Alcohol Use History / Comment(s): started smoking 1967-was 1 to 2 ppd,started e cigarette 2015, quit smoking march 2024 Past Drug Use History: None Reported - Past Family History Mother Family Medical History: Vascular Disorder Father Family Medical History: COPD Brother(s) Family Medical History: Cancer Additional Family Medical History / Comment(s): Heart problems, lymphoma. Medications and Allergies Home Medications Medication Instructions Recorded Confirmed Type Atorvastatin [Lipitor] 40 mg PEG/G-TUBE DAILY 06/09/18 11/10/24 History Nitroglycerin Sl Tabs [Nitrostat] 0.4 mg PEG/G-TUBE Q5M PRN 03/15/21 11/10/24 History Rivaroxaban [Xarelto] 20 mg PEG/G-TUBE DAILY 03/15/21 11/10/24 History ALPRAZolam [Xanax] 0.25 mg PEG/G-TUBE BID PRN 06/11/23 11/10/24 History Metoprolol Tartrate [Lopressor] 50 mg PEG/G-TUBE BID 06/11/23 11/10/24 History Ipratropium/Albuter 20-100Mcg 1 puff INHALATION RT-QID PRN 12/30/23 11/10/24 History [Combivent Respimat 20-100Mcg Inhaler] Omeprazole [PriLOSEC] 40 mg PEG/G-TUBE DAILY 12/30/23 11/10/24 History Sertraline HCl [Zoloft] 50 mg PEG/G-TUBE DAILY 12/30/23 11/10/24 History Tamsulosin HCl [Flomax] 0.4 mg PEG/G-TUBE DAILY 12/30/23 11/10/24 History hydrOXYzine pamoate [Vistaril] 25 mg PEG/G-TUBE BID 12/30/23 11/10/24 History Albuterol Nebulized [Ventolin 2.5 mg INHALATION RT-Q4H 08/10/24 11/10/24 History Nebulized] Acetaminophen Tab [Tylenol] 650 mg PEG/G-TUBE Q6H PRN 11/10/24 11/10/24 History Lactose-Reduced Food [Ensure Plus] 237 ml PEG/G-TUBE TID 11/10/24 11/10/24 History Levothyroxine Sodium [Synthroid] 50 mcg PEG/G-TUBE AC-[id number] 11/10/24 11/10/24 History Melatonin 3 mg PEG/G-TUBE HS 11/10/24 11/10/24 History Allergies Allergy/AdvReac Type Severity Reaction Status Date / Time No Known Allergies Allergy Verified 11/10/24 16:43 Physical Exam Vitals: Vital Signs Temp Pulse Resp BP Pulse Ox 11/15/24 13:01 68 11/15/24 13:00 70 18 129/61 100 11/15/24 12:51 66 11/15/24 12:00 98.0 F 71 18 117/49 93 L 11/15/24 11:00 73 19 136/53 92 L 11/15/24 10:17 98.2 F 71 16 136/53 93 L 11/15/24 10:00 68 14 133/54 97 11/15/24 09:29 73 11/15/24 09:15 72 11/15/24 09:00 70 20 122/57 96 11/15/24 08:38 97.8 F 73 16 122/57 95 11/15/24 08:18 98.1 F 70 18 122/57 98 11/15/24 08:08 97.9 F 69 16 118/46 94 L 11/15/24 08:00 65 16 113/52 96 11/15/24 07:00 67 14 110/53 95 11/15/24 06:00 64 10 L 103/46 94 L 11/15/24 05:00 66 12 112/44 94 L 11/15/24 04:00 97.9 F 66 24 104/44 92 L 11/15/24 03:00 65 10 L 101/49 94 L 11/15/24 02:30 69 20 101/49 96 11/15/24 02:00 64 11 L 104/48 96 11/15/24 01:30 63 10 L 104/48 94 L 11/15/24 01:00 65 7 L 95/51 94 L 11/15/24 00:45 71 27 H 95/51 92 L 11/15/24 00:30 67 12 95/51 93 L 11/15/24 00:22 66 12 95/51 93 L 11/15/24 00:15 67 13 95/51 92 L 11/15/24 00:00 97.8 F 68 24 95/51 95 11/14/24 23:45 67 34 H 93/47 97 11/14/24 23:30 75 11 L 104/48 93 L 11/14/24 23:15 69 10 L 104/49 94 L 11/14/24 23:00 65 9 L 107/51 93 L 11/14/24 22:45 70 19 100/77 93 L 11/14/24 22:30 67 12 105/40 93 L 11/14/24 22:15 65 25 H 113/49 93 L 11/14/24 22:00 63 9 L 94/44 96 11/14/24 21:45 66 11 L 101/55 96 11/14/24 21:30 68 17 101/51 94 L 11/14/24 21:15 70 11 L 105/50 97 11/14/24 21:00 80 12 102/60 97 11/14/24 20:48 74 11/14/24 20:45 67 10 L 106/51 100 11/14/24 20:38 71 11/14/24 20:30 71 14 93/51 97 11/14/24 20:15 71 12 108/50 97 11/14/24 20:00 70 23 113/51 98 11/14/24 19:45 72 8 L 107/46 96 11/14/24 19:30 20 92/54 96 11/14/24 19:15 73 12 97/54 95 11/14/24 19:00 15 96/57 98 11/14/24 18:45 75 16 96/54 97 11/14/24 18:30 74 16 90/55 96 11/14/24 18:15 72 10 L 90/55 98 11/14/24 18:00 72 22 100/51 98 11/14/24 17:45 72 23 104/53 98 11/14/24 17:30 98.0 F 73 26 H 121/56 98 11/14/24 16:00 69 18 110/47 92 L 11/14/24 15:49 89 11/14/24 15:38 88 11/14/24 15:00 64 12 109/50 90 L 11/14/24 14:00 67 16 102/47 95 Intake and Output 11/14/24 11/15/24 11/15/24 22:59 06:59 14:59 Intake Total 035 655 1553 Output Total 145 100 300 Balance 563 638 0878 Intake: IV 585 600 555 Invasive Line 3 10 Invasive Line 4 30 Sodium Chloride 0.9% 1, 525 600 525 000 ml @ 75 mls/hr IV . [id number] [facility] Rx#:[id number] Oral 237 Tube Feeding 250 Blood Product 310 Rc As-1 Unit 310 [id number] Other 60 Output: Urine 145 100 300 Other: Voiding Method Indwelling Catheter Toilet Urinal # Bowel Movements 1 Weight 57.2 kg Physical examination: Gen: Revealed 79-year-old white male frail looking, chronically ill, in no distress. HEENT: Head is atraumatic, normocephalic. Pupils equal, round. Sclerae is anicteric. NECK: Supple. No JVD. No stridor. Left subclavian Port-A-Cath noted. LUNGS: Symmetrical chest expansion clear throughout no crackles rhonchi or wheezes HEART: Distant S1-S2, 2/6 systolic murmur throughout the precordium ABDOMEN: Soft nontender no MAG no rebound no guarding EXTREMITIES: No clubbing edema or cyanosis, good pulses noted bilaterally faint dorsalis pedis pulse noted and posterior tibial at the left lower extremity. NEUROLOGICAL: Alert oriented x 3 no gross focal deficit Psychiatric: Normal mood, affect and no mental status examination Skin: No rashes 3. Results - Laboratory Findings CBC and BMP: 11/15/24 11:41 11/15/24 04:15 PT/INR, D-dimer PT 11.0 sec (10.0-12.5) 11/14/24 15:52 INR 1.0 (<1.2) 11/14/24 15:52 Abnormal lab findings: Abnormal Labs 11/10/24 11/10/24 11/10/24 12:37 12:37 12:37 WBC 10.8 H RBC 3.98 L Hgb Hct MCV 101.8 H D MCHC RDW Plt Count Neutrophils # 10.1 H Lymphocytes # 0.3 L APTT Fibrinogen Sodium 132 L Chloride BUN 24 H Creatinine Glucose Calcium AST 95 H Ur Specific [place] Urine Protein Urine Blood Urine Mucus Influenza Type A (PCR) Detected A Crossmatch 11/10/24 11/11/24 11/11/24 21:11 07:04 07:04 WBC RBC 4.11 L Hgb Hct MCV 103.4 H MCHC RDW Plt Count Neutrophils # 7.8 H Lymphocytes # 0.3 L APTT Fibrinogen Sodium 134 L Chloride BUN 24 H Creatinine Glucose Calcium AST Ur Specific [place] 1.045 H Urine Protein Trace H Urine Blood Trace H Urine Mucus Rare H Influenza Type A (PCR) Crossmatch 11/11/24 11/12/24 11/12/24 08:33 00:14 07:30 WBC RBC 4.20 L 3.74 L Hgb 12.3 L Hct 38.4 L MCV 103.9 H 102.8 H MCHC RDW Plt Count 141 L Neutrophils # Lymphocytes # 0.3 L 0.3 L APTT 57.7 H Fibrinogen Sodium Chloride BUN Creatinine Glucose Calcium AST Ur Specific [place] Urine Protein Urine Blood Urine Mucus Influenza Type A (PCR) Crossmatch 11/12/24 11/12/24 11/12/24 07:30 15:19 15:19 WBC RBC 3.56 L Hgb 11.4 L Hct 36.6 L MCV 102.9 H MCHC RDW Plt Count 141 L Neutrophils # Lymphocytes # 0.3 L APTT Fibrinogen 590 H Sodium 131 L Chloride 97 L BUN 24 H Creatinine Glucose Calcium 7.9 L AST Ur Specific [place] Urine Protein Urine Blood Urine Mucus Influenza Type A (PCR) Crossmatch 11/12/24 11/12/24 11/12/24 15:19 15:22 19:43 WBC RBC 3.59 L Hgb 11.1 L Hct 37.1 L MCV 103.1 H MCHC 29.9 L RDW Plt Count 141 L Neutrophils # Lymphocytes # APTT Fibrinogen Sodium Chloride BUN 21 H Creatinine 0.65 L Glucose Calcium AST Ur Specific [place] Urine Protein Urine Blood Urine Mucus Influenza Type A (PCR) Crossmatch See Detail 11/12/24 11/12/24 11/12/24 19:43 19:43 23:59 WBC RBC Hgb Hct MCV MCHC RDW Plt Count Neutrophils # Lymphocytes # APTT 56.1 H 39.1 H Fibrinogen 594 H 562 H Sodium Chloride BUN Creatinine 0.64 L Glucose Calcium AST Ur Specific [place] Urine Protein Urine Blood Urine Mucus Influenza Type A (PCR) Crossmatch 11/12/24 11/12/24 11/13/24 23:59 23:59 04:13 WBC RBC 3.43 L 3.68 L Hgb 11.3 L 11.6 L Hct 35.3 L 37.6 L MCV 103.0 H 102.2 H MCHC RDW Plt Count 143 L Neutrophils # Lymphocytes # 0.2 L APTT Fibrinogen Sodium Chloride BUN 22 H Creatinine Glucose Calcium AST Ur Specific [place] Urine Protein Urine Blood Urine Mucus Influenza Type A (PCR) Crossmatch 11/13/24 11/13/24 11/13/24 04:13 04:13 04:13 WBC RBC Hgb Hct MCV MCHC RDW Plt Count Neutrophils # Lymphocytes # APTT 35.3 H Fibrinogen 574 H Sodium 131 L Chloride BUN 21 H Creatinine Glucose Calcium 8.2 L AST Ur Specific [place] Urine Protein Urine Blood Urine Mucus Influenza Type A (PCR) Crossmatch 11/13/24 11/13/24 11/13/24 08:20 08:20 12:27 WBC RBC 3.43 L 3.21 L Hgb 11.2 L 10.6 L Hct 34.9 L 32.6 L MCV 101.8 H 101.6 H MCHC RDW Plt Count 137 L Neutrophils # Lymphocytes # APTT 37.4 H Fibrinogen 593 H Sodium Chloride BUN Creatinine Glucose Calcium AST Ur Specific [place] Urine Protein Urine Blood Urine Mucus Influenza Type A (PCR) Crossmatch 11/13/24 11/13/24 11/13/24 12:27 16:01 16:01 WBC RBC 3.40 L Hgb 10.8 L Hct 35.2 L MCV 103.3 H MCHC 30.8 L RDW Plt Count 143 L Neutrophils # Lymphocytes # 0.3 L APTT 37.3 H 32.0 H Fibrinogen 563 H 585 H Sodium Chloride BUN Creatinine Glucose Calcium AST Ur Specific [place] Urine Protein Urine Blood Urine Mucus Influenza Type A (PCR) Crossmatch 11/13/24 11/13/24 11/13/24 16:01 19:46 19:46 WBC RBC 3.28 L Hgb 10.5 L Hct 32.4 L MCV MCHC RDW Plt Count 141 L Neutrophils # Lymphocytes # 0.3 L APTT Fibrinogen 616 H Sodium Chloride BUN Creatinine 0.55 L Glucose Calcium AST Ur Specific [place] Urine Protein Urine Blood Urine Mucus Influenza Type A (PCR) Crossmatch 11/13/24 11/14/24 11/14/24 19:46 00:09 00:09 WBC RBC 2.96 L Hgb 9.6 L Hct 30.0 L MCV 101.6 H MCHC RDW Plt Count Neutrophils # Lymphocytes # 0.3 L APTT Fibrinogen 571 H Sodium Chloride BUN Creatinine 0.55 L Glucose Calcium AST Ur Specific [place] Urine Protein Urine Blood Urine Mucus Influenza Type A (PCR) Crossmatch 11/14/24 11/14/24 11/14/24 00:09 05:12 05:12 WBC RBC 3.11 L Hgb 10.7 L Hct 31.9 L MCV 102.3 H MCHC RDW Plt Count Neutrophils # Lymphocytes # 0.3 L APTT Fibrinogen Sodium 132 L Chloride BUN Creatinine 0.57 L 0.50 L Glucose 109 H Calcium 8.0 L AST Ur Specific [place] Urine Protein Urine Blood Urine Mucus Influenza Type A (PCR) Crossmatch 11/14/24 11/14/24 11/14/24 05:12 08:46 08:46 WBC RBC 2.89 L Hgb 9.6 L Hct 29.6 L MCV 102.4 H MCHC RDW Plt Count 149 L Neutrophils # Lymphocytes # 0.4 L APTT Fibrinogen 626 H 614 H Sodium Chloride BUN Creatinine Glucose Calcium AST Ur Specific [place] Urine Protein Urine Blood Urine Mucus Influenza Type A (PCR) Crossmatch 11/14/24 11/14/24 11/14/24 08:46 11:47 11:47 WBC RBC 2.63 L Hgb 8.5 L Hct 26.9 L MCV 102.3 H MCHC RDW Plt Count Neutrophils # Lymphocytes # 0.2 L APTT Fibrinogen 604 H Sodium Chloride BUN Creatinine 0.53 L Glucose Calcium AST Ur Specific [place] Urine Protein Urine Blood Urine Mucus Influenza Type A (PCR) Crossmatch 11/14/24 11/14/24 11/14/24 15:52 15:52 15:52 WBC RBC 2.62 L Hgb 8.5 L Hct 26.9 L MCV 102.7 H MCHC RDW Plt Count Neutrophils # 8.4 H Lymphocytes # 0.4 L APTT Fibrinogen 584 H Sodium Chloride BUN 22 H Creatinine Glucose Calcium AST Ur Specific [place] Urine Protein Urine Blood Urine Mucus Influenza Type A (PCR) Crossmatch 11/14/24 11/15/24 11/15/24 21:49 04:15 04:15 WBC 11.2 H RBC 2.19 L 2.05 L Hgb 7.1 L 6.7 L* Hct 22.2 L 20.8 L MCV 101.3 H 101.8 H MCHC RDW Plt Count Neutrophils # Lymphocytes # 0.3 L APTT Fibrinogen Sodium 130 L Chloride BUN 23 H Creatinine Glucose 106 H Calcium 7.6 L AST Ur Specific [place] Urine Protein Urine Blood Urine Mucus Influenza Type A (PCR) Crossmatch 11/15/24 11:41 WBC RBC 2.60 L Hgb 8.3 L D Hct 25.1 L MCV MCHC RDW 15.7 H Plt Count Neutrophils # Lymphocytes # APTT Fibrinogen Sodium Chloride BUN Creatinine Glucose Calcium AST Ur Specific [place] Urine Protein Urine Blood Urine Mucus Influenza Type A (PCR) Crossmatch - Diagnostic Findings Chest x-ray: image reviewed (Chest x-ray showed mostly right basilar atelectasis, doubt pneumonia) Assessment and Plan Assessment: Impression: Acute left lower limb ischemia, status post Placement of tPA infusion catheter in the left common and left external iliac artery History of occluded left SFA History of esophageal cancer, status postchemotherapy and radiation therapy Retroperitoneal hematoma Recent history of influenza A infection Suspected right lower lobe pneumonia with elevated procalcitonin level of 0.49, and abnormal chest x-ray History of underlying COPD, presently inactive Benign essential hypertension History of hypothyroidism Recommendation: Continue present supportive care measures Place patient on ceftriaxone empirically for his presumptive right lower lobe pneumonia Patient finished a recent full course of treatment with Tamiflu for his influenza A infection Continue to monitor hemoglobin for his acute blood loss anemia, and retroperitoneal hematoma Will continue to follow. Continue bronchodilators for underlying COPD. Time with Patient: Greater than 30
--- NOTE | 2024-11-15 15:27 | P.PN ---
Subjective Progress Note Date: 11/15/24 79 year old M with PMH of CAD status post CABG + stents, PAD, GERD, HLD, HTN, esophageal cancer PEG 03/2024 s/p chemotherapy presented to the ED for worsening LLE pain. In the ED he underwent extensive evaluation. T 102.3F, BP 130/60, HR 114, RR 20, 90% on RA. CBC, Coag panel, CMP significant for WBC 10.8, RBC 3.98, MCV 101.8, Na 132, BUN 24, AST 95. UA neg LE or nitrite. Flu +. EKG sinus rhythm with no ST T wave changes. CXR no acute process. CTA showed occluded segments of the left superficial femoral artery in the proximal thigh and mid-thigh. Started on heparin drip and admitted for further workup and evaluation. Underwent LLE angiogram and placement on tPA infusion catheter on 11/12. Second look on 11/14, removal of tPA infusion catheter. 11/15 Patient was seen and examined. Reports sharp stabbing pain in his LLE. He did have swelling in his RLQ, CT AP ordered showing multiple areas of intr amuscular hemorrhage including right rectus abdominis, left psoas and left iliacus. CBC and BMP this morning shows RBC 2.05, Hg 6.7, Hct 20.8, MCV 101.8, Na 130, BUN 23, glu 106, Ca 7.6. Currently 93% on 2L NC. General: non toxic, moderate distress, appears at stated age Derm: warm, dry Head: atraumatic, normocephalic, symmetric Mouth: no lip lesion, mucus membranes moist Cardiovascular: S1S2 reg, no murmur, 1+ DP pulses palpable bilaterally Lungs: Decreased BS bilaterally, no rales , no accessory muscle use Ext: no gross muscle atrophy, no edema, no contractures Neuro: no focal neuro deficits Psych: Alert and oriented. Based on my assessment of this patient, this patient meets a high complexity level of care. Acute blood loss anemia: Secondary to intramuscular hemorrhage. Transfuse 1 unit PRBC. Trend Hg. Hold Xarelto. Sepsis and acute hypoxic respiratory failure secondary to Flu + PNA: Elevated procal of 0.49. Completed course of Tamiflu. Started on Rocephin 2g IV QD 11/15. Continue NS at 75 cc/hr. Albuterol neb QID scheduled and DuoNeb QID PRN. BCx neg so far. Sputum Cx and Legionella Ag ordered. Pulmonary on board. Left lower extremity acute limb ischemia status post placement of tPA infusion catheter in the left common and left external iliac artery 11/12/2024 CAD: Lipitor 40 mg PO QHS. COPD: Bronchodilators as above. Hypothyroid: Synthroid 50 mcg PEG QD. Depression: Sertraline 50 mg PEG QD. BPH: Flomax 0.4 mg PEG QD. GERD: Protonix 40 mg PEG QD. A-Fib: Holding Xarelto due to intramuscular bleed. Metoprolol 50 mg PEG BID. History of mesenteric ischemia status post SMA stent 2022 Esophageal cancer status post chemotherapy Status post robotic gastrostomy tube placement 09/07/2024 CODE STATUS: FULL CODE. DVT Prophylaxis: SCD GI Prophylaxis: Protonix Designated medical POA if patient is not able to make medical decisions for themselves: I have reviewed the following product/industry consultant notes: Cardio, Pulmonary. I have reviewed the results of the following tests: CBC, BMP, CT AP. I have ordered the following tests: Sputum Cx. Legionella Ag. CBC in the AM. I have discussed the care of this patient with the following independent historian: I have independently interpreted the following test below: I have discussed the management of this patient with the following physician: Objective - Vital Signs Vital signs: Vital Signs Temp 98.0 F 11/15/24 12:00 Pulse 68 11/15/24 13:01 Resp 18 11/15/24 13:00 BP 129/61 11/15/24 13:00 Pulse Ox 100 11/15/24 13:00 FiO2 Intake & Output 11/14/24 11/15/24 11/15/24 18:59 06:59 18:59 Intake Total 2407.750 765 9276 Output Total 315 185 300 Balance 2092.554 826 0616 Weight 57.2 kg 57.2 kg Intake: IV 680 900 555 Invasive Line 3 30 Invasive Line 4 30 Sodium Chloride 0.9% 1, 600 900 525 000 ml @ 75 mls/hr IV . [id number] [facility] Rx#:[id number] Intake, IV Titration 290.167 Amount Alteplase 10 mg In Sodium 146.667 Chloride 0.9% 90 ml @ 1 MG/HR 10 mls/hr IA .Q10H [facility] Rx#:[id number] Heparin Sod,Pork in 0.45% 143.50 NaCl 25,000 unit In 0.45 % NaCl 1 250ml.bag @ 12 UNITS/KG/HR 6.205 mls/hr IV .Q24H [facility] Rx#: [id number] Oral 237 237 Tube Feeding 250 Blood Product 310 Rc As-1 Unit 310 [id number] Other 1200 60 Output: Urine 315 185 300 Other: Voiding Method Indwelling Catheter Toilet Urinal # Bowel Movements 0 1 - Labs CBC & Chem 7: 11/15/24 11:41 11/15/24 04:15 Labs: Abnormal Lab Results - Last 24 Hours (Table) 11/12/24 11/14/24 11/14/24 Range/Units 15:22 15:52 15:52 WBC (3.8-10.6) k/uL RBC 2.62 L (4.30-5.90) m/uL Hgb 8.5 L (13.0-17.5) gm/dL Hct 26.9 L (39.0-53.0) % MCV 102.7 H (80.0-100.0) fL RDW (11.5-15.5) % Neutrophils # 8.4 H (1.3-7.7) k/uL Lymphocytes # 0.4 L (1.0-4.8) k/uL Fibrinogen 584 H (200-500) mg/dL Sodium (137-145) mmol/L BUN (9-20) mg/dL Glucose (74-99) mg/dL Calcium (8.4-10.2) mg/dL Crossmatch See Detail 11/14/24 11/14/24 11/15/24 Range/Units 15:52 21:49 04:15 WBC 11.2 H (3.8-10.6) k/uL RBC 2.19 L (4.30-5.90) m/uL Hgb 7.1 L (13.0-17.5) gm/dL Hct 22.2 L (39.0-53.0) % MCV 101.3 H (80.0-100.0) fL RDW (11.5-15.5) % Neutrophils # (1.3-7.7) k/uL Lymphocytes # (1.0-4.8) k/uL Fibrinogen (200-500) mg/dL Sodium 130 L (137-145) mmol/L BUN 22 H 23 H (9-20) mg/dL Glucose 106 H (74-99) mg/dL Calcium 7.6 L (8.4-10.2) mg/dL Crossmatch 11/15/24 11/15/24 Range/Units 04:15 11:41 WBC (3.8-10.6) k/uL RBC 2.05 L 2.60 L (4.30-5.90) m/uL Hgb 6.7 L* 8.3 L D (13.0-17.5) gm/dL Hct 20.8 L 25.1 L (39.0-53.0) % MCV 101.8 H (80.0-100.0) fL RDW 15.7 H (11.5-15.5) % Neutrophils # (1.3-7.7) k/uL Lymphocytes # 0.3 L (1.0-4.8) k/uL Fibrinogen (200-500) mg/dL Sodium (137-145) mmol/L BUN (9-20) mg/dL Glucose (74-99) mg/dL Calcium (8.4-10.2) mg/dL Crossmatch
--- NOTE | 2024-11-15 19:52 | XR ---
EXAMINATION TYPE: XR chest 1V portable DATE OF EXAM: 11/15/2024 6:52 PM COMPARISON: Chest radiographs from 11/14/2024. CLINICAL INDICATION: Male, 79 years old with history of dyspnea; [facility] TECHNIQUE: XR chest 1V portable Frontal view of the chest. FINDINGS: Lungs/Pleura: Multifocal airspace opacities. No evidence of pneumothorax or pleural effusion. Pulmonary vascularity: Unremarkable. Heart/mediastinum: Cardiomediastinal silhouette is unremarkable. Musculoskeletal: No acute osseous pathology. Midline sternotomy wires are noted. Other findings: None Lines/Tubes: [id number] projecting over the left hemithorax with distal tip at the cavoatrial junction. IMPRESSION: Similar multifocal airspace opacities. [facility], , 11/15/2024 7:50 PM
[2024-11-16 06:10] LABS: Anisocytosis Slight; HCT 23.6 % (39.0-53.0); HGB 7.8 gm/dL (13.0-17.5); MCHC 32.9 g/dL (31.0-37.0); MCV 97.2 fL (80.0-100.0); Mean Platelet Volume 8.9; Platelet Count 190 k/uL (150-450); RBC 2.43 m/uL (4.30-5.90); RDW 16.2 % (11.5-15.5)
[2024-11-16 06:34] LABS: African American GFR (CKD) >90 (>60 ml/min/1.73 sqM); Anion Gap 7 mmol/L; Blood Urea Nitrogen 19 mg/dL (9-20); Calcium 7.6 mg/dL (8.4-10.2); Carbon Dioxide 25 mmol/L (22-30); Chloride 100 mmol/L (98-107); Glucose 121 mg/dL (74-99); Non-African American GFR(CKD) >90 (>60 ml/min/1.73 sqM); Potassium 3.9 mmol/L (3.5-5.1); Sodium 132 mmol/L (137-145)
--- NOTE | 2024-11-16 07:33 | XR ---
EXAMINATION TYPE: XR chest 1V portable DATE OF EXAM: 11/16/2024 5:37 AM COMPARISON: Chest radiographs from 11/15/2024 CLINICAL INDICATION: Male, 79 years old with history of dyspnea; TECHNIQUE: XR chest 1V portable Frontal view of the chest. FINDINGS: Lungs/Pleura: Multifocal airspace opacities. No evidence of pneumothorax or pleural effusion. Pulmonary vascularity: Unremarkable. Heart/mediastinum: Cardiomediastinal silhouette is unremarkable. Atherosclerotic calcifications are seen in the aorta. Left atrial appendage occlusion device is present. Musculoskeletal: No acute osseous pathology. Midline sternotomy wires are noted. Left chest wall [id number] tip terminating in the superior vena cava. IMPRESSION: Similar multifocal airspace opacities. [facility], , 11/16/2024 7:30 AM
[2024-11-16] MEDS: IPRATROPIUM-ALBUTEROL 3 ML NEB INHALATION PRN (12:49)
--- NOTE | 2024-11-16 13:07 | P.PN ---
Subjective Progress Note Date: 11/16/24 79 year old M with PMH of CAD status post CABG + stents, PAD, GERD, HLD, HTN, esophageal cancer PEG 03/2024 s/p chemotherapy presented to the ED for worsening LLE pain. In the ED he underwent extensive evaluation. T 102.3F, BP 130/60, HR 114, RR 20, 90% on RA. CBC, Coag panel, CMP significant for WBC 10.8, RBC 3.98, MCV 101.8, Na 132, BUN 24, AST 95. UA neg LE or nitrite. Flu +. EKG sinus rhythm with no ST T wave changes. CXR no acute process. CTA showed occluded segments of the left superficial femoral artery in the proximal thigh and mid-thigh. Started on heparin drip and admitted for further workup and evaluation. Underwent LLE angiogram and placement on tPA infusion catheter on 11/12. Second look on 11/14, removal of tPA infusion catheter. He did have swelling in his RLQ, CT AP ordered showing multiple areas of intramuscular hemorrhage including right rectus abdominis, left psoas and left iliacus 11/16 Patient was seen and examined. Reports sharp stabbing pain in his LLE. Complains of diarrhea. CBC and BMP this morning shows RBC 2.43, Hg 7.8, Hct 23.6, Na 132, Cr 0.59, glu 121, Ca 7.6. CXR shows similar bilateral airspace opacities. General: non toxic, no distress, appears at stated age Derm: warm, dry Head: atraumatic, normocephalic, symmetric Mouth: no lip lesion, mucus membranes moist Cardiovascular: S1S2 reg, systolic murmur, 1+ DP pulses palpable bilaterally, L port a cath Lungs: Decreased BS bilaterally, no rales , no accessory muscle use Ext: no gross muscle atrophy, no edema, no contractures Neuro: no focal neuro deficits Psych: Alert and oriented. Based on my assessment of this patient, this patient meets a high complexity level of care. Acute blood loss anemia: Secondary to intramuscular hemorrhage. Status post 1 PRBC. Trend Hg. Hold Xarelto. Sepsis and acute hypoxic respiratory failure secondary to Flu + PNA: Elevated procal of 0.49. Completed course of Tamiflu. Rocephin 2g IV QD started 11/15. Start Azithromycin 500 mg IV QD to cover for atypical organisms. Continue NS at 75 cc/hr. Albuterol neb QID scheduled and DuoNeb QID PRN. BCx, Legionella neg. Sputum Cx pending. Pulmonary on board. Left lower extremity acute limb ischemia status post placement of tPA infusion catheter in the left common and left external iliac artery 11/12/2024 CAD: Lipitor 40 mg PO QHS. COPD: Bronchodilators as above. Hypothyroid: Synthroid 50 mcg PEG QD. Depression: Sertraline 50 mg PEG QD. BPH: Flomax 0.4 mg PEG QD. GERD: Protonix 40 mg PEG QD. A-Fib: Holding Xarelto due to intramuscular bleed. Metoprolol 50 mg PEG BID. History of mesenteric ischemia status post SMA stent 2022 Esophageal cancer status post chemotherapy Status post robotic gastrostomy tube placement 09/07/2024 CODE STATUS: FULL CODE. DVT Prophylaxis: SCD GI Prophylaxis: Protonix Designated medical POA if patient is not able to make medical decisions for themselves: I have reviewed the following accounting policy consultant notes: I have reviewed the results of the following tests: CBC, BMP, BCx, Legionella I have ordered the following tests: Sputum Cx I have discussed the care of this patient with the following independent historian: I have independently interpreted the following test below: CXR I have discussed the management of this patient with the following physician: Objective - Vital Signs Vital signs: Vital Signs Temp 98.2 F 11/15/24 20:00 Pulse 70 11/16/24 12:49 Resp 23 11/16/24 07:00 BP 117/53 11/16/24 05:00 Pulse Ox 82 L 11/16/24 07:00 FiO2 Intake & Output 11/15/24 11/16/24 11/16/24 18:59 06:59 18:59 Intake Total 2669 855 75 Output Total 600 250 0 Balance 2069 605 75 Weight 57.2 kg 62.2 kg Intake: IV 1115 855 75 Invasive Line 4 40 30 Sodium Chloride 0.9% 1, 975 825 75 000 ml @ 75 mls/hr IV . [id number] [facility] Rx#:[id number] cefTRIAXone 2 gm In 100 Sodium Chloride 0.9% 50 ml @ 100 mls/hr IVPB Q24HR [facility] Rx#:[id number] Oral 711 Tube Feeding 413 Blood Product 310 Rc As-1 Unit 310 [id number] Other 120 Output: Urine 600 250 0 Other: Voiding Method Urinal Urinal # Bowel Movements 1 1 - Labs CBC & Chem 7: 11/16/24 05:35 11/16/24 05:35 Labs: Abnormal Lab Results - Last 24 Hours (Table) 11/16/24 11/16/24 Range/Units 05:35 05:35 RBC 2.43 L (4.30-5.90) m/uL Hgb 7.8 L (13.0-17.5) gm/dL Hct 23.6 L (39.0-53.0) % RDW 16.2 H (11.5-15.5) % Sodium 132 L (137-145) mmol/L Creatinine 0.59 L (0.66-1.25) mg/dL Glucose 121 H (74-99) mg/dL Calcium 7.6 L (8.4-10.2) mg/dL Microbiology - Last 24 Hours (Table) 11/10/24 12:37 Blood Culture - Final Blood
[2024-11-16] MEDS: ASPIRIN 81 MG PO SCH (13:41)
[2024-11-16] MEDS: AZITHROMYCIN 500 MG in SODIUM CHLORIDE 0.9% 250 ML IVPB SCH (13:41)
[2024-11-16] MEDS: CLOPIDOGREL 75 MG TAB PO SCH (13:41)
--- NOTE | 2024-11-16 14:02 | P.PN ---
Subjective Progress Note Date: 11/16/24 Principal diagnosis: Acute left lower limb ischemia This is a 79-year-old white male with history of underlying coronary artery disease, previous CABG and PCI, history of paroxysmal atrial fibrillation maintained on Xarelto history of paroxysmal atrial fibrillation maintained on Xarelto history of mitral valve regurgitation, hypertension, dyslipidemia, and known history of peripheral vessel occlusive disease 11/10/2024, and he was seen by Dr. Hopkins for acute presentation of left lower extremity getting cold and numb over a period of 4 to 5 days. Pain has been quite severe from the thigh all the way down to his toes. On 11/12/2024, patient underwent placement of tPA infusion catheter in the left common and left external iliac artery and he received thrombolytics for his acute arterial thrombosis involving the left iliac artery, and felt that the patient may even require possible thrombectomy. Patient had tPA protocol. On 11/14, patient had a second look angiogram after tPA infusion and he also underwent removal of tPA infusion catheter from the left common and left external iliac arteries with selective bilateral iliac and femoral arteries angiogram. Postoperatively, patient was transferred to the ICU, and this consult was initiated. Apparently on his second look the patient was found to have widely patent left common and left external iliac arteries and small residual thrombus but great flow and significant improvement I saw this patient in the ICU, he is on 2 L nasal cannula, his hemoglobin is 6.7 and he will receive 1 unit of packed RBCs, patient does not seem to be in distress, he had recent influenza infection and he finished a course of Tamiflu. In addition to all of this the patient has known history of COPD which seems to be stable and he has a history of a left subclavian Mediport noted in place which was placed initially for his esophageal cancer. During my evaluation, patient had no cough no wheezing no shortness of breath no chest pain, and he had significant improvement in pain related to his left lower extremity. Follow-up hemoglobin after 1 unit of packed RBCs came back 8.3. His basic metabolic profile today came back normal except for low sodium of 130. Renal profile is normal. Patient was seen today on 11/16/2024, patient remains in the ICU, he is presently on overflow to 3 S., on 2 L nasal cannula, doing fairly well, better than expected, he is on IV fluid at 0.9 normal saline at 75 cc/h, he is also on vital AF at 59 mL/h. Patient to be started on PEG tube feeding hopefully sometime later today. Chest x-ray continues to show multifocal infiltrates/pneumonia involving mostly right upper lobe right lower lobe and left lower lobe. WBC count is 7 hemoglobin 7.8 electrolytes are normal renal profile is normal. Objective - Vital Signs Vital signs: Vital Signs Temp 98.2 F 11/15/24 20:00 Pulse 68 11/16/24 12:58 Resp 23 11/16/24 07:00 BP 117/53 11/16/24 05:00 Pulse Ox 82 L 11/16/24 07:00 FiO2 Intake & Output 11/15/24 11/16/24 11/16/24 18:59 06:59 18:59 Intake Total 2669 855 75 Output Total 600 250 0 Balance 2069 605 75 Weight 57.2 kg 62.2 kg Intake: IV 1115 855 75 Invasive Line 4 40 30 Sodium Chloride 0.9% 1, 975 825 75 000 ml @ 75 mls/hr IV . [id number] [facility] Rx#:[id number] cefTRIAXone 2 gm In 100 Sodium Chloride 0.9% 50 ml @ 100 mls/hr IVPB Q24HR [facility] Rx#:[id number] Oral 711 Tube Feeding 413 Blood Product 310 Rc As-1 Unit 310 [id number] Other 120 Output: Urine 600 250 0 Other: Voiding Method Urinal Urinal # Bowel Movements 1 1 - Exam Physical examination: Gen: Revealed 79-year-old white male frail looking, chronically ill, in no distress. On 2 L nasal cannula HEENT: Head is atraumatic, normocephalic. Pupils equal, round. Sclerae is anicteric. NECK: Supple. No JVD. No stridor. Left subclavian Port-A-Cath noted. LUNGS: Symmetrical chest expansion clear throughout no crackles rhonchi or wheezes HEART: Distant S1-S2, 2/6 systolic murmur throughout the precordium ABDOMEN: Soft nontender no megaly, no rebound, no guarding EXTREMITIES: No clubbing edema or cyanosis, good pulses noted bilaterally faint dorsalis pedis pulse noted and posterior tibial at the left lower extremity. NEUROLOGICAL: Alert oriented x 3 no gross focal deficit Psychiatric: Normal mood, affect and no mental status examination Skin: No rashes 3. - Labs CBC & Chem 7: 11/16/24 05:35 11/16/24 05:35 Labs: Abnormal Lab Results - Last 24 Hours (Table) 11/16/24 11/16/24 Range/Units 05:35 05:35 RBC 2.43 L (4.30-5.90) m/uL Hgb 7.8 L (13.0-17.5) gm/dL Hct 23.6 L (39.0-53.0) % RDW 16.2 H (11.5-15.5) % Sodium 132 L (137-145) mmol/L Creatinine 0.59 L (0.66-1.25) mg/dL Glucose 121 H (74-99) mg/dL Calcium 7.6 L (8.4-10.2) mg/dL Microbiology - Last 24 Hours (Table) 11/10/24 12:37 Blood Culture - Final Blood Assessment and Plan Assessment: Impression: Acute left lower limb ischemia, status post Placement of tPA infusion catheter in the left common and left external iliac artery History of occluded left SFA History of esophageal cancer, status postchemotherapy and radiation therapy Retroperitoneal hematoma Recent history of influenza A infection Suspected right lower lobe pneumonia with elevated procalcitonin level of 0.49, and abnormal chest x-ray History of underlying COPD, presently inactive Benign essential hypertension History of hypothyroidism Recommendation: Transfer patient to S. today. Continue present supportive care measures Place patient on ceftriaxone empirically for his multifocal pneumonia Patient finished a recent full course of treatment with Tamiflu for his influenza A infection Continue to monitor hemoglobin for his acute blood loss anemia, and retroperitoneal hematoma Continue bronchodilators for COPD Will continue to follow. Time with Patient: Less than 30
--- NOTE | 2024-11-16 14:47 | P.PN ---
Subjective Progress Note Date: 11/16/24 The patient is a 79-year-old male who is currently admitted to the hospital with critical limb ischemia. On 11/12/2024 patient underwent left lower extremity angiogram with Dr. Hopkins. tPA infusion catheter was placed in the left common and left external iliac artery. Yesterday the patient developed retroperitoneal hematoma which was confirmed with abdominal CT scan. Patient return to the operating room with removal of tPA infusion catheter, with no active bleed. Hemoglobin has dropped from 9.6 to 6.7, receiving 1 unit of packed RBCs Overnight the patient states he did do relatively well but has developed pain in his left lower extremity. Previously there was only numbness and tingling he now reports discomfort. No chest pain or pressure. No difficulty breathing. GENERAL: Well-appearing, well-nourished and in no acute distress. NECK: Supple without JVD or thyromegaly. LUNGS: Breath sounds clear to auscultation bilaterally. Respiration equal and unlabored. No wheezes, rales or rhonchi. HEART: Regular rate and rhythm without murmurs, rubs or gallops. S1 and S2 heard. EXTREMITIES: Normal range of motion, no edema. No clubbing or cyanosis. Doppler singles for bilateral lower extremities. right groin is soft TELEMETRY: Sinus rhythm overnight LABS: WBC 7.0, hemoglobin 7.8, hematocrit 23.6, platelet 190, sodium 132, potassium 3.9, BUN 19, creatinine 0.59 IMPRESSION: Acute critical limb ischemia Status post thrombolytic infusion Retroperitoneal hematoma Pneumonia Influenza A PLAN: Continue to trend hemoglobin and monitor pulses Start dual antiplatelet therapy as directed by Dr. Navarro Further recommendations based upon clinical course I am dictating on behalf of Dr Chadwick Chambers's history/physical and assessment/plan. Objective - Vital Signs Vital signs: Vital Signs Temp 98.3 F 11/16/24 12:00 Pulse 68 11/16/24 12:58 Resp 18 11/16/24 12:00 BP 129/57 11/16/24 12:00 Pulse Ox 94 L 11/16/24 12:00 FiO2 Intake & Output 11/15/24 11/16/24 11/16/24 18:59 06:59 18:59 Intake Total 2909 855 1444 Output Total 600 250 300 Balance 7368 605 1144 Weight 57.2 kg 62.2 kg Intake: IV 1115 855 970 Azithromycin 500 mg In 250 Sodium Chloride 0.9% 250 ml @ 250 mls/hr IVPB DAILY [facility] Rx#:[id number] Invasive Line 4 40 30 20 Sodium Chloride 0.9% 1, 975 825 600 000 ml @ 75 mls/hr IV . [id number] [facility] Rx#:[id number] cefTRIAXone 2 gm In 100 100 Sodium Chloride 0.9% 50 ml @ 100 mls/hr IVPB Q24HR [facility] Rx#:[id number] Oral 711 474 Tube Feeding 413 Blood Product 310 Rc As-1 Unit 310 [id number] Other 120 Output: Urine 600 250 300 Other: Voiding Method Urinal Urinal Urinal # Bowel Movements 1 1 - Labs CBC & Chem 7: 11/16/24 05:35 11/16/24 05:35 Labs: Abnormal Lab Results - Last 24 Hours (Table) 11/16/24 11/16/24 Range/Units 05:35 05:35 RBC 2.43 L (4.30-5.90) m/uL Hgb 7.8 L (13.0-17.5) gm/dL Hct 23.6 L (39.0-53.0) % RDW 16.2 H (11.5-15.5) % Sodium 132 L (137-145) mmol/L Creatinine 0.59 L (0.66-1.25) mg/dL Glucose 121 H (74-99) mg/dL Calcium 7.6 L (8.4-10.2) mg/dL Microbiology - Last 24 Hours (Table) 11/10/24 12:37 Blood Culture - Final Blood
[2024-11-16 16:31] LABS: Glucose,Whole Blood 139 mg/dL (70-110)
[2024-11-16 19:43] LABS: Glucose,Whole Blood 129 mg/dL (70-110)
[2024-11-17 06:02] LABS: Glucose,Whole Blood 149 mg/dL (70-110)
[2024-11-17] MEDS: ALPRAZolam 0.25 MG TAB PEG/G-TUBE PRN (08:43)
[2024-11-17 09:58] LABS: HGB 7.7 gm/dL (13.0-17.5); MCH 31.7 pg (25.0-35.0); MCHC 32.3 g/dL (31.0-37.0); Mean Platelet Volume 8.7; Platelet Count 227 k/uL (150-450); RBC 2.44 m/uL (4.30-5.90); RDW 15.9 % (11.5-15.5); WBC 9.1 k/uL (3.8-10.6)
[2024-11-17] MEDS: FUROSEMIDE 10 MG/ML 4 ML VIAL IV STA (10:37)
[2024-11-17 11:13] LABS: Glucose,Whole Blood 169 mg/dL (70-110)
--- NOTE | 2024-11-17 12:32 | P.PN ---
Subjective Progress Note Date: 11/17/24 79 year old M with PMH of CAD status post CABG + stents, PAD, GERD, HLD, HTN, esophageal cancer PEG 03/2024 s/p chemotherapy presented to the ED for worsening LLE pain. In the ED he underwent extensive evaluation. T 102.3F, BP 130/60, HR 114, RR 20, 90% on RA. CBC, Coag panel, CMP significant for WBC 10.8, RBC 3.98, MCV 101.8, Na 132, BUN 24, AST 95. UA neg LE or nitrite. Flu +. EKG sinus rhythm with no ST T wave changes. CXR no acute process. CTA showed occluded segments of the left superficial femoral artery in the proximal thigh and mid-thigh. Started on heparin drip and admitted for further workup and evaluation. Underwent LLE angiogram and placement on tPA infusion catheter on 11/12. Second look on 11/14, removal of tPA infusion catheter. He did have swelling in his RLQ, CT AP ordered showing multiple areas of intramuscular hemorrhage including right rectus abdominis, left psoas and left iliacus 11/17 Patient was seen and examined. Reports continued sharp stabbing pain in his LLE. Reports worsening shortness of breath. Started on ASA and Plavix yesterday. CBC shows RBC 2.44, Hg 7.7, Hct 24. Antibiotics include Rocephin and Azithromycin. CXR is pending. General: non toxic, no distress, appears at stated age Derm: warm, dry Head: atraumatic, normocephalic, symmetric Mouth: no lip lesion, mucus membranes moist Cardiovascular: S1S2 reg, systolic murmur, 1+ DP pulses palpable bilaterally, L port a cath Lungs: Decreased BS bilaterally, no rales , no accessory muscle use Ext: no gross muscle atrophy, no edema, no contractures Neuro: no focal neuro deficits Psych: Alert and oriented. Based on my assessment of this patient, this patient meets a high complexity level of care. Acute blood loss anemia: Secondary to intramuscular hemorrhage. Status post 1 PRBC 11/15. Restarted ASA and Plavix on 11/16. Trend Hg. Hold Xarelto. Sepsis and acute hypoxic respiratory failure secondary to Flu + PNA: Elevated procal of 0.49. Completed course of Tamiflu. Rocephin 2g IV QD started 11/15. A zithromycin 500 mg IV QD started 11/16. Continue NS at 75 cc/hr. Albuterol neb QID scheduled and DuoNeb QID PRN. BCx, Legionella neg. Sputum Cx pending. Pulmonary on board. Left lower extremity acute limb ischemia status post placement of tPA infusion catheter in the left common and left external iliac artery 11/12/2024 removed on 11/14: ASA 81 mg PO QD. Plavix 75 mg PO QD. Lipitor as below. CAD: Lipitor 40 mg PO QHS. ASA and Plavix as above. COPD: Bronchodilators as above. Hypothyroid: Synthroid 50 mcg PEG QD. Depression: Sertraline 50 mg PEG QD. BPH: Flomax 0.4 mg PEG QD. GERD: Protonix 40 mg PEG QD. A-Fib: Holding Xarelto due to intramuscular bleed. Metoprolol 50 mg PEG BID. History of mesenteric ischemia status post SMA stent 2022 Esophageal cancer status post chemotherapy Status post robotic gastrostomy tube placement 09/07/2024 CODE STATUS: FULL CODE. DVT Prophylaxis: SCD GI Prophylaxis: Protonix Designated medical POA if patient is not able to make medical decisions for themselves: I have reviewed the following quality improvement consultant notes: Cardiology, Pulmonary. I have reviewed the results of the following tests: CBC. I have ordered the following tests: CBC, BMP, Mag in the AM. I have discussed the care of this patient with the following independent historian: I have independently interpreted the following test below: I have discussed the management of this patient with the following physician: Objective - Vital Signs Vital signs: Vital Signs Temp 98 F 11/17/24 03:22 Pulse 68 11/17/24 07:52 Resp 17 11/17/24 03:22 BP 131/61 11/17/24 03:22 Pulse Ox 95 11/17/24 03:22 FiO2 Intake & Output 11/16/24 11/17/24 11/17/24 18:59 06:59 18:59 Intake Total 1562 197 0 Output Total 850 153 Balance 712 44 0 Weight 60.9 kg Intake: IV 970 20 Azithromycin 500 mg In 250 Sodium Chloride 0.9% 250 ml @ 250 mls/hr IVPB DAILY [facility] Rx#:[id number] Invasive Line 4 20 20 Sodium Chloride 0.9% 1, 600 000 ml @ 75 mls/hr IV . [id number] [facility] Rx#:[id number] cefTRIAXone 2 gm In 100 Sodium Chloride 0.9% 50 ml @ 100 mls/hr IVPB Q24HR [facility] Rx#:[id number] Oral 592 0 Tube Feeding 177 Output: Urine 850 151 Stool 2 Other: Voiding Method Urinal Urinal # Voids 1 1 # Bowel Movements 1 1 1 - Labs CBC & Chem 7: 11/17/24 09:30 11/16/24 05:35 Labs: Abnormal Lab Results - Last 24 Hours (Table) 11/16/24 11/16/24 11/17/24 Range/Units 16:30 19:41 05:54 POC Glucose (mg/dL) 139 H 129 H 149 H (70-110) mg/dL
--- NOTE | 2024-11-17 12:54 | XR ---
EXAMINATION TYPE: XR chest 1V portable DATE OF EXAM: 11/17/2024 12:32 PM COMPARISON: Chest radiographs from 11/16/2024 CLINICAL INDICATION: Male, 79 years old with history of Hypoxemia; H TECHNIQUE: XR chest 1V portable Frontal view of the chest. FINDINGS: Lungs/Pleura: Bibasilar airspace opacities. There is no evidence of pleural effusion, focal consolida tion, or pneumothorax. Pulmonary vascularity: Unremarkable. Heart/mediastinum: Cardiomediastinal silhouette is unremarkable. Musculoskeletal: No acute osseous pathology. Midline sternotomy wires are noted. Other findings: None Lines/Tubes: [id number] projecting over the left hemithorax with distal tip at the cavoatrial junction. IMPRESSION: Bibasilar airspace opacities correlate for pneumonia. [facility], , 11/17/2024 12:51 PM
--- NOTE | 2024-11-17 13:51 | P.PN ---
Subjective HISTORY OF PRESENT ILLNESS: This is a 79-year-old male patient of Dr. Saldaña with past medical history of coronary artery disease status post PCI and CABG, paroxysmal atrial fibrillation on Xarelto, mitral valve regurgitation, hypertension, hyperlipidemia, PAD with known occlusion of the left SFA, esophageal cancer status postchemotherapy and r adiation therapy not a surgical candidate, status post PEG tube, remote history of tobacco use and dependence. We have been asked to evaluate patient for PAD. Patient gives history that he developed pain in his left leg and the left leg is feeling cold and numb. He states he has had this ongoing since September but worse the last 4 to 5 days. He states his most severe in the back of the thigh and worse from the knee down to the toes. Patient denies chest pain. Blood pressure 104/59, heart rate 63, pulse ox 93% on room air. Patient is seen today in the emergency center waiting for a bed on the cardiac stepdown unit. -EKG: Sinus rhythm no acute ST changes. -Chest x-ray: Chronic emphysematous changes without acute process. -CTA left lower extremity: Long occluded segment of the left superficial femoral artery in the proximal thigh and mid thigh. Three-vessel runoff. -Laboratory studies: WBC 8.2, hemoglobin 13.5, sodium 134, potassium 4, BUN 24 creatinine 0.68. Influenza A detected. -Home cardiac medications: Atorvastatin 40 mg daily, Lopressor 50 mg twice daily, Xarelto 20 mg daily, also on levothyroxine. -CV surgery 02/08/2016 With SCHWARTZ to LAD, VG to OM1, VG to PDA -PCI : Stent to the mid RCA, stent to the proximal RCA, stent to the mid RCA. -Echocardiogram performed 05/06/2023 revealed EF of 47%, mild TR, mild AR, mild MR. -Lexiscan stress test performed 10/2019: EF 47%, partially reversible inferior apical and septal defect. -Arthrectomy and stenting of the left SFA mid and distal portion, balloon angioplasty of the proximal left SFA and balloon angio of the left common femoral 11/25/2018. -Right superficial femoral stent 07/22/2018. 11/16/2024 The patient is a 79-year-old male who is currently admitted to the hospital with critical limb ischemia. On 11/12/2024 patient underwent left lower extremity angiogram with Dr. Hopkins. tPA infusion catheter was placed in the left common and left external iliac artery. Yesterday the patient developed retroperitoneal hematoma which was confirmed with abdominal CT scan. Patient return to the operating room with removal of tPA infusion catheter, with no active bleed. Hemoglobin has dropped from 9.6 to 6.7, receiving 1 unit of packed RBCs Overnight the patient states he did do relatively well but has developed pain in his left lower extremity. Previously there was only numbness and tingling he now reports discomfort. No chest pain or pressure. No difficulty breathing. 11/17/2024 Patient examined this morning at the bedside. Patient is resting comfortably in bed. No complaints of chest pain. He is receiving tube feedings. Vital signs are stable. Patient does appear SOB this mornin. He has been receiving IV fluids at 75 cc an hour. PHYSICAL EXAM: VITAL SIGNS: Reviewed. GENERAL: Well-developed in no acute distress. NECK: Supple. No JVD or thyromegaly LUNGS: Respirations even and unlabored. Lungs essentially clear to auscultation bilaterally. HEART: Regular rate and rhythm. S1 and S2 heard. EXTREMITIES: Normal range of motion. No clubbing or cyanosis. Peripheral pulses intact. No lower extremity edema ASSESSMENT: Critical left lower limb ischemia, status post thrombolytic infusion Intramuscular hemorrhage Acute blood loss anemia, secondary to above Influenza A, patient has been started on Tamiflu Coronary artery disease with previous stents and CABG Paroxysmal atrial fibrillation on Xarelto Mitral valve regurgitation with moderate mitral insufficiency Hypertension Hyperlipidemia PAD Remote history of tobacco use and dependence. PLAN: Discontinue IV fluids. Give a one-time dose of IV Lasix 40 mg Continue dual antiplatelet therapy with aspirin and Plavix Xarelto remains on hold secondary to intramuscular hemorrhage and acute blood loss anemia Continue additional cardiac medications Further recommendations pending patient course Nurse practitioner note has been reviewed by physician. Signing provider agrees with the documented findings, assessment, and plan of care documented by SUPERMARKET MANAGER as a scribe. Objective - Vital Signs Vital signs: Vital Signs Temp 96.9 F L 11/17/24 11:13 Pulse 80 11/17/24 11:25 Resp 20 11/17/24 11:13 BP 164/73 11/17/24 11:13 Pulse Ox 92 L 11/17/24 11:13 FiO2 Intake & Output 11/16/24 11/17/24 11/17/24 18:59 06:59 18:59 Intake Total 1562 197 10 Output Total 850 153 850 Balance 712 44 -840 Weight 60.9 kg 60.9 kg Intake: IV 970 20 10 Azithromycin 500 mg In 250 Sodium Chloride 0.9% 250 ml @ 250 mls/hr IVPB DAILY [facility] Rx#:[id number] Invasive Line 4 20 20 10 Sodium Chloride 0.9% 1, 600 000 ml @ 75 mls/hr IV . [id number] [facility] Rx#:[id number] cefTRIAXone 2 gm In 100 Sodium Chloride 0.9% 50 ml @ 100 mls/hr IVPB Q24HR [facility] Rx#:[id number] Oral 592 0 Tube Feeding 177 Output: Urine 850 151 850 Stool 2 Other: Voiding Method Urinal Urinal Urinal # Voids 1 1 # Bowel Movements 1 1 1 - Labs CBC & Chem 7: 11/17/24 09:30 11/16/24 05:35 Labs: Abnormal Lab Results - Last 24 Hours (Table) 11/16/24 11/16/24 11/17/24 Range/Units 16:30 19:41 05:54 RBC (4.30-5.90) m/uL Hgb (13.0-17.5) gm/dL Hct (39.0-53.0) % RDW (11.5-15.5) % POC Glucose (mg/dL) 139 H 129 H 149 H (70-110) mg/dL 11/17/24 11/17/24 Range/Units 09:30 11:05 RBC 2.44 L (4.30-5.90) m/uL Hgb 7.7 L (13.0-17.5) gm/dL Hct 24.0 L (39.0-53.0) % RDW 15.9 H (11.5-15.5) % POC Glucose (mg/dL) 169 H (70-110) mg/dL
--- NOTE | 2024-11-17 14:44 | P.PN ---
Subjective Progress Note Date: 11/17/24 Principal diagnosis: Acute left lower limb ischemia This is a 79-year-old white male with history of underlying coronary artery disease, previous CABG and PCI, history of paroxysmal atrial fibrillation maintained on Xarelto history of paroxysmal atrial fibrillation maintained on Xarelto history of mitral valve regurgitation, hypertension, dyslipidemia, and known history of peripheral vessel occlusive disease 11/10/2024, and he was seen by Dr. Hopkins for acute presentation of left lower extremity getting cold and numb over a period of 4 to 5 days. Pain has been quite severe from the thigh all the way down to his toes. On 11/12/2024, patient underwent placement of tPA infusion catheter in the left common and left external iliac artery and he received thrombolytics for his acute arterial thrombosis involving the left iliac artery, and felt that the patient may even require possible thrombectomy. Patient had tPA protocol. On 11/14, patient had a second look angiogram after tPA infusion and he also underwent removal of tPA infusion catheter from the left common and left external iliac arteries with selective bilateral iliac and femoral arteries angiogram. Postoperatively, patient was transferred to the ICU, and this consult was initiated. Apparently on his second look the patient was found to have widely patent left common and left external iliac arteries and small residual thrombus but great flow and significant improvement I saw this patient in the ICU, he is on 2 L nasal cannula, his hemoglobin is 6.7 and he will receive 1 unit of packed RBCs, patient does not seem to be in distress, he had recent influenza infection and he finished a course of Tamiflu. In addition to all of this the patient has known history of COPD which seems to be stable and he has a history of a left subclavian Mediport noted in place which was placed initially for his esophageal cancer. During my evaluation, patient had no cough no wheezing no shortness of breath no chest pain, and he had significant improvement in pain related to his left lower extremity. Follow-up hemoglobin after 1 unit of packed RBCs came back 8.3. His basic metabolic profile today came back normal except for low sodium of 130. Renal profile is normal. Patient was seen today on 11/16/2024, patient remains in the ICU, he is presently on overflow to 3 S., on 2 L nasal cannula, doing fairly well, better than expected, he is on IV fluid at 0.9 normal saline at 75 cc/h, he is also on vital AF at 59 mL/h. Patient to be started on PEG tube feeding hopefully sometime later today. Chest x-ray continues to show multifocal infiltrates/pneumonia involving mostly right upper lobe right lower lobe and left lower lobe. WBC count is 7 hemoglobin 7.8 electrolytes are normal renal profile is normal. Patient was seen today on 11/17/2024, patient is complaining of worsening shortness of breath, chest x-ray is showing worsening airspace disease involving right upper lobe, left lower lobe and right lower lobe, patient did receive diuretics by cardiology, patient is also on Tamiflu for influenza A and is also on antibiotics empirically for presumptive pneumonia in the setting of acute influenza A infection. Patient is also complaining of left lower extremity pain, although the foot seems to be warm, and no evidence of ischemic changes noted in the left foot, that being addressed by cardiology on the case. Patient is hemodynamically stable, WBC count today is 9.1 hemoglobin 7.7 platelets are 2 27,000. Objective - Vital Signs Vital signs: Vital Signs Temp 96.9 F L 11/17/24 11:13 Pulse 80 11/17/24 11:25 Resp 20 11/17/24 11:13 BP 164/73 11/17/24 11:13 Pulse Ox 92 L 11/17/24 11:13 FiO2 Intake & Output 11/16/24 11/17/24 11/17/24 18:59 06:59 18:59 Intake Total 1562 197 10 Output Total 850 153 850 Balance 712 44 -840 Weight 60.9 kg 60.9 kg Intake: IV 970 20 10 Azithromycin 500 mg In 250 Sodium Chloride 0.9% 250 ml @ 250 mls/hr IVPB DAILY [facility] Rx#:[id number] Invasive Line 4 20 20 10 Sodium Chloride 0.9% 1, 600 000 ml @ 75 mls/hr IV . [id number] [facility] Rx#:[id number] cefTRIAXone 2 gm In 100 Sodium Chloride 0.9% 50 ml @ 100 mls/hr IVPB Q24HR [facility] Rx#:[id number] Oral 592 0 Tube Feeding 177 Output: Urine 850 151 850 Stool 2 Other: Voiding Method Urinal Urinal Urinal # Voids 1 1 # Bowel Movements 1 1 1 - Exam Physical examination: Gen: Revealed 79-year-old white male frail looking, chronically ill, in no distress. On 5 L nasal cannula HEENT: Head is atraumatic, normocephalic. Pupils equal, round. Sclerae is anicteric. NECK: Supple. No JVD. No stridor. Left subclavian Port-A-Cath noted. LUNGS: Symmetrical chest expansion crackles noted bilaterally. HEART: Distant S1-S2, 2/6 systolic murmur throughout the precordium ABDOMEN: Soft nontender no megaly, no rebound, no guarding EXTREMITIES: No clubbing edema or cyanosis, good pulses noted bilaterally faint dorsalis pedis pulse noted and posterior tibial at the left lower extremity. NEUROLOGICAL: Alert oriented x 3 no gross focal deficit Psychiatric: Normal mood, affect and no mental status examination Skin: No rashes 3. - Labs CBC & Chem 7: 11/17/24 09:30 11/16/24 05:35 Labs: Abnormal Lab Results - Last 24 Hours (Table) 11/16/24 11/16/24 11/17/24 Range/Units 16:30 19:41 05:54 RBC (4.30-5.90) m/uL Hgb (13.0-17.5) gm/dL Hct (39.0-53.0) % RDW (11.5-15.5) % POC Glucose (mg/dL) 139 H 129 H 149 H (70-110) mg/dL 11/17/24 11/17/24 Range/Units 09:30 11:05 RBC 2.44 L (4.30-5.90) m/uL Hgb 7.7 L (13.0-17.5) gm/dL Hct 24.0 L (39.0-53.0) % RDW 15.9 H (11.5-15.5) % POC Glucose (mg/dL) 169 H (70-110) mg/dL Assessment and Plan Assessment: Impression: Acute left lower limb ischemia, status post Placement of tPA infusion catheter in the left common and left external iliac artery History of occluded left SFA History of esophageal cancer, status postchemotherapy and radiation therapy Retroperitoneal hematoma Recent history of influenza A infection Suspected multifocal pneumonia in the setting of acute influenza A infection History of underlying COPD, presently inactive Benign essential hypertension History of hypothyroidism Recommendation: Chest x-ray was reviewed, Continue diuretics and antibiotics Continue present supportive care measures Patient finished a recent full course of treatment with Tamiflu for his influenza A infection Continue to monitor hemoglobin for his acute blood loss anemia, and retroperitoneal hematoma Continue bronchodilators for COPD, added Symbicort and methylprednisolone Will continue to follow. Time with Patient: Less than 30
[2024-11-17] MEDS: methylPREDNISolone SOD SUCCI 40 MG/ML 1 ML VIAL IV SCH (16:08)
[2024-11-17 16:31] LABS: Glucose,Whole Blood 170 mg/dL (70-110)
[2024-11-17 20:24] LABS: Glucose,Whole Blood 184 mg/dL (70-110)
[2024-11-17] MEDS: SYMBICORT 160-4.5 MCG INHALER INHALATION SCH (21:45)
[2024-11-18 06:20] LABS: Glucose,Whole Blood 239 mg/dL (70-110)
[2024-11-18 06:41] LABS: HCT 24.3 % (39.0-53.0); HGB 7.8 gm/dL (13.0-17.5); MCH 31.4 pg (25.0-35.0); MCHC 32.2 g/dL (31.0-37.0); MCV 97.3 fL (80.0-100.0); Mean Platelet Volume 8.7; Platelet Count 277 k/uL (150-450); RDW 15.6 % (11.5-15.5); WBC 10.3 k/uL (3.8-10.6)
[2024-11-18 06:56] LABS: Carbon Dioxide 28 mmol/L (22-30); Chloride 99 mmol/L (98-107); Glucose 217 mg/dL (74-99); Potassium 4.1 mmol/L (3.5-5.1); Sodium 134 mmol/L (137-145)
[2024-11-18 06:57] LABS: African American GFR (CKD) >90 (>60 ml/min/1.73 sqM); Anion Gap 7 mmol/L; Blood Urea Nitrogen 20 mg/dL (9-20); Magnesium 1.8 mg/dL (1.6-2.3); Non-African American GFR(CKD) >90 (>60 ml/min/1.73 sqM)
[2024-11-18] MEDS: SPIRONOLACTONE 25 MG TAB PO SCH (08:28)
[2024-11-18] MEDS: FUROSEMIDE 40 MG TAB PO SCH (08:28)
[2024-11-18 11:22] LABS: Glucose,Whole Blood 225 mg/dL (70-110)
--- NOTE | 2024-11-18 11:32 | P.PN ---
Subjective HISTORY OF PRESENT ILLNESS: This is a 79-year-old male patient of Dr. Saldaña with past medical history of coronary artery disease status post PCI and CABG, paroxysmal atrial fibrillation on Xarelto, mitral valve regurgitation, hypertension, hyperlipidemia, PAD with known occlusion of the left SFA, esophageal cancer status postchemotherapy and r adiation therapy not a surgical candidate, status post PEG tube, remote history of tobacco use and dependence. We have been asked to evaluate patient for PAD. Patient gives history that he developed pain in his left leg and the left leg is feeling cold and numb. He states he has had this ongoing since September but worse the last 4 to 5 days. He states his most severe in the back of the thigh and worse from the knee down to the toes. Patient denies chest pain. Blood pressure 104/59, heart rate 63, pulse ox 93% on room air. Patient is seen today in the emergency center waiting for a bed on the cardiac stepdown unit. -EKG: Sinus rhythm no acute ST changes. -Chest x-ray: Chronic emphysematous changes without acute process. -CTA left lower extremity: Long occluded segment of the left superficial femoral artery in the proximal thigh and mid thigh. Three-vessel runoff. -Laboratory studies: WBC 8.2, hemoglobin 13.5, sodium 134, potassium 4, BUN 24 creatinine 0.68. Influenza A detected. -Home cardiac medications: Atorvastatin 40 mg daily, Lopressor 50 mg twice daily, Xarelto 20 mg daily, also on levothyroxine. -CV surgery 02/08/2016 With SCHWARTZ to LAD, VG to OM1, VG to PDA -PCI : Stent to the mid RCA, stent to the proximal RCA, stent to the mid RCA. -Echocardiogram performed 05/06/2023 revealed EF of 47%, mild TR, mild AR, mild MR. -Lexiscan stress test performed 10/2019: EF 47%, partially reversible inferior apical and septal defect. -Arthrectomy and stenting of the left SFA mid and distal portion, balloon angioplasty of the proximal left SFA and balloon angio of the left common femoral 11/25/2018. -Right superficial femoral stent 07/22/2018. 11/16/2024 The patient is a 79-year-old male who is currently admitted to the hospital with critical limb ischemia. On 11/12/2024 patient underwent left lower extremity angiogram with Dr. Hopkins. tPA infusion catheter was placed in the left common and left external iliac artery. Yesterday the patient developed retroperitoneal hematoma which was confirmed with abdominal CT scan. Patient return to the operating room with removal of tPA infusion catheter, with no active bleed. Hemoglobin has dropped from 9.6 to 6.7, receiving 1 unit of packed RBCs Overnight the patient states he did do relatively well but has developed pain in his left lower extremity. Previously there was only numbness and tingling he now reports discomfort. No chest pain or pressure. No difficulty breathing. 11/17/2024 Patient examined this morning at the bedside. Patient is resting comfortably in bed. No complaints of chest pain. He is receiving tube feedings. Vital signs are stable. Patient does appear SOB this mornin. He has been receiving IV fluids at 75 cc an hour. 11/18/2024 Patient examined this morning to bedside. Patient currently denies chest pain or pressure. He denies shortness of breath. He remains on 5 L nasal cannula. Vital signs are stable. PHYSICAL EXAM: VITAL SIGNS: Reviewed. GENERAL: Well-developed in no acute distress. NECK: Supple. No JVD or thyromegaly LUNGS: Respirations even and unlabored. Lungs essentially clear to auscultation bilaterally. HEART: Regular rate and rhythm. S1 and S2 heard. EXTREMITIES: Normal range of motion. No clubbing or cyanosis. Peripheral pulses intact. No lower extremity edema ASSESSMENT: Critical left lower limb ischemia, status post thrombolytic infusion Intramuscular hemorrhage Acute blood loss anemia, secondary to above Influenza A, patient has been started on Tamiflu Coronary artery disease with previous stents and CABG Paroxysmal atrial fibrillation on Xarelto Mitral valve regurgitation with moderate mitral insufficiency Hypertension Hyperlipidemia PAD Remote history of tobacco use and dependence. Acute heart failure with reduced EF PLAN: Continue dual antiplatelet therapy with aspirin and Plavix Xarelto remains on hold secondary to intramuscular hemorrhage and acute blood loss anemia Add Lasix 40 mg daily Add Aldactone 25 mg daily Continue additional cardiac medications Further recommendations pending patient course Nurse practitioner note has been reviewed by physician. Signing provider agrees with the documented findings, assessment, and plan of care documented by EQUIPMENT WASHER as a scribe. Objective - Vital Signs Vital signs: Vital Signs Temp 97.3 F L 11/18/24 08:24 Pulse 81 11/18/24 08:24 Resp 20 11/18/24 08:24 BP 143/65 03/20/25 08:24 Pulse Ox 93 L 11/18/24 08:24 FiO2 Intake & Output 11/17/24 11/18/24 11/18/24 18:59 06:59 18:59 Intake Total 260 799 Output Total 1150 400 Balance -890 399 Weight 60.9 kg 59.3 kg Intake: IV 20 30 Invasive Line 3 20 Invasive Line 4 20 10 Oral 240 Tube Feeding 649 Other 120 Output: Urine 1150 400 Other: Voiding Method Urinal Urinal Urinal # Voids 1 1 1 # Bowel Movements 1 1 - Labs CBC & Chem 7: 11/18/24 06:07 11/18/24 06:07 Labs: Abnormal Lab Results - Last 24 Hours (Table) 11/17/24 11/17/24 11/18/24 Range/Units 16:30 20:22 06:07 RBC 2.50 L (4.30-5.90) m/uL Hgb 7.8 L (13.0-17.5) gm/dL Hct 24.3 L (39.0-53.0) % RDW 15.6 H (11.5-15.5) % Sodium (137-145) mmol/L Creatinine (0.66-1.25) mg/dL Glucose (74-99) mg/dL POC Glucose (mg/dL) 170 H 184 H (70-110) mg/dL Calcium (8.4-10.2) mg/dL 11/18/24 11/18/24 11/18/24 Range/Units 06:07 06:18 11:21 RBC (4.30-5.90) m/uL Hgb (13.0-17.5) gm/dL Hct (39.0-53.0) % RDW (11.5-15.5) % Sodium 134 L (137-145) mmol/L Creatinine 0.45 L (0.66-1.25) mg/dL Glucose 217 H (74-99) mg/dL POC Glucose (mg/dL) 239 H 225 H (70-110) mg/dL Calcium 8.0 L (8.4-10.2) mg/dL
--- NOTE | 2024-11-18 13:12 | P.PN ---
Subjective Progress Note Date: 11/18/24 79 year old M with PMH of CAD status post CABG + stents, PAD, GERD, HLD, HTN, esophageal cancer PEG 03/2024 s/p chemotherapy presented to the ED for worsening LLE pain. In the ED he underwent extensive evaluation. T 102.3F, BP 130/60, HR 114, RR 20, 90% on RA. CBC, Coag panel, CMP significant for WBC 10.8, RBC 3.98, MCV 101.8, Na 132, BUN 24, AST 95. UA neg LE or nitrite. Flu +. EKG sinus rhythm with no ST T wave changes. CXR no acute process. CTA showed occluded segments of the left superficial femoral artery in the proximal thigh and mid-thigh. Started on heparin drip and admitted for further workup and evaluation. Underwent LLE angiogram and placement on tPA infusion catheter on 11/12. Second look on 11/14, removal of tPA infusion catheter. He did have swelling in his RLQ, CT AP ordered showing multiple areas of intramuscular hemorrhage including right rectus abdominis, left psoas and left iliacus. Transfused 1 PRBC 11/15. 11/18 Patient was seen and examined. Reports continued sharp stabbing pain in his LLE. Reports worsening shortness of breath. He is 93% on 5 L HF. CBC shows RBC 2.5, Hg 7.5, Hct 24.3. BMP Na 134, Cr 0.45, glu 217, Ca 8. Mag 1.8. Antibiotics include Rocephin and Azithromycin. CXR shows persistent bilateral infiltrates. Received 1 dose of Lasix 40 mg IV yesterday. Cardiology recommends adding Lasix 40 mg PEG QD and Aldactone 25 mg PEG QD. General: non toxic, mild distress, appears at stated age Derm: warm, dry Head: atraumatic, normocephalic, symmetric Mouth: no lip lesion, mucus membranes moist Cardiovascular: S1S2 reg, systolic murmur, 1+ DP pulses palpable bilaterally, L port a cath Lungs: Crackles bilaterally, no rales , no accessory muscle use Ext: no gross muscle atrophy, no edema, no contractures Neuro: no focal neuro deficits Psych: Alert and oriented. Based on my assessment of this patient, this patient meets a high complexity level of care. Acute blood loss anemia: Secondary to intramuscular hemorrhage. Status post 1 PRBC 11/15. Restarted ASA and Plavix on 11/16. Trend Hg. Hold Xarelto. Sepsis and acute hypoxic respiratory failure secondary to Flu + PNA: Elevated procal of 0.49. Completed course of Tamiflu. Rocephin 2g IV QD started 11/15. Azithromycin 500 mg IV QD started 11/16. Albuterol neb QID scheduled and DuoNeb QID PRN. BCx, Legionella neg. Sputum Cx pending. Pulmonary on board. HFrEF exacerbation: Lasix 40 mg IV x 1 11/17. Obtain BNP. 2015 Echo shows EF 35- 40% with hypokinetic wall motion. Echo ordered. Lasix 40 mg PEG QD and Aldactone 25 mg PEG QD. Metoprolol as below. Strict intake and outtake. Daily weights. Left lower extremity acute limb ischemia status post placement of tPA infusion catheter in the left common and left external iliac artery 11/12/2024 removed on 11/14: ASA 81 mg PO QD. Plavix 75 mg PO QD. Lipitor as below. CAD: Lipitor 40 mg PO QHS. ASA and Plavix as above. COPD: Bronchodilators as above. Hypothyroid: Synthroid 50 mcg PEG QD. Depression: Sertraline 50 mg PEG QD. BPH: Flomax 0.4 mg PEG QD. GERD: Protonix 40 mg PEG QD. A-Fib: Holding Xarelto due to intramuscular bleed. Metoprolol 50 mg PEG BID. History of mesenteric ischemia status post SMA stent 2022 Esophageal cancer status post chemotherapy Status post robotic gastrostomy tube placement 09/07/2024 CODE STATUS: FULL CODE. DVT Prophylaxis: SCD GI Prophylaxis: Protonix Designated medical POA if patient is not able to make medical decisions for themselves: I have reviewed the following bi consultant notes: Cardiology, Pulmonary. I have reviewed the results of the following tests: CBC, BMP, Mag. I have ordered the following tests: CBC, BMP, Mag in the AM. I have discussed the care of this patient with the following independent historian: ELISHA. I have independently interpreted the following test below: CXR I have discussed the management of this patient with the following physician: Objective - Vital Signs Vital signs: Vital Signs Temp 97.3 F L 11/18/24 08:24 Pulse 81 11/18/24 08:24 Resp 20 11/18/24 08:24 BP 143/65 11/18/24 08:24 Pulse Ox 93 L 03/20/25 08:24 FiO2 Intake & Output 11/17/24 11/18/24 11/18/24 18:59 06:59 18:59 Intake Total 260 799 Output Total 1150 400 Balance -890 399 Weight 60.9 kg 59.3 kg Intake: IV 20 30 Invasive Line 3 20 Invasive Line 4 20 10 Oral 240 Tube Feeding 649 Other 120 Output: Urine 1150 400 Other: Voiding Method Urinal Urinal # Voids 1 1 1 # Bowel Movements 1 1 - Labs CBC & Chem 7: 11/18/24 06:07 11/18/24 06:07 Labs: Abnormal Lab Results - Last 24 Hours (Table) 11/17/24 11/17/24 11/17/24 Range/Units 09:30 11:05 16:30 RBC 2.44 L (4.30-5.90) m/uL Hgb 7.7 L (13.0-17.5) gm/dL Hct 24.0 L (39.0-53.0) % RDW 15.9 H (11.5-15.5) % Sodium (137-145) mmol/L Creatinine (0.66-1.25) mg/dL Glucose (74-99) mg/dL POC Glucose (mg/dL) 169 H 170 H (70-110) mg/dL Calcium (8.4-10.2) mg/dL 11/17/24 11/18/24 11/18/24 Range/Units 20:22 06:07 06:07 RBC 2.50 L (4.30-5.90) m/uL Hgb 7.8 L (13.0-17.5) gm/dL Hct 24.3 L (39.0-53.0) % RDW 15.6 H (11.5-15.5) % Sodium 134 L (137-145) mmol/L Creatinine 0.45 L (0.66-1.25) mg/dL Glucose 217 H (74-99) mg/dL POC Glucose (mg/dL) 184 H (70-110) mg/dL Calcium 8.0 L (8.4-10.2) mg/dL 11/18/24 Range/Units 06:18 RBC (4.30-5.90) m/uL Hgb (13.0-17.5) gm/dL Hct (39.0-53.0) % RDW (11.5-15.5) % Sodium (137-145) mmol/L Creatinine (0.66-1.25) mg/dL Glucose (74-99) mg/dL POC Glucose (mg/dL) 239 H (70-110) mg/dL Calcium (8.4-10.2) mg/dL
--- NOTE | 2024-11-18 14:16 | P.PN ---
Subjective Progress Note Date: 11/18/24 Principal diagnosis: Acute left lower limb ischemia This is a 79-year-old white male with history of underlying coronary artery disease, previous CABG and PCI, history of paroxysmal atrial fibrillation maintained on Xarelto history of paroxysmal atrial fibrillation maintained on Xarelto history of mitral valve regurgitation, hypertension, dyslipidemia, and known history of peripheral vessel occlusive disease 11/10/2024, and he was seen by Dr. Hopkins for acute presentation of left lower extremity getting cold and numb over a period of 4 to 5 days. Pain has been quite severe from the thigh all the way down to his toes. On 11/12/2024, patient underwent placement of tPA infusion catheter in the left common and left external iliac artery and he received thrombolytics for his acute arterial thrombosis involving the left iliac artery, and felt that the patient may even require possible thrombectomy. Patient had tPA protocol. On 11/14, patient had a second look angiogram after tPA infusion and he also underwent removal of tPA infusion catheter from the left common and left external iliac arteries with selective bilateral iliac and femoral arteries angiogram. Postoperatively, patient was transferred to the ICU, and this consult was initiated. Apparently on his second look the patient was found to have widely patent left common and left external iliac arteries and small residual thrombus but great flow and significant improvement I saw this patient in the ICU, he is on 2 L nasal cannula, his hemoglobin is 6.7 and he will receive 1 unit of packed RBCs, patient does not seem to be in distress, he had recent influenza infection and he finished a course of Tamiflu. In addition to all of this the patient has known history of COPD which seems to be stable and he has a history of a left subclavian Mediport noted in place which was placed initially for his esophageal cancer. During my evaluation, patient had no cough no wheezing no shortness of breath no chest pain, and he had significant improvement in pain related to his left lower extremity. Follow-up hemoglobin after 1 unit of packed RBCs came back 8.3. His basic metabolic profile today came back normal except for low sodium of 130. Renal profile is normal. Patient was seen today on 11/16/2024, patient remains in the ICU, he is presently on overflow to 3 S., on 2 L nasal cannula, doing fairly well, better than expected, he is on IV fluid at 0.9 normal saline at 75 cc/h, he is also on vital AF at 59 mL/h. Patient to be started on PEG tube feeding hopefully sometime later today. Chest x-ray continues to show multifocal infiltrates/pneumonia involving mostly right upper lobe right lower lobe and left lower lobe. WBC count is 7 hemoglobin 7.8 electrolytes are normal renal profile is normal. Patient was seen today on 11/17/2024, patient is complaining of worsening shortness of breath, chest x-ray is showing worsening airspace disease involving right upper lobe, left lower lobe and right lower lobe, patient did receive diuretics by cardiology, patient is also on Tamiflu for influenza A and is also on antibiotics empirically for presumptive pneumonia in the setting of acute influenza A infection. Patient is also complaining of left lower extremity pain, although the foot seems to be warm, and no evidence of ischemic changes noted in the left foot, that being addressed by cardiology on the case. Patient is hemodynamically stable, WBC count today is 9.1 hemoglobin 7.7 platelets are 2 27,000. Patient was seen today at 11/18/2024, patient seems to be doing better today, breathing a bit easier, continues to have severe aches and pains specially in his right lower extremity although no evidence of ischemia noted in the left foot. Chest x-ray continues show bilateral pneumonia. He is on antibiotics. WBC count is 10.3 hemoglobin 7.8 electrolytes are normal renal profile is normal, patient remains on diuretics, Xarelto remains on hold mostly because of his acute blood loss anemia and intramuscular hemorrhage. Aldactone was added today. Objective - Vital Signs Vital signs: Vital Signs Temp 97.3 F L 11/18/24 12:00 Pulse 68 11/18/24 12:38 Resp 18 11/18/24 12:00 BP 134/63 11/18/24 12:00 Pulse Ox 98 11/18/24 12:29 FiO2 Intake & Output 11/17/24 11/18/24 11/18/24 18:59 06:59 18:59 Intake Total 260 799 Output Total 1150 400 Balance -890 399 Weight 60.9 kg 59.3 kg Intake: IV 20 30 Invasive Line 3 20 Invasive Line 4 20 10 Oral 240 Tube Feeding 649 Other 120 Output: Urine 1150 400 Other: Voiding Method Urinal Urinal Urinal # Voids 1 1 1 # Bowel Movements 1 1 - Exam Physical examination: Gen: Revealed 79-year-old white male frail looking, in no distress. On 5 L nasal cannula, O2 saturation 98% HEENT: Head is atraumatic, normocephalic. Pupils equal, round. Sclerae is anicteric. NECK: Supple. No JVD. No stridor. Left subclavian Port-A-Cath noted. LUNGS: Symmetrical chest expansion crackles noted bilaterally. HEART: Distant S1-S2, 2/6 systolic murmur throughout the precordium ABDOMEN: Soft nontender no megaly, no rebound, no guarding EXTREMITIES: No clubbing edema or cyanosis, good pulses noted bilaterally faint dorsalis pedis pulse noted and posterior tibial at the left lower extremity. NEUROLOGICAL: Alert oriented x 3 no gross focal deficit Psychiatric: Normal mood, affect and no mental status examination Skin: No rashes 3. - Labs CBC & Chem 7: 11/18/24 06:07 11/18/24 06:07 Labs: Abnormal Lab Results - Last 24 Hours (Table) 11/17/24 11/17/24 11/18/24 Range/Units 16:30 20:22 06:07 RBC 2.50 L (4.30-5.90) m/uL Hgb 7.8 L (13.0-17.5) gm/dL Hct 24.3 L (39.0-53.0) % RDW 15.6 H (11.5-15.5) % Sodium (137-145) mmol/L Creatinine (0.66-1.25) mg/dL Glucose (74-99) mg/dL POC Glucose (mg/dL) 170 H 184 H (70-110) mg/dL Calcium (8.4-10.2) mg/dL 11/18/24 11/18/24 11/18/24 Range/Units 06:07 06:18 11:21 RBC (4.30-5.90) m/uL Hgb (13.0-17.5) gm/dL Hct (39.0-53.0) % RDW (11.5-15.5) % Sodium 134 L (137-145) mmol/L Creatinine 0.45 L (0.66-1.25) mg/dL Glucose 217 H (74-99) mg/dL POC Glucose (mg/dL) 239 H 225 H (70-110) mg/dL Calcium 8.0 L (8.4-10.2) mg/dL Assessment and Plan Assessment: Impression: Acute left lower limb ischemia, status post Placement of tPA infusion catheter in the left common and left external iliac artery History of occluded left SFA History of esophageal cancer, status postchemotherapy and radiation therapy Retroperitoneal hematoma Recent history of influenza A infection Suspected multifocal pneumonia in the setting of acute influenza A infection History of underlying COPD, presently inactive Benign essential hypertension History of hypothyroidism Recommendation: Chest x-ray from yesterday was reviewed, continues to have significant airspace disease. Continue diuretics and antibiotics Continue present supportive care measures Patient finished a recent full course of treatment with Tamiflu for his influenza A infection Continue to monitor hemoglobin for his acute blood loss anemia, and retroperitoneal hematoma, Xarelto remains on hold Continue bronchodilators for COPD, DuoNeb, Symbicort, and methylprednisolone. Will continue to follow. Time with Patient: Less than 30
[2024-11-18 17:02] LABS: Glucose,Whole Blood 178 mg/dL (70-110)
[2024-11-18 20:08] LABS: Glucose,Whole Blood 245 mg/dL (70-110)
[2024-11-19 05:56] LABS: Glucose,Whole Blood 223 mg/dL (70-110)
[2024-11-19 07:18] LABS: African American GFR (CKD) >90 (>60 ml/min/1.73 sqM); Anion Gap 7 mmol/L; Blood Urea Nitrogen 23 mg/dL (9-20); Calcium 8.2 mg/dL (8.4-10.2); Carbon Dioxide 29 mmol/L (22-30); Chloride 98 mmol/L (98-107); Glucose 181 mg/dL (74-99); Magnesium 2.1 mg/dL (1.6-2.3); Non-African American GFR(CKD) >90 (>60 ml/min/1.73 sqM); Potassium 4.6 mmol/L (3.5-5.1); Sodium 134 mmol/L (137-145)
--- NOTE | 2024-11-19 09:12 | CA ---
Transthoracic Echo Report Name: Koko Price Age: 79 Gender: M : 1945 Exam Date: 11/18/2024 14:04 Exam Location: [place] Ht (in): 67 Wt (lb): 130 Ordering Physician: Ysabel Galaviz MD Attending/Referring Phys: Roll Finisher Micheline Ledesma RDCS Procedure CPT: Indications: sob Cardiac Hx: Flu+ Technical Quality: Fair Contrast 1: Total Dose (mL): Contrast 2: Total Dose (mL): MEASUREMENTS (Male / Female) Normal Values 2D ECHO LV Diastolic Diameter PLAX 4.9 cm 4.2 - 5.9 / 3.9 - 5.3 cm LV Systolic Diameter PLAX 3.5 cm IVS Diastolic Thickness 1.0 cm 0.6 - 1.0 / 0.6 - 0.9 cm LVPW Diastolic Thickness 0.8 cm 0.6 - 1.0 / 0.6 - 0.9 cm LV Relative Wall Thickness 0.4 RV Internal Dim ED PLAX 1.7 cm LA Systolic Diameter LX 4.1 cm 3.0 - 4.0 / 2.7 - 3.8 cm LV Diastolic Volume MOD BP 76.8 cm??? 67 - 155 / 56 - 104 cm??? LV Systolic Volume MOD BP 54.8 cm??? 22 - 58 / 19 - 49 cm??? LV Ejection Fraction MOD BP 28.7 % >= 55 % LV Cardiac Index MOD BP 938.4 cm???/min???m??? LV Diastolic Volume MOD 4C 77.1 cm??? LV Systolic Volume MOD 4C 53.1 cm??? LV Ejection Fraction MOD 4C 31.1 % LV Cardiac Index MOD 4C 1020.9 cm???/min???m??? LV Diastolic Length 4C 7.2 cm LV Systolic Length 4C 6.4 cm LV Diastolic Volume MOD 2C 75.1 cm??? LV Systolic Volume MOD 2C 46.7 cm??? LV Ejection Fraction MOD 2C 37.8 % LV Cardiac Index MOD 2C 1210.9 cm???/min???m??? LV Diastolic Length 2C 7.5 cm LV Systolic Length 2C 6.4 cm M-MODE Aortic Root Diameter MM 2.9 cm LA Systolic Diameter MM 3.7 cm LA Ao Ratio MM 1.3 AV Cusp Separation MM 1.6 cm DOPPLER AV Peak Velocity 116.3 cm/s AV Peak Gradient 5.4 mmHg AI Peak Velocity 248.3 cm/s AI Peak Gradient 24.7 mmHg AI Pressure Half Time 520.1 ms LVOT Peak Velocity 109.4 cm/s LVOT Peak Gradient 4.8 mmHg LVOT Velocity Time Integral 25.0 cm Mitral E Point Velocity 98.6 cm/s Mitral A Point Velocity 60.7 cm/s Mitral E to A Ratio 1.6 MV Deceleration Time 230.9 ms MV E' Velocity 6.0 cm/s Mitral E to MV E' Ratio 16.4 TR Peak Velocity 267.1 cm/s TR Peak Gradient 28.5 mmHg Right Ventricular Systolic Press 38.7 mmHg FINDINGS Left Ventricle Left ventricular ejection fraction is estimated at 50-50 %. Mildly reduced global left ventricular systolic function. Left ventricular cavity size normal. Left ventricular wall thickness normal. Right Ventricle Mild right ventricular dilatation. Mild pulmonary hypertension. Right Atrium Mild right atrial dilatation. Left Atrium Mildly increased left atrial diameter. Mitral Valve Structurally normal mitral valve. Moderate mitral regurgitation. No mitral stenosis. Aortic Valve Trileaflet aortic valve. No aortic stenosis. Mild aortic regurgitation. Tricuspid Valve Structurally normal tricuspid valve. Mild tricuspid regurgitation. No tricuspid stenosis. Pulmonic Valve Structurally normal pulmonic valve. Trace pulmonic regurgitation. No pulmonic stenosis. Pericardium No pericardial or pleural effusion. Aorta Normal size aortic root and proximal ascending aorta. CONCLUSIONS Left ventricle size is normal with fair contractility estimate ejection fraction of 50%. Moderate mitral, mild aortic and mild tricuspid regurgitation with mildly elevated PA pressures. No pericardial effusion Previewed by: Dr. Zoraida Reid MD (Electronically Signed) Final Date: 19 November 2024 09:11
--- NOTE | 2024-11-19 09:47 | P.PN ---
Subjective HISTORY OF PRESENT ILLNESS: This is a 79-year-old male patient of Dr. Saldaña with past medical history of coronary artery disease status post PCI and CABG, paroxysmal atrial fibrillation on Xarelto, mitral valve regurgitation, hypertension, hyperlipidemia, PAD with known occlusion of the left SFA, esophageal cancer status postchemotherapy and r adiation therapy not a surgical candidate, status post PEG tube, remote history of tobacco use and dependence. We have been asked to evaluate patient for PAD. Patient gives history that he developed pain in his left leg and the left leg is feeling cold and numb. He states he has had this ongoing since September but worse the last 4 to 5 days. He states his most severe in the back of the thigh and worse from the knee down to the toes. Patient denies chest pain. Blood pressure 104/59, heart rate 63, pulse ox 93% on room air. Patient is seen today in the emergency center waiting for a bed on the cardiac stepdown unit. -EKG: Sinus rhythm no acute ST changes. -Chest x-ray: Chronic emphysematous changes without acute process. -CTA left lower extremity: Long occluded segment of the left superficial femoral artery in the proximal thigh and mid thigh. Three-vessel runoff. -Laboratory studies: WBC 8.2, hemoglobin 13.5, sodium 134, potassium 4, BUN 24 creatinine 0.68. Influenza A detected. -Home cardiac medications: Atorvastatin 40 mg daily, Lopressor 50 mg twice daily, Xarelto 20 mg daily, also on levothyroxine. -CV surgery 02/08/2016 With SCHWARTZ to LAD, VG to OM1, VG to PDA -PCI : Stent to the mid RCA, stent to the proximal RCA, stent to the mid RCA. -Echocardiogram performed 05/06/2023 revealed EF of 47%, mild TR, mild AR, mild MR. -Lexiscan stress test performed 10/2019: EF 47%, partially reversible inferior apical and septal defect. -Arthrectomy and stenting of the left SFA mid and distal portion, balloon angioplasty of the proximal left SFA and balloon angio of the left common femoral 11/25/2018. -Right superficial femoral stent 07/22/2018. 11/16/2024 The patient is a 79-year-old male who is currently admitted to the hospital with critical limb ischemia. On 11/12/2024 patient underwent left lower extremity angiogram with Dr. Hopkins. tPA infusion catheter was placed in the left common and left external iliac artery. Yesterday the patient developed retroperitoneal hematoma which was confirmed with abdominal CT scan. Patient return to the operating room with removal of tPA infusion catheter, with no active bleed. Hemoglobin has dropped from 9.6 to 6.7, receiving 1 unit of packed RBCs Overnight the patient states he did do relatively well but has developed pain in his left lower extremity. Previously there was only numbness and tingling he now reports discomfort. No chest pain or pressure. No difficulty breathing. 11/17/2024 Patient examined this morning at the bedside. Patient is resting comfortably in bed. No complaints of chest pain. He is receiving tube feedings. Vital signs are stable. Patient does appear SOB this mornin. He has been receiving IV fluids at 75 cc an hour. 11/18/2024 Patient examined this morning to bedside. Patient currently denies chest pain or pressure. He denies shortness of breath. He remains on 5 L nasal cannula. Vital signs are stable. 11/19/2024 Patient examined this morning the bedside. Patient denies chest pain or pressure. He denies shortness of breath. He remains on nasal cannula to maintain oxygen saturations greater than 92%. He is maintained on oral Lasix. CBC from this morning is currently pending. He remains on dual antiplatelet therapy. PHYSICAL EXAM: VITAL SIGNS: Reviewed. GENERAL: Well-developed in no acute distress. NECK: Supple. No JVD or thyromegaly LUNGS: Respirations even and unlabored. Lungs essentially clear to auscultation bilaterally. HEART: Regular rate and rhythm. S1 and S2 heard. EXTREMITIES: Normal range of motion. No clubbing or cyanosis. Peripheral puls es intact. No lower extremity edema ASSESSMENT: Critical left lower limb ischemia, status post thrombolytic infusion Intramuscular hemorrhage Acute blood loss anemia, secondary to above Influenza A, patient has been started on Tamiflu Coronary artery disease with previous stents and CABG Paroxysmal atrial fibrillation on Xarelto Mitral valve regurgitation with moderate mitral insufficiency Hypertension Hyperlipidemia PAD Remote history of tobacco use and dependence. Acute heart failure with reduced EF PLAN: Continue dual antiplatelet therapy with aspirin and Plavix Xarelto remains on hold secondary to intramuscular hemorrhage and acute blood loss anemia Continue additional cardiac medications Per inpatient recommendations from a cardiac standpoint We will sign off. Please reconsult if needed. Nurse practitioner note has been reviewed by physician. Signing provider agrees with the documented findings, assessment, and plan of care documented by TRAM INSPECTOR as a scribe. Objective - Vital Signs Vital signs: Vital Signs Temp 97.4 F L 11/19/24 03:26 Pulse 94 11/19/24 08:07 Resp 18 11/19/24 03:26 BP 118/57 11/19/24 03:26 Pulse Ox 94 L 11/19/24 07:57 FiO2 Intake & Output 11/18/24 11/19/24 11/19/24 18:59 06:59 18:59 Intake Total 177 295 Output Total 500 250 Balance -323 45 Weight 60.3 kg Intake: Tube Feeding 177 295 Output: Urine 500 250 Other: Voiding Method Urinal Urinal # Voids 2 1 1 # Bowel Movements 2 1 - Labs CBC & Chem 7: 11/18/24 06:07 11/19/24 05:37 Labs: Abnormal Lab Results - Last 24 Hours (Table) 11/18/24 11/18/24 11/18/24 Range/Units 11:21 17:01 20:07 Sodium (137-145) mmol/L BUN (9-20) mg/dL Creatinine (0.66-1.25) mg/dL Glucose (74-99) mg/dL POC Glucose (mg/dL) 225 H 178 H 245 H (70-110) mg/dL Calcium (8.4-10.2) mg/dL 11/19/24 11/19/24 Range/Units 05:37 05:52 Sodium 134 L (137-145) mmol/L BUN 23 H (9-20) mg/dL Creatinine 0.54 L (0.66-1.25) mg/dL Glucose 181 H (74-99) mg/dL POC Glucose (mg/dL) 223 H (70-110) mg/dL Calcium 8.2 L (8.4-10.2) mg/dL
[2024-11-19 11:29] LABS: Glucose,Whole Blood 208 mg/dL (70-110)
--- NOTE | 2024-11-19 14:43 | P.PN ---
Subjective Progress Note Date: 11/19/24 Principal diagnosis: Acute left lower limb ischemia This is a 79-year-old white male with history of underlying coronary artery disease, previous CABG and PCI, history of paroxysmal atrial fibrillation maintained on Xarelto history of paroxysmal atrial fibrillation maintained on Xarelto history of mitral valve regurgitation, hypertension, dyslipidemia, and known history of peripheral vessel occlusive disease 11/10/2024, and he was seen by Dr. Hopkins for acute presentation of left lower extremity getting cold and numb over a period of 4 to 5 days. Pain has been quite severe from the thigh all the way down to his toes. On 11/12/2024, patient underwent placement of tPA infusion catheter in the left common and left external iliac artery and he received thrombolytics for his acute arterial thrombosis involving the left iliac artery, and felt that the patient may even require possible thrombectomy. Patient had tPA protocol. On 11/14, patient had a second look angiogram after tPA infusion and he also underwent removal of tPA infusion catheter from the left common and left external iliac arteries with selective bilateral iliac and femoral arteries angiogram. Postoperatively, patient was transferred to the ICU, and this consult was initiated. Apparently on his second look the patient was found to have widely patent left common and left external iliac arteries and small residual thrombus but great flow and significant improvement I saw this patient in the ICU, he is on 2 L nasal cannula, his hemoglobin is 6.7 and he will receive 1 unit of packed RBCs, patient does not seem to be in distress, he had recent influenza infection and he finished a course of Tamiflu. In addition to all of this the patient has known history of COPD which seems to be stable and he has a history of a left subclavian Mediport noted in place which was placed initially for his esophageal cancer. During my evaluation, patient had no cough no wheezing no shortness of breath no chest pain, and he had significant improvement in pain related to his left lower extremity. Follow-up hemoglobin after 1 unit of packed RBCs came back 8.3. His basic metabolic profile today came back normal except for low sodium of 130. Renal profile is normal. Patient was seen today on 11/16/2024, patient remains in the ICU, he is presently on overflow to 3 S., on 2 L nasal cannula, doing fairly well, better than expected, he is on IV fluid at 0.9 normal saline at 75 cc/h, he is also on vital AF at 59 mL/h. Patient to be started on PEG tube feeding hopefully sometime later today. Chest x-ray continues to show multifocal infiltrates/pneumonia involving mostly right upper lobe right lower lobe and left lower lobe. WBC count is 7 hemoglobin 7.8 electrolytes are normal renal profile is normal. Patient was seen today on 11/17/2024, patient is complaining of worsening shortness of breath, chest x-ray is showing worsening airspace disease involving right upper lobe, left lower lobe and right lower lobe, patient did receive diuretics by cardiology, patient is also on Tamiflu for influenza A and is also on antibiotics empirically for presumptive pneumonia in the setting of acute influenza A infection. Patient is also complaining of left lower extremity pain, although the foot seems to be warm, and no evidence of ischemic changes noted in the left foot, that being addressed by cardiology on the case. Patient is hemodynamically stable, WBC count today is 9.1 hemoglobin 7.7 platelets are 2 27,000. Patient was seen today at 11/18/2024, patient seems to be doing better today, breathing a bit easier, continues to have severe aches and pains specially in his right lower extremity although no evidence of ischemia noted in the left foot. Chest x-ray continues show bilateral pneumonia. He is on antibiotics. WBC count is 10.3 hemoglobin 7.8 electrolytes are normal renal profile is normal, patient remains on diuretics, Xarelto remains on hold mostly because of his acute blood loss anemia and intramuscular hemorrhage. Aldactone was added today. Patient was seen today on 11/18/2024, seems to be breathing easier, hardly any pulmonary symptoms no cough no wheezing no shortness of breath, patient has been titrated down on his oxygen to 7 L high flow nasal cannula, O2 saturation is 100%, he is hemodynamically stable with a blood pressure 130/88. However the patient developed today significant amount of diarrhea. Hence I am recommending C. difficile screening on this patient, his electrolytes are normal bicarb is 29 BUN is 23 creatinine 0.54., CBC yesterday was basically unremarkable WBC count is 10.3. Last chest x-ray was consistent with pneumonia Objective - Vital Signs Vital signs: Vital Signs Temp 98.5 F 11/19/24 11:30 Pulse 76 11/19/24 11:47 Resp 18 11/19/24 11:30 BP 130/88 11/19/24 11:30 Pulse Ox 100 11/19/24 11:30 FiO2 Intake & Output 11/18/24 11/19/24 11/19/24 18:59 06:59 18:59 Intake Total 177 295 Output Total 500 250 Balance -323 45 Weight 60.3 kg 60.3 kg Intake: Tube Feeding 177 295 Output: Urine 500 250 Other: Voiding Method Urinal Urinal Urinal # Voids 2 1 1 # Bowel Movements 2 1 - Exam Physical examination: Gen: Revealed 79-year-old white male frail looking, in no distress. On 7 L nasal cannula, O2 saturation 100% HEENT: Head is atraumatic, normocephalic. Pupils equal, round. Sclerae is anicteric. NECK: Supple. No JVD. No stridor. Left subclavian Port-A-Cath noted. LUNGS: Symmetrical chest expansion crackles noted bilaterally. HEART: Distant S1-S2, 2/6 systolic murmur throughout the precordium ABDOMEN: Soft nontender no megaly, no rebound, no guarding EXTREMITIES: No clubbing edema or cyanosis, good pulses noted bilaterally faint dorsalis pedis pulse noted and posterior tibial at the left lower extremity. NEUROLOGICAL: Alert oriented x 3 no gross focal deficit Psychiatric: Normal mood, affect and no mental status examination Skin: No rashes 3. - Labs CBC & Chem 7: 11/18/24 06:07 11/19/24 05:37 Labs: Abnormal Lab Results - Last 24 Hours (Table) 11/18/24 11/18/24 11/19/24 Range/Units 17:01 20:07 05:37 Sodium 134 L (137-145) mmol/L BUN 23 H (9-20) mg/dL Creatinine 0.54 L (0.66-1.25) mg/dL Glucose 181 H (74-99) mg/dL POC Glucose (mg/dL) 178 H 245 H (70-110) mg/dL Calcium 8.2 L (8.4-10.2) mg/dL 11/19/24 11/19/24 Range/Units 05:52 11:27 Sodium (137-145) mmol/L BUN (9-20) mg/dL Creatinine (0.66-1.25) mg/dL Glucose (74-99) mg/dL POC Glucose (mg/dL) 223 H 208 H (70-110) mg/dL Calcium (8.4-10.2) mg/dL Assessment and Plan Assessment: Impression: Acute left lower limb ischemia, status post Placement of tPA infusion catheter in the left common and left external iliac artery History of occluded left SFA History of esophageal cancer, status postchemotherapy and radiation therapy Retroperitoneal hematoma Recent history of influenza A infection Suspected multifocal pneumonia in the setting of acute influenza A infection History of underlying COPD, presently inactive Benign essential hypertension History of hypothyroidism Diarrhea, rule out C. difficile colitis. Recommendation: C. difficile screening Continue diuretics and antibiotics Continue present supportive care measures Patient finished a recent full course of treatment with Tamiflu for his influenza A infection Continue to monitor daily labs Continue bronchodilators for COPD, DuoNeb, Symbicort, and methylprednisolone. Will continue to follow. Time with Patient: Less than 30
[2024-11-19 16:26] LABS: Glucose,Whole Blood 184 mg/dL (70-110)
--- NOTE | 2024-11-19 16:29 | P.PN ---
Subjective Progress Note Date: 11/19/24 Hospital Course: The patient is a 79 year old M with PMH of CAD status post CABG + stents, PAD, GERD, HLD, HTN, esophageal cancer PEG 03/2024 s/p chemotherapy presented to the ED for worsening LLE pain. In the ED he underwent extensive evaluation. T 102.3F, BP 130/60, HR 114, RR 20, 90% on RA. CBC, Coag panel, CMP significant for WBC 10.8, RBC 3.98, MCV 101.8, Na 132, BUN 24, AST 95. UA neg LE or nitrite. Flu +. EKG sinus rhythm with no ST T wave changes. CXR no acute process. CTA showed occluded segments of the left superficial femoral artery in the proximal thigh and mid-thigh. Started on heparin drip and admitted for further workup and evaluation. Underwent LLE angiogram and placement on tPA infusion catheter on 11/12. Second look on 11/14, removal of tPA infusion catheter. He did have swelling in his RLQ, CT AP ordered showing multiple areas of intramuscular hemorrhage including right rectus abdominis, left psoas and left iliacus. Transfused 1 PRBC 11/15. 11/18 Patient was seen and examined. Reports continued sharp stabbing pain in his LLE. Reports worsening shortness of breath. He is 93% on 5 L HF. CBC shows RBC 2.5, Hg 7.5, Hct 24.3. BMP Na 134, Cr 0.45, glu 217, Ca 8. Mag 1.8. Antibiotics include Rocephin and Azithromycin. CXR shows persistent bilateral infiltrates. Received 1 dose of Lasix 40 mg IV yesterday. Cardiology recommends adding Lasix 40 mg PEG QD and Aldactone 25 mg PEG QD. 11/19: Patient examined at bedside. No acute events overnight. Titrated down to 7L HF NC, completed Azithromycin, remains on Ceftriaxone, methylprednisolone and PO Lasix. Complains of pain in the LLE. General: non toxic, mild distress, appears at stated age Derm: warm, dry Head: atraumatic, normocephalic, symmetric Mouth: no lip lesion, mucus membranes moist Cardiovascular: S1S2 reg, systolic murmur, port a cath on left chest noted, 1+ DP pulses palpable bilaterally Lungs: Mild bibasilar crackles, no rales , no accessory muscle use Ext: no gross muscle atrophy, no edema, no contractures Neuro: no focal neuro deficits Psych: Alert and oriented. Based on my assessment of this patient, this patient meets a high complexity level of care. Acute blood loss anemia: Secondary to intramuscular hemorrhage. Status post 1 PRBC 11/15. Restarted ASA and Plavix on 11/16. Trend Hg. Hold Xarelto. Recheck CBC in the AM Sepsis and acute hypoxic respiratory failure secondary to Flu + PNA: Elevated procal of 0.49. Completed course of Tamiflu. Rocephin 2g IV QD started 11/15, Azithromycin (11/16-11/18), pulmonology following. Continue methylprednisolone, Symbicort BID, Albuterol neb QID scheduled and DuoNeb QID PRN. HFrEF exacerbation: Lasix 40 mg IV x 1 11/17. Obtain BNP. 2015 Echo shows EF 35- 40% with hypokinetic wall motion. Echo ordered. Lasix 40 mg PEG QD and Aldactone 25 mg PEG QD. Metoprolol as below. Strict intake and outtake. Daily weights. Left lower extremity acute limb ischemia status post placement of tPA infusion catheter in the left common and left external iliac artery 11/12/2024 removed on 11/14: ASA 81 mg PO QD. Plavix 75 mg PO QD, Lipitor 40 mg daily. CAD: Lipitor 40 mg PO QHS, ASA 81 mg daily, Plavix 75 mg daily. Hypothyroid: Synthroid 50 mcg PEG QD. Depression: Sertraline 50 mg PEG QD. BPH: Flomax 0.4 mg PEG QD. GERD: Protonix 40 mg PEG QD. A-Fib: Holding Xarelto due to intramuscular bleed. Metoprolol 50 mg PEG BID. History of mesenteric ischemia status post SMA stent 2022 Esophageal cancer status post chemotherapy Status post robotic gastrostomy tube placement 09/07/2024 CODE STATUS: FULL CODE. DVT Prophylaxis: SCD GI Prophylaxis: Protonix Designated medical POA if patient is not able to make medical decisions for themselves: I have reviewed the following financial reporting consultant notes: Pulmonary. I have reviewed the results of the following tests: BMP I have ordered the following tests: CBC, BMP, in the AM. I have discussed the care of this patient with the following independent historian: RN. I have independently interpreted the following test below: I have discussed the management of this patient with the following physician: Objective - Vital Signs Vital signs: Vital Signs Temp 98.5 F 11/19/24 11:30 Pulse 84 11/19/24 15:20 Resp 18 11/19/24 14:00 BP 130/88 11/19/24 11:30 Pulse Ox 100 11/19/24 11:30 FiO2 Intake & Output 11/18/24 11/19/24 11/19/24 18:59 06:59 18:59 Intake Total 177 295 Output Total 500 250 Balance -323 45 Weight 60.3 kg 60.3 kg Intake: Tube Feeding 177 295 Output: Urine 500 250 Other: Voiding Method Urinal Urinal Urinal # Voids 2 1 1 # Bowel Movements 2 1 - Labs CBC & Chem 7: 11/18/24 06:07 11/19/24 05:37 Labs: Abnormal Lab Results - Last 24 Hours (Table) 11/18/24 11/18/24 11/19/24 Range/Units 17:01 20:07 05:37 Sodium 134 L (137-145) mmol/L BUN 23 H (9-20) mg/dL Creatinine 0.54 L (0.66-1.25) mg/dL Glucose 181 H (74-99) mg/dL POC Glucose (mg/dL) 178 H 245 H (70-110) mg/dL Calcium 8.2 L (8.4-10.2) mg/dL 11/19/24 11/19/24 Range/Units 05:52 11:27 Sodium (137-145) mmol/L BUN (9-20) mg/dL Creatinine (0.66-1.25) mg/dL Glucose (74-99) mg/dL POC Glucose (mg/dL) 223 H 208 H (70-110) mg/dL Calcium (8.4-10.2) mg/dL
[2024-11-19 16:43] LABS: Basophils % (A) 0 %; Eosinophils % (A) 0 %; HCT 25.6 % (39.0-53.0); HGB 8.4 gm/dL (13.0-17.5); Hypochromasia Slight; Lymphocytes # (A) 0.5 k/uL (1.0-4.8); Lymphocytes % (A) 2 %; MCH 31.9 pg (25.0-35.0); MCHC 32.7 g/dL (31.0-37.0); MCV 97.7 fL (80.0-100.0); Mean Platelet Volume 8.2; Monocytes # (A) 0.6 k/uL (0-1.0); Monocytes % (A) 3 %; Neutrophils # (A) 22.1 k/uL (1.3-7.7); Neutrophils % (A) 95 %; Platelet Count 328 k/uL (150-450); RBC 2.62 m/uL (4.30-5.90); RDW 15.1 % (11.5-15.5); WBC 23.4 k/uL (3.8-10.6)
[2024-11-19] MEDS: HYDROcodone/APAP 5-325MG 1 EACH TAB PO PRN (20:25)
[2024-11-19 20:40] LABS: Glucose,Whole Blood 201 mg/dL (70-110)
[2024-11-20 06:22] LABS: Glucose,Whole Blood 239 mg/dL (70-110)
[2024-11-20] MEDS: INSULIN LISPRO (HumaLOG) 100 UNIT/ML 10 mL VL SQ SCH (06:53)
[2024-11-20] MEDS: DIPHENOX-ATROP 2.5-0.025 MG 1 EACH TAB PO PRN (10:22)
--- NOTE | 2024-11-20 11:54 | XR ---
EXAMINATION TYPE: XR chest 1V portable DATE OF EXAM: 11/20/2024 CLINICAL INDICATION: Male, 79 years old with history of PNA, progress study. TECHNIQUE: Single AP portable upright view of the chest is obtained. COMPARISON: Chest x-ray from 3 days earlier FINDINGS: Stable left subclavian Mediport catheter. Overlying sternal wires and mediastinal clips ar e redemonstrated. Persistent mild cardiomegaly an chronic parenchymal changes with small right pleural effusion and bib asilar opacities along with right midlung increased opacity. Osseous structures are intact. IMPRESSION: Persistent mild cardiomegaly with right mid lung and bibasilar acute infiltrates and/or a telectasis and small right pleural effusion. No significant change from most recent study. [facility], , 11/20/2024 11:52 AM
[2024-11-20 12:01] LABS: Glucose,Whole Blood 188 mg/dL (70-110)
--- NOTE | 2024-11-20 12:29 | P.PN ---
Subjective Progress Note Date: 11/20/24 Principal diagnosis: Acute left lower limb ischemia This is a 79-year-old white male with history of underlying coronary artery disease, previous CABG and PCI, history of paroxysmal atrial fibrillation maintained on Xarelto history of paroxysmal atrial fibrillation maintained on Xarelto history of mitral valve regurgitation, hypertension, dyslipidemia, and known history of peripheral vessel occlusive disease 11/10/2024, and he was seen by Dr. Hopkins for acute presentation of left lower extremity getting cold and numb over a period of 4 to 5 days. Pain has been quite severe from the thigh all the way down to his toes. On 11/12/2024, patient underwent placement of tPA infusion catheter in the left common and left external iliac artery and he received thrombolytics for his acute arterial thrombosis involving the left iliac artery, and felt that the patient may even require possible thrombectomy. Patient had tPA protocol. On 11/14, patient had a second look angiogram after tPA infusion and he also underwent removal of tPA infusion catheter from the left common and left external iliac arteries with selective bilateral iliac and femoral arteries angiogram. Postoperatively, patient was transferred to the ICU, and this consult was initiated. Apparently on his second look the patient was found to have widely patent left common and left external iliac arteries and small residual thrombus but great flow and significant improvement I saw this patient in the ICU, he is on 2 L nasal cannula, his hemoglobin is 6.7 and he will receive 1 unit of packed RBCs, patient does not seem to be in distress, he had recent influenza infection and he finished a course of Tamiflu. In addition to all of this the patient has known history of COPD which seems to be stable and he has a history of a left subclavian Mediport noted in place which was placed initially for his esophageal cancer. During my evaluation, patient had no cough no wheezing no shortness of breath no chest pain, and he had significant improvement in pain related to his left lower extremity. Follow-up hemoglobin after 1 unit of packed RBCs came back 8.3. His basic metabolic profile today came back normal except for low sodium of 130. Renal profile is normal. Patient was seen today on 11/16/2024, patient remains in the ICU, he is presently on overflow to 3 S., on 2 L nasal cannula, doing fairly well, better than expected, he is on IV fluid at 0.9 normal saline at 75 cc/h, he is also on vital AF at 59 mL/h. Patient to be started on PEG tube feeding hopefully sometime later today. Chest x-ray continues to show multifocal infiltrates/pneumonia involving mostly right upper lobe right lower lobe and left lower lobe. WBC count is 7 hemoglobin 7.8 electrolytes are normal renal profile is normal. Patient was seen today on 11/17/2024, patient is complaining of worsening shortness of breath, chest x-ray is showing worsening airspace disease involving right upper lobe, left lower lobe and right lower lobe, patient did receive diuretics by cardiology, patient is also on Tamiflu for influenza A and is also on antibiotics empirically for presumptive pneumonia in the setting of acute influenza A infection. Patient is also complaining of left lower extremity pain, although the foot seems to be warm, and no evidence of ischemic changes noted in the left foot, that being addressed by cardiology on the case. Patient is hemodynamically stable, WBC count today is 9.1 hemoglobin 7.7 platelets are 2 27,000. Patient was seen today at 11/18/2024, patient seems to be doing better today, breathing a bit easier, continues to have severe aches and pains specially in his right lower extremity although no evidence of ischemia noted in the left foot. Chest x-ray continues show bilateral pneumonia. He is on antibiotics. WBC count is 10.3 hemoglobin 7.8 electrolytes are normal renal profile is normal, patient remains on diuretics, Xarelto remains on hold mostly because of his acute blood loss anemia and intramuscular hemorrhage. Aldactone was added today. Patient wa seen today on 11/19/2024, seems to be breathing easier, hardly any pulmonary symptoms no cough no wheezing no shortness of breath, patient has been titrated down on his oxygen to 7 L high flow nasal cannula, O2 saturation is 100%, he is hemodynamically stable with a blood pressure 130/88. However the patient developed today significant amount of diarrhea. Hence I am recommending C. difficile screening on this patient, his electrolytes are normal bicarb is 29 BUN is 23 creatinine 0.54., CBC yesterday was basically unremarkable WBC count is 10.3. Last chest x-ray was consistent with pneumonia Patient was seen today on 11/20/2024, continues to have diarrhea, shortness of breath is improving, but seems to be more bothered with his diarrhea. C. difficile screening was negative hence I am recommending Lomotil for this patient. Patient is developing leukocytosis noted yesterday with WBC of 23.4 hemoglobin 8.4 electrolytes are normal renal profile is normal bicarb is 29. Objective - Vital Signs Vital signs: Vital Signs Temp 98.1 F 11/20/24 12:00 Pulse 72 11/20/24 12:00 Resp 18 11/20/24 12:00 BP 147/69 11/20/24 12:00 Pulse Ox 99 11/20/24 12:00 FiO2 Intake & Output 11/19/24 11/20/24 11/20/24 18:59 06:59 18:59 Intake Total 531 596 Output Total 775 Balance -244 596 Weight 60.3 kg 60.3 kg Intake: Oral 360 Tube Feeding 531 236 Output: Urine 775 Other: Voiding Method Urinal Urinal Urinal # Voids 2 # Bowel Movements 2 - Exam Physical examination: Gen: Revealed 79-year-old white male frail looking, in no distress. On 2 L nasal cannula O2 saturation 99% HEENT: Head is atraumatic, normocephalic. Pupils equal, round. Sclerae is anicteric. NECK: Supple. No JVD. No stridor. Left subclavian Port-A-Cath noted. LUNGS: Symmetrical chest expansion crackles noted bilaterally. HEART: Distant S1-S2, 2/6 systolic murmur throughout the precordium ABDOMEN: Soft nontender no megaly, no rebound, no guarding EXTREMITIES: No clubbing edema or cyanosis, good pulses noted bilaterally faint dorsalis pedis pulse noted and posterior tibial at the left lower extremity. NEUROLOGICAL: Alert oriented x 3 no gross focal deficit Psychiatric: Normal mood, affect and no mental status examination Skin: No rashes - Labs CBC & Chem 7: 11/19/24 16:31 11/19/24 05:37 Labs: Abnormal Lab Results - Last 24 Hours (Table) 11/19/24 11/19/24 11/19/24 Range/Units 16:21 16:31 20:13 WBC 23.4 H (3.8-10.6) k/uL RBC 2.62 L (4.30-5.90) m/uL Hgb 8.4 L (13.0-17.5) gm/dL Hct 25.6 L (39.0-53.0) % Neutrophils # 22.1 H (1.3-7.7) k/uL Lymphocytes # 0.5 L (1.0-4.8) k/uL POC Glucose (mg/dL) 184 H 201 H (70-110) mg/dL 11/20/24 11/20/24 Range/Units 05:51 11:59 WBC (3.8-10.6) k/uL RBC (4.30-5.90) m/uL Hgb (13.0-17.5) gm/dL Hct (39.0-53.0) % Neutrophils # (1.3-7.7) k/uL Lymphocytes # (1.0-4.8) k/uL POC Glucose (mg/dL) 239 H 188 H (70-110) mg/dL Assessment and Plan Assessment: Impression: Acute left lower limb ischemia, status post Placement of tPA infusion catheter in the left common and left external iliac artery History of occluded left SFA History of esophageal cancer, status postchemotherapy and radiation therapy Retroperitoneal hematoma Recent history of influenza A infection Suspected multifocal pneumonia in the setting of acute influenza A infection History of underlying COPD, presently inactive Benign essential hypertension History of hypothyroidism Diarrhea, ruled out C. difficile colitis Recommendation: Lomotil 2.5 mg 4 times daily as needed Continue diuretics and antibiotics Continue present supportive care measures Patient finished a recent full course of treatment with Tamiflu for his influenza A infection Continue to monitor daily labs Continue bronchodilators for COPD, DuoNeb, Symbicort, change methylprednisolone to 40 mg IV push every 12 hours Will continue to follow. Time with Patient: Less than 30
--- NOTE | 2024-11-20 13:25 | P.PN ---
Subjective Progress Note Date: 11/20/24 79 year old M with PMH of CAD status post CABG + stents, PAD, GERD, HLD, HTN, esophageal cancer PEG 03/2024 s/p chemotherapy presented to the ED for worsening LLE pain. In the ED he underwent extensive evaluation. T 102.3F, BP 130/60, HR 114, RR 20, 90% on RA. CBC, Coag panel, CMP significant for WBC 10.8, RBC 3.98, MCV 101.8, Na 132, BUN 24, AST 95. UA neg LE or nitrite. Flu +. EKG sinus rhythm with no ST T wave changes. CXR no acute process. CTA showed occluded segments of the left superficial femoral artery in the proximal thigh and mid-thigh. Started on heparin drip and admitted for further workup and evaluation. Underwent LLE angiogram and placement on tPA infusion catheter on 11/12. Second look on 11/14, removal of tPA infusion catheter. He did have swelling in his RLQ, CT AP ordered showing multiple areas of intramuscular hemorrhage including right rectus abdominis, left psoas and left iliacus. Transfused 1 PRBC 11/15. He had worsening breathing, started on Rocephin + Azithromycin along with bronchodilators. 11/19 Patient was seen and examined. Reports well controlled pain in his LLE. Breathing stable. He is 99% on 2 L NC. Diarrhea is persistent, C. diff negative. CXR done today showing right mid lung and bibasilar acute infiltrates. CBC shows WBC 23.4, RBC 2.62, Hg 8.4, Hct 25.6. Antibiotics include Rocephin. Completed course of Azithromycin. General: non toxic, mild distress, appears at stated age Derm: warm, dry Head: atraumatic, normocephalic, symmetric Mouth: no lip lesion, mucus membranes moist Cardiovascular: S1S2 reg, systolic murmur, 1+ DP pulses palpable bilaterally, L port a cath Lungs: Crackles bilaterally, no rales , no accessory muscle use Ext: no gross muscle atrophy, no edema, no contractures Neuro: no focal neuro deficits Psych: Alert and oriented. Based on my assessment of this patient, this patient meets a high complexity level of care. Acute blood loss anemia: Secondary to intramuscular hemorrhage. Status post 1 PRBC 11/15. Restarted ASA and Plavix on 11/16. Trend Hg. Hold Xarelto. Sepsis and acute hypoxic respiratory failure secondary to Flu + PNA: Elevated procal of 0.49. Completed course of Tamiflu. Rocephin 2g IV QD started 11/15. Azithromycin 500 mg IV QD started 11/16. Albuterol neb QID scheduled and DuoNeb QID PRN. Symbicort 2 INH BID. BCx, Legionella neg. Sputum Cx pending. Pulmonary on board. Diarrhea: C. diff ruled out. Lomotil 1 tab PO Q6H PRN. HFrEF exacerbation: BNP 5200. 2015 Echo shows EF 35-40% with hypokinetic wall motion. Echo shows EF 50% mod MR mild AR/TR. Lasix 40 mg PEG QD and Aldactone 25 mg PEG QD. Metoprolol as below. Strict intake and outtake. Daily weights. Left lower extremity acute limb ischemia status post placement of tPA infusion catheter in the left common and left external iliac artery 11/12/2024 removed on 11/14: ASA 81 mg PO QD. Plavix 75 mg PO QD. Lipitor as below. CAD: Lipitor 40 mg PO QHS. ASA and Plavix as above. COPD: Bronchodilators as above. Hypothyroid: Synthroid 50 mcg PEG QD. Depression: Sertraline 50 mg PEG QD. BPH: Flomax 0.4 mg PEG QD. GERD: Protonix 40 mg PEG QD. A-Fib: Holding Xarelto due to intramuscular bleed. Metoprolol 50 mg PEG BID. History of mesenteric ischemia status post SMA stent 2022 Esophageal cancer status post chemotherapy Status post robotic gastrostomy tube placement 09/07/2024 CODE STATUS: FULL CODE. DVT Prophylaxis: SCD GI Prophylaxis: Protonix Designated medical POA if patient is not able to make medical decisions for themselves: I have reviewed the following oracle security consultant notes: Pulmonary I have reviewed the results of the following tests: CBC I have ordered the following tests: I have discussed the care of this patient with the following independent historian: I have independently interpreted the following test below: CXR I have discussed the management of this patient with the following physician: Objective - Vital Signs Vital signs: Vital Signs Temp 98.1 F 11/20/24 12:00 Pulse 72 11/20/24 12:00 Resp 18 11/20/24 12:00 BP 147/69 11/20/24 12:00 Pulse Ox 99 11/20/24 12:00 FiO2 Intake & Output 11/19/24 11/20/24 11/20/24 18:59 06:59 18:59 Intake Total 531 596 Output Total 775 Balance -244 596 Weight 60.3 kg 60.3 kg Intake: Oral 360 Tube Feeding 531 236 Output: Urine 775 Other: Voiding Method Urinal Urinal Urinal # Voids 2 # Bowel Movements 2 - Labs CBC & Chem 7: 11/19/24 16:31 11/19/24 05:37 Labs: Abnormal Lab Results - Last 24 Hours (Table) 11/19/24 11/19/24 11/19/24 Range/Units 16:21 16:31 20:13 WBC 23.4 H (3.8-10.6) k/uL RBC 2.62 L (4.30-5.90) m/uL Hgb 8.4 L (13.0-17.5) gm/dL Hct 25.6 L (39.0-53.0) % Neutrophils # 22.1 H (1.3-7.7) k/uL Lymphocytes # 0.5 L (1.0-4.8) k/uL POC Glucose (mg/dL) 184 H 201 H (70-110) mg/dL 11/20/24 11/20/24 Range/Units 05:51 11:59 WBC (3.8-10.6) k/uL RBC (4.30-5.90) m/uL Hgb (13.0-17.5) gm/dL Hct (39.0-53.0) % Neutrophils # (1.3-7.7) k/uL Lymphocytes # (1.0-4.8) k/uL POC Glucose (mg/dL) 239 H 188 H (70-110) mg/dL
[2024-11-20 16:36] LABS: African American GFR (CKD) >90 (>60 ml/min/1.73 sqM); Anion Gap 6 mmol/L; Blood Urea Nitrogen 27 mg/dL (9-20); Calcium 8.3 mg/dL (8.4-10.2); Carbon Dioxide 33 mmol/L (22-30); Chloride 95 mmol/L (98-107); Glucose 188 mg/dL (74-99); Non-African American GFR(CKD) >90 (>60 ml/min/1.73 sqM); Potassium 4.5 mmol/L (3.5-5.1); Sodium 134 mmol/L (137-145)
[2024-11-20 16:42] LABS: Glucose,Whole Blood 192 mg/dL (70-110)
[2024-11-20 19:38] LABS: Glucose,Whole Blood 215 mg/dL (70-110)
[2024-11-20] MEDS: methylPREDNISolone SOD SUCCI 40 MG/ML 1 ML VIAL IV SCH (21:28)
[2024-11-20] MEDS: oxyCODONE-APAP 10-325MG 1 EACH TAB PO PRN (21:29)
[2024-11-21 02:36] LABS: Glucose,Whole Blood 220 mg/dL (70-110)
[2024-11-21 05:03] LABS: Glucose,Whole Blood 234 mg/dL (70-110)
--- NOTE | 2024-11-21 10:16 | P.PN ---
Subjective Progress Note Date: 11/21/24 79 year old M with PMH of CAD status post CABG + stents, PAD, GERD, HLD, HTN, esophageal cancer PEG 03/2024 s/p chemotherapy presented to the ED for worsening LLE pain. In the ED he underwent extensive evaluation. T 102.3F, BP 130/60, HR 114, RR 20, 90% on RA. CBC, Coag panel, CMP significant for WBC 10.8, RBC 3.98, MCV 101.8, Na 132, BUN 24, AST 95. UA neg LE or nitrite. Flu +. EKG sinus rhythm with no ST T wave changes. CXR no acute process. CTA showed occluded segments of the left superficial femoral artery in the proximal thigh and mid-thigh. Started on heparin drip and admitted for further workup and evaluation. Underwent LLE angiogram and placement on tPA infusion catheter on 11/12. Second look on 11/14, removal of tPA infusion catheter. He did have swelling in his RLQ, CT AP ordered showing multiple areas of intramuscular hemorrhage including right rectus abdominis, left psoas and left iliacus. Transfused 1 PRBC 11/15, Hg has remained stable since. During that time, he had worsening breathing, pro-silvia was 0.49, he was started on bronchodilators, SoluMedrol and completed a course of Rocephin + Azithromycin. BNP 5200, Echocardiogram showed EF 50% mod MR mild AR/TR, receiving intermitted Lasix IV for diuresis. 11/21 Patient was seen and examined. Reports well controlled pain in his LLE. Breathing stable, 97% on 4 L NC. Persistent diarrhea, C. diff has been negative. Completed 6 days of Rocephin and 3 days of Azithromycin. Sputum Cx moderate PMN, few G+ cocci, rare yeast. General: non toxic, no distress, appears at stated age Derm: warm, dry Head: atraumatic, normocephalic, symmetric Mouth: no lip lesion, mucus membranes moist Cardiovascular: S1S2 reg, systolic murmur, 1+ DP pulses palpable bilaterally, L port a cath Lungs: Crackles bilaterally with expiratory wheezing, no rales , no accessory muscle use Ext: no gross muscle atrophy, no edema, no contractures Neuro: no focal neuro deficits Psych: Alert and oriented. Based on my assessment of this patient, this patient meets a high complexity level of care. Sepsis and acute hypoxic respiratory failure secondary to Flu + PNA: Elevated procal of 0.49. Completed course of Tamiflu. Rocephin 2g IV QD (11/15-11/20). Azithromycin 500 mg IV QD (11/16-11/18). Albuterol neb QID scheduled and DuoNeb QID PRN. Symbicort 2 INH BID. SoluMedrol 40 mg IV BID. BCx, Legionella, Sputum Cx neg. Pulmonary on board. Acute blood loss anemia: Secondary to intramuscular hemorrhage. Status post 1 PRBC 11/15. Restarted ASA and Plavix on 11/16. Trend Hg. Hold Xarelto. Diarrhea with Hyponatremia, metabolic alkalosis and prerenal azotemia: Likely due to dehydration. C. diff ruled out. Start gentle hydration with NS at 50 cc/hr. Lomotil 1 tab PO Q6H PRN. HFpEF: BNP 5200. 2015 Echo shows EF 35-40% with hypokinetic wall motion. Echo done this admission shows EF 50% mod MR mild AR/TR. Lasix 40 mg PEG QD and Aldactone 25 mg PEG QD. Metoprolol as below. Strict intake and outtake. Daily weights. Left lower extremity acute limb ischemia status post placement of tPA infusion catheter in the left common and left external iliac artery 11/12/2024 removed on 11/14: ASA 81 mg PO QD. Plavix 75 mg PO QD. Lipitor as below. Cardiology on board. CAD: Lipitor 40 mg PO QHS. ASA and Plavix as above. COPD: Bronchodilators and steroids as above. Hypothyroid: Synthroid 50 mcg PEG QD. Depression: Sertraline 50 mg PEG QD. BPH: Flomax 0.4 mg PEG QD. GERD: Protonix 40 mg PEG QD. A-Fib: Holding Xarelto due to intramuscular bleed. Metoprolol 50 mg PEG BID. History of mesenteric ischemia status post SMA stent 2022: ASA, Plavix and Lipitor as above. Esophageal cancer status post chemotherapy: Outpatient follow up. Status post robotic gastrostomy tube placement 09/07/2024: Stable. CODE STATUS: FULL CODE. DVT Prophylaxis: SCD GI Prophylaxis: Protonix Designated medical POA if patient is not able to make medical decisions for themselves: Dispo: Anticipate DC when able to be weaned off O2, pending clinical improvement. I have reviewed the following senior health consultant notes: I have reviewed the results of the following tests: Sputum Cx. I have ordered the following tests: CBC and BMP in the AM. I have discussed the care of this patient with the following independent historian: I have independently interpreted the following test below: I have discussed the management of this patient with the following physician: Objective - Vital Signs Vital signs: Vital Signs Temp 97.6 F 11/21/24 04:43 Pulse 71 11/21/24 07:46 Resp 20 11/21/24 04:43 BP 127/63 11/21/24 04:43 Pulse Ox 96 11/21/24 04:43 FiO2 Intake & Output 11/20/24 11/21/24 11/21/24 18:59 06:59 18:59 Intake Total 1308 648 Output Total 1 925 Balance 1307 -277 Weight 57.8 kg Intake: Oral 600 Tube Feeding 708 648 Output: Urine 925 Stool 1 Other: Voiding Method Urinal Urinal # Voids 1 1 # Bowel Movements 1 1 - Labs CBC & Chem 7: 11/19/24 16:31 11/20/24 16:13 Labs: Abnormal Lab Results - Last 24 Hours (Table) 11/20/24 11/20/24 11/20/24 Range/Units 11:59 16:13 16:41 Sodium 134 L (137-145) mmol/L Chloride 95 L (98-107) mmol/L Carbon Dioxide 33 H (22-30) mmol/L BUN 27 H (9-20) mg/dL Creatinine 0.62 L (0.66-1.25) mg/dL Glucose 188 H (74-99) mg/dL POC Glucose (mg/dL) 188 H 192 H (70-110) mg/dL Calcium 8.3 L (8.4-10.2) mg/dL 11/20/24 11/21/24 11/21/24 Range/Units 19:36 02:35 05:02 Sodium (137-145) mmol/L Chloride (98-107) mmol/L Carbon Dioxide (22-30) mmol/L BUN (9-20) mg/dL Creatinine (0.66-1.25) mg/dL Glucose (74-99) mg/dL POC Glucose (mg/dL) 215 H 220 H 234 H (70-110) mg/dL Calcium (8.4-10.2) mg/dL
[2024-11-21] MEDS: SODIUM CHLORIDE 0.9% 1,000 ML IV SCH (11:05)
[2024-11-21 11:21] LABS: Glucose,Whole Blood 144 mg/dL (70-110)
--- NOTE | 2024-11-21 13:10 | P.PN ---
Subjective Progress Note Date: 11/21/24 Principal diagnosis: Acute left lower limb ischemia This is a 79-year-old white male with history of underlying coronary artery disease, previous CABG and PCI, history of paroxysmal atrial fibrillation maintained on Xarelto history of paroxysmal atrial fibrillation maintained on Xarelto history of mitral valve regurgitation, hypertension, dyslipidemia, and known history of peripheral vessel occlusive disease 11/10/2024, and he was seen by Dr. Hopkins for acute presentation of left lower extremity getting cold and numb over a period of 4 to 5 days. Pain has been quite severe from the thigh all the way down to his toes. On 11/12/2024, patient underwent placement of tPA infusion catheter in the left common and left external iliac artery and he received thrombolytics for his acute arterial thrombosis involving the left iliac artery, and felt that the patient may even require possible thrombectomy. Patient had tPA protocol. On 11/14, patient had a second look angiogram after tPA infusion and he also underwent removal of tPA infusion catheter from the left common and left external iliac arteries with selective bilateral iliac and femoral arteries angiogram. Postoperatively, patient was transferred to the ICU, and this consult was initiated. Apparently on his second look the patient was found to have widely patent left common and left external iliac arteries and small residual thrombus but great flow and significant improvement I saw this patient in the ICU, he is on 2 L nasal cannula, his hemoglobin is 6.7 and he will receive 1 unit of packed RBCs, patient does not seem to be in distress, he had recent influenza infection and he finished a course of Tamiflu. In addition to all of this the patient has known history of COPD which seems to be stable and he has a history of a left subclavian Mediport noted in place which was placed initially for his esophageal cancer. During my evaluation, patient had no cough no wheezing no shortness of breath no chest pain, and he had significant improvement in pain related to his left lower extremity. Follow-up hemoglobin after 1 unit of packed RBCs came back 8.3. His basic metabolic profile today came back normal except for low sodium of 130. Renal profile is normal. Patient was seen today on 11/16/2024, patient remains in the ICU, he is presently on overflow to 3 S., on 2 L nasal cannula, doing fairly well, better than expected, he is on IV fluid at 0.9 normal saline at 75 cc/h, he is also on vital AF at 59 mL/h. Patient to be started on PEG tube feeding hopefully sometime later today. Chest x-ray continues to show multifocal infiltrates/pneumonia involving mostly right upper lobe right lower lobe and left lower lobe. WBC count is 7 hemoglobin 7.8 electrolytes are normal renal profile is normal. Patient was seen today on 11/17/2024, patient is complaining of worsening shortness of breath, chest x-ray is showing worsening airspace disease involving right upper lobe, left lower lobe and right lower lobe, patient did receive diuretics by cardiology, patient is also on Tamiflu for influenza A and is also on antibiotics empirically for presumptive pneumonia in the setting of acute influenza A infection. Patient is also complaining of left lower extremity pain, although the foot seems to be warm, and no evidence of ischemic changes noted in the left foot, that being addressed by cardiology on the case. Patient is hemodynamically stable, WBC count today is 9.1 hemoglobin 7.7 platelets are 2 27,000. Patient was seen today at 11/18/2024, patient seems to be doing better today, breathing a bit easier, continues to have severe aches and pains specially in his right lower extremity although no evidence of ischemia noted in the left foot. Chest x-ray continues show bilateral pneumonia. He is on antibiotics. WBC count is 10.3 hemoglobin 7.8 electrolytes are normal renal profile is normal, patient remains on diuretics, Xarelto remains on hold mostly because of his acute blood loss anemia and intramuscular hemorrhage. Aldactone was added today. Patient wa seen today on 11/19/2024, seems to be breathing easier, hardly any pulmonary symptoms no cough no wheezing no shortness of breath, patient has been titrated down on his oxygen to 7 L high flow nasal cannula, O2 saturation is 100%, he is hemodynamically stable with a blood pressure 130/88. However the patient developed today significant amount of diarrhea. Hence I am recommending C. difficile screening on this patient, his electrolytes are normal bicarb is 29 BUN is 23 creatinine 0.54., CBC yesterday was basically unremarkable WBC count is 10.3. Last chest x-ray was consistent with pneumonia Patient was seen today on 11/20/2024, continues to have diarrhea, shortness of breath is improving, but seems to be more bothered with his diarrhea. C. difficile screening was negative hence I am recommending Lomotil for this patient. Patient is developing leukocytosis noted yesterday with WBC of 23.4 hemoglobin 8.4 electrolytes are normal renal profile is normal bicarb is 29. Seen today on 11/21/2024, patient is complaining of less episodes of diarrhea, feeling better overall, his C. difficile screen was negative, patient was placed on Lomotil. Pulmonary lópez hardly any pulmonary symptoms, no cough no wheezing no shortness of breath, labs today showed relatively normal electrolytes, bicarb is 33 BUN 27 creatinine 0.62, remains on ceftriaxone and on bronchodilators. Objective - Vital Signs Vital signs: Vital Signs Temp 96.8 F L 11/21/24 11:09 Pulse 74 11/21/24 11:47 Resp 19 11/21/24 11:09 BP 154/69 11/21/24 11:09 Pulse Ox 100 11/21/24 11:49 FiO2 Intake & Output 11/20/24 11/21/24 11/21/24 18:59 06:59 18:59 Intake Total 1308 648 720 Output Total 1 925 Balance 1307 -277 720 Weight 57.8 kg Intake: Oral 600 720 Tube Feeding 708 648 Output: Urine 925 Stool 1 Other: Voiding Method Urinal Urinal Urinal # Voids 1 1 1 # Bowel Movements 1 1 1 - Exam Physical examination: Gen: Revealed 79-year-old white male frail looking, in no distress. On 4 L nasal cannula O2 sat is 98 to 100%. HEENT: Head is atraumatic, normocephalic. Pupils equal, round. Sclerae is anicteric. NECK: Supple. No JVD. No stridor. Left subclavian Port-A-Cath noted. LUNGS: Symmetrical chest expansion clear today no crackles rhonchi or wheezes HEART: Distant S1-S2, 2/6 systolic murmur throughout the precordium ABDOMEN: Soft nontender no megaly, no rebound, no guarding EXTREMITIES: No clubbing edema or cyanosis, good pulses noted bilaterally faint dorsalis pedis pulse noted and posterior tibial at the left lower extremity. NEUROLOGICAL: Alert oriented x 3 no gross focal deficit Psychiatric: Normal mood, affect and no mental status examination Skin: No rashes - Labs CBC & Chem 7: 11/19/24 16:31 11/20/24 16:13 Labs: Abnormal Lab Results - Last 24 Hours (Table) 11/20/24 11/20/24 11/20/24 Range/Units 16:13 16:41 19:36 Sodium 134 L (137-145) mmol/L Chloride 95 L (98-107) mmol/L Carbon Dioxide 33 H (22-30) mmol/L BUN 27 H (9-20) mg/dL Creatinine 0.62 L (0.66-1.25) mg/dL Glucose 188 H (74-99) mg/dL POC Glucose (mg/dL) 192 H 215 H (70-110) mg/dL Calcium 8.3 L (8.4-10.2) mg/dL 11/21/24 11/21/24 11/21/24 Range/Units 02:35 05:02 11:17 Sodium (137-145) mmol/L Chloride (98-107) mmol/L Carbon Dioxide (22-30) mmol/L BUN (9-20) mg/dL Creatinine (0.66-1.25) mg/dL Glucose (74-99) mg/dL POC Glucose (mg/dL) 220 H 234 H 144 H (70-110) mg/dL Calcium (8.4-10.2) mg/dL Microbiology - Last 24 Hours (Table) 11/20/24 15:00 Sputum Culture - Final Sputum Assessment and Plan Assessment: Impression: Acute left lower limb ischemia, status post Placement of tPA infusion catheter in the left common and left external iliac artery History of occluded left SFA History of esophageal cancer, status postchemotherapy and radiation therapy Retroperitoneal hematoma Recent history of influenza A infection Suspected multifocal pneumonia in the setting of acute influenza A infection History of underlying COPD, presently inactive Benign essential hypertension History of hypothyroidism Diarrhea, ruled out C. difficile colitis Recommendation: Lomotil 2.5 mg 4 times daily as needed Continue diuretics and antibiotics Finish full course of Tamiflu for influenza A Continue to monitor daily labs Continue bronchodilators for COPD, DuoNeb, Symbicort, change methylprednisolone to 40 mg IV push every 12 hours Consider discharge planning in the next 24 to 48 hours however the patient has to be cleared by many consultants on the case. Will continue to follow. Time with Patient: Less than 30
[2024-11-21 16:30] LABS: Glucose,Whole Blood 235 mg/dL (70-110)
[2024-11-21 20:08] LABS: Glucose,Whole Blood 224 mg/dL (70-110)
[2024-11-22 02:29] LABS: Glucose,Whole Blood 130 mg/dL (70-110)
[2024-11-22 04:57] LABS: African American GFR (CKD) >90 (>60 ml/min/1.73 sqM); Anion Gap 5 mmol/L; Blood Urea Nitrogen 28 mg/dL (9-20); Calcium 8.7 mg/dL (8.4-10.2); Carbon Dioxide 35 mmol/L (22-30); Chloride 94 mmol/L (98-107); Glucose 129 mg/dL (74-99); Non-African American GFR(CKD) >90 (>60 ml/min/1.73 sqM); Sodium 134 mmol/L (137-145)
[2024-11-22 05:08] LABS: HCT 27.6 % (39.0-53.0); HGB 8.9 gm/dL (13.0-17.5); Hypochromasia Slight; MCH 31.4 pg (25.0-35.0); MCHC 32.2 g/dL (31.0-37.0); MCV 97.6 fL (80.0-100.0); Platelet Count 427 k/uL (150-450); RBC 2.83 m/uL (4.30-5.90); RDW 15.1 % (11.5-15.5); WBC 17.3 k/uL (3.8-10.6)
[2024-11-22 06:02] LABS: Glucose,Whole Blood 156 mg/dL (70-110)
[2024-11-22 11:10] LABS: Glucose,Whole Blood 101 mg/dL (70-110)
--- NOTE | 2024-11-22 12:22 | P.GSCN ---
History of Present Illness Consult date: 11/22/24 History of present illness: CHIEF COMPLAINT: Left leg ischemia Reason for consult: clogged PEG tube HISTORY OF PRESENT ILLNESS: This is a 79-year-old male who presented to hospital with complaints of pain in the left foot. He was found to have an acute left lower limb ischemia. Seen by vascular surgeon. Patient had tPA through infusion catheter. Patient also is influenza A positive. He has a known history of esophageal cancer he reports his last chemo and radiation treatment were a couple of months ago. Patient has a PEG tube in place for nutrition support. He reports that the PEG tube was initially placed in March 2024. He has had issues with the PEG tube. It became dislodged in September [address] Bueno completed a robotic gastrostomy tube placement and robotic takedown of gastrocutaneous fistula. Patient reports he has been placing medications down the PEG tube. He is use the PEG tube for tube feeds. Apparently last night the PEG tube was clogged. Nursing staff did try to flush the PEG tube and placed Pepsi down it without success. Surgical service has been consulted for further evaluation of clogged PEG tube. At this time patient is able to take in a small amount of food and tolerate pills orally. PAST MEDICAL HISTORY: See below PAST SURGICAL HISTORY: See below MEDICATIONS: See below ALLERGIES: See below SOCIAL HISTORY: No illicit drug use. REVIEW OF SYSTEMS: CONSTITUTIONAL: Denies fever or chills. HEENT: Denies blurred vision, vision changes, or eye pain. Denies hemoptysis CARDIOVASCULAR: Denies chest pain or pressure. RESPIRATORY: No shortness of breath. GASTROINTESTINAL: See HPI for pertinent findings HEMATOLOGIC: Denies bleeding disorders. GENITOURINARY: Denies any blood in urine or increased urinary frequency. SKIN: Denies pruitis. Denies rash. PHYSICAL EXAM: VITAL SIGNS: Reviewed GENERAL: Well-developed in no acute distress. HEENT: No sclera icterus. Extraocular movements grossly intact. Moist buccal mucosa. Head is atraumatic, normocephalic. No nasal drainage. ABDOMEN: Soft. Nondistended. PEG tube site clean dry and intact. Tubing for PEG tube is small. There is evidence of crushed pill particles in the tubing NEUROLOGIC: Alert and oriented. Cranial nerves II through XII grossly intact. LABORATORY DATA: WBC is down from 23.4-17.3 Hgb 8.9 platelets 427 Sodium 134 potassium 5.0 creatinine 0.62 IMAGING: ASSESSMENT: 1. Clogged PEG tube 2. History of esophageal cancer requiring PEG tube for nutrition support. Status post chemo and radiation treatment 3. Left leg ischemia status post tPA through infusion catheter by vascular surgery 4. Influenza A PLAN: -Will have nursing staff try to flush the PEG tube as well as try to place Pepsi down the PEG tube to unclog tubing -Further recommendations forthcoming -Tube feedings on hold -Do not place medications down the PEG tube at this time. Patient is able to take medications orally Physician Vaccinator note has been reviewed by physician. Signing provider agrees with the documented findings, assessment, and plan of care. Past Medical History Past Medical History: Coronary Artery Disease (CAD), Cancer, COPD, GERD/Reflux, Hyperlipidemia, Hypertension, Memory Impairment, Myocardial Infarction (CO), Thyroid Disorder, Vascular Disorder Additional Past Medical History / Comment(s): having a difficulty swallowing after eating-only able to swallow soft foods,hx artery to colon had to have a stent placed,PVD BOTH LEGS, RLS, neil leg cramps, esophageal cancer 2023, PEG tube Last Myocardial Infarction Date:: 10/02/2015 History of Any Multi-Drug Resistant Organisms: None Reported Past Surgical History: Coronary Bypass/CABG, Heart Catheterization With Stent, Hernia Repair, Orthopedic Surgery Additional Past Surgical History / Comment(s): heart stents x 3,ORIF rt elbow, triple bypass-taking xarelto, ABDOMINAL AORTOGRAM WITH NEIL EXT. RUNOFF 3-8-17. colonoscopy, egd Past Anesthesia/Blood Transfusion Reactions: No Reported Reaction Additional Past Anesthesia/Blood Transfusion Reaction / Comm: no problems with prior blood transfusions,states "no agitation coming out of anesthesia" Date of Last Stent Placement:: 10/02/2015 Past Psychological History: Anxiety Additional Psychological History / Comment(s): Short term memory loss, anger issues Smoking Status: Former smoker, Vaper Past Alcohol Use History: None Reported Additional Past Alcohol Use History / Comment(s): started smoking 1967-was 1 to 2 ppd,started e cigarette 2015, quit smoking march 2024 Past Drug Use History: None Reported - Past Family History Mother Family Medical History: Vascular Disorder Father Family Medical History: COPD Brother(s) Family Medical History: Cancer Additional Family Medical History / Comment(s): Heart problems, lymphoma. Medications and Allergies Home Medications Medication Instructions Recorded Confirmed Type Atorvastatin [Lipitor] 40 mg PEG/G-TUBE DAILY 06/09/18 11/10/24 History Nitroglycerin Sl Tabs [Nitrostat] 0.4 mg PEG/G-TUBE Q5M PRN 03/15/21 11/10/24 History Rivaroxaban [Xarelto] 20 mg PEG/G-TUBE DAILY 03/15/21 11/10/24 History ALPRAZolam [Xanax] 0.25 mg PEG/G-TUBE BID PRN 06/11/23 11/10/24 History Metoprolol Tartrate [Lopressor] 50 mg PEG/G-TUBE BID 06/11/23 11/10/24 History Ipratropium/Albuter 20-100Mcg 1 puff INHALATION RT-QID PRN 12/30/23 11/10/24 History [Combivent Respimat 20-100Mcg Inhaler] Omeprazole [PriLOSEC] 40 mg PEG/G-TUBE DAILY 12/30/23 11/10/24 History Sertraline HCl [Zoloft] 50 mg PEG/G-TUBE DAILY 12/30/23 11/10/24 History Tamsulosin HCl [Flomax] 0.4 mg PEG/G-TUBE DAILY 12/30/23 11/10/24 History hydrOXYzine pamoate [Vistaril] 25 mg PEG/G-TUBE BID 12/30/23 11/10/24 History Albuterol Nebulized [Ventolin 2.5 mg INHALATION RT-Q4H 08/10/24 11/10/24 History Nebulized] Acetaminophen Tab [Tylenol] 650 mg PEG/G-TUBE Q6H PRN 11/10/24 11/10/24 History Lactose-Reduced Food [Ensure Plus] 237 ml PEG/G-TUBE TID 11/10/24 11/10/24 History Levothyroxine Sodium [Synthroid] 50 mcg PEG/G-TUBE AC-[id number] 11/10/24 11/10/24 History Melatonin 3 mg PEG/G-TUBE HS 11/10/24 11/10/24 History Allergies Allergy/AdvReac Type Severity Reaction Status Date / Time No Known Allergies Allergy Verified 11/10/24 16:43 Surgical - Exam Vital Signs Temp Pulse Resp BP Pulse Ox 102.3 F H 114 H 20 130/60 90 L 11/10/24 11:53 11/10/24 11:53 11/10/24 11:53 11/10/24 11:53 11/10/24 11:53 Results - Labs 11/22/24 04:03 11/22/24 04:03 Abnormal Lab Results - Last 24 Hours (Table) 11/21/24 11/21/24 11/21/24 Range/Units 11:17 16:27 20:07 WBC (3.8-10.6) k/uL RBC (4.30-5.90) m/uL Hgb (13.0-17.5) gm/dL Hct (39.0-53.0) % Sodium (137-145) mmol/L Chloride (98-107) mmol/L Carbon Dioxide (22-30) mmol/L BUN (9-20) mg/dL Creatinine (0.66-1.25) mg/dL Glucose (74-99) mg/dL POC Glucose (mg/dL) 144 H 235 H 224 H (70-110) mg/dL 11/22/24 11/22/24 11/22/24 Range/Units 02:27 04:03 04:03 WBC 17.3 H (3.8-10.6) k/uL RBC 2.83 L (4.30-5.90) m/uL Hgb 8.9 L (13.0-17.5) gm/dL Hct 27.6 L (39.0-53.0) % Sodium 134 L (137-145) mmol/L Chloride 94 L (98-107) mmol/L Carbon Dioxide 35 H (22-30) mmol/L BUN 28 H (9-20) mg/dL Creatinine 0.62 L (0.66-1.25) mg/dL Glucose 129 H (74-99) mg/dL POC Glucose (mg/dL) 130 H (70-110) mg/dL 11/22/24 Range/Units 06:00 WBC (3.8-10.6) k/uL RBC (4.30-5.90) m/uL Hgb (13.0-17.5) gm/dL Hct (39.0-53.0) % Sodium (137-145) mmol/L Chloride (98-107) mmol/L Carbon Dioxide (22-30) mmol/L BUN (9-20) mg/dL Creatinine (0.66-1.25) mg/dL Glucose (74-99) mg/dL POC Glucose (mg/dL) 156 H (70-110) mg/dL Microbiology - Last 24 Hours (Table) 11/20/24 15:00 Sputum Culture - Final Sputum Diabetes panel 11/22/24 Range/Units 04:03 Sodium 134 L (137-145) mmol/L Potassium 5.0 (3.5-5.1) mmol/L Chloride 94 L (98-107) mmol/L Carbon Dioxide 35 H (22-30) mmol/L BUN 28 H (9-20) mg/dL Creatinine 0.62 L (0.66-1.25) mg/dL Glucose 129 H (74-99) mg/dL Calcium 8.7 (8.4-10.2) mg/dL Calcium panel 11/22/24 Range/Units 04:03 Calcium 8.7 (8.4-10.2) mg/dL Pituitary panel 11/22/24 Range/Units 04:03 Sodium 134 L (137-145) mmol/L Potassium 5.0 (3.5-5.1) mmol/L Chloride 94 L (98-107) mmol/L Carbon Dioxide 35 H (22-30) mmol/L BUN 28 H (9-20) mg/dL Creatinine 0.62 L (0.66-1.25) mg/dL Glucose 129 H (74-99) mg/dL Calcium 8.7 (8.4-10.2) mg/dL Adrenal panel 11/22/24 Range/Units 04:03 Sodium 134 L (137-145) mmol/L Potassium 5.0 (3.5-5.1) mmol/L Chloride 94 L (98-107) mmol/L Carbon Dioxide 35 H (22-30) mmol/L BUN 28 H (9-20) mg/dL Creatinine 0.62 L (0.66-1.25) mg/dL Glucose 129 H (74-99) mg/dL Calcium 8.7 (8.4-10.2) mg/dL
--- NOTE | 2024-11-22 12:42 | P.PN ---
Subjective Progress Note Date: 11/22/24 Principal diagnosis: Arterial insufficiency. This is a 79-year-old white male with history of underlying coronary artery disease, previous CABG and PCI, history of paroxysmal atrial fibrillation maintained on Xarelto history of paroxysmal atrial fibrillation maintained on Xarelto history of mitral valve regurgitation, hypertension, dyslipidemia, and known history of peripheral vessel occlusive disease 11/10/2024, and he was seen by Dr. Hopkins for acute presentation of left lower extremity getting cold and numb over a period of 4 to 5 days. Pain has been quite severe from the thigh all the way down to his toes. On 11/12/2024, patient underwent placement of tPA infusion catheter in the left common and left external iliac artery and he received thrombolytics for his acute arterial thrombosis involving the left iliac artery, and felt that the patient may even require possible thrombectomy. Patient had tPA protocol. On 11/14, patient had a second look angiogram after tP A infusion and he also underwent removal of tPA infusion catheter from the left common and left external iliac arteries with selective bilateral iliac and femoral arteries angiogram. Postoperatively, patient was transferred to the ICU, and this consult was initiated. Apparently on his second look the patient was found to have widely patent left common and left external iliac arteries and small residual thrombus but great flow and significant improvement I saw this patient in the ICU, he is on 2 L nasal cannula, his hemoglobin is 6.7 and he will receive 1 unit of packed RBCs, patient does not seem to be in distress, he had recent influenza infection and he finished a course of Tamiflu. In addition to all of this the patient has known history of COPD which seems to be stable and he has a history of a left subclavian Mediport noted in place which was placed initially for his esophageal cancer. During my evaluation, patient had no cough no wheezing no shortness of breath no chest pain, and he had significant improvement in pain related to his left lower extremity. Follow-up hemoglobin after 1 unit of packed RBCs came back 8.3. His basic metabolic profile today came back normal except for low sodium of 130. Renal profile is normal. Patient was seen today on 11/16/2024, patient remains in the ICU, he is presently on overflow to 3 S., on 2 L nasal cannula, doing fairly well, better than expected, he is on IV fluid at 0.9 normal saline at 75 cc/h, he is also on vital AF at 59 mL/h. Patient to be started on PEG tube feeding hopefully sometime later today. Chest x-ray continues to show multifocal infiltrates/pneumonia involving mostly right upper lobe right lower lobe and left lower lobe. WBC count is 7 hemoglobin 7.8 electrolytes are normal renal profile is normal. Patient was seen today on 11/17/2024, patient is complaining of worsening shortness of breath, chest x-ray is showing worsening airspace disease involving right upper lobe, left lower lobe and right lower lobe, patient did receive diuretics by cardiology, patient is also on Tamiflu for influenza A and is also on antibiotics empirically for presumptive pneumonia in the setting of acute influenza A infection. Patient is also complaining of left lower extremity pain, although the foot seems to be warm, and no evidence of ischemic changes noted in the left foot, that being addressed by cardiology on the case. Patient is hemodynamically stable, WBC count today is 9.1 hemoglobin 7.7 platelets are 2 27,000. Patient was seen today at 11/18/2024, patient seems to be doing better today, breathing a bit easier, continues to have severe aches and pains specially in his right lower extremity although no evidence of ischemia noted in the left foot. Chest x-ray continues show bilateral pneumonia. He is on antibiotics. WBC count is 10.3 hemoglobin 7.8 electrolytes are normal renal profile is norm al, patient remains on diuretics, Xarelto remains on hold mostly because of his acute blood loss anemia and intramuscular hemorrhage. Aldactone was added today. Patient wa seen today on 11/19/2024, seems to be breathing easier, hardly any pulmonary symptoms no cough no wheezing no shortness of breath, patient has been titrated down on his oxygen to 7 L high flow nasal cannula, O2 saturation is 1 00%, he is hemodynamically stable with a blood pressure 130/88. However the patient developed today significant amount of diarrhea. Hence I am recommending C. difficile screening on this patient, his electrolytes are normal bicarb is 29 BUN is 23 creatinine 0.54., CBC yesterday was basically unremarkable WBC count is 10.3. Last chest x-ray was consistent with pneumonia Patient was seen today on 11/20/2024, continues to have diarrhea, shortness of breath is improving, but seems to be more bothered with his diarrhea. C. difficile screening was negative hence I am recommending Lomotil for this patient. Patient is developing leukocytosis noted yesterday with WBC of 23.4 hemoglobin 8.4 electrolytes are normal renal profile is normal bicarb is 29. Seen today on 11/21/2024, patient is complaining of less episodes of diarrhea, feeling better overall, his C. difficile screen was negative, patient was placed on Lomotil. Pulmonary lópez hardly any pulmonary symptoms, no cough no wheezing no shortness of breath, labs today showed relatively normal electrolytes, bicarb is 33 BUN 27 creatinine 0.62, remains on ceftriaxone and on bronchodilators. Progress note dated November 22, 2024. 79-year-old male seen today in room 350. The patient is currently on 2 L of oxygen. Getting saline at 50 cc an hour. He states that his breathing is "up-and-down". He denies any chest pain or chest discomfort. Current laboratory data includes a white count of 17.3, hemoglobin 8.9, hematocrit 27.6, and a platelet count of 427,000. Sodium 134, potassium 5, chloride 94, CO2 35, BUN 28, creatinine 0.62. Glucose is 101. Calcium is 8.7. Sputum and blood cultures are negative. No chest x-ray today. Objective - Vital Signs Vital signs: Vital Signs Temp 98.1 F 11/22/24 09:22 Pulse 64 11/22/24 12:13 Resp 18 11/22/24 12:13 BP 151/67 11/22/24 12:13 Pulse Ox 91 L 11/22/24 12:13 FiO2 Intake & Output 11/21/24 11/22/24 11/22/24 18:59 06:59 18:59 Intake Total 960 360 Output Total 725 1640 1 Balance 235 -1640 359 Weight 69.4 kg Intake: Oral 960 360 Output: Urine 725 1640 Stool 1 Other: Voiding Method Urinal Urinal Urinal # Voids 1 1 # Bowel Movements 1 1 1 - Exam No acute distress, oriented 3. The patient is currently on 2 L of oxygen. HEENT examination is grossly unremarkable. Mucous membranes are moist. No oral lesions. Neck supple. Full range of motion. No adenopathy thyromegaly or neck vein distention. Cardiovascular examination reveals regular rhythm rate. S1-S2 normal. No S3 or S4. A soft systolic murmur is noted. Lungs reveal clear breath sounds. Breath sounds are equal bilaterally. No adventitious lung sounds including wheezes rhonchi or crackles. Abdomen soft bowel sounds are heard. No masses or tenderness. Extremities are intact. No cyanosis clubbing or edema. Skin is without rash or lesion. Neurologic examination is brief but nonfocal. - Labs CBC & Chem 7: 11/22/24 04:03 11/22/24 04:03 Labs: Abnormal Lab Results - Last 24 Hours (Table) 11/21/24 11/21/24 11/22/24 Range/Units 16:27 20:07 02:27 WBC (3.8-10.6) k/uL RBC (4.30-5.90) m/uL Hgb (13.0-17.5) gm/dL Hct (39.0-53.0) % Sodium (137-145) mmol/L Chloride (98-107) mmol/L Carbon Dioxide (22-30) mmol/L BUN (9-20) mg/dL Creatinine (0.66-1.25) mg/dL Glucose (74-99) mg/dL POC Glucose (mg/dL) 235 H 224 H 130 H (70-110) mg/dL 11/22/24 11/22/24 11/22/24 Range/Units 04:03 04:03 06:00 WBC 17.3 H (3.8-10.6) k/uL RBC 2.83 L (4.30-5.90) m/uL Hgb 8.9 L (13.0-17.5) gm/dL Hct 27.6 L (39.0-53.0) % Sodium 134 L (137-145) mmol/L Chloride 94 L (98-107) mmol/L Carbon Dioxide 35 H (22-30) mmol/L BUN 28 H (9-20) mg/dL Creatinine 0.62 L (0.66-1.25) mg/dL Glucose 129 H (74-99) mg/dL POC Glucose (mg/dL) 156 H (70-110) mg/dL Microbiology - Last 24 Hours (Table) 11/20/24 15:00 Gram Stain - Final Sputum Sputum Culture - Final Assessment and Plan Assessment: Acute left lower limb ischemia,S/P placement of the tPA infusion catheter, and the left common and left external iliac artery. History of occluded left SFA. History of esophageal cancer, status post chemotherapy and radiation therapy. Retroperitoneal hematoma. Recent history of influenza A infection. Suspected multifocal pneumonia. History of underlying COPD. Benign essential hypertension. History of hypothyroidism. Diarrhea. Plan: Plan dated November 22, 2024. The patient continues on appropriate medications, and is finishes 5 days of Tamiflu. Labs, x-rays, and all medications are reviewed. Will continue to follow the patient. His diarrhea is not secondary to C. difficile colitis, as this was ruled out. He continues on bronchodilators, Symbicort, DuoNebs, Solu-Medrol, etc. Labs, x-rays, and all medications are reviewed. We will continue to follow make recommendations along the way. The patient remains a full code patient. Dictation was produced using [employer] dictation software. Please excuse any grammatical, word or spelling errors. Time with Patient: Less than 30
--- NOTE | 2024-11-22 13:45 | P.PN ---
Subjective Progress Note Date: 11/22/24 Hospital Course: 79 year old M with PMH of CAD status post CABG + stents, PAD, GERD, HLD, HTN, esophageal cancer PEG 03/2024 s/p chemotherapy presented to the ED for worsening LLE pain. In the ED he underwent extensive evaluation. T 102.3F, BP 130/60, HR 114, RR 20, 90% on RA. CBC, Coag panel, CMP significant for WBC 10.8, RBC 3.98, MCV 101.8, Na 132, BUN 24, AST 95. UA neg LE or nitrite. Flu +. EKG sinus rhythm with no ST T wave changes. CXR no acute process. CTA showed occluded segments of the left superficial femoral artery in the proximal thigh and mid-thigh. Started on heparin drip and admitted for further workup and evaluation. Underwent LLE angiogram and placement on tPA infusion catheter on 11/12. Second look on 11/14, removal of tPA infusion catheter. He did have swelling in his RLQ, CT AP ordered showing multiple areas of intramuscular hemorrhage including right rectus abdomi nis, left psoas and left iliacus. Transfused 1 PRBC 11/15, Hg has remained stable since. During that time, he had worsening breathing, pro-silvia was 0.49, he was started on bronchodilators, SoluMedrol and completed a course of Rocephin + Azithromycin. BNP 5200, Echocardiogram showed EF 50% mod MR mild AR/TR, receiving intermitted Lasix IV for diuresis. 11/22: On 2 L nasal cannula today, rest of vital stable. Continues to have loose bowel movements, reported 6 bowel movements since yesterday. Per nursing staff, there was hematuria noted overnight, now urine is clear, hemoglobin stable. Surgery consulted for Clogged PEG tube, can take medications orally, holding tube feeding. Pertinent Imaging: No new imaging Subjective: Patient was seen and examined at bedside, he states that he cannot leave the hospital because he still has diarrhea and needs oxygen, complains of shortness of breath with minimal exertion, interested in SNF placement, discussed with case management and RN Pertinent positives and negatives as discussed above, a complete review of systems was performed and all other systems are negative. Vitals Signs Reviewed. General: [nontoxic], [no distress], [appears at stated age], chronically ill- appearing Derm: [warm], [dry] Head: [atraumatic], [normocephalic], [symmetric] Eyes: [EOMI], [no lid lag], [anicteric sclera] Mouth: [no lip lesion], [mucus membranes moist] Cardiovascular: [S1S2 reg], [no murmur] Lungs: [CTA bilateral], [no rhonchi, no rales] , [no accessory muscle use] Abdominal: [soft], [ nontender to palpation], [no guarding], [no appreciable organomegaly], PEG tube in place Ext: [no gross muscle atrophy], [no edema], [no contractures] Neuro: [ CN II-XI grossly intact], [no focal neuro deficits] Psych: [Alert], [oriented], [appropriate affect] Data Reviewed Today: Pertinent Labs: WBC 17.3, hemoglobin 9.9, platelet count normal, sodium 134, po tassium 5.0, bicarb 35, creatinine 0.62, blood glucose is controlled. Assessment and Plan: Sepsis and acute hypoxic respiratory failure secondary to flu and PNA COPD not on home oxygen Leukocytosis, likely steroid-induced -Completed Tamiflu -Completed azithromycin on 11/18 -Completed Rocephin on 11/20 -Continue albuterol nebulizer 4 times daily scheduled, DuoNeb 4 times daily as needed, Symbicort 2 inhalations twice daily, -Decrease Solu-Medrol to 40 IV daily Acute blood loss anemia: Secondary to intramuscular hemorrhage. -Status post 1 PRBC 11/15 -Restarted ASA and Plavix on 11/16. -Trend Hg. Hold Xarelto. Diarrhea with Hyponatremia, metabolic alkalosis and prerenal azotemia: -Likely due to dehydration. C. diff ruled out. Start gentle hydration with NS at 50 cc/hr. Lomotil 1 tab PO Q6H PRN Clogged PEG tube -Surgery consulted, appreciate recommendation, can take medications orally, holding tube feeding. HFpEF not in exacerbation - BNP 5200. 2016 Echo shows EF 35-40% with hypokinetic wall motion. Echo done this admission shows EF 50% mod MR mild AR/TR. Lasix 40 mg PEG QD and Aldactone 25 mg PEG QD. Metoprolol as below. Strict intake and outtake. Daily weights. Left lower extremity acute limb ischemia status post placement of tPA infusion catheter in the left common and left external iliac artery 11/12/2024 removed on 11/14 - ASA 81 mg PO QD. Plavix 75 mg PO QD. Lipitor as below. Cardiology on board. CAD: Lipitor 40 mg PO QHS. ASA and Plavix as above. COPD: Bronchodilators and steroids as above. Hypothyroid: Synthroid 50 mcg QD. Depression: Sertraline 50 mg QD. BPH: Flomax 0.4 mg QD. GERD: Protonix 40 mg QD. A-Fib: Holding Xarelto due to intramuscular bleed. Metoprolol 50 mg PEG BID. History of mesenteric ischemia status post SMA stent 2022: ASA, Plavix and Lipitor as above. Esophageal cancer status post chemotherapy: Outpatient follow up. Status post robotic gastrostomy tube placement 09/07/2024: Stable. DVT ppx: SCD Code status: Full code Anticipated discharge place: [facility] versus [facility] Anticipated discharge time: 24 to 48 hours Objective - Vital Signs Vital signs: Vital Signs Temp 98.1 F 11/22/24 09:22 Pulse 64 11/22/24 12:13 Resp 18 11/22/24 12:13 BP 151/67 11/22/24 12:13 Pulse Ox 91 L 11/22/24 12:13 FiO2 Intake & Output 11/21/24 11/22/24 11/22/24 18:59 06:59 18:59 Intake Total 960 360 Output Total 725 1640 1 Balance 235 -1640 359 Weight 69.4 kg Intake: Oral 960 360 Output: Urine 725 1640 Stool 1 Other: Voiding Method Urinal Urinal Urinal # Voids 1 1 # Bowel Movements 1 1 1 - Labs CBC & Chem 7: 11/22/24 04:03 11/22/24 04:03 Labs: Abnormal Lab Results - Last 24 Hours (Table) 11/21/24 11/21/24 11/22/24 Range/Units 16:27 20:07 02:27 WBC (3.8-10.6) k/uL RBC (4.30-5.90) m/uL Hgb (13.0-17.5) gm/dL Hct (39.0-53.0) % Sodium (137-145) mmol/L Chloride (98-107) mmol/L Carbon Dioxide (22-30) mmol/L BUN (9-20) mg/dL Creatinine (0.66-1.25) mg/dL Glucose (74-99) mg/dL POC Glucose (mg/dL) 235 H 224 H 130 H (70-110) mg/dL 11/22/24 11/22/24 11/22/24 Range/Units 04:03 04:03 06:00 WBC 17.3 H (3.8-10.6) k/uL RBC 2.83 L (4.30-5.90) m/uL Hgb 8.9 L (13.0-17.5) gm/dL Hct 27.6 L (39.0-53.0) % Sodium 134 L (137-145) mmol/L Chloride 94 L (98-107) mmol/L Carbon Dioxide 35 H (22-30) mmol/L BUN 28 H (9-20) mg/dL Creatinine 0.62 L (0.66-1.25) mg/dL Glucose 129 H (74-99) mg/dL POC Glucose (mg/dL) 156 H (70-110) mg/dL Microbiology - Last 24 Hours (Table) 11/20/24 15:00 Gram Stain - Final Sputum Sputum Culture - Final Angie tropicalis
[2024-11-22 16:15] LABS: Glucose,Whole Blood 180 mg/dL (70-110)
[2024-11-22 19:58] LABS: Glucose,Whole Blood 145 mg/dL (70-110)
[2024-11-23 06:05] LABS: Glucose,Whole Blood 92 mg/dL (70-110)
[2024-11-23 08:05] LABS: Basophils % (A) 0 %; Eosinophils # (A) 0.1 k/uL (0-0.7); Eosinophils % (A) 1 %; HCT 33.3 % (39.0-53.0); HGB 10.3 gm/dL (13.0-17.5); Hypochromasia Slight; Lymphocytes # (A) 0.7 k/uL (1.0-4.8); Lymphocytes % (A) 6 %; MCH 31.1 pg (25.0-35.0); MCV 100.4 fL (80.0-100.0); Macrocytosis Slight; Mean Platelet Volume 8.8; Monocytes # (A) 0.5 k/uL (0-1.0); Monocytes % (A) 4 %; Neutrophils # (A) 11.6 k/uL (1.3-7.7); Neutrophils % (A) 89 %; Platelet Count 468 k/uL (150-450); RBC 3.32 m/uL (4.30-5.90); WBC 13.1 k/uL (3.8-10.6)
[2024-11-23 08:20] LABS: African American GFR (CKD) >90 (>60 ml/min/1.73 sqM); Anion Gap 1 mmol/L; Blood Urea Nitrogen 25 mg/dL (9-20); Calcium 8.6 mg/dL (8.4-10.2); Carbon Dioxide 37 mmol/L (22-30); Chloride 96 mmol/L (98-107); Glucose 75 mg/dL (74-99); Non-African American GFR(CKD) >90 (>60 ml/min/1.73 sqM); Potassium 4.2 mmol/L (3.5-5.1); Sodium 134 mmol/L (137-145)
[2024-11-23] MEDS: methylPREDNISolone SOD SUCCI 40 MG/ML 1 ML VIAL IV SCH (10:38)
--- NOTE | 2024-11-23 10:51 | P.PN ---
Subjective Progress Note Date: 11/23/24 Hospital Course: 79 year old M with PMH of CAD status post CABG + stents, PAD, GERD, HLD, HTN, esophageal cancer PEG 03/2024 s/p chemotherapy presented to the ED for worsening LLE pain. In the ED he underwent extensive evaluation. T 102.3F, BP 130/60, HR 114, RR 20, 90% on RA. CBC, Coag panel, CMP significant for WBC 10.8, RBC 3.98, MCV 101.8, Na 132, BUN 24, AST 95. UA neg LE or nitrite. Flu +. EKG sinus rhythm with no ST T wave changes. CXR no acute process. CTA showed occluded segments of the left superficial femoral artery in the proximal thigh and mid-thigh. Started on heparin drip and admitted for further workup and evaluation. Underwent LLE angiogram and placement on tPA infusion catheter on 11/12. Second look on 11/14, removal of tPA infusion catheter. He did have swelling in his RLQ, CT AP ordered showing multiple areas of intramuscular hemorrhage including right rectus abdomi nis, left psoas and left iliacus. Transfused 1 PRBC 11/15, Hg has remained stable since. During that time, he had worsening breathing, pro-silvia was 0.49, he was started on bronchodilators, SoluMedrol and completed a course of Rocephin + Azithromycin. BNP 5200, Echocardiogram showed EF 50% mod MR mild AR/TR, receiving intermitted Lasix IV for diuresis. 11/22: On 2 L nasal cannula today, rest of vital stable. Continues to have loose bowel movements, reported 6 bowel movements since yesterday. Per nursing staff, there was hematuria noted overnight, now urine is clear, hemoglobin stable. Surgery consulted for Clogged PEG tube, can take medications orally, holding tube feeding. Discussed with surgery, plan for possible declogging versus exchange, Plavix on hold Pertinent Imaging: No new imaging Subjective: Patient was seen and examined at bedside, he is complaining mostly of left lower extremity mild discomfort, numbness, nausea and diarrhea only upon asking, denied hematuria Pertinent positives and negatives as discussed above, a complete review of systems was performed and all other systems are negative. Vitals Signs Reviewed. General: [nontoxic], [no distress], [appears at stated age], chronically ill- appearing Derm: [warm], [dry] Head: [atraumatic], [normocephalic], [symmetric] Eyes: [EOMI], [no lid lag], [anicteric sclera] Mouth: [no lip lesion], [mucus membranes moist] Cardiovascular: [S1S2 reg], [no murmur] Lungs: [CTA bilateral], [no rhonchi, no rales] , [no accessory muscle use] Abdominal: [soft], [ nontender to palpation], [no guarding], [no appreciable organomegaly], PEG tube in place Ext: [no gross muscle atrophy], [no edema], [no contractures] Neuro: [ CN II-XI grossly intact], [no focal neuro deficits] Psych: [Alert], [oriented], [appropriate affect] Data Reviewed Today: Pertinent Labs: WBC 13.3, hemoglobin 10.2, platelet count 468, sodium 134, po tassium 4.2, bicarb 37, creatinine 0.6 Assessment and Plan: Sepsis and acute hypoxic respiratory failure secondary to flu and PNA COPD not on home oxygen Leukocytosis, likely steroid-induced -Completed Tamiflu -Completed azithromycin on 11/18 -Completed Rocephin on 11/20 -Continue albuterol nebulizer 4 times daily scheduled, DuoNeb 4 times daily as needed, Symbicort 2 inhalations twice daily, -Decrease Solu-Medrol to 40 IV daily Acute blood loss anemia: Secondary to intramuscular hemorrhage. -Status post 1 PRBC 11/15 -Restarted ASA and Plavix on 11/16. Plavix on hold 11/23 for possible PEG tube exchange -Trend Hg. Hold Xarelto. Diarrhea with Hyponatremia, metabolic alkalosis and prerenal azotemia: -Likely due to dehydration. C. diff ruled out. Start gentle hydration with NS at 50 cc/hr. Lomotil 1 tab PO Q6H PRN Clogged PEG tube -Surgery consulted, appreciate recommendation, can take medications orally, holding tube feeding. HFpEF not in exacerbation - BNP 5200. 2016 Echo shows EF 35-40% with hypokinetic wall motion. Echo done this admission shows EF 50% mod MR mild AR/TR. Lasix 40 mg PEG QD and Aldactone 25 mg PEG QD. Metoprolol as below. Strict intake and outtake. Daily weights. Left lower extremity acute limb ischemia status post placement of tPA infusion catheter in the left common and left external iliac artery 11/12/2024 removed on 11/14 - ASA 81 mg PO QD. Plavix 75 mg PO QD. Lipitor as below. Cardiology on board. CAD: Lipitor 40 mg PO QHS. ASA and Plavix as above. COPD: Bronchodilators and steroids as above. Hypothyroid: Synthroid 50 mcg QD. Depression: Sertraline 50 mg QD. BPH: Flomax 0.4 mg QD. GERD: Protonix 40 mg QD. A-Fib: Holding Xarelto due to intramuscular bleed. Metoprolol 50 mg PEG BID. History of mesenteric ischemia status post SMA stent 2022: ASA, Plavix and Lipitor as above. Esophageal cancer status post chemotherapy: Outpatient follow up. Status post robotic gastrostomy tube placement 09/07/2024: Stable. DVT ppx: SCD Code status: Full code Anticipated discharge place: [facility] Anticipated discharge time: 24 to 48 hours Objective - Vital Signs Vital signs: Vital Signs Temp 97.8 F 11/23/24 08:00 Pulse 68 11/23/24 08:40 Resp 16 11/23/24 08:00 BP 156/70 11/23/24 08:00 Pulse Ox 94 L 11/23/24 04:00 FiO2 Intake & Output 11/22/24 11/23/24 11/23/24 18:59 06:59 18:59 Intake Total 600 100 240 Output Total 402 2125 775 Balance 198 -2024 -535 Weight 67 kg Intake: Intake, IV Titration 100 Amount Sodium Chloride 0.9% 1, 100 000 ml @ 50 mls/hr IV . Q20H [facility] Rx#:[id number] Oral 600 240 Output: Urine 400 2125 775 Stool 2 Other: Voiding Method Urinal Urinal Urinal # Voids 1 # Bowel Movements 1 - Labs CBC & Chem 7: 11/23/24 07:54 11/23/24 07:54 Labs: Abnormal Lab Results - Last 24 Hours (Table) 11/22/24 11/22/24 11/23/24 Range/Units 16:14 19:37 07:54 WBC 13.1 H (3.8-10.6) k/uL RBC 3.32 L (4.30-5.90) m/uL Hgb 10.3 L (13.0-17.5) gm/dL Hct 33.3 L (39.0-53.0) % MCV 100.4 H (80.0-100.0) fL RDW 16.0 H (11.5-15.5) % Plt Count 468 H (150-450) k/uL Neutrophils # 11.6 H (1.3-7.7) k/uL Lymphocytes # 0.7 L (1.0-4.8) k/uL Sodium (137-145) mmol/L Chloride (98-107) mmol/L Carbon Dioxide (22-30) mmol/L BUN (9-20) mg/dL POC Glucose (mg/dL) 180 H 145 H (70-110) mg/dL 11/23/24 Range/Units 07:54 WBC (3.8-10.6) k/uL RBC (4.30-5.90) m/uL Hgb (13.0-17.5) gm/dL Hct (39.0-53.0) % MCV (80.0-100.0) fL RDW (11.5-15.5) % Plt Count (150-450) k/uL Neutrophils # (1.3-7.7) k/uL Lymphocytes # (1.0-4.8) k/uL Sodium 134 L (137-145) mmol/L Chloride 96 L (98-107) mmol/L Carbon Dioxide 37 H (22-30) mmol/L BUN 25 H (9-20) mg/dL POC Glucose (mg/dL) (70-110) mg/dL Microbiology - Last 24 Hours (Table) 11/20/24 15:00 Gram Stain - Final Sputum Sputum Culture - Final Angie tropicalis
--- NOTE | 2024-11-23 10:55 | P.PN ---
Subjective Progress Note Date: 11/23/24 Principal diagnosis: Arterial insufficiency. This is a 79-year-old white male with history of underlying coronary artery disease, previous CABG and PCI, history of paroxysmal atrial fibrillation maintained on Xarelto history of paroxysmal atrial fibrillation maintained on Xarelto history of mitral valve regurgitation, hypertension, dyslipidemia, and known history of peripheral vessel occlusive disease 11/10/2024, and he was seen by Dr. Hopkins for acute presentation of left lower extremity getting cold and numb over a period of 4 to 5 days. Pain has been quite severe from the thigh all the way down to his toes. On 11/12/2024, patient underwent placement of tPA infusion catheter in the left common and left external iliac artery and he received thrombolytics for his acute arterial thrombosis involving the left iliac artery, and felt that the patient may even require possible thrombectomy. Patient had tPA protocol. On 11/14, patient had a second look angiogram after tP A infusion and he also underwent removal of tPA infusion catheter from the left common and left external iliac arteries with selective bilateral iliac and femoral arteries angiogram. Postoperatively, patient was transferred to the ICU, and this consult was initiated. Apparently on his second look the patient was found to have widely patent left common and left external iliac arteries and small residual thrombus but great flow and significant improvement I saw this patient in the ICU, he is on 2 L nasal cannula, his hemoglobin is 6.7 and he will receive 1 unit of packed RBCs, patient does not seem to be in distress, he had recent influenza infection and he finished a course of Tamiflu. In addition to all of this the patient has known history of COPD which seems to be stable and he has a history of a left subclavian Mediport noted in place which was placed initially for his esophageal cancer. During my evaluation, patient had no cough no wheezing no shortness of breath no chest pain, and he had significant improvement in pain related to his left lower extremity. Follow-up hemoglobin after 1 unit of packed RBCs came back 8.3. His basic metabolic profile today came back normal except for low sodium of 130. Renal profile is normal. Patient was seen today on 11/16/2024, patient remains in the ICU, he is presently on overflow to 3 S., on 2 L nasal cannula, doing fairly well, better than expected, he is on IV fluid at 0.9 normal saline at 75 cc/h, he is also on vital AF at 59 mL/h. Patient to be started on PEG tube feeding hopefully sometime later today. Chest x-ray continues to show multifocal infiltrates/pneumonia involving mostly right upper lobe right lower lobe and left lower lobe. WBC count is 7 hemoglobin 7.8 electrolytes are normal renal profile is normal. Patient was seen today on 11/17/2024, patient is complaining of worsening shortness of breath, chest x-ray is showing worsening airspace disease involving right upper lobe, left lower lobe and right lower lobe, patient did receive diuretics by cardiology, patient is also on Tamiflu for influenza A and is also on antibiotics empirically for presumptive pneumonia in the setting of acute influenza A infection. Patient is also complaining of left lower extremity pain, although the foot seems to be warm, and no evidence of ischemic changes noted in the left foot, that being addressed by cardiology on the case. Patient is hemodynamically stable, WBC count today is 9.1 hemoglobin 7.7 platelets are 2 27,000. Patient was seen today at 11/18/2024, patient seems to be doing better today, breathing a bit easier, continues to have severe aches and pains specially in his right lower extremity although no evidence of ischemia noted in the left foot. Chest x-ray continues show bilateral pneumonia. He is on antibiotics. WBC count is 10.3 hemoglobin 7.8 electrolytes are normal renal profile is norm al, patient remains on diuretics, Xarelto remains on hold mostly because of his acute blood loss anemia and intramuscular hemorrhage. Aldactone was added today. Patient wa seen today on 11/19/2024, seems to be breathing easier, hardly any pulmonary symptoms no cough no wheezing no shortness of breath, patient has been titrated down on his oxygen to 7 L high flow nasal cannula, O2 saturation is 1 00%, he is hemodynamically stable with a blood pressure 130/88. However the patient developed today significant amount of diarrhea. Hence I am recommending C. difficile screening on this patient, his electrolytes are normal bicarb is 29 BUN is 23 creatinine 0.54., CBC yesterday was basically unremarkable WBC count is 10.3. Last chest x-ray was consistent with pneumonia Patient was seen today on 11/20/2024, continues to have diarrhea, shortness of breath is improving, but seems to be more bothered with his diarrhea. C. difficile screening was negative hence I am recommending Lomotil for this patient. Patient is developing leukocytosis noted yesterday with WBC of 23.4 hemoglobin 8.4 electrolytes are normal renal profile is normal bicarb is 29. Seen today on 11/21/2024, patient is complaining of less episodes of diarrhea, feeling better overall, his C. difficile screen was negative, patient was placed on Lomotil. Pulmonary lópez hardly any pulmonary symptoms, no cough no wheezing no shortness of breath, labs today showed relatively normal electrolytes, bicarb is 33 BUN 27 creatinine 0.62, remains on ceftriaxone and on bronchodilators. Progress note dated November 22, 2024. 79-year-old male seen today in room 350. The patient is currently on 2 L of oxygen. Getting saline at 50 cc an hour. He states that his breathing is "up-and-down". He denies any chest pain or chest discomfort. Current laboratory data includes a white count of 17.3, hemoglobin 8.9, hematocrit 27.6, and a platelet count of 427,000. Sodium 134, potassium 5, chloride 94, CO2 35, BUN 28, creatinine 0.62. Glucose is 101. Calcium is 8.7. Sputum and blood cultures are negative. No chest x-ray today. Progress note dated November 23, 2024. 79-year-old male seen today in room 350. He is currently on 2 L of oxygen. He is getting saline at 50 cc an hour. He is resting comfortably in bed. There is no acute distress. Current labs include a white count 13.1, hemoglobin 10.3, hematocrit 33.3, and platelet count 468,000. Sodium 134, potassium 4.2, chloride 76, CO2 37, BUN 25, and creatinine 0.66. Glucose is 75. Calcium 8.6. Objective - Vital Signs Vital signs: Vital Signs Temp 97.8 F 11/23/24 08:00 Pulse 68 11/23/24 08:40 Resp 16 11/23/24 08:00 BP 156/70 11/23/24 08:00 Pulse Ox 94 L 11/23/24 04:00 FiO2 Intake & Output 11/22/24 11/23/24 11/23/24 18:59 06:59 18:59 Intake Total 600 100 240 Output Total 402 5109 689 Balance - Weight 67 kg Intake: Intake, IV Titration 100 Amount Sodium Chloride 0.9% 1, 100 000 ml @ 50 mls/hr IV . Q20H [facility] Rx#:[id number] Oral 600 240 Output: Urine 400 2125 775 Stool 2 Other: Voiding Method Urinal Urinal Urinal # Voids 1 # Bowel Movements 1 - Exam No acute distress, oriented 3. The patient is currently on 2 L of oxygen. HEENT examination is grossly unremarkable. Mucous membranes are moist. No oral lesions. Neck supple. Full range of motion. No adenopathy thyromegaly or neck vein distention. Cardiovascular examination reveals regular rhythm rate. S1-S2 normal. No S3 or S4. A soft systolic murmur is noted. Lungs reveal clear breath sounds. Breath sounds are equal bilaterally. No adventitious lung sounds including wheezes rhonchi or crackles. Abdomen soft bowel sounds are heard. No masses or tenderness. Extremities are intact. No cyanosis clubbing or edema. Skin is without rash or lesion. Neurologic examination is brief but nonfocal. - Labs CBC & Chem 7: 11/23/24 07:54 11/23/24 07:54 Labs: Abnormal Lab Results - Last 24 Hours (Table) 11/22/24 11/22/24 11/23/24 Range/Units 16:14 19:37 07:54 WBC 13.1 H (3.8-10.6) k/uL RBC 3.32 L (4.30-5.90) m/uL Hgb 10.3 L (13.0-17.5) gm/dL Hct 33.3 L (39.0-53.0) % MCV 100.4 H (80.0-100.0) fL RDW 16.0 H (11.5-15.5) % Plt Count 468 H (150-450) k/uL Neutrophils # 11.6 H (1.3-7.7) k/uL Lymphocytes # 0.7 L (1.0-4.8) k/uL Sodium (137-145) mmol/L Chloride (98-107) mmol/L Carbon Dioxide (22-30) mmol/L BUN (9-20) mg/dL POC Glucose (mg/dL) 180 H 145 H (70-110) mg/dL 11/23/24 Range/Units 07:54 WBC (3.8-10.6) k/uL RBC (4.30-5.90) m/uL Hgb (13.0-17.5) gm/dL Hct (39.0-53.0) % MCV (80.0-100.0) fL RDW (11.5-15.5) % Plt Count (150-450) k/uL Neutrophils # (1.3-7.7) k/uL Lymphocytes # (1.0-4.8) k/uL Sodium 134 L (137-145) mmol/L Chloride 96 L (98-107) mmol/L Carbon Dioxide 37 H (22-30) mmol/L BUN 25 H (9-20) mg/dL POC Glucose (mg/dL) (70-110) mg/dL Microbiology - Last 24 Hours (Table) 11/20/24 15:00 Gram Stain - Final Sputum Sputum Culture - Final Angie tropicalis Assessment and Plan Assessment: Acute left lower limb ischemia,S/P placement of the tPA infusion catheter, and the left common and left external iliac artery. History of occluded left SFA. History of esophageal cancer, status post chemotherapy and radiation therapy. Retroperitoneal hematoma. Recent history of influenza A infection. Suspected multifocal pneumonia. History of underlying COPD. Benign essential hypertension. History of hypothyroidism. Diarrhea. Plan: Plan dated November 22, 2024. The patient continues on appropriate medications, and is finishes 5 days of Tamiflu. Labs, x-rays, and all medications are reviewed. Will continue to follow the patient. His diarrhea is not secondary to C. difficile colitis, as this was ruled out. He continues on bronchodilators, Symbicort, DuoNebs, Solu- Medrol, etc. Labs, x-rays, and all medications are reviewed. We will continue to follow make recommendations along the way. The patient remains a full code patient. Dictation was produced using [email or web address] dictation software. Please excuse any grammatical, word or spelling errors. Plan dated November 21, 2024. The patient is seen today in room 350. He continues on 2 L of oxygen. In addition, he is getting saline at 50 cc an hour. He did complete 5 days of Tamiflu. Labs, x-rays, and all medications are reviewed. The patient will continue on his current regimen. Labs have been reviewed. X-rays been reviewed. We will continue to follow the patient, make recommendations along the way. Prognosis is guarded. The patient remains a full code patient. Dictation was produced using [email or web address] dictation software. Please excuse any grammatical, word or spelling errors. Time with Patient: Less than 30
[2024-11-23 11:19] VITALS: BMI 23.1
[2024-11-23 11:27] LABS: Glucose,Whole Blood 94 mg/dL (70-110)
--- NOTE | 2024-11-23 11:56 | P.PN ---
Subjective Progress Note Date: 11/23/24 SURGICAL PROGRESS NOTE CHIEF COMPLAINT: Left leg ischemia HISTORY OF PRESENT ILLNESS: Surgical service following in regards to clogged PEG tube. PEG tube remains clogged. Tube feeds remain on hold. Patient is able to swallow his pills. And tolerate a small amount of food. Afebrile. WBC is down from 17.3-13.1 Hgb 10.3 platelets 468. Last dose of plavix was yesterday. PHYSICAL EXAM: VITAL SIGNS: Reviewed. GENERAL: Well-developed in no acute distress. ABDOMEN: Soft. Nondistended. Nontender. PEG tube site clean dry and intact. No further evidence of the crushed pills in the tubing. Liquid noted in the tubing. NEUROLOGIC: Alert and oriented. Cranial nerves II through XII grossly intact. ASSESSMENT: 1. Clogged PEG tube 2. History of esophageal cancer requiring PEG tube for nutrition support. Status post chemo and radiation treatment 3. Left leg ischemia status post tPA through infusion catheter by vascular surgery 4. Influenza A PLAN: -Further recommendations forthcoming per surgeon -Hold tube feeds -Hold Plavix in case surgical intervention needed Physician [employer] note has been reviewed by physician. Signing provider agrees with the documented findings, assessment, and plan of care. Objective - Vital Signs Vital signs: Vital Signs Temp 97.8 F 11/23/24 08:00 Pulse 68 11/23/24 08:40 Resp 16 11/23/24 08:00 BP 156/70 11/23/24 08:00 Pulse Ox 94 L 11/23/24 04:00 FiO2 Intake & Output 11/22/24 11/23/24 11/23/24 18:59 06:59 18:59 Intake Total 600 100 240 Output Total 402 2125 776 Balance 198 -2024 -536 Weight 67 kg 67 kg Intake: Intake, IV Titration 100 Amount Sodium Chloride 0.9% 1, 100 000 ml @ 50 mls/hr IV . Q20H [facility] Rx#:[id number] Oral 600 240 Output: Urine 400 2125 775 Stool 2 1 Other: Voiding Method Urinal Urinal Urinal # Voids 1 # Bowel Movements 1 - Labs CBC & Chem 7: 11/23/24 07:54 11/23/24 07:54 Labs: Abnormal Lab Results - Last 24 Hours (Table) 11/22/24 11/22/24 11/23/24 Range/Units 16:14 19:37 07:54 WBC 13.1 H (3.8-10.6) k/uL RBC 3.32 L (4.30-5.90) m/uL Hgb 10.3 L (13.0-17.5) gm/dL Hct 33.3 L (39.0-53.0) % MCV 100.4 H (80.0-100.0) fL RDW 16.0 H (11.5-15.5) % Plt Count 468 H (150-450) k/uL Neutrophils # 11.6 H (1.3-7.7) k/uL Lymphocytes # 0.7 L (1.0-4.8) k/uL Sodium (137-145) mmol/L Chloride (98-107) mmol/L Carbon Dioxide (22-30) mmol/L BUN (9-20) mg/dL POC Glucose (mg/dL) 180 H 145 H (70-110) mg/dL 11/23/24 Range/Units 07:54 WBC (3.8-10.6) k/uL RBC (4.30-5.90) m/uL Hgb (13.0-17.5) gm/dL Hct (39.0-53.0) % MCV (80.0-100.0) fL RDW (11.5-15.5) % Plt Count (150-450) k/uL Neutrophils # (1.3-7.7) k/uL Lymphocytes # (1.0-4.8) k/uL Sodium 134 L (137-145) mmol/L Chloride 96 L (98-107) mmol/L Carbon Dioxide 37 H (22-30) mmol/L BUN 25 H (9-20) mg/dL POC Glucose (mg/dL) (70-110) mg/dL Microbiology - Last 24 Hours (Table) 11/20/24 15:00 Gram Stain - Final Sputum Sputum Culture - Final Angie tropicalis Assessment and Plan Assessment: 79 yo male w/ clogged peg tube discussed w/ family peg tube is not needed, we will let fistulize and removed out patient Time with Patient: Greater than 30
[2024-11-23 16:38] LABS: Glucose,Whole Blood 163 mg/dL (70-110)
[2024-11-23 20:32] LABS: Glucose,Whole Blood 184 mg/dL (70-110)
[2024-11-24 06:18] LABS: Glucose,Whole Blood 107 mg/dL (70-110)
[2024-11-24 06:54] LABS: Basophils % (A) 0 %; Eosinophils # (A) 0.1 k/uL (0-0.7); Eosinophils % (A) 0 %; HCT 32.2 % (39.0-53.0); HGB 10.2 gm/dL (13.0-17.5); Hypochromasia Slight; Lymphocytes # (A) 0.7 k/uL (1.0-4.8); Lymphocytes % (A) 4 %; MCH 31.4 pg (25.0-35.0); MCHC 31.8 g/dL (31.0-37.0); Macrocytosis Slight; Mean Platelet Volume 7.5; Monocytes # (A) 0.6 k/uL (0-1.0); Monocytes % (A) 4 %; Neutrophils # (A) 14.2 k/uL (1.3-7.7); Neutrophils % (A) 90 %; Platelet Count 448 k/uL (150-450); RBC 3.26 m/uL (4.30-5.90); RDW 15.5 % (11.5-15.5); WBC 15.7 k/uL (3.8-10.6)
[2024-11-24 07:17] LABS: African American GFR (CKD) >90 (>60 ml/min/1.73 sqM); Anion Gap 2 mmol/L; Blood Urea Nitrogen 25 mg/dL (9-20); Calcium 8.4 mg/dL (8.4-10.2); Carbon Dioxide 35 mmol/L (22-30); Chloride 97 mmol/L (98-107); Glucose 94 mg/dL (74-99); Non-African American GFR(CKD) 89 (>60 ml/min/1.73 sqM); Potassium 4.7 mmol/L (3.5-5.1); Sodium 134 mmol/L (137-145)
[2024-11-24] MEDS: CLOPIDOGREL 75 MG TAB PO SCH (10:53)
--- NOTE | 2024-11-24 11:07 | P.PN ---
Subjective Progress Note Date: 11/24/24 Principal diagnosis: Arterial insufficiency. This is a 79-year-old white male with history of underlying coronary artery disease, previous CABG and PCI, history of paroxysmal atrial fibrillation maintained on Xarelto history of paroxysmal atrial fibrillation maintained on Xarelto history of mitral valve regurgitation, hypertension, dyslipidemia, and known history of peripheral vessel occlusive disease 11/10/2024, and he was seen by Dr. Hopkins for acute presentation of left lower extremity getting cold and numb over a period of 4 to 5 days. Pain has been quite severe from the thigh all the way down to his toes. On 11/12/2024, patient underwent placement of tPA infusion catheter in the left common and left external iliac artery and he received thrombolytics for his acute arterial thrombosis involving the left iliac artery, and felt that the patient may even require possible thrombectomy. Patient had tPA protocol. On 11/14, patient had a second look angiogram after tP A infusion and he also underwent removal of tPA infusion catheter from the left common and left external iliac arteries with selective bilateral iliac and femoral arteries angiogram. Postoperatively, patient was transferred to the ICU, and this consult was initiated. Apparently on his second look the patient was found to have widely patent left common and left external iliac arteries and small residual thrombus but great flow and significant improvement I saw this patient in the ICU, he is on 2 L nasal cannula, his hemoglobin is 6.7 and he will receive 1 unit of packed RBCs, patient does not seem to be in distress, he had recent influenza infection and he finished a course of Tamiflu. In addition to all of this the patient has known history of COPD which seems to be stable and he has a history of a left subclavian Mediport noted in place which was placed initially for his esophageal cancer. During my evaluation, patient had no cough no wheezing no shortness of breath no chest pain, and he had significant improvement in pain related to his left lower extremity. Follow-up hemoglobin after 1 unit of packed RBCs came back 8.3. His basic metabolic profile today came back normal except for low sodium of 130. Renal profile is normal. Patient was seen today on 11/16/2024, patient remains in the ICU, he is presently on overflow to 3 S., on 2 L nasal cannula, doing fairly well, better than expected, he is on IV fluid at 0.9 normal saline at 75 cc/h, he is also on vital AF at 59 mL/h. Patient to be started on PEG tube feeding hopefully sometime later today. Chest x-ray continues to show multifocal infiltrates/pneumonia involving mostly right upper lobe right lower lobe and left lower lobe. WBC count is 7 hemoglobin 7.8 electrolytes are normal renal profile is normal. Patient was seen today on 11/17/2024, patient is complaining of worsening shortness of breath, chest x-ray is showing worsening airspace disease involving right upper lobe, left lower lobe and right lower lobe, patient did receive diuretics by cardiology, patient is also on Tamiflu for influenza A and is also on antibiotics empirically for presumptive pneumonia in the setting of acute influenza A infection. Patient is also complaining of left lower extremity pain, although the foot seems to be warm, and no evidence of ischemic changes noted in the left foot, that being addressed by cardiology on the case. Patient is hemodynamically stable, WBC count today is 9.1 hemoglobin 7.7 platelets are 2 27,000. Patient was seen today at 11/18/2024, patient seems to be doing better today, breathing a bit easier, continues to have severe aches and pains specially in his right lower extremity although no evidence of ischemia noted in the left foot. Chest x-ray continues show bilateral pneumonia. He is on antibiotics. WBC count is 10.3 hemoglobin 7.8 electrolytes are normal renal profile is norm al, patient remains on diuretics, Xarelto remains on hold mostly because of his acute blood loss anemia and intramuscular hemorrhage. Aldactone was added today. Patient wa seen today on 11/19/2024, seems to be breathing easier, hardly any pulmonary symptoms no cough no wheezing no shortness of breath, patient has been titrated down on his oxygen to 7 L high flow nasal cannula, O2 saturation is 1 00%, he is hemodynamically stable with a blood pressure 130/88. However the patient developed today significant amount of diarrhea. Hence I am recommending C. difficile screening on this patient, his electrolytes are normal bicarb is 29 BUN is 23 creatinine 0.54., CBC yesterday was basically unremarkable WBC count is 10.3. Last chest x-ray was consistent with pneumonia Patient was seen today on 11/20/2024, continues to have diarrhea, shortness of breath is improving, but seems to be more bothered with his diarrhea. C. difficile screening was negative hence I am recommending Lomotil for this patient. Patient is developing leukocytosis noted yesterday with WBC of 23.4 hemoglobin 8.4 electrolytes are normal renal profile is normal bicarb is 29. Seen today on 11/21/2024, patient is complaining of less episodes of diarrhea, feeling better overall, his C. difficile screen was negative, patient was placed on Lomotil. Pulmonary lópez hardly any pulmonary symptoms, no cough no wheezing no shortness of breath, labs today showed relatively normal electrolytes, bicarb is 33 BUN 27 creatinine 0.62, remains on ceftriaxone and on bronchodilators. Progress note dated November 22, 2024. 79-year-old male seen today in room 350. The patient is currently on 2 L of oxygen. Getting saline at 50 cc an hour. He states that his breathing is "up-and-down". He denies any chest pain or chest discomfort. Current laboratory data includes a white count of 17.3, hemoglobin 8.9, hematocrit 27.6, and a platelet count of 427,000. Sodium 134, potassium 5, chloride 94, CO2 35, BUN 28, creatinine 0.62. Glucose is 101. Calcium is 8.7. Sputum and blood cultures are negative. No chest x-ray today. Progress note dated November 23, 2024. 79-year-old male seen today in room 350. He is currently on 2 L of oxygen. He is getting saline at 50 cc an hour. He is resting comfortably in bed. There is no acute distress. Current labs include a white count 13.1, hemoglobin 10.3, hematocrit 33.3, and platelet count 468,000. Sodium 134, potassium 4.2, chloride 76, CO2 37, BUN 25, and creatinine 0.66. Glucose is 75. Calcium 8.6. Progress note dated November 24, 2024. 79-year-old male seen today in room 350. Currently, the patient is on 2 L of oxygen. He is receiving saline at 50 cc an hour. The patient states that he is doing well. He is awake and alert. No distress. No respiratory issues. He states that he may be discharged either today or tomorrow. White count was 15.7, hemoglobin 10.2, hematocrit 32.2, and platelet count 448,000. Sodium 134, potassium 4.7, chlorides 97, CO2 35, BUN 25, and creatinine 0.73. Glucose is 94. Calcium is 8.4. Objective - Vital Signs Vital signs: Vital Signs Temp 98.1 F 11/24/24 08:08 Pulse 88 11/24/24 09:25 Resp 18 11/24/24 08:16 BP 139/65 11/24/24 08:08 Pulse Ox 85 L 11/24/24 09:25 FiO2 Intake & Output 11/23/24 11/24/24 11/24/24 18:59 06:59 18:59 Intake Total 480 118 Output Total 1727 402 Balance -1247 -402 118 Weight 67 kg 66.3 kg Intake: Oral 480 118 Output: Urine 1725 400 Stool 2 2 Other: Voiding Method Urinal Urinal - Exam No acute distress, oriented 3. The patient is currently on 2 L of oxygen. HEENT examination is grossly unremarkable. Mucous membranes are moist. No oral lesions. Neck supple. Full range of motion. No adenopathy thyromegaly or neck vein distention. Cardiovascular examination reveals regular rhythm rate. S1-S2 normal. No S3 or S4. A soft systolic murmur is noted. Lungs reveal clear breath sounds. Breath sounds are equal bilaterally. No adventitious lung sounds including wheezes rhonchi or crackles. Abdomen soft bowel sounds are heard. No masses or tenderness. Extremities are intact. No cyanosis clubbing or edema. Skin is without rash or lesion. Neurologic examination is brief but nonfocal. - Labs CBC & Chem 7: 11/24/24 05:52 11/24/24 05:52 Labs: Abnormal Lab Results - Last 24 Hours (Table) 11/23/24 11/23/24 11/24/24 Range/Units 16:36 20:03 05:52 WBC 15.7 H (3.8-10.6) k/uL RBC 3.26 L (4.30-5.90) m/uL Hgb 10.2 L (13.0-17.5) gm/dL Hct 32.2 L (39.0-53.0) % Neutrophils # 14.2 H (1.3-7.7) k/uL Lymphocytes # 0.7 L (1.0-4.8) k/uL Sodium (137-145) mmol/L Chloride (98-107) mmol/L Carbon Dioxide (22-30) mmol/L BUN (9-20) mg/dL POC Glucose (mg/dL) 163 H 184 H (70-110) mg/dL 11/24/24 Range/Units 05:52 WBC (3.8-10.6) k/uL RBC (4.30-5.90) m/uL Hgb (13.0-17.5) gm/dL Hct (39.0-53.0) % Neutrophils # (1.3-7.7) k/uL Lymphocytes # (1.0-4.8) k/uL Sodium 134 L (137-145) mmol/L Chloride 97 L (98-107) mmol/L Carbon Dioxide 35 H (22-30) mmol/L BUN 25 H (9-20) mg/dL POC Glucose (mg/dL) (70-110) mg/dL Assessment and Plan Assessment: Acute left lower limb ischemia,S/P placement of the tPA infusion catheter, and the left common and left external iliac artery. History of occluded left SFA. History of esophageal cancer, status post chemotherapy and radiation therapy. Retroperitoneal hematoma. Recent history of influenza A infection. Suspected multifocal pneumonia. History of underlying COPD. Benign essential hypertension. History of hypothyroidism. Diarrhea. Plan: Plan dated November 22, 2024. The patient continues on appropriate medications, and is finishes 5 days of Tamiflu. Labs, x-rays, and all medications are reviewed. Will continue to follow the patient. His diarrhea is not secondary to C. difficile colitis, as this was ruled out. He continues on bronchodilators, Symbicort, DuoNebs, Solu- Medrol, etc. Labs, x-rays, and all medications are reviewed. We will continue to follow make recommendations along the way. The patient remains a full code patient. Dictation was produced using [employer] software. Please excuse any grammatical, word or spelling errors. Plan dated November 23, 2024. The patient is seen today in room 350. He continues on 2 L of oxygen. In addition, he is getting saline at 50 cc an hour. He did complete 5 days of Tamiflu. Labs, x-rays, and all medications are reviewed. The patient will continue on his current regimen. Labs have been reviewed. X-rays been reviewed. We will continue to follow the patient, make recommendations along the way. Prognosis is guarded. The patient remains a full code patient. Dictation was produced using [employer] software. Please excuse any grammatical, word or spelling errors. Plan dated November 24, 2024. The patient is seen today in room 350. The patient continues on oxygen at 2 L. He is getting saline at 50 cc an hour. The patient mentions that he may be discharged home today or tomorrow. Labs, x-rays, medications are reviewed. Clinically, he is very stable. He is not having any respiratory issues. He is awake and alert. Labs, x-rays, and all medications are reviewed. Prognosis is guarded. Dictation was produced using [employer] software. Please excuse any grammatical, word or spelling errors. Time with Patient: Less than 30
--- NOTE | 2024-11-24 11:09 | P.PN ---
Subjective Progress Note Date: 11/24/24 SURGICAL PROGRESS NOTE CHIEF COMPLAINT: Left leg ischemia HISTORY OF PRESENT ILLNESS: Surgical service following in regards to clogged PEG tube. PEG tube remains clogged. However, patient is tolerating oral diet and is able to take his medications. He is not requiring the use of the PEG tube. Afebrile. WBC 15 PHYSICAL EXAM: VITAL SIGNS: Reviewed. GENERAL: Well-developed in no acute distress. ABDOMEN: Soft. Nondistended. Nontender. PEG tube site clean dry and intact. NEUROLOGIC: Alert and oriented. Cranial nerves II through XII grossly intact. ASSESSMENT: 1. Clogged PEG tube 2. History of esophageal cancer requiring PEG tube for nutrition support. Status post chemo and radiation treatment 3. Left leg ischemia status post tPA through infusion catheter by vascular surgery 4. Influenza A PLAN: -Patient is not requiring the use of the PEG tube. Plan to remove PEG tube outp atient in about 2 weeks. -Okay to resume Plavix -Patient to continue regular diet and to take medications orally Physician Wood Lathe Operator note has been reviewed by physician. Signing provider agrees with the documented findings, assessment, and plan of care. Objective - Vital Signs Vital signs: Vital Signs Temp 98.1 F 11/24/24 08:08 Pulse 88 11/24/24 09:25 Resp 18 11/24/24 08:16 BP 139/65 11/24/24 08:08 Pulse Ox 85 L 11/24/24 09:25 FiO2 Intake & Output 11/23/24 11/24/24 11/24/24 18:59 06:59 18:59 Intake Total 480 118 Output Total 1727 402 Balance -1247 -402 118 Weight 67 kg 66.3 kg Intake: Oral 480 118 Output: Urine 1725 400 Stool 2 2 Other: Voiding Method Urinal Urinal - Labs CBC & Chem 7: 11/24/24 05:52 11/24/24 05:52 Labs: Abnormal Lab Results - Last 24 Hours (Table) 11/23/24 11/23/24 11/24/24 Range/Units 16:36 20:03 05:52 WBC 15.7 H (3.8-10.6) k/uL RBC 3.26 L (4.30-5.90) m/uL Hgb 10.2 L (13.0-17.5) gm/dL Hct 32.2 L (39.0-53.0) % Neutrophils # 14.2 H (1.3-7.7) k/uL Lymphocytes # 0.7 L (1.0-4.8) k/uL Sodium (137-145) mmol/L Chloride (98-107) mmol/L Carbon Dioxide (22-30) mmol/L BUN (9-20) mg/dL POC Glucose (mg/dL) 163 H 184 H (70-110) mg/dL 11/24/24 Range/Units 05:52 WBC (3.8-10.6) k/uL RBC (4.30-5.90) m/uL Hgb (13.0-17.5) gm/dL Hct (39.0-53.0) % Neutrophils # (1.3-7.7) k/uL Lymphocytes # (1.0-4.8) k/uL Sodium 134 L (137-145) mmol/L Chloride 97 L (98-107) mmol/L Carbon Dioxide 35 H (22-30) mmol/L BUN 25 H (9-20) mg/dL POC Glucose (mg/dL) (70-110) mg/dL Assessment and Plan Assessment: attempted to peg tube declogging not successful discussion with , patient has not had infusion since june family does not want tube in anymore as patient can swallow without assistance will allow to fistualize for 2 more weeks and will remove in office. Time with Patient: Less than 30
[2024-11-24 11:22] LABS: Glucose,Whole Blood 91 mg/dL (70-110)
[2024-11-24 11:24] VITALS: BP 123/58; RESP 16; TEMP 97.9
[2024-11-24 12:00] VITALS: PULSE 72
--- NOTE | 2024-11-24 12:37 | P.DS ---
Providers Date of admission: 11/10/24 15:35 Attending physician: Bonifacio Cortez Consults: 11/15/24 10:25 Consult Physician Urgent Consulting Provider: Demetra Aldrich Consult Reason/Comments: ICU management Do you want consulting provider notified?: Already Contacted 11/22/24 10:07 Consult Physician Routine Consulting Provider: Quan Lopez Consult Reason/Comments: clogged peg tube Do you want consulting provider notified?: Already Contacted Primary care physician: Omid Lopez [facility] Course: Discharge Diagnosis: Sepsis and acute hypoxic respiratory failure secondary to flu and PNA COPD not on home oxygen Leukocytosis, likely steroid-induced Acute blood loss anemia secondary to intramuscular hemorrhage Diarrhea with hyponatremia, metabolic alkalosis and prerenal acidemia, resolved Clogged PEG tube HFpEF not in exacerbation Left lower extremity acute limb ischemia status post placement of tPA infusion catheter in the left common and left external iliac arterial on 11/12/2024, removed on 11/14 CAD COPD Hypothyroidism Depression BPH GERD A-fib on Xarelto History of mesenteric ischemia status post SMA stent 2022 Esophageal cancer s/p chemotherapy Status post robotic gastrostomy tube placement 09/07/2024 Hospital Course: 79 year old M with PMH of CAD status post CABG + stents, PAD, GERD, HLD, HTN, esophageal cancer PEG 03/2024 s/p chemotherapy presented to the ED for worsening LLE pain. In the ED he underwent extensive evaluation. T 102.3F, BP 130/60, HR 114, RR 20, 90% on RA. CBC, Coag panel, CMP significant for WBC 10.8, RBC 3.98, MCV 101.8, Na 132, BUN 24, AST 95. UA neg LE or nitrite. Flu +. EKG sinus rhythm with no ST T wave changes. CXR no acute process. CTA showed occluded segments of the left superficial femoral artery in the proximal thigh and mid-thigh. Started on heparin drip and admitted for further workup and evaluation. Underwent LLE angiogram and placement on tPA infusion catheter on 11/12. Second look on 11/14, removal of tPA infusion catheter. He did have swelling in his RLQ, CT AP ordered showing multiple areas of intramuscular hemorrhage including right rectus abdominis, left psoas and left iliacus. Transfused 1 PRBC 11/15, Hg has remained stable since. During that time, he had worsening breathing, pro-silvia was 0.49, he was started on bronchodilators, SoluMedrol and completed a course of Rocephin + Azithromycin. BNP 5200, Echocardiogram showed EF 50% mod MR mild AR/TR, receiving intermitted Lasix IV for diuresis. 11/22: On 2 L nasal cannula today, rest of vital stable. Continues to have loose bowel movements, reported 6 bowel movements since yesterday. Per nursing staff, there was hematuria noted overnight, now urine is clear, hemoglobin stable. 11/23Surgery consulted for Clogged PEG tube, can take medications orally. Apparently, ([facility] is no longer supplying patient's tube feeding due to noncompliance, patient states that he was not aware that he is supposed to review it so he just ran out of feeding and was working on his oral intake and actually started to gain some weight. Per surgery, PEG tube could not be unclogged, they offered replacement, however, patient's tube feeding would not be covered by insurance anymore, it was discussed with him and his , they elected to remove PEG tube and continue nutrition orally. Patient will follow- up with primary care physician, surgery, cardiology.Discussed with cardiology, patient will be discharged on aspirin 81 mg p.o. daily and Xarelto 2.5 mg twice daily PEG tube to be removed in 2 weeks Patient seen and examined at bedside. Vital signs reviewed and stable. General: [nontoxic], [no distress], [appears at stated age], chronically ill- appearing Derm: [warm], [dry] Head: [atraumatic], [normocephalic], [symmetric] Eyes: [EOMI], [no lid lag], [anicteric sclera] Mouth: [no lip lesion], [mucus membranes moist] Cardiovascular: [S1S2 reg], [no murmur] Lungs: [CTA bilateral], [no rhonchi, no rales] , [no accessory muscle use] Abdominal: [soft], [ nontender to palpation], [no guarding], [no appreciable organomegaly], PEG tube in place Ext: [no gross muscle atrophy], [no edema], [no contractures] Neuro: [ CN II-XI grossly intact], [no focal neuro deficits] Psych: [Alert], [oriented], [appropriate affect] A total of 45 minutes of time were spent preparing this complex discharge summary. Patient was discharged on 11/24 Plan - Discharge Summary Discharge Rx Participant: Yes New Discharge Prescriptions: New oxyCODONE-APAP 10-325MG [Percocet 10-325 mg] 1 each PO Q4HR PRN #18 tab PRN Reason: Moderate Pain (Scale 4 To 6) Aspirin 81 mg PO DAILY #30 tab Furosemide [Lasix] 40 mg PO DAILY #30 tab Rivaroxaban [Xarelto] 2.5 mg PO BID #60 tablet Spironolactone [Aldactone] 25 mg PO DAILY #30 tab Continue Atorvastatin [Lipitor] 40 mg PEG/G-TUBE DAILY Nitroglycerin Sl Tabs [Nitrostat] 0.4 mg PEG/G-TUBE Q5M PRN PRN Reason: Chest Pain Metoprolol Tartrate [Lopressor] 50 mg PEG/G-TUBE BID ALPRAZolam [Xanax] 0.25 mg PEG/G-TUBE BID PRN PRN Reason: Anxiety hydrOXYzine pamoate [Vistaril] 25 mg PEG/G-TUBE BID Ipratropium/Albuter 20-100Mcg [Combivent Respimat 20-100Mcg Inhaler] 1 puff INHALATION RT-QID PRN PRN Reason: Shortness Of Breath Albuterol Nebulized [Ventolin Nebulized] 2.5 mg INHALATION RT-Q4H Acetaminophen Tab [Tylenol] 650 mg PEG/G-TUBE Q6H PRN PRN Reason: Fever And/ Or Pain Omeprazole [PriLOSEC] 40 mg PEG/G-TUBE DAILY Tamsulosin HCl [Flomax] 0.4 mg PEG/G-TUBE DAILY Sertraline HCl [Zoloft] 50 mg PEG/G-TUBE DAILY Lactose-Reduced Food [Ensure Plus] 237 ml PEG/G-TUBE TID Levothyroxine Sodium [Synthroid] 50 mcg PEG/G-TUBE AC-BRKFST Melatonin 3 mg PEG/G-TUBE HS Discontinued Rivaroxaban [Xarelto] 20 mg PEG/G-TUBE DAILY Discharge Medication List Atorvastatin [Lipitor] 40 mg PEG/G-TUBE DAILY 06/09/18 [History] Nitroglycerin Sl Tabs [Nitrostat] 0.4 mg PEG/G-TUBE Q5M PRN 03/15/21 [History] ALPRAZolam [Xanax] 0.25 mg PEG/G-TUBE BID PRN 06/11/23 [History] Metoprolol Tartrate [Lopressor] 50 mg PEG/G-TUBE BID 06/11/23 [History] Ipratropium/Albuter 20-100Mcg [Combivent Respimat 20-100Mcg Inhaler] 1 puff INHALATION RT-QID PRN 12/30/23 [History] Omeprazole [PriLOSEC] 40 mg PEG/G-TUBE DAILY 12/30/23 [History] Sertraline HCl [Zoloft] 50 mg PEG/G-TUBE DAILY 12/30/23 [History] Tamsulosin HCl [Flomax] 0.4 mg PEG/G-TUBE DAILY 12/30/23 [History] hydrOXYzine pamoate [Vistaril] 25 mg PEG/G-TUBE BID 12/30/23 [History] Albuterol Nebulized [Ventolin Nebulized] 2.5 mg INHALATION RT-Q4H 08/10/24 [History] Acetaminophen Tab [Tylenol] 650 mg PEG/G-TUBE Q6H PRN 11/10/24 [History] Lactose-Reduced Food [Ensure Plus] 237 ml PEG/G-TUBE TID 11/10/24 [History] Levothyroxine Sodium [Synthroid] 50 mcg PEG/G-TUBE AC-BRKFST 11/10/24 [History] Melatonin 3 mg PEG/G-TUBE HS 11/10/24 [History] Aspirin 81 mg PO DAILY #30 tab 11/24/24 [Rx] Furosemide [Lasix] 40 mg PO DAILY #30 tab 11/24/24 [Rx] Rivaroxaban [Xarelto] 2.5 mg PO BID #60 tablet 11/24/24 [Rx] Spironolactone [Aldactone] 25 mg PO DAILY #30 tab 11/24/24 [Rx] oxyCODONE-APAP 10-325MG [Percocet 10-325 mg] 1 each PO Q4HR PRN #18 tab 11/24/24 [Rx] Follow up Appointment(s)/Referral(s): [facility] [NON-STAFF] - Russell Navarro MD [STAFF PHYSICIAN] - 1 Week [facility] [NON-STAFF] - [facility] [NON-STAFF] - Omid Lopez DO [Primary Care Provider] - 1-2 days Activity/Diet/Wound Care/Special Instructions: Call [facility] when you are home for delivery of home oxygen equipment Please, follow-up with your primary care physician, sewer tapper. As we discussed, work on your oral intake, check your weight regularly and keep a log of the readings to discuss with your primary care provider. If you are losing weight, please contact your primary care provider Please, contact your PCP or sewer tapper for medication refill Discharge/Stand Alone Forms: Who Do I Call? Discharge Disposition: HOME WITH HOME HEALTH SERVICES
== END 2024-11-24 15:11 | disposition home health service (06) | DRG 299 ==
LOC: EC 11:52 → 3SCARD 15:35 → 2SICU 11-12 14:04 → 3SCARD 11-16 14:51
PROVIDERS: ADMIT Student in an Organized Health Care Education/Training Program; ATTEND Student in an Organized Health Care Education/Training Program
PROC: 0YH733Z Insertion of Infusion Device into Right Femoral Region, Percutaneous Approach (ICD-10-PCS; principal; 2024-11-12 07:30)
PROC: 3E05317 Introduction of Other Thrombolytic into Peripheral Artery, Percutaneous Approach (ICD-10-PCS; principal; 2024-11-12 07:30)
PROC: 3E0G76Z Introduction of Nutritional Substance into Upper GI, Via Natural or Artificial Opening (ICD-10-PCS; 2024-11-13)
PROC: B41F1ZZ Fluoroscopy of Right Lower Extremity Arteries using Low Osmolar Contrast (ICD-10-PCS; 2024-11-14)
PROC: 0JPW3XZ Removal of Tunneled Vascular Access Device from Lower Extremity Subcutaneous Tissue and Fascia, Percutaneous Approach (ICD-10-PCS; 2024-11-14)
PROC: B41G1ZZ Fluoroscopy of Left Lower Extremity Arteries using Low Osmolar Contrast (ICD-10-PCS; 2024-11-14)
DX: I74.5 Embolism and thrombosis of iliac artery (principal); A41.89 Other specified sepsis; I50.23 Acute on chronic systolic (congestive) heart failure; J10.00 Influenza due to other identified influenza virus with unspecified type of pneumonia; J96.01 Acute respiratory failure with hypoxia; K68.3 Retroperitoneal hematoma; I74.3 Embolism and thrombosis of arteries of the lower extremities; J44.0 Chronic obstructive pulmonary disease with (acute) lower respiratory infection; I11.0 Hypertensive heart disease with heart failure; E03.9 Hypothyroidism, unspecified; F32.A Depression, unspecified; G25.81 Restless legs syndrome; I08.3 Combined rheumatic disorders of mitral, aortic and tricuspid valves; K94.23 Gastrostomy malfunction; E87.4 Mixed disorder of acid-base balance; D62 Acute posthemorrhagic anemia; I48.0 Paroxysmal atrial fibrillation; I70.222 Atherosclerosis of native arteries of extremities with rest pain, left leg; R13.10 Dysphagia, unspecified; E86.0 Dehydration; E78.5 Hyperlipidemia, unspecified; M79.81 Nontraumatic hematoma of soft tissue; R31.9 Hematuria, unspecified; F41.9 Anxiety disorder, unspecified; R41.3 Other amnesia; I25.10 Atherosclerotic heart disease of native coronary artery without angina pectoris; I25.2 Old myocardial infarction; R19.7 Diarrhea, unspecified; K21.9 Gastro-esophageal reflux disease without esophagitis; N40.0 Benign prostatic hyperplasia without lower urinary tract symptoms; T38.0X5A Adverse effect of glucocorticoids and synthetic analogues, initial encounter; D72.829 Elevated white blood cell count, unspecified; Z79.01 Long term (current) use of anticoagulants; Z79.02 Long term (current) use of antithrombotics/antiplatelets; Z79.82 Long term (current) use of aspirin; Z79.899 Other long term (current) drug therapy; Z87.891 Personal history of nicotine dependence; Z71.3 Dietary counseling and surveillance
CPT/HCPCS: 36246; 36415; 37211; 37214; 71045; 71046; 74177; 75630; 80048; 80053; 81001; 82565; 83605; 83735; 83880; 84145; 84520; 85025; 85027; 85384; 85610; 85730; 86850; 86900; 86901; 86920; 87040; 87070; 87205; 87324; 87449; 87636; 93005; 93306; 94640; 94760; 96361; 96365; 96366; 96375; 99285